=== PATIENT | female | born 1985 | race American Indian/Alaskan Native ===

== ENCOUNTER 2016-09-30 19:14 | Emergency (ER) | payer MEDICAID ==
[2016-09-30 19:38] VITALS: BP 114/70
[2016-09-30] MEDS ORDERED: Ibuprofen 600 MG Tab PO ONE (20:41)
[2016-09-30] MEDS ORDERED: Acetaminophen 500 MG Tab PO ONE (20:41)
[2016-09-30] MEDS ORDERED: Mupirocin Oint 22 GM Tube TOP STA (20:41)
--- NOTE | 2016-09-30 20:43 | EDM.PDOC ---
ED HPI Trauma - General Chief Complaint: Lower Extremity Injury/Pain Stated Complaint: INGROWN TOE NAIL,PUSS WITH BLOOD Time Seen by Provider: 09/30/16 20:36 Source: Reports: Patient History Limitations: Reports: No limitations - History of Present Illness INITIAL COMMENTS - FREE TEXT/NARRATIVE: 31 yo [place] Female c/o recent left great ingrown toenail surgery pain. Pt. c/ o post op bleeding and pain. Symptom Onset Date: 09/29/16 Symptom Onset Time: 20:00 Occurred When: yesterday Occurred Where: home Method of Injury: other (recnet ingrown toenail surgery) Severity: moderate Pain/Injury Location: Reports: lower extremity, left Consciousness: Reports: no loss of consciousness Associated Symptoms: Reports: no other symptoms Allergies/ADRs: Allergies amoxicillin Allergy (Verified 09/30/16 19:34) Other pt states amoxicillin doesn't work Penicillins Allergy (Verified 09/30/16 19:34) Other PATIENT STATES PENICILLIN DOESN'T WORK Home Medications: Ambulatory Orders Hydrocort/Neomycin/Polymyxin B [Cortisporin Otic Soln] 09/30/16 Hydrocort/Neomycin/Polymyxin B [Cortisporin Otic Soln] 1 ml TOP DAILY 09/30/16 [ Confirmed 09/30/16] Past Medical History - Past Health History Medical/Surgical History: Denies Medical/Surgical History HEENT History: Reports: Impaired vision Other HEENT History: wears glasses Cardiovascular History: Reports: None Respiratory History: Reports: None Gastrointestinal History: Reports: Bowel obstruction, Diverticulosis Genitourinary History: Reports: UTI, recurrent 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) Other OB/BYN History: ovarian cysts Musculoskeletal History: Reports: None Neurological History: Reports: None Psychiatric History: Reports: None Endocrine/Metabolic History: Reports: None Hematologic History: Reports: None Immunologic History: Reports: None Oncologic (Cancer) History: Reports: None Dermatologic History: Reports: Other (see below) Other Dermatologic History: acne - Infectious Disease History Infectious Disease History: Reports: Chicken pox - Past Surgical History Head Surgeries/Procedures: Reports: None HEENT Surgical History: Reports: Tonsillectomy, Other (see below) Other HEENT Surgeries/Procedures: wisdom teeth GI Surgical History: Reports: Colon Other GI Surgeries/Procedures: removed"a foot of stool" 3 years ago Other Female Surgeries/Procedures: ovarian cysts Social & Family History - Family History Family Medical History: Noncontributory - Tobacco Use Smoking Status *Q: Never Smoker Second Hand Smoke Exposure: No - Caffeine Use Caffeine Use: Reports: None - Alcohol Use Days Per Week of Alcohol Use: 1 Number of Drinks Per Day: 2 Total Drinks Per Week: 2 - Recreational Drug Use Recreational Drug Use: No - Living Situation & Occupation Living situation: Reports: with family Review of Systems - Review of Systems Review Of Systems: See Below Constitutional: Reports: no symptoms Eyes: Reports: no symptoms Ears: Reports: no symptoms Nose: Reports: no symptoms Mouth/Throat: Reports: no symptoms Respiratory: Reports: No Symptoms Cardiovascular: Reports: no symptoms GI/Abdominal: Reports: No symptoms Genitourinary: Reports: no symptoms Musculoskeletal: Reports: foot pain (left great toe) Skin: Reports: erythema Neurological: Reports: No Symptoms Psychiatric: Reports: no symptoms Trauma Exam - Physical Exam Exam: See Below Exam Limited By: No limitations General Appearance: Reports: alert, WD/WN, no apparent distress Head: Reports: atraumatic Eyes: bilateral eye: PERRL Ears: Reports: normal external exam Nose: Reports: normal inspection Throat/Mouth: Reports: Normal inspection Neck: Reports: non-tender Respiratory Exam: Reports: no respiratory distress Cardiovascular: Reports: normal peripheral pulses, regular rate, rhythm GI/Abdominal: Reports: normal bowel sounds Back: Reports: full range of motion Extremities: Reports: tenderness (left great toe with min erythema) 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, no motor/sensory deficits, normal mood/affect, oriented x 3 Skin: Reports: Normal color Course - Vital Signs Last Recorded V/S: Last Vital Signs Temp 36.9 C 09/30/16 19:35 Pulse 84 09/30/16 19:35 Resp 18 09/30/16 19:35 BP 114/70 09/30/16 19:35 Pulse Ox 99 09/30/16 19:35 - Orders/Labs/Meds Meds: Medications Discontinued Medications Generic Name Dose Route Start Last Admin Trade Name Freq PRN Reason Stop Dose Admin Acetaminophen 500 mg 09/30/16 20:41 Tylenol Extra Strength PO 09/30/16 20:42 ONETIME ONE Ibuprofen 600 mg 09/30/16 20:41 Motrin PO 09/30/16 20:42 ONETIME ONE Mupirocin 2 gm 09/30/16 20:41 Bactroban Oint TOP 09/30/16 20:42 NOW STA Departure - Departure Time of Disposition: 20:49 Disposition: Home, Self-Care 01 Condition: good Clinical Impression: History of toe surgery, Toe pain, left Forms: ED Department Discharge Additional Instructions: Elevate Take OTC Pain Med ( Ibuprofen 600mg TID w/ Food and Extra Strength Tylenol 500mg QID) Change dressing Once Daily w/ Bactroban Ointment F/U w/ Doctor on Sunday
== END 2016-09-30 20:59 | disposition home or self-care (01) ==
LOC: DL.ED 19:14
DX: G89.18 Other acute postprocedural pain (principal); M79.675 Pain in left toe(s); Z88.0 Allergy status to penicillin; Z88.1 Allergy status to other antibiotic agents; Z98.890 Other specified postprocedural states
CPT/HCPCS: 99282; A9270

== ENCOUNTER 2016-11-21 09:45 | Emergency (ER) | payer MEDICAID ==
[2016-11-21] MEDS ORDERED: Sodium Chloride 0.9% 10 ML Syringe FLUSH PRN (09:58)
[2016-11-21 10:35] LABS: CHLORIDE,CL 101 mmol/L (101-111); SODIUM,NA 136 mmol/L (135-145)
[2016-11-21 11:07] VITALS: BP 146/73
[2016-11-21] MEDS ORDERED: Iopamidol 612 MG/ML 50 ML SDV IVPUSH ONE ×2 (11:20→11:54)
[2016-11-21] MEDS ORDERED: Iopamidol 612 MG/ML 75 ML Bottle IVPUSH ONE (11:55)
--- NOTE | 2016-11-21 12:05 | EDM.PDOC ---
ED HPI GENERAL MEDICAL PROBLEM - General Chief Complaint: Abdominal Pain Stated Complaint: DIVERTICULITIS [phone] Time Seen by Provider: 11/21/16 10:30 Source of Information: Reports: Patient, RN Notes Reviewed History Limitations: Reports: No Limitations - History of Present Illness INITIAL COMMENTS - FREE TEXT/NARRATIVE: patient is a 31-year-old morbidly obese female with a history of diverticulitis. Comes in today with a five-day history of abdominal pain. She states she saw her primary care provider on Sunday and was started on Cipro and Flagyl but had no labs or nice fever chills nausea or vomit she states the pain has not improved she states the pain is a dull aching pain in her lower abdomen and radiates into her right low back. She states nothing makes it better nothing makes it worse. She rates her pain a 7/10 Severity: Moderate Improves with: Reports: None Worsens with: Reports: None Lower Abdomen Pain Score (Numeric/FACES): 8 - Related Data Allergies Allergy/AdvReac Type Severity Reaction Status Date / Time amoxicillin Allergy Other Verified 09/30/16 19:34 Penicillins Allergy Other Verified 09/30/16 19:34 Home Meds: Home Meds Ciprofloxacin HCl [Ciprofloxacin HCl] 500 mg PO BID 11/21/16 [History] Metronidazole [IJD: metroNIDAZOLE] 500 mg PO .EVERY 8 HOURS 11/21/16 [History] Past Medical History - Past Health History Medical/Surgical History: Denies Medical/Surgical History HEENT History: Reports: Impaired Vision Other HEENT History: wears glasses Cardiovascular History: Reports: None Respiratory History: Reports: None Gastrointestinal History: Reports: Bowel Obstruction, Diverticulosis Genitourinary History: Reports: UTI, Recurrent 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) Other OB/BYN History: ovarian cysts Musculoskeletal History: Reports: None Neurological History: Reports: None Psychiatric History: Reports: None Endocrine/Metabolic History: Reports: None Hematologic History: Reports: None Immunologic History: Reports: None Oncologic (Cancer) History: Reports: None Dermatologic History: Reports: Other (See Below) Other Dermatologic History: acne - Infectious Disease History Infectious Disease History: Reports: Chicken Pox - Past Surgical History Head Surgeries/Procedures: Reports: None HEENT Surgical History: Reports: Tonsillectomy, Other (See Below) Social & Family History - Family History Family Medical History: Noncontributory - Tobacco Use Smoking Status *Q: Never Smoker Second Hand Smoke Exposure: No - Caffeine Use Caffeine Use: Reports: None - Alcohol Use Days Per Week of Alcohol Use: 1 Number of Drinks Per Day: 2 Total Drinks Per Week: 2 - Recreational Drug Use Recreational Drug Use: No - Living Situation & Occupation Living situation: Reports: with Family ED ROS GENERAL - Review of Systems Review Of Systems: ROS reveals no pertinent complaints other than HPI. ED EXAM, GI/ABD - Physical Exam Exam: See Below Exam Limited By: No Limitations General Appearance: Alert, WD/WN, No Apparent Distress Throat/Mouth: Normal Inspection, Normal Lips, Normal Teeth, Normal Gums, Normal Oropharynx, Normal Voice, No Airway Compromise Head: Atraumatic, Normocephalic Respiratory/Chest: No Respiratory Distress, Lungs Clear, Normal Breath Sounds, No Accessory Muscle Use, Chest Non-Tender Cardiovascular: Normal Peripheral Pulses, Regular Rate, Rhythm, No Edema, No Gallop, No JVD, No Murmur, No Rub GI/Abdominal: Normal Bowel Sounds, Soft, No Organomegaly, No Distention, No Abnormal Bruit, No Mass, Tenderness, Other (mildly tender suprapubically). No: Distention, Guarding, Rebound (Female) Exam: Other (denies vaginal discharge vaginal odor or STD exposure) Extremities: Normal Inspection, Normal Range of Motion, Non-Tender, Normal Capillary Refill, No Pedal Edema Neurological: Alert, Oriented, CN II-XII Intact, Normal Cognition, Normal Gait, Normal Reflexes, No Motor/Sensory Deficits Psychiatric: Normal Affect, Normal Mood Skin Exam: Warm, Dry, Intact, Normal Color, No Rash Course - Vital Signs Last Recorded V/S: Last Vital Signs Temp 97.3 F 11/21/16 09:54 Pulse 86 11/21/16 11:07 Resp 16 11/21/16 11:07 BP 146/73 H 11/21/16 11:07 Pulse Ox 100 11/21/16 11:07 - Orders/Labs/Meds Orders: Active Orders 24 hr Category Date Time Status Peripheral IV Care [RC] . DIRECTED Care 11/21/16 09:58 Active Sodium Chloride 0.9% [Saline Flush] Med 11/21/16 09:58 Active 10 ml FLUSH ASDIRECTED PRN Peripheral IV Insertion Adult [OM.PC] Routine Oth 11/21/16 09:58 Ordered Medication Orders Sodium Chloride (Saline Flush) 10 ml FLUSH ASDIRECTED PRN PRN Reason: Keep Vein Open Last Admin: 11/21/16 10:10 Dose: 10 ml Labs: Laboratory Tests 11/21/16 11/21/16 11/21/16 Range/Units 09:57 09:57 10:09 WBC 11.6 H (5.0-10.0) 10^3/uL RBC 4.54 (4.2-5.4) 10^6/uL Hgb 13.6 (12.0-16.0) g/dL Hct 41.0 (37.0-47.0) % MCV 90.3 (80-100) fL MCH 30.0 (27.0-34.0) pg MCHC 33.2 (33.0-35.0) g/dL Plt Count 262 (150-450) 10^3/uL Neut % (Auto) 68.1 (42.2-75.2) % Lymph % (Auto) 21.9 (20.5-50.1) % [place] % (Auto) 7.4 (2-8) % Eos % (Auto) 2.3 (1.0-3.0) % Baso % (Auto) 0.3 (0.0-1.0) % Sodium (135-145) mmol/L Potassium (3.6-5.0) mmol/L Chloride (101-111) mmol/L Carbon Dioxide (21.0-31.0) mmol/L Anion Gap BUN (7-18) mg/dL Creatinine (0.6-1.3) mg/dL Est Cr Clr Drug Dosing mL/min Estimated GFR (MDRD) BUN/Creatinine Ratio Glucose (74-105) mg/dL Calcium (8.4-10.2) mg/dl Total Bilirubin (0.2-1.0) mg/dL AST (10-42) IU/L ALT (10-60) IU/L Alkaline Phosphatase (42-121) IU/L Total Protein (6.7-8.2) g/dl Albumin (3.2-5.5) g/dl Globulin Albumin/Globulin Ratio Lipase (22-51) U/L Urine Color Yellow (YELLOW) Urine Appearance Slightly cloudy (CLEAR) Urine pH 5.5 (5.0-9.0) Ur Specific [place] 1.015 (1.005-1.030) Urine Protein Negative (NEGATIVE) Urine Glucose (UA) Negative (NEGATIVE) Urine Ketones Negative (NEGATIVE) Urine Occult Blood Negative (NEGATIVE) Urine Nitrite Negative (NEGATIVE) Urine Bilirubin Negative (NEGATIVE) Urine Urobilinogen 0.2 (0.2-1.0) mg/dL Ur Leukocyte Esterase Trace H (NEGATIVE) Urine RBC Not seen /HPF Urine WBC 0-5 (0-5/HPF) /HPF Ur Epithelial Cells Few /HPF Urine Bacteria Few (0-FEW/HPF) /HPF Urine HCG, Qual Negative 11/21/16 Range/Units 10:09 WBC (5.0-10.0) 10^3/uL RBC (4.2-5.4) 10^6/uL Hgb (12.0-16.0) g/dL Hct (37.0-47.0) % MCV (80-100) fL MCH (27.0-34.0) pg MCHC (33.0-35.0) g/dL Plt Count (150-450) 10^3/uL Neut % (Auto) (42.2-75.2) % Lymph % (Auto) (20.5-50.1) % Pender % (Auto) (2-8) % Eos % (Auto) (1.0-3.0) % Baso % (Auto) (0.0-1.0) % Sodium 136 (135-145) mmol/L Potassium 3.8 (3.6-5.0) mmol/L Chloride 101 (101-111) mmol/L Carbon Dioxide 25.0 (21.0-31.0) mmol/L Anion Gap 13.8 BUN 10 (7-18) mg/dL Creatinine 0.6 (0.6-1.3) mg/dL Est Cr Clr Drug Dosing 138.30 mL/min Estimated GFR (MDRD) > 60 BUN/Creatinine Ratio 16.66 Glucose 126 H (74-105) mg/dL Calcium 8.9 (8.4-10.2) mg/dl Total Bilirubin 0.4 (0.2-1.0) mg/dL AST 24 (10-42) IU/L ALT 26 (10-60) IU/L Alkaline Phosphatase 56 (42-121) IU/L Total Protein 7.0 (6.7-8.2) g/dl Albumin 3.9 (3.2-5.5) g/dl Globulin 3.1 Albumin/Globulin Ratio 1.26 Lipase 23 (22-51) U/L Urine Color (YELLOW) Urine Appearance (CLEAR) Urine pH (5.0-9.0) Ur Specific [place] (1.005-1.030) Urine Protein (NEGATIVE) Urine Glucose (UA) (NEGATIVE) Urine Ketones (NEGATIVE) Urine Occult Blood (NEGATIVE) Urine Nitrite (NEGATIVE) Urine Bilirubin (NEGATIVE) Urine Urobilinogen (0.2-1.0) mg/dL Ur Leukocyte Esterase (NEGATIVE) Urine RBC /HPF Urine WBC (0-5/HPF) /HPF Ur Epithelial Cells /HPF Urine Bacteria (0-FEW/HPF) /HPF Urine HCG, Qual Meds: Medications Generic Name Dose Route Start Last Admin Trade Name Freq PRN Reason Stop Dose Admin Sodium Chloride 10 ml 11/21/16 09:58 11/21/16 10:10 Saline Flush FLUSH 10 ml ASDIRECTED PRN Administration Keep Vein Open Discontinued Medications Generic Name Dose Route Start Last Admin Trade Name Freq PRN Reason Stop Dose Admin Iopamidol 125 ml 11/21/16 11:20 Isovue-300 (61%) IVPUSH 11/21/16 11:21 ONETIME ONE Iopamidol 50 ml 11/21/16 11:54 11/21/16 11:57 Isovue-300 (61%) IVPUSH 11/21/16 11:55 50 ml ONETIME ONE Administration Iopamidol 75 ml 11/21/16 11:55 11/21/16 11:57 Isovue-300 (61%) IVPUSH 11/21/16 11:56 75 ml ONETIME ONE Administration - Re-Assessments/Exams Free Text/Narrative Re-Assessment/Exam: 11/21/16 11:54 patient had IV established and blood work was obtained patient's white count was urinalysis was normal CMP was normal the results were discussed with the patient and the patient was adamant that she needed a CAT scan. She also stated that she needed a work note and something for pain I told her I would not give her something for pain and I did not know what I was treating the the CAT scan was ordered-3 cm diameter right ovarian cyst and diverticulosis without diverticulitis.patient will be discharged home to followup with her MINE LABORER she' ll be given some Tylenol No. 3 for her discomfort. 11/21/16 12:36 Departure - Departure Time of Disposition: 12:36 Disposition: Home, Self-Care 01 Condition: good Clinical Impression: Abdominal pain, Ovarian cyst Pain in the abdomen Qualifiers: Abdominal location: right lower quadrant Qualified Code(s): R10.31 - Right lower quadrant pain - Discharge Information Instructions: Abdominal Pain, Adult, [id number], Ovarian Cyst, Pain Medicine Instructions, [id number] Forms: ED Department Discharge Additional Instructions: discharge diagnose abdominal pain Ovarian cyst use Tylenol No. 3 as needed for pain do not drive or mix with alcohol Followup with your MINE LABORER in the next 3-5 days for further evaluation treatment and pain management. Return for increased pain nausea vomiting fever or worsening symptoms - My Orders Last 24 Hours: My Active Orders 11/21/16 09:58 Peripheral IV Care [RC] . DIRECTED Sodium Chloride 0.9% [Saline Flush] 10 ml FLUSH ASDIRECTED PRN Peripheral IV Insertion Adult [OM.PC] Routine - Assessment/Plan Last 24 Hours: My Active Orders 11/21/16 09:58 Peripheral IV Care [RC] . DIRECTED Sodium Chloride 0.9% [Saline Flush] 10 ml FLUSH ASDIRECTED PRN Peripheral IV Insertion Adult [OM.PC] Routine
--- NOTE | 2016-11-21 12:21 | CT ---
31-year-old obese female with history of "diverticulitis" now complaining of abdominal pain. Scan technique: Volume acquisition of data abdomen and pelvis obtained without oral contrast but dur ing intravenous infusion 125 cc nonionic Isovue contrast while patient was lying supine on the [employer] multi slice CT scanner [place], [place]. All data archived in the PAC system for storage, reformatting and study. Interpretation: 1. Numerous diverticula in the descending left and sigmoid colon without current signs of associated inflammation (surgical sutures left colon). Large [place] diverticulum hepatic flexure. 2. Solitary large 3 cm diameter cyst right ovary and smaller adjacent 7/15 mm cysts in the left ovar y. Normal uterus. Normal appendix RLQ. 3. Gallbladder inhomogeneously dense and cannot exclude noncalcified intraluminal stones. Normal rupali er without sign of intrahepatic mass or intra/\\E\\slash extrahepatic biliary duct dilatation. 4. Stomach, spleen, pancreas and adrenal glands unremarkable. Normal kidneys. 5. no pelvic or abdominal mass lesion, inflammatory "dirty" peritoneal fat, signs of mechanical nicol l obstruction, ascites or free intraperitoneal air. 6. normal cardiac silhouette. Lung bases clear. Normal caliber aortoiliac vessels. CONCLUSION: Pancolonic diverticulosis. Ovarian cysts. No sign of acute peritonitis.
== END 2016-11-21 12:48 | disposition home or self-care (01) ==
LOC: DL.ED 09:45
DX: N83.201 Unspecified ovarian cyst, right side (principal); K57.30 Diverticulosis of large intestine without perforation or abscess without bleeding; Z88.1 Allergy status to other antibiotic agents; Z88.0 Allergy status to penicillin; Z87.440 Personal history of urinary (tract) infections
CPT/HCPCS: 36415; 74177; 80053; 81001; 81025; 83690; 85025; 99284; J7050; Q9967

== ENCOUNTER 2017-03-18 10:29 | Emergency (ER) | payer MEDICAID ==
[2017-03-18 10:40] VITALS: BP 121/56
[2017-03-18] MEDS ORDERED: Sodium Chloride 0.9% 10 ML Syringe FLUSH PRN (11:22)
--- NOTE | 2017-03-18 11:22 | EDM.PDOC ---
ED HPI GENERAL MEDICAL PROBLEM - General Chief Complaint: Abdominal Pain Stated Complaint: [id number] LEFT SIDE SHARP PAIN Time Seen by Provider: 03/18/17 11:18 Source of Information: Reports: Patient History Limitations: Reports: No Limitations - History of Present Illness INITIAL COMMENTS - FREE TEXT/NARRATIVE: 31 yo female presents with 2 day history of left lower quadrant abdominal pain. States that she has a history of diverticulitis but pain is usually on the right side, denies n/v/d. Describes pain as sharp and non-radiating. States that she has also been having vaginal bleeding x 1 month. 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 [No Known Home Meds] 03/18/17 [History] Past Medical History - Past Health History Medical/Surgical History: Denies Medical/Surgical History HEENT History: Reports: Impaired Vision Other HEENT History: wears glasses Cardiovascular History: Reports: None Respiratory History: Reports: None Gastrointestinal History: Reports: Bowel Obstruction, Diverticulosis Genitourinary History: Reports: UTI, Recurrent CORPORATION PILOT History: Reports: Other (See Below) Other OB/BYN History: ovarian cysts Musculoskeletal History: Reports: None Neurological History: Reports: None Psychiatric History: Reports: None Endocrine/Metabolic History: Reports: None Hematologic History: Reports: None Immunologic History: Reports: None Oncologic (Cancer) History: Reports: None Dermatologic History: Reports: Other (See Below) Other Dermatologic History: acne - Infectious Disease History Infectious Disease History: Reports: Chicken Pox - Past Surgical History Head Surgeries/Procedures: Reports: None HEENT Surgical History: Reports: Tonsillectomy, Other (See Below) Other HEENT Surgeries/Procedures: wisdom teeth GI Surgical History: Reports: Colon, Colonoscopy Social & Family History - Family History Family Medical History: Noncontributory - Tobacco Use Smoking Status *Q: Never Smoker Second Hand Smoke Exposure: No - Caffeine Use Caffeine Use: Reports: None - Alcohol Use Days Per Week of Alcohol Use: 1 Number of Drinks Per Day: 2 Total Drinks Per Week: 2 - Recreational Drug Use Recreational Drug Use: No - Living Situation & Occupation Living situation: Reports: with Family ED ROS GENERAL - Review of Systems Review Of Systems: ROS reveals no pertinent complaints other than HPI. ED EXAM, GI/ABD - Physical Exam Exam: See Below Exam Limited By: No Limitations General Appearance: Alert, WD/WN, No Apparent Distress Eyes: Bilateral: Normal Appearance, EOMI Ears: Normal External Exam, Normal Canal, Hearing Grossly Normal, Normal TMs Nose: Normal Inspection, Normal Mucosa, No Blood Throat/Mouth: Normal Inspection, Normal Lips, Normal Teeth, Normal Gums, Normal Oropharynx, Normal Voice, No Airway Compromise Respiratory/Chest: No Respiratory Distress, Lungs Clear, Normal Breath Sounds, No Accessory Muscle Use, Chest Non-Tender Cardiovascular: Normal Peripheral Pulses, Regular Rate, Rhythm, No Edema, No Gallop, No JVD, No Murmur, No Rub GI/Abdominal Exam: Normal Bowel Sounds, Soft, No Organomegaly, No Distention, No Abnormal Bruit, No Mass, Pelvis Stable, Tender (LLQ) Back Exam: Normal Inspection, Full Range of Motion, NT Extremities: Normal Inspection, Normal Range of Motion, Non-Tender, Normal Capillary Refill, No Pedal Edema Neurological: Alert, Oriented, CN II-XII Intact, Normal Cognition, Normal Gait, No Motor/Sensory Deficits Skin Exam: Warm, Dry, Intact, Normal Color, No Rash Course - Vital Signs Last Recorded V/S: Last Vital Signs Temp Pulse 88 03/18/17 10:39 Resp 16 03/18/17 10:39 BP 121/56 L 03/18/17 10:39 Pulse Ox 99 03/18/17 10:39 - Orders/Labs/Meds Orders: Active Orders 24 hr Category Date Time Status Abdomen Pelvis w Cont [CT] Urgent Exams 03/18/17 12:15 Taken Acetaminophen/HYDROcodone [[place] 325-5 MG] Med 03/18/17 14:10 Once 1 tab PO ONETIME ONE Sodium Chloride 0.9% [Saline Flush] Med 03/18/17 11:22 Active 10 ml FLUSH ASDIRECTED PRN Saline Lock Insert [OM.PC] Stat Oth 03/18/17 11:22 Ordered Medication Orders Hydrocodone Bitart/Acetaminophen ([place] 325-5 Mg) 1 tab PO ONETIME ONE Stop: 03/18/17 14:11 Sodium Chloride (Saline Flush) 10 ml FLUSH ASDIRECTED PRN PRN Reason: Keep Vein Open Last Admin: 03/18/17 12:06 Dose: 10 ml Labs: Laboratory Tests 03/18/17 03/18/17 03/18/17 Range/Units 11:30 11:30 11:50 WBC 9.1 (5.0-10.0) 10^3/uL RBC 4.20 (4.2-5.4) 10^6/uL Hgb 12.6 (12.0-16.0) g/dL Hct 38.8 (37.0-47.0) % MCV 92.4 (80-100) fL MCH 30.0 (27.0-34.0) pg MCHC 32.5 L (33.0-35.0) g/dL Plt Count 251 (150-450) 10^3/uL Neut % (Auto) 66.6 (42.2-75.2) % Lymph % (Auto) 21.4 (20.5-50.1) % [place] % (Auto) 8.6 H (2-8) % Eos % (Auto) 3.2 H (1.0-3.0) % Baso % (Auto) 0.2 (0.0-1.0) % Sodium 141 (135-145) mmol/L Potassium 4.0 (3.6-5.0) mmol/L Chloride 104 (101-111) mmol/L Carbon Dioxide 29.0 (21.0-31.0) mmol/L Anion Gap 12.0 BUN 12 (7-18) mg/dL Creatinine 0.7 (0.6-1.3) mg/dL Est Cr Clr Drug Dosing 114.28 mL/min Estimated GFR (MDRD) > 60 BUN/Creatinine Ratio 17.14 Glucose 101 (74-105) mg/dL Calcium 8.9 (8.4-10.2) mg/dl Total Bilirubin 0.6 (0.2-1.0) mg/dL AST 12 (10-42) IU/L ALT 13 (10-60) IU/L Alkaline Phosphatase 51 (42-121) IU/L Total Protein 6.3 L (6.7-8.2) g/dl Albumin 3.1 L (3.2-5.5) g/dl Globulin 3.2 Albumin/Globulin Ratio 0.97 Amylase 30 (28-100) U/L Lipase 19 L (22-51) U/L Urine Color Yellow (YELLOW) Urine Appearance Slightly cloudy (CLEAR) Urine pH 7.5 (5.0-9.0) Ur Specific [place] 1.015 (1.005-1.030) Urine Protein Negative (NEGATIVE) Urine Glucose (UA) Negative (NEGATIVE) Urine Ketones Negative (NEGATIVE) Urine Occult Blood Moderate H (NEGATIVE) Urine Nitrite Negative (NEGATIVE) Urine Bilirubin Negative (NEGATIVE) Urine Urobilinogen 0.2 (0.2-1.0) mg/dL Ur Leukocyte Esterase Negative (NEGATIVE) Urine RBC 40-50 H /HPF Urine WBC 0-5 (0-5/HPF) /HPF Ur Epithelial Cells Few /HPF Urine Bacteria Rare (0-FEW/HPF) /HPF Urine Mucus Not seen /LPF Meds: Medications Generic Name Dose Route Start Last Admin Trade Name Freq PRN Reason Stop Dose Admin Hydrocodone Bitart/Acetaminophen 1 tab 03/18/17 14:10 [place] 325-5 Mg PO 03/18/17 14:11 ONETIME ONE Sodium Chloride 10 ml 03/18/17 11:22 03/18/17 12:06 Saline Flush FLUSH 10 ml ASDIRECTED PRN Administration Keep Vein Open Discontinued Medications Generic Name Dose Route Start Last Admin Trade Name Freq PRN Reason Stop Dose Admin Ketorolac Tromethamine 30 mg 03/18/17 14:04 Toradol IVPUSH 03/18/17 14:05 ONETIME ONE - Re-Assessments/Exams Free Text/Narrative Re-Assessment/Exam: 03/18/17 14:05 Large ovarian cyst to left ovary. Departure - Departure Time of Disposition: 14:05 Disposition: Home, Self-Care 01 Condition: Good Clinical Impression: Ovarian cyst Qualifiers: Laterality: left Qualified Code(s): N83.202 - Unspecified ovarian cyst, left side - Discharge Information Instructions: Ovarian Cyst Forms: ED Department Discharge Additional Instructions: Follow up with your [facility] as soon as possible to have the cyst re-evaluated. Take the motrin as needed. Care Plan Goals: motrin 800 #21 - My Orders Last 24 Hours: My Active Orders 03/18/17 11:22 Sodium Chloride 0.9% [Saline Flush] 10 ml FLUSH ASDIRECTED PRN Saline Lock Insert [OM.PC] Stat 03/18/17 12:15 Abdomen Pelvis w Cont [CT] Urgent 03/18/17 14:10 Acetaminophen/HYDROcodone [[place] 325-5 MG] 1 tab PO ONETIME ONE - Assessment/Plan Last 24 Hours: My Active Orders 03/18/17 11:22 Sodium Chloride 0.9% [Saline Flush] 10 ml FLUSH ASDIRECTED PRN Saline Lock Insert [OM.PC] Stat 03/18/17 12:15 Abdomen Pelvis w Cont [CT] Urgent 03/18/17 14:10 Acetaminophen/HYDROcodone [[place] 325-5 MG] 1 tab PO ONETIME ONE
[2017-03-18 11:57] LABS: CHLORIDE,CL 104 mmol/L (101-111); SODIUM,NA 141 mmol/L (135-145)
[2017-03-18] MEDS ORDERED: Ketorolac 30 MG/ML SDV IVPUSH ONE (14:04)
[2017-03-18] MEDS ORDERED: Acetaminophen/HYDROcodone 325-5 MG Tab PO ONE (14:10)
== END 2017-03-18 14:27 | disposition home or self-care (01) ==
LOC: DL.ED 10:29
DX: N83.202 Unspecified ovarian cyst, left side (principal); Z87.440 Personal history of urinary (tract) infections; Z98.890 Other specified postprocedural states; Z88.0 Allergy status to penicillin; Z88.1 Allergy status to other antibiotic agents
CPT/HCPCS: 36415; 74177; 80053; 81001; 82150; 83690; 85025; 96374; 99284; A9270; J1885; J7050; Q9967

== ENCOUNTER 2017-03-22 10:50 | Emergency (ER) | payer MEDICAID ==
[2017-03-22] MEDS ORDERED: HYDROmorphone 1 MG/ML Syringe IVPUSH ONE (11:25)
[2017-03-22] MEDS ORDERED: Sodium Chloride 0.9% 10 ML Syringe FLUSH PRN (11:26)
--- NOTE | 2017-03-22 11:28 | EDM.PDOC ---
ED HPI GENERAL MEDICAL PROBLEM - General Chief Complaint: Abdominal Pain Stated Complaint: LEFT UPPER SIDE Time Seen by Provider: 03/22/17 11:23 Source of Information: Reports: Patient History Limitations: Reports: No Limitations - History of Present Illness INITIAL COMMENTS - FREE TEXT/NARRATIVE: Susy is a 31 year old female who presents to the ER with complaints of left upper abdominal pain with radiation to left back. She reports she woke up this morning with the sharp pain. She has tried Motrin for the pain without relief. She reports this pain is not similar to the pain she was experiencing earlier this week. Pain is aggravated by movement and deep breathing. She was seen in the ER on 03/18/2017 and was found to have a left ovarian cyst on CT. She followed up with [facility] [facility] yesterday, who recommended she start oral contraceptives on Sunday. She reports she has had vaginal bleeding x 1 month. Reports moderately heavy flow. Denies . Reports normal menses prior to this past month. Denies history of kidney stones or pancreatitis. Onset: Today, Sudden Onset Date: 03/22/17 Onset Time: 08:00 Location: Reports: Abdomen (left upper) Quality: Reports: Sharp Severity: Moderate Improves with: Reports: None Worsens with: Reports: Movement Associated Symptoms: Reports: No Other Symptoms Treatments HEDIS ABSTRACTOR: Reports: NSAIDS (800 mg ibuprofen) Left Upper Abdomen Pain Score (Numeric/FACES): 10 - Related Data Allergies Allergy/AdvReac Type Severity Reaction Status Date / Time amoxicillin Allergy Other Verified 03/22/17 11:04 Penicillins Allergy Other Verified 03/22/17 11:04 Home Meds: Home Meds . 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 History: Reports: 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 (vaginal bleeding x 1 month), Other (See Below) Other OB/BYN History: ovarian cysts Musculoskeletal History: Reports: None Neurological History: Reports: None Psychiatric History: Reports: None Endocrine/Metabolic History: Reports: None Hematologic History: Reports: None Immunologic History: Reports: None Oncologic (Cancer) History: Reports: None Dermatologic History: Reports: Other (See Below) Other Dermatologic History: acne - Infectious Disease History Infectious Disease History: Reports: Chicken Pox - Past Surgical History Head Surgeries/Procedures: Reports: None HEENT Surgical History: Reports: Tonsillectomy, Other (See Below) Other HEENT Surgeries/Procedures: wisdom teeth GI Surgical History: Reports: Colon, Colonoscopy Social & Family History - Family History Family Medical History: Noncontributory - Tobacco Use Smoking Status *Q: Never Smoker Second Hand Smoke Exposure: No - Caffeine Use Caffeine Use: Reports: None - Alcohol Use Days Per Week of Alcohol Use: 1 Number of Drinks Per Day: 2 Total Drinks Per Week: 2 - Recreational Drug Use Recreational Drug Use: No - Living Situation & Occupation Living situation: Reports: with Family ED ROS GENERAL - Review of Systems Review Of Systems: See Below Constitutional: Reports: No Symptoms Respiratory: Reports: No Symptoms Cardiovascular: Reports: No Symptoms GI/Abdominal: Reports: Abdominal Pain (left upper) : Reports: Flank Pain (left flank), Irregular Menses (bleeding x 1 month) Neurological: Reports: No Symptoms ED EXAM, GI/ABD - Physical Exam Exam: See Below Exam Limited By: No Limitations General Appearance: Alert, WD/WN, Mild Distress Respiratory/Chest: No Respiratory Distress, Lungs Clear, Normal Breath Sounds, No Accessory Muscle Use, Chest Non-Tender Cardiovascular: Normal Peripheral Pulses, Regular Rate, Rhythm, No Edema, No Gallop, No JVD, No Murmur, No Rub GI/Abdominal Exam: Normal Bowel Sounds, Soft, No Organomegaly, No Distention, No Mass, Tender (Female) Exam: Vaginal Bleeding Back Exam: Full Range of Motion, CVA Tenderness (L) Extremities: Normal Inspection, Normal Range of Motion, Non-Tender, Normal Capillary Refill, No Pedal Edema Neurological: Alert, Oriented, CN II-XII Intact, Normal Cognition, Normal Gait, Normal Reflexes, No Motor/Sensory Deficits Psychiatric: Normal Affect, Normal Mood, Anxious, Tearful Skin Exam: Warm, Dry, Intact, Normal Color, No Rash Lymphatic: No Adenopathy Course - Vital Signs Last Recorded V/S: Last Vital Signs Temp 36.4 C 03/22/17 11:07 Pulse 79 03/22/17 11:07 Resp 18 03/22/17 11:07 BP 102/61 03/22/17 11:07 Pulse Ox 97 03/22/17 11:07 - Orders/Labs/Meds Orders: Active Orders 24 hr Category Date Time Status Sodium Chloride 0.9% [Normal Saline] 1,000 ml Med 03/22/17 11:30 Active IV ASDIRECTED Sodium Chloride 0.9% [Saline Flush] Med 03/22/17 11:26 Active 10 ml FLUSH ASDIRECTED PRN Saline Lock Insert [OM.PC] Routine Oth 03/22/17 11:26 Ordered Medication Orders Sodium Chloride (Normal Saline) 1,000 mls @ 999 mls/hr IV ASDIRECTED CARMELO Last Admin: 03/22/17 11:36 Dose: 999 mls/hr Sodium Chloride (Saline Flush) 10 ml FLUSH ASDIRECTED PRN PRN Reason: Keep Vein Open Last Admin: 03/22/17 11:40 Dose: 10 ml Labs: Laboratory Tests 03/22/17 03/22/17 03/22/17 Range/Units 11:26 11:26 11:30 WBC 10.3 H (5.0-10.0) 10^3/uL RBC 4.31 (4.2-5.4) 10^6/uL Hgb 12.9 (12.0-16.0) g/dL Hct 39.8 (37.0-47.0) % MCV 92.3 (80-100) fL MCH 29.9 (27.0-34.0) pg MCHC 32.4 L (33.0-35.0) g/dL Plt Count 258 (150-450) 10^3/uL Neut % (Auto) 66.1 (42.2-75.2) % Lymph % (Auto) 21.4 (20.5-50.1) % [place] % (Auto) 9.8 H (2-8) % Eos % (Auto) 2.3 (1.0-3.0) % Baso % (Auto) 0.4 (0.0-1.0) % Sodium (135-145) mmol/L Potassium (3.6-5.0) mmol/L Chloride (101-111) mmol/L Carbon Dioxide (21.0-31.0) mmol/L Anion Gap BUN (7-18) mg/dL Creatinine (0.6-1.3) mg/dL Est Cr Clr Drug Dosing mL/min Estimated GFR (MDRD) BUN/Creatinine Ratio Glucose (74-105) mg/dL Calcium (8.4-10.2) mg/dl Total Bilirubin (0.2-1.0) mg/dL AST (10-42) IU/L ALT (10-60) IU/L Alkaline Phosphatase (42-121) IU/L Total Protein (6.7-8.2) g/dl Albumin (3.2-5.5) g/dl Globulin Albumin/Globulin Ratio Amylase (28-100) U/L Lipase (22-51) U/L Urine Color Red (YELLOW) Urine Appearance Slightly cloudy (CLEAR) Urine pH 5.5 (5.0-9.0) Ur Specific [place] 1.010 (1.005-1.030) Urine Protein 30 H (NEGATIVE) Urine Glucose (UA) Negative (NEGATIVE) Urine Ketones Negative (NEGATIVE) Urine Occult Blood Large H (NEGATIVE) Urine Nitrite Negative (NEGATIVE) Urine Bilirubin Negative (NEGATIVE) Urine Urobilinogen 0.2 (0.2-1.0) mg/dL Ur Leukocyte Esterase Trace H (NEGATIVE) Urine RBC Semi-packed H /HPF Urine WBC 0-5 (0-5/HPF) /HPF Ur Epithelial Cells Occasional /HPF Urine Bacteria Rare (0-FEW/HPF) /HPF Urine Opiates Screen Negative (NEGATIVE) Ur Oxycodone Screen Negative (NEGATIVE) Urine Methadone Screen Negative (NEGATIVE) Ur Barbiturates Screen Negative (NEGATIVE) U Tricyclic Antidepress Negative (NEGATIVE) Ur Phencyclidine Scrn Negative (NEGATIVE) Ur Amphetamine Screen Negative (NEGATIVE) U Methamphetamines Scrn Negative (NEGATIVE) Urine MDMA Screen Negative (NEGATIVE) U Benzodiazepines Scrn Negative (NEGATIVE) Urine Cocaine Screen Negative (NEGATIVE) U Marijuana (THC) Screen Negative (NEGATIVE) 03/22/17 Range/Units 11:30 WBC (5.0-10.0) 10^3/uL RBC (4.2-5.4) 10^6/uL Hgb (12.0-16.0) g/dL Hct (37.0-47.0) % MCV (80-100) fL MCH (27.0-34.0) pg MCHC (33.0-35.0) g/dL Plt Count (150-450) 10^3/uL Neut % (Auto) (42.2-75.2) % Lymph % (Auto) (20.5-50.1) % [place] % (Auto) (2-8) % Eos % (Auto) (1.0-3.0) % Baso % (Auto) (0.0-1.0) % Sodium 141 (135-145) mmol/L Potassium 3.7 (3.6-5.0) mmol/L Chloride 108 (101-111) mmol/L Carbon Dioxide 27.0 (21.0-31.0) mmol/L Anion Gap 9.7 BUN 11 (7-18) mg/dL Creatinine 0.6 (0.6-1.3) mg/dL Est Cr Clr Drug Dosing 135.81 mL/min Estimated GFR (MDRD) > 60 BUN/Creatinine Ratio 18.33 Glucose 100 (74-105) mg/dL Calcium 8.7 (8.4-10.2) mg/dl Total Bilirubin 0.6 (0.2-1.0) mg/dL AST 16 (10-42) IU/L ALT 15 (10-60) IU/L Alkaline Phosphatase 47 (42-121) IU/L Total Protein 6.6 L (6.7-8.2) g/dl Albumin 3.5 (3.2-5.5) g/dl Globulin 3.1 Albumin/Globulin Ratio 1.13 Amylase 30 (28-100) U/L Lipase 20 L (22-51) U/L Urine Color (YELLOW) Urine Appearance (CLEAR) Urine pH (5.0-9.0) Ur Specific [place] (1.005-1.030) Urine Protein (NEGATIVE) Urine Glucose (UA) (NEGATIVE) Urine Ketones (NEGATIVE) Urine Occult Blood (NEGATIVE) Urine Nitrite (NEGATIVE) Urine Bilirubin (NEGATIVE) Urine Urobilinogen (0.2-1.0) mg/dL Ur Leukocyte Esterase (NEGATIVE) Urine RBC /HPF Urine WBC (0-5/HPF) /HPF Ur Epithelial Cells /HPF Urine Bacteria (0-FEW/HPF) /HPF Urine Opiates Screen (NEGATIVE) Ur Oxycodone Screen (NEGATIVE) Urine Methadone Screen (NEGATIVE) Ur Barbiturates Screen (NEGATIVE) U Tricyclic Antidepress (NEGATIVE) Ur Phencyclidine Scrn (NEGATIVE) Ur Amphetamine Screen (NEGATIVE) U Methamphetamines Scrn (NEGATIVE) Urine MDMA Screen (NEGATIVE) U Benzodiazepines Scrn (NEGATIVE) Urine Cocaine Screen (NEGATIVE) U Marijuana (THC) Screen (NEGATIVE) Meds: Medications Generic Name Dose Route Start Last Admin Trade Name Freq PRN Reason Stop Dose Admin Sodium Chloride 1,000 mls @ 999 mls/hr 03/22/17 11:30 03/22/17 11:36 Normal Saline IV 999 mls/hr ASDIRECTED CARMELO Administration Sodium Chloride 10 ml 03/22/17 11:26 03/22/17 11:40 Saline Flush FLUSH 10 ml ASDIRECTED PRN Administration Keep Vein Open Discontinued Medications Generic Name Dose Route Start Last Admin Trade Name Freq PRN Reason Stop Dose Admin Hydromorphone HCl 0.5 mg 03/22/17 11:25 03/22/17 11:38 Dilaudid IVPUSH 03/22/17 11:26 0.5 mg ONETIME ONE Administration Departure - Departure Time of Disposition: 13:32 Disposition: Home, Self-Care 01 Condition: Fair Clinical Impression: Left ovarian cyst - Discharge Information Instructions: Abdominal Pain, Adult, [id number], Ovarian Cyst, [id number] Forms: ED Department Discharge Care Plan Goals: Discussed lab and imaging findings with patient. Discussed this pain is likely still related to her ovarian cyst. Advised her to start her oral contraceptives as directed by OBGYN. Script given for Tramadol 50 mg PO 1-2 tab Q 8 hours as needed for pain. Note provided for work 03/22/2017. Follow up with primary care provider/OBGYN or return to ER if symptoms worsen or do not improve. - My Orders Last 24 Hours: My Active Orders 03/22/17 11:26 Sodium Chloride 0.9% [Saline Flush] 10 ml FLUSH ASDIRECTED PRN Saline Lock Insert [OM.PC] Routine 03/22/17 11:30 Sodium Chloride 0.9% [Normal Saline] 1,000 ml IV ASDIRECTED - Assessment/Plan Last 24 Hours: My Active Orders 03/22/17 11:26 Sodium Chloride 0.9% [Saline Flush] 10 ml FLUSH ASDIRECTED PRN Saline Lock Insert [OM.PC] Routine 03/22/17 11:30 Sodium Chloride 0.9% [Normal Saline] 1,000 ml IV ASDIRECTED
[2017-03-22] MEDS ORDERED: Sodium Chloride 0.9% 1,000 ML IV SCH (11:30)
[2017-03-22 12:02] LABS: CHLORIDE,CL 108 mmol/L (101-111); SODIUM,NA 141 mmol/L (135-145)
--- NOTE | 2017-03-22 13:15 | CT ---
CLINICAL HISTORY: 31-year-old 300 pound female with left flank pain and "hematuria" (vaginal bleeding ) with history of ovarian cyst. SCAN TECHNIQUE: Volume acquisition of data from an unenhanced CT scan of the abdomen and pelvis sharan martines with this patient lying supine on the Siemens multislice scanner [place], [place]. All data archived in the PAC system for storage, reformatting and study. INTERPRETATION: 1. Levo roto lumbar scoliosis; old compression fractures with kyphosis at the thoracolumbar juncture; and multilevel disc disease and arthritic spurring thoracolumbar spine. 2. Numerous transverse, descending and sigmoid colon diverticula without signs of inflammation, i.e., diverticulosis. 3. Normal reniform size, axis and configuration bilaterally. No sign of nephrolithiasis or obstructiv e uropathy, i.e., no pyelocaliectasis or ureterectasis. Normal urinary bladder. (Solitary phlebolith lower pelvis, on the right). 4. Solitary large 3.2 cm diameter cyst, left ovary. 5. No other pelvic or abdominal mass lesion and no signs of mesenteric or retroperitoneal lymphadenop athy. No mechanical bowel obstruction, inflammatory "dirty" peritoneal fat, ascites or free intraperi toneal air. Normal appendix RLQ. 6. Gallbladder, unenhanced liver, stomach, spleen, pancreas and adrenal glands unremarkable. 7. Lung bases clear. CONCLUSION: Pancolonic diverticulosis. Left ovarian cyst. No sign of nephrolithiasis or obstructive u ropathy.
[2017-03-22 13:48] VITALS: BP 151/70
== END 2017-03-22 13:46 | disposition home or self-care (01) ==
LOC: DL.ED 10:50
DX: N83.202 Unspecified ovarian cyst, left side (principal); Z88.0 Allergy status to penicillin; Z88.1 Allergy status to other antibiotic agents; Z87.440 Personal history of urinary (tract) infections
CPT/HCPCS: 36415; 74176; 80053; 80305; 81001; 82150; 83690; 85025; 96361; 96374; 99284; J1170; J7030; J7050

== ENCOUNTER 2017-06-17 19:14 | Emergency (ER) | payer MEDICAID ==
[2017-06-17] MEDS ORDERED: Amoxicillin/Clavulanate K 500-125 MG Tab PO ONE ×2 (19:15→19:55)
[2017-06-17] MEDS ORDERED: Albuterol 6.7 GM Inhaler INH ONE ×2 (19:15→20:11)
[2017-06-17 19:39] VITALS: BP 129/76
[2017-06-17] MEDS ORDERED: Albuterol/Ipratropium 3.0-0.5 MG/3 ML Neb Soln NEB ONE (19:55)
--- NOTE | 2017-06-17 19:58 | EDM.PDOC ---
ED HPI GENERAL MEDICAL PROBLEM - General Chief Complaint: Respiratory Problem Stated Complaint: HARD TIME BREATHING AND EAR PAIN [id number] Time Seen by Provider: 06/17/17 19:52 Source of Information: Reports: Patient History Limitations: Reports: No Limitations - History of Present Illness INITIAL COMMENTS - FREE TEXT/NARRATIVE: states SHE IS NOT ALLERGIC TO PENICILLINS THE PROBLEM IS IT DOESN'T WORK AND ONLY [employer] WORKS AND SHE WANTS [employer] FOR HER BRONCHITIS. states exposed to bronchitis and been coughing non stop and now ears hurt too. Bilateral Chest Pain Score (Numeric/FACES): 9 - Related Data Allergies Allergy/AdvReac Type Severity Reaction Status Date / Time amoxicillin Allergy Other Verified 06/17/17 19:34 Penicillins Allergy Other Verified 06/17/17 19:34 Home Meds: Home Meds . 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, Other (See Below) Other OB/BYN History: ovarian cysts Musculoskeletal History: Reports: None Neurological History: Reports: None Psychiatric History: Reports: None Endocrine/Metabolic History: Reports: None Hematologic History: Reports: None Immunologic History: Reports: None Oncologic (Cancer) History: Reports: None Dermatologic History: Reports: Other (See Below) Other Dermatologic History: acne - Infectious Disease History Infectious Disease History: Reports: Chicken Pox - Past Surgical History Head Surgeries/Procedures: Reports: None HEENT Surgical History: Reports: Tonsillectomy, Other (See Below) Other HEENT Surgeries/Procedures: wisdom teeth GI Surgical History: Reports: Colon, Colonoscopy Social & Family History - Family History Family Medical History: Noncontributory - Tobacco Use Smoking Status *Q: Never Smoker Second Hand Smoke Exposure: No - Caffeine Use Caffeine Use: Reports: None - Alcohol Use Days Per Week of Alcohol Use: 1 Number of Drinks Per Day: 2 Total Drinks Per Week: 2 - Recreational Drug Use Recreational Drug Use: No - Living Situation & Occupation Living situation: Reports: with Family ED ROS GENERAL - Review of Systems Review Of Systems: ROS reveals no pertinent complaints other than HPI. ED EXAM, GENERAL - Physical Exam Exam: See Below Exam Limited By: No Limitations General Appearance: Alert, WD/WN, Mild Distress, Other (cough spasms) Ear Exam: Bilateral Ear: TM Dull Nose: Normal Inspection Throat/Mouth: Normal Voice, No Airway Compromise Head: Atraumatic Neck: Non-Tender, Full Range of Motion Respiratory/Chest: No Respiratory Distress, No Accessory Muscle Use, Rhonchi, Wheezing Cardiovascular: Regular Rate, Rhythm GI/Abdominal: Soft, Non-Tender Neurological: Alert, Oriented, Normal Cognition, Normal Gait, No Motor/Sensory Deficits Psychiatric: Flat Affect Skin Exam: Warm, Dry, Normal Color Lymphatic: No Adenopathy Course - Vital Signs Last Recorded V/S: Last Vital Signs Temp 36.6 C 06/17/17 19:38 Pulse 111 H 06/17/17 19:38 Resp 16 06/17/17 19:38 BP 129/76 06/17/17 19:38 Pulse Ox 99 06/17/17 19:38 - Orders/Labs/Meds Orders: Active Orders 24 hr Category Date Time Status RT Aerosol Therapy [RC] ASDIRECTED Care 06/17/17 19:58 Active Meds: Medications Discontinued Medications Generic Name Dose Route Start Last Admin Trade Name Ruslanq PRN Reason Stop Dose Admin Albuterol Confirm 06/17/17 20:11 06/17/17 20:28 Proventil Hfa Administered 06/17/17 20:12 Not Given Dose 6.7 gm INH .STK-MED ONE Albuterol/Ipratropium 3 ml 06/17/17 19:55 06/17/17 20:02 Duoneb 3.0-0.5 Mg/3 Ml NEB 06/17/17 19:56 3 ml ONETIME ONE Administration Amoxicillin/Clavulanate Potassium 1 tab 06/17/17 19:55 06/17/17 20:02 Augmentin 500 Mg\125 Mg PO 06/17/17 19:56 1 tab ONETIME ONE Administration Amoxicillin/Clavulanate Potassium Confirm 06/17/17 20:11 06/17/17 20:28 Augmentin 500 Mg\125 Mg Administered 06/17/17 20:12 Not Given Dose 1 tab .ROUTE .STK-MED ONE Departure - Departure Time of Disposition: 20:25 Disposition: Home, Self-Care 01 Condition: Good Clinical Impression: Acute bronchitis with bronchospasm Otitis media Qualifiers: Otitis media type: serous Chronicity: acute Laterality: bilateral Recurrence: not specified as recurrent Qualified Code(s): H65.03 - Acute serous otitis media , bilateral - Discharge Information Instructions: Acute Bronchitis, [id number] Referrals: PCP,None [Primary Care Provider] - Forms: ED Department Discharge Additional Instructions: 1) rest 2) don't sleep flat at night 3) drink lots of liquids 4) follow up at clinic rx togo; augmentin 500mg bid x 1 week albuterol inhaler tid prn x 1 - My Orders Last 24 Hours: My Active Orders 06/17/17 19:58 RT Aerosol Therapy [RC] ASDIRECTED - Assessment/Plan Last 24 Hours: My Active Orders 06/17/17 19:58 RT Aerosol Therapy [RC] ASDIRECTED
[2017-06-17] MEDS ORDERED: Amoxicillin/Clavulanate K 500-125 MG Tab ONE (20:11)
== END 2017-06-17 20:25 | disposition home or self-care (01) ==
LOC: DL.ED 19:14
DX: J20.9 Acute bronchitis, unspecified (principal); H65.03 Acute serous otitis media, bilateral; Z88.1 Allergy status to other antibiotic agents; Z88.0 Allergy status to penicillin
CPT/HCPCS: 99284; A9270

== ENCOUNTER 2017-09-12 09:49 | Emergency (ER) | payer MEDICAID ==
--- NOTE | 2017-09-12 10:17 | EDM.PDOC ---
ED HPI GENERAL MEDICAL PROBLEM - General Chief Complaint: Abdominal Pain Stated Complaint: HEAD WARM, PAIN IN ABD, RT SIDE Time Seen by Provider: 09/12/17 10:00 Source of Information: Reports: Patient History Limitations: Reports: No Limitations - History of Present Illness INITIAL COMMENTS - FREE TEXT/NARRATIVE: This 32 yo female patient reports to the ED with right lower abdominal pain that wraps to her right lower back. The patient reports her symptoms started on Sunday (09/10/17), but got much worse this morning at 0900. The patient has an appointment at the Clinic on Sunday, but did not think she could wait that long. The patient did not think she could go to work due to her current pain. The patient reports that she did have a UTI about 1 month ago, does not know if she could be . The patient reports a past history of ovarian cysts, diverticulosis and PCOS. 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, Other (See Below) Other OB/BYN History: ovarian cysts Musculoskeletal History: Reports: None Neurological History: Reports: None Psychiatric History: Reports: None Endocrine/Metabolic History: Reports: None Hematologic History: Reports: None Immunologic History: Reports: None Oncologic (Cancer) History: Reports: None Dermatologic History: Reports: Other (See Below) Other Dermatologic History: acne - Infectious Disease History Infectious Disease History: Reports: Chicken Pox - Past Surgical History Head Surgeries/Procedures: Reports: None HEENT Surgical History: Reports: Tonsillectomy, Other (See Below) Other HEENT Surgeries/Procedures: wisdom teeth GI Surgical History: Reports: Colon, Colonoscopy Social & Family History - Family History Family Medical History: Noncontributory - Tobacco Use Smoking Status *Q: Never Smoker Second Hand Smoke Exposure: No - Caffeine Use Caffeine Use: Reports: None - Alcohol Use Days Per Week of Alcohol Use: 1 Number of Drinks Per Day: 2 Total Drinks Per Week: 2 - Recreational Drug Use Recreational Drug Use: No - Living Situation & Occupation Living situation: Reports: with Family ED ROS GENERAL - Review of Systems Review Of Systems: ROS reveals no pertinent complaints other than HPI. ED EXAM, GI/ABD - Physical Exam Exam: See Below Exam Limited By: No Limitations General Appearance: Alert, WD/WN, Mild Distress, Obese Eyes: Bilateral: Normal Appearance, EOMI Ears: Normal External Exam, Normal Canal, Hearing Grossly Normal, Normal TMs Nose: Normal Inspection, Normal Mucosa, No Blood Throat/Mouth: Normal Inspection, Normal Lips, Normal Teeth, Normal Gums, Normal Oropharynx, Normal Voice, No Airway Compromise Head: Atraumatic, Normocephalic Neck: Normal Inspection, Supple, Non-Tender, Full Range of Motion Respiratory/Chest: No Respiratory Distress, Lungs Clear, Normal Breath Sounds, No Accessory Muscle Use, Chest Non-Tender Cardiovascular: Normal Peripheral Pulses, Regular Rate, Rhythm, No Edema, No Gallop, No JVD, No Murmur, No Rub GI/Abdominal Exam: Normal Bowel Sounds, Soft, Tender (RLQ), Other (+ Psoas) (Female) Exam: Deferred Rectal (Female) Exam: Deferred Back Exam: CVA Tenderness (R) Extremities: Normal Inspection, Normal Range of Motion, Non-Tender, Normal Capillary Refill, No Pedal Edema Neurological: Alert, Oriented, CN II-XII Intact, Normal Cognition, Normal Gait, Normal Reflexes, No Motor/Sensory Deficits Psychiatric: Normal Affect, Normal Mood Skin Exam: Warm, Dry, Intact, Normal Color, No Rash Lymphatic: No Adenopathy Course - Vital Signs Last Recorded V/S: Last Vital Signs Temp 36.8 C 09/12/17 09:51 Pulse 90 09/12/17 09:51 Resp 18 09/12/17 09:51 BP 149/86 H 09/12/17 09:51 Pulse Ox 96 09/12/17 09:51 - Orders/Labs/Meds Labs: Laboratory Tests 09/12/17 09/12/17 09/12/17 Range/Units 09:56 10:06 10:06 WBC (5.0-10.0) 10^3/uL RBC (4.2-5.4) 10^6/uL Hgb (12.0-16.0) g/dL Hct (37.0-47.0) % MCV (80-100) fL MCH (27.0-34.0) pg MCHC (33.0-35.0) g/dL Plt Count (150-450) 10^3/uL Neut % (Auto) (42.2-75.2) % Lymph % (Auto) (20.5-50.1) % [place] % (Auto) (2-8) % Eos % (Auto) (1.0-3.0) % Baso % (Auto) (0.0-1.0) % Sodium (135-145) mmol/L Potassium (3.6-5.0) mmol/L Chloride (101-111) mmol/L Carbon Dioxide (21.0-31.0) mmol/L Anion Gap BUN (7-18) mg/dL Creatinine (0.6-1.3) mg/dL Est Cr Clr Drug Dosing mL/min Estimated GFR (MDRD) BUN/Creatinine Ratio Glucose (74-105) mg/dL Calcium (8.4-10.2) mg/dl Total Bilirubin (0.2-1.0) mg/dL AST (10-42) IU/L ALT (10-60) IU/L Alkaline Phosphatase (42-121) IU/L Total Protein (6.7-8.2) g/dl Albumin (3.2-5.5) g/dl Globulin Albumin/Globulin Ratio Urine Color Yellow (YELLOW) Urine Appearance Clear (CLEAR) Urine pH 5.5 (5.0-9.0) Ur Specific [place] 1.010 (1.005-1.030) Urine Protein Negative (NEGATIVE) Urine Glucose (UA) 500 H (NEGATIVE) Urine Ketones Negative (NEGATIVE) Urine Occult Blood Negative (NEGATIVE) Urine Nitrite Negative (NEGATIVE) Urine Bilirubin Negative (NEGATIVE) Urine Urobilinogen 0.2 (0.2-1.0) mg/dL Ur Leukocyte Esterase Trace H (NEGATIVE) Urine RBC 0-5 /HPF Urine WBC 5-10 H (0-5/HPF) /HPF Ur Epithelial Cells Many H /HPF Urine Bacteria Few (0-FEW/HPF) /HPF Urine Other Urine Yeast Few H (0/HPF) /HPF Urine HCG, Qual Negative Urine Opiates Screen Negative (NEGATIVE) Ur Oxycodone Screen Negative (NEGATIVE) Urine Methadone Screen Negative (NEGATIVE) Ur Barbiturates Screen Negative (NEGATIVE) U Tricyclic Antidepress Negative (NEGATIVE) Ur Phencyclidine Scrn Negative (NEGATIVE) Ur Amphetamine Screen Negative (NEGATIVE) U Methamphetamines Scrn Negative (NEGATIVE) Urine MDMA Screen Negative (NEGATIVE) U Benzodiazepines Scrn Negative (NEGATIVE) Urine Cocaine Screen Negative (NEGATIVE) U Marijuana (THC) Screen Negative (NEGATIVE) 09/12/17 09/12/17 Range/Units 10:16 10:16 WBC 7.1 (5.0-10.0) 10^3/uL RBC 4.35 (4.2-5.4) 10^6/uL Hgb 13.1 (12.0-16.0) g/dL Hct 39.3 (37.0-47.0) % MCV 90.3 (80-100) fL MCH 30.1 (27.0-34.0) pg MCHC 33.3 (33.0-35.0) g/dL Plt Count 303 (150-450) 10^3/uL Neut % (Auto) 63.1 (42.2-75.2) % Lymph % (Auto) 25.6 (20.5-50.1) % [place] % (Auto) 8.2 H (2-8) % Eos % (Auto) 2.7 (1.0-3.0) % Baso % (Auto) 0.4 (0.0-1.0) % Sodium 137 (135-145) mmol/L Potassium 3.5 L (3.6-5.0) mmol/L Chloride 103 (101-111) mmol/L Carbon Dioxide 24.0 (21.0-31.0) mmol/L Anion Gap 13.5 BUN 12 (7-18) mg/dL Creatinine 0.7 (0.6-1.3) mg/dL Est Cr Clr Drug Dosing 92.10 mL/min Estimated GFR (MDRD) > 60 BUN/Creatinine Ratio 17.14 Glucose 190 H (74-105) mg/dL Calcium 8.9 (8.4-10.2) mg/dl Total Bilirubin 0.5 (0.2-1.0) mg/dL AST 27 (10-42) IU/L ALT 17 (10-60) IU/L Alkaline Phosphatase 53 (42-121) IU/L Total Protein 6.8 (6.7-8.2) g/dl Albumin 3.6 (3.2-5.5) g/dl Globulin 3.2 Albumin/Globulin Ratio 1.13 Urine Color (YELLOW) Urine Appearance (CLEAR) Urine pH (5.0-9.0) Ur Specific [place] (1.005-1.030) Urine Protein (NEGATIVE) Urine Glucose (UA) (NEGATIVE) Urine Ketones (NEGATIVE) Urine Occult Blood (NEGATIVE) Urine Nitrite (NEGATIVE) Urine Bilirubin (NEGATIVE) Urine Urobilinogen (0.2-1.0) mg/dL Ur Leukocyte Esterase (NEGATIVE) Urine RBC /HPF Urine WBC (0-5/HPF) /HPF Ur Epithelial Cells /HPF Urine Bacteria (0-FEW/HPF) /HPF Urine Other Urine Yeast (0/HPF) /HPF Urine HCG, Qual Urine Opiates Screen (NEGATIVE) Ur Oxycodone Screen (NEGATIVE) Urine Methadone Screen (NEGATIVE) Ur Barbiturates Screen (NEGATIVE) U Tricyclic Antidepress (NEGATIVE) Ur Phencyclidine Scrn (NEGATIVE) Ur Amphetamine Screen (NEGATIVE) U Methamphetamines Scrn (NEGATIVE) Urine MDMA Screen (NEGATIVE) U Benzodiazepines Scrn (NEGATIVE) Urine Cocaine Screen (NEGATIVE) U Marijuana (THC) Screen (NEGATIVE) Meds: Medications Discontinued Medications Generic Name Dose Route Start Last Admin Trade Name Freq PRN Reason Stop Dose Admin Sodium Chloride 1,000 mls @ 500 mls/hr 09/12/17 10:07 09/12/17 10:19 Normal Saline IV 09/12/17 12:06 500 mls/hr .BOLUS ONE Administration Iopamidol 100 ml 09/12/17 10:52 09/12/17 11:20 Isovue-300 (61%) IVPUSH 09/12/17 10:53 100 ml ONETIME ONE Administration Departure - Departure Time of Disposition: 12:22 Disposition: Home, Self-Care 01 Condition: Fair Clinical Impression: Bacterial vaginosis Diverticulosis Qualifiers: Diverticulosis site: diverticulosis of large intestine Diverticulosis bleeding : diverticulosis without bleeding Qualified Code(s): K57.30 - Diverticulosis of large intestine without perforation or abscess without bleeding - Discharge Information Instructions: Diverticulosis, Bacterial Vaginosis, [id number] Forms: ED Department Discharge Care Plan Goals: The patient was advised of the examination, lab and CT results during the visit. The patient was discharged with a script for Metronidazole (500 mg) #14 to take 1 by mouth 2 times per day for 7 days and Cipro (500 mg) #14 to take 1 by mouth 2 times per day for 7 days. If the patient has any additional symptoms or concerns, the patient should follow-up with her primary care facility or return to the emergency department.
[2017-09-12] MEDS: Sodium Chloride 0.9% 1,000 ML IV ONE (10:19)
[2017-09-12 10:49] LABS: CHLORIDE,CL 103 mmol/L (101-111); SODIUM,NA 137 mmol/L (135-145)
[2017-09-12] MEDS: Iopamidol 612 MG/ML 100 ML Bottle IVPUSH ONE (11:20)
--- NOTE | 2017-09-12 12:09 | CT ---
CLINICAL HISTORY: 32-year-old 300 pound female with RLQ pain, history of polycystic ovary syndrome an d diverticulosis. Normal WBC. SCAN TECHNIQUE: Volume acquisition of data from the abdomen and pelvis obtained without oral contrast but during the intravenous infusion 100 cc nonionic Isovue contrast (3 cc/sec via injector) while th e patient was lying supine on the Siemens multislice scanner [facility]. All data archived in the PACS system for storage, reformatting and study. INTERPRETATION: 1. Multiple diverticula scattered across the entire course of the colon but without current signs of inflammation. 2. Normal appendix identified in the right lower quadrant. No calcified appendicoliths or periappendi ceal inflammatory changes. 3. Normal uterus left of midline this patient with multiple small physiologic like cysts identified i n both ovaries. 4. No pelvic or abdominal mass lesion, mesenteric or significant retroperitoneal lymphadenopathy, inf lammatory "dirty" peritoneal fat, signs of mechanical bowel obstruction, ascites or free intraperiton eal air. Evidence previous left colon surgery. 5. Gallbladder, liver, stomach, spleen, pancreas and adrenal glands unremarkable. Symmetrically diste nded normal urinary bladder. 6. Normal reniform size, axis and configuration bilaterally. No sign of cortical mass lesion, nephrol ithiasis or obstructive uropathy. 7. Normal caliber abdominal aorta. 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 Lung bases clear. CONCLUSION: Pancolonic diverticulosis. No acute intraperitoneal abnormalities. Abnormalities lower th oracic spine.
[2017-09-12 12:52] VITALS: BP 144/87
== END 2017-09-12 12:40 | disposition home or self-care (01) ==
LOC: DL.ED 09:49
DX: N76.0 Acute vaginitis (principal); K57.30 Diverticulosis of large intestine without perforation or abscess without bleeding; Z88.1 Allergy status to other antibiotic agents; Z88.0 Allergy status to penicillin
CPT/HCPCS: 36415; 74177; 80053; 80305; 81001; 81025; 85025; 96360; 96361; 99284; J7030; Q9967

== ENCOUNTER 2017-09-19 19:06 | Emergency (ER) | payer MEDICAID ==
[2017-09-19 19:16] VITALS: BP 143/82
[2017-09-19] MEDS ORDERED: Ketorolac 30 MG/ML SDV IM ONE (19:30)
--- NOTE | 2017-09-19 19:33 | EDM.PDOC ---
ED HPI GENERAL MEDICAL PROBLEM - General Chief Complaint: Lower Extremity Injury/Pain Stated Complaint: FOOT IS VERY PAINFUL [id number] Time Seen by Provider: 09/19/17 19:30 Source of Information: Reports: Patient History Limitations: Reports: No Limitations - History of Present Illness INITIAL COMMENTS - FREE TEXT/NARRATIVE: c/o foot pain has appt Sunday for it. Dx with heel spur was doing ok till toady now unable to stand on it due to pain. 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 Left Feet Pain Score (Numeric/FACES): 10 - Related Data Allergies Allergy/AdvReac Type Severity Reaction Status Date / Time amoxicillin Allergy Other Verified 09/19/17 19:13 Penicillins Allergy Other Verified 09/19/17 19:13 Home Meds: Home Meds . 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, Other (See Below) Other OB/BYN History: ovarian cysts Musculoskeletal History: Reports: None Neurological History: Reports: None Psychiatric History: Reports: None Endocrine/Metabolic History: Reports: None Hematologic History: Reports: None Immunologic History: Reports: None Oncologic (Cancer) History: Reports: None Dermatologic History: Reports: Other (See Below) Other Dermatologic History: acne - Infectious Disease History Infectious Disease History: Reports: Chicken Pox - Past Surgical History Head Surgeries/Procedures: Reports: None HEENT Surgical History: Reports: Tonsillectomy, Other (See Below) Other HEENT Surgeries/Procedures: wisdom teeth GI Surgical History: Reports: Colon, Colonoscopy Social & Family History - Family History Family Medical History: Noncontributory - Tobacco Use Smoking Status *Q: Never Smoker Second Hand Smoke Exposure: No - Caffeine Use Caffeine Use: Reports: None - Alcohol Use Days Per Week of Alcohol Use: 1 Number of Drinks Per Day: 2 Total Drinks Per Week: 2 - Recreational Drug Use Recreational Drug Use: No - Living Situation & Occupation Living situation: Reports: with Family Review of Systems - Review of Systems Review Of Systems: ROS reveals no pertinent complaints other than HPI. 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 gait limited to pain, NV wnl) Neurological: Alert, Oriented, Normal Cognition, No Motor/Sensory Deficits Psychiatric: Tearful Skin Exam: Warm, Dry, Normal Color Lymphatic: No Adenopathy Course - Vital Signs Last Recorded V/S: Last Vital Signs Temp 36.7 C 09/19/17 19:13 Pulse 102 H 09/19/17 19:13 Resp 18 09/19/17 19:13 BP 143/82 H 09/19/17 19:13 Pulse Ox 100 09/19/17 19:13 - Orders/Labs/Meds Meds: Medications Discontinued Medications Generic Name Dose Route Start Last Admin Trade Name Gigi PRN Reason Stop Dose Admin Hydrocodone Bitart/Acetaminophen 1 tab 09/19/17 20:20 09/19/17 20:28 [place] 325-10 Mg PO 09/19/17 20:21 1 tab ONETIME ONE Administration Ketorolac Tromethamine 30 mg 09/19/17 19:30 09/19/17 19:38 Toradol IM 09/19/17 19:31 30 mg ONETIME ONE Administration - Re-Assessments/Exams Free Text/Narrative Re-Assessment/Exam: 09/19/17 20:27 re-exam; s/p IM toradol = somewhat better but not totally. Departure - Departure Time of Disposition: 20:35 Disposition: Home, Self-Care 01 Condition: Good Clinical Impression: Plantar fasciitis of left foot - Discharge Information Instructions: Plantar Fasciitis Rehab-[facility] Referrals: PCP,None [Ordering Only Provider] - Forms: ED Department Discharge Additional Instructions: 1) elevate leg as much as possible 2) try ice or heat to sore area 3) see clinic tomorrow for pain meds
[2017-09-19] MEDS ORDERED: Acetaminophen/HYDROcodone 325-10 MG Tab PO ONE (20:20)
== END 2017-09-19 20:35 | disposition home or self-care (01) ==
LOC: DL.ED 19:06
DX: M72.2 Plantar fascial fibromatosis (principal); Z88.1 Allergy status to other antibiotic agents; Z88.0 Allergy status to penicillin
CPT/HCPCS: 99282; A9270; J1885

== ENCOUNTER 2017-09-20 04:22 | Emergency (ER) | payer MEDICAID ==
[2017-09-20 04:31] VITALS: BP 152/106
[2017-09-20] MEDS ORDERED: Atropine/Diphenoxylate 0.025-2.5 MG Tab PO ONE (04:35)
--- NOTE | 2017-09-20 04:38 | EDM.PDOC ---
ED HPI GENERAL MEDICAL PROBLEM - General Chief Complaint: Abdominal Pain Stated Complaint: ABD PAIN, MIRNAREWILLARD, SHAKING [phone] Time Seen by Provider: 09/20/17 04:34 Source of Information: Reports: Patient History Limitations: Reports: No Limitations - History of Present Illness INITIAL COMMENTS - FREE TEXT/NARRATIVE: was here earlier for plantar fasciitis got IM toradol + norco, was getting into bed tonight and started abd pain with diarrhoea multiple times. 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: 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, Other (See Below) Other OB/BYN History: ovarian cysts Musculoskeletal History: Reports: None Neurological History: Reports: None Psychiatric History: Reports: None Endocrine/Metabolic History: Reports: None Hematologic History: Reports: None Immunologic History: Reports: None Oncologic (Cancer) History: Reports: None Dermatologic History: Reports: Other (See Below) Other Dermatologic History: acne - Infectious Disease History Infectious Disease History: Reports: Chicken Pox - Past Surgical History Head Surgeries/Procedures: Reports: None HEENT Surgical History: Reports: Tonsillectomy, Other (See Below) Other HEENT Surgeries/Procedures: wisdom teeth GI Surgical History: Reports: Colon, Colonoscopy Social & Family History - Family History Family Medical History: Noncontributory - Tobacco Use Smoking Status *Q: Never Smoker Second Hand Smoke Exposure: No - Caffeine Use Caffeine Use: Reports: None - Alcohol Use Days Per Week of Alcohol Use: 1 Number of Drinks Per Day: 2 Total Drinks Per Week: 2 - Recreational Drug Use Recreational Drug Use: No - Living Situation & Occupation Living situation: Reports: with Family ED ROS GENERAL - Review of Systems Review Of Systems: ROS reveals no pertinent complaints other than HPI. ED EXAM, GI/ABD - Physical Exam Exam: See Below Exam Limited By: No Limitations General Appearance: Alert, WD/WN, Mild Distress, Other (distraught) Ears: Hearing Grossly Normal Throat/Mouth: Normal Voice, No Airway Compromise Head: Atraumatic Neck: Non-Tender, Full Range of Motion Respiratory/Chest: No Respiratory Distress Cardiovascular: Regular Rate, Rhythm GI/Abdominal Exam: Soft, Non-Tender, Abnormal Bowel Sounds, Other (BS increase) Neurological: Alert, Oriented, Normal Cognition, Normal Gait, No Motor/Sensory Deficits Psychiatric: Flat Affect Skin Exam: Warm, Dry, Normal Color Lymphatic: No Adenopathy Course - Vital Signs Last Recorded V/S: Last Vital Signs Temp 36.8 C 09/20/17 04:29 Pulse 88 09/20/17 04:29 Resp 18 09/20/17 04:29 BP 152/106 H 09/20/17 04:29 Pulse Ox 100 09/20/17 04:29 - Orders/Labs/Meds Orders: Active Orders 24 hr Category Date Time Status UA W/MICROSCOPIC [URIN] Stat Lab 09/20/17 04:56 Ordered Labs: Laboratory Tests 09/20/17 09/20/17 09/20/17 Range/Units 04:38 04:38 04:56 WBC 15.0 H (5.0-10.0) 10^3/uL RBC 4.40 (4.2-5.4) 10^6/uL Hgb 13.3 (12.0-16.0) g/dL Hct 40.6 (37.0-47.0) % MCV 92.3 (80-100) fL MCH 30.2 (27.0-34.0) pg MCHC 32.8 L (33.0-35.0) g/dL Plt Count 267 (150-450) 10^3/uL Neut % (Auto) 87.9 H (42.2-75.2) % Lymph % (Auto) 9.2 L (20.5-50.1) % [place] % (Auto) 1.6 L (2-8) % Eos % (Auto) 1.1 (1.0-3.0) % Baso % (Auto) 0.2 (0.0-1.0) % Sodium 136 (135-145) mmol/L Potassium 4.0 (3.6-5.0) mmol/L Chloride 102 (101-111) mmol/L Carbon Dioxide 27.0 (21.0-31.0) mmol/L Anion Gap 11.0 BUN 20 H (7-18) mg/dL Creatinine 0.7 (0.6-1.3) mg/dL Est Cr Clr Drug Dosing 115.35 mL/min Estimated GFR (MDRD) > 60 BUN/Creatinine Ratio 28.57 Glucose 149 H (74-105) mg/dL Calcium 9.4 (8.4-10.2) mg/dl Total Bilirubin 0.8 (0.2-1.0) mg/dL AST 20 (10-42) IU/L ALT 22 (10-60) IU/L Alkaline Phosphatase 51 (42-121) IU/L Total Protein 6.9 (6.7-8.2) g/dl Albumin 3.7 (3.2-5.5) g/dl Globulin 3.2 Albumin/Globulin Ratio 1.16 Urine Color Yellow (YELLOW) Urine Appearance Slightly cloudy (CLEAR) Urine pH 5.5 (5.0-9.0) Ur Specific [place] >= 1.030 (1.005-1.030) Urine Protein Negative (NEGATIVE) Urine Glucose (UA) Negative (NEGATIVE) Urine Ketones Negative (NEGATIVE) Urine Occult Blood Negative (NEGATIVE) Urine Nitrite Negative (NEGATIVE) Urine Bilirubin Negative (NEGATIVE) Urine Urobilinogen 0.2 (0.2-1.0) mg/dL Ur Leukocyte Esterase Negative (NEGATIVE) Urine RBC 0-5 /HPF Urine WBC 0-5 (0-5/HPF) /HPF Ur Epithelial Cells Moderate H /HPF Urine Bacteria Moderate H (0-FEW/HPF) /HPF Urine Mucus Moderate H /LPF Urinalysis Comment Urine HCG, Qual Urine Opiates Screen (NEGATIVE) Ur Oxycodone Screen (NEGATIVE) Urine Methadone Screen (NEGATIVE) Ur Barbiturates Screen (NEGATIVE) U Tricyclic Antidepress (NEGATIVE) Ur Phencyclidine Scrn (NEGATIVE) Ur Amphetamine Screen (NEGATIVE) U Methamphetamines Scrn (NEGATIVE) Urine MDMA Screen (NEGATIVE) U Benzodiazepines Scrn (NEGATIVE) Urine Cocaine Screen (NEGATIVE) U Marijuana (THC) Screen (NEGATIVE) 09/20/17 09/20/17 Range/Units 04:56 04:56 WBC (5.0-10.0) 10^3/uL RBC (4.2-5.4) 10^6/uL Hgb (12.0-16.0) g/dL Hct (37.0-47.0) % MCV (80-100) fL MCH (27.0-34.0) pg MCHC (33.0-35.0) g/dL Plt Count (150-450) 10^3/uL Neut % (Auto) (42.2-75.2) % Lymph % (Auto) (20.5-50.1) % [place] % (Auto) (2-8) % Eos % (Auto) (1.0-3.0) % Baso % (Auto) (0.0-1.0) % Sodium (135-145) mmol/L Potassium (3.6-5.0) mmol/L Chloride (101-111) mmol/L Carbon Dioxide (21.0-31.0) mmol/L Anion Gap BUN (7-18) mg/dL Creatinine (0.6-1.3) mg/dL Est Cr Clr Drug Dosing mL/min Estimated GFR (MDRD) BUN/Creatinine Ratio Glucose (74-105) mg/dL Calcium (8.4-10.2) mg/dl Total Bilirubin (0.2-1.0) mg/dL AST (10-42) IU/L ALT (10-60) IU/L Alkaline Phosphatase (42-121) IU/L Total Protein (6.7-8.2) g/dl Albumin (3.2-5.5) g/dl Globulin Albumin/Globulin Ratio Urine Color (YELLOW) Urine Appearance (CLEAR) Urine pH (5.0-9.0) Ur Specific [place] (1.005-1.030) Urine Protein (NEGATIVE) Urine Glucose (UA) (NEGATIVE) Urine Ketones (NEGATIVE) Urine Occult Blood (NEGATIVE) Urine Nitrite (NEGATIVE) Urine Bilirubin (NEGATIVE) Urine Urobilinogen (0.2-1.0) mg/dL Ur Leukocyte Esterase (NEGATIVE) Urine RBC /HPF Urine WBC (0-5/HPF) /HPF Ur Epithelial Cells /HPF Urine Bacteria (0-FEW/HPF) /HPF Urine Mucus /LPF Urinalysis Comment Urine HCG, Qual Negative Urine Opiates Screen Positive H (NEGATIVE) Ur Oxycodone Screen Positive H (NEGATIVE) Urine Methadone Screen Negative (NEGATIVE) Ur Barbiturates Screen Negative (NEGATIVE) U Tricyclic Antidepress Negative (NEGATIVE) Ur Phencyclidine Scrn Negative (NEGATIVE) Ur Amphetamine Screen Positive H (NEGATIVE) U Methamphetamines Scrn Negative (NEGATIVE) Urine MDMA Screen Negative (NEGATIVE) U Benzodiazepines Scrn Negative (NEGATIVE) Urine Cocaine Screen Negative (NEGATIVE) U Marijuana (THC) Screen Negative (NEGATIVE) Meds: Medications Discontinued Medications Generic Name Dose Route Start Last Admin Trade Name Freq PRN Reason Stop Dose Admin Diphenoxylate HCl/Atropine 1 tab 09/20/17 04:35 09/20/17 04:38 Lomotil 0.025-2.5 Mg PO 09/20/17 04:36 1 tab ONETIME ONE Administration - Re-Assessments/Exams Free Text/Narrative Re-Assessment/Exam: 09/20/17 06:14 results discussed with pt Departure - Departure Time of Disposition: 06:14 Disposition: Home, Self-Care 01 Condition: Good Clinical Impression: Gastroenteritis Diarrhea Qualifiers: Diarrhea type: unspecified type Qualified Code(s): R19.7 - Diarrhea, unspecified - Discharge Information Instructions: Diarrhea, Adult, [id number] Forms: ED Department Discharge Additional Instructions: 1) avoid solid foods next 48 hours 2) liquids diet 3) follow up at clinic rx given; bentyl 10mg bid prn cramps x 6 imodium qid prn diarroea - My Orders Last 24 Hours: My Active Orders 09/20/17 04:56 UA W/MICROSCOPIC [URIN] Stat - Assessment/Plan Last 24 Hours: My Active Orders 09/20/17 04:56 UA W/MICROSCOPIC [URIN] Stat
[2017-09-20 05:24] LABS: CHLORIDE,CL 102 mmol/L (101-111); SODIUM,NA 136 mmol/L (135-145)
== END 2017-09-20 06:26 | disposition home or self-care (01) ==
LOC: DL.ED 04:22
DX: K52.9 Noninfective gastroenteritis and colitis, unspecified (principal); Z88.1 Allergy status to other antibiotic agents; Z88.0 Allergy status to penicillin
CPT/HCPCS: 36415; 80053; 80305; 81001; 81025; 85025; 99284; A9270

== ENCOUNTER → 2017-10-04 | Day surgery (SDC) | payer MEDICAID ==
[~2017-10-04] MED LIST: Acetaminophen/oxyCODONE 325-5 MG Tab PO PRN; Bupivacaine 0.5% 30 ML SDV INJECT ONE; Bupivacaine 0.5% 30 ML SDV ONE; Clindamycin Phosphate 600 MG in Sodium Chloride 0.9% 100 ML IV ONE; Clindamycin Phosphate 600 MG/4 ML SDV ONE; Dexamethasone 4 MG/ML SDV IV ONE; Ketorolac 30 MG/ML SDV IVPUSH ONE; Lactated Ringers 1,000 ML IV SCH; Lidocaine 1% 30 ML SDV INJECT ONE; Lidocaine 1% 30 ML SDV ONE; Midazolam 1 MG/ML 2 ML SDV IV ONE; Ondansetron 4 MG/2 ML SDV IV ONE; Propofol 1,000 MG/100 ML SDV IV ONE; Sodium Chloride 0.9% 10 ML Syringe FLUSH PRN; Sodium Chloride 0.9% 100 ML ONE; fentaNYL 100 MCG/2 ML SDV IV ONE
--- NOTE | 2017-10-04 10:21 | PCM.OPNOTE ---
- General Post-Op/Procedure Note Date of Surgery/Procedure: 10/04/17 Operative Procedure(s): left foot open plantar fasciectomy, 3rd metatarsal cuneiform bone spur excision, right foot 2nd digit medial border permanent matrixectomy Pre Op Diagnosis: left foot plantar fasciitis, 3rd metatarsal cuneiform joint painful bone spur, right 2nd digit ingrown toenail. Post-Op Diagnosis: cesar Anesthesia Technique: General LMA, Local Primary Surgeon: Evelyn Alvarez Anesthesia Provider: Cm Peters EBL in mLs: 10 Complications: none Condition: Good Free Text/Narrative:: Pt tolerated procedure well and was transported to recovery with vascular status intact to b/l feet. TT 54 mins. Well padded L&U splint with foot in 90 degrees applied to left foot, compression dressing on right 2nd toe.
[2017-10-04 13:29] VITALS: BP 130/65
--- NOTE | 2017-10-05 09:52 | OR ---
DATE: 10/04/2017 PREOPERATIVE DIAGNOSES: 1. Left foot chronic plantar fasciitis. 2. Left foot midfoot pain with bone spur. 3. Right foot second digit chronic ingrown toenail, medial nail border. POSTOPERATIVE DIAGNOSES: 1. Left foot chronic plantar fasciitis. 2. Left foot midfoot pain with bone spur. 3. Right foot second digit chronic ingrown toenail, medial nail border. PROCEDURES PERFORMED: 1. Left foot open plantar fasciectomy with soft tissue mass excision. 2. Left foot third metatarsal cuneiform joint bone spur excision. 3. Right foot second digit medial nail border permanent matrixectomy. ANESTHESIA: Local MAC with preoperative local block of 10 mL of 1:1 mixture of 1% lidocaine plain and 0.5% Marcaine plain. TOURNIQUET TIME: 54 minutes, pneumatic ankle tourniquet. ESTIMATED BLOOD LOSS: Minimal. SPECIMEN REMOVED: None. COMPLICATIONS: None. INDICATIONS: Roxanna is a 32-year-old female who presents for left foot pain. I have been treating her for a couple of years now for chronic plantar fasciitis. We have failed exhaustive therapies including shoe inserts, stretching, injections, and therapy exercises. She also had an injury to that foot over 10 years ago, where she dropped something on the foot and has had problems in the outside of the midfoot area ever since. It never did heal right, and it is always felt like something was wrong in that area of the foot. These issues bother her whenever she is standing or walking. She does work on her feet all day and now is in the process of changing jobs. She also reports some pain at the right second toe and has had a chronic ingrown toenail there for a few months now. She is sometimes able to clip them out, but has not been able to get this one. She would like that removed also. X-rays reveal plantar calcaneal spur present, no signs of fracture. MRI reveals some increased signal at the plantar fascial band insertion, there appears to be a bone spur at the dorsal third metatarsal cuneiform joint area with increased signal intensity on MRI. The patient voiced good understanding of the proposed procedure and possible complications and elects to have surgery at this time. DESCRIPTION OF PROCEDURE: The patient was taken to the operating room lying in the supine position. After adequate anesthesia induction as described above, the left foot was prepped and draped in the usual sterile fashion. A pneumatic ankle tourniquet was inflated to 225 mmHg. Attention was then directed to the left foot instep just distal to the calcaneus, where an approximately 4 cm transverse incision was made to gain access to the plantar fascial band. Sharp and blunt dissection were performed down to the level of the plantar fascial band. An approximately 1 cm2 section of the medial and central band of the plantar fascia was resected from the foot. At this time, there was also noted to be a soft tissue mass overlying the plantar fascia, and this was removed and sent to the lab. It appeared to possibly be an inflamed bursa. Inspection of the site revealed no further tightness to the plantar fascia in this area. I was able to palpate the bone spurring, and I did file that down a little bit. The area was then irrigated with copious amounts of sterile saline. Deep closure was completed with 3-0 Vicryl, and skin closure was completed with 4-0 nylon. Attention was then directed over to the lateral midfoot, where an approximately 3 cm linear incision was made overlying the palpable bone spur at the third metatarsal cuneiform joint. This was where the patient had the pain, and I marked that preoperatively. Sharp and blunt dissection were performed down to the level of the joint, and the joint capsule was incised. There was a large spur, and it possibly looks like it was a bone fragment that had avulsed off and healed down wrong. This was removed, and there was no other spurring or defects noted. The area was then irrigated with copious amounts of sterile saline. Capsular closure was completed with 3-0 Vicryl, and skin closure was completed with 4-0 nylon. Attention was then directed over to the right foot, which was prepped after the left foot had been dressed with Xeroform, fluffs, and a well-padded L and U splint with the foot in 90 degrees. The second digit was prepped, and a tourniquet was applied. A [place] was used to free the medial border of the second digit toenail. The nail was clipped out down to the nail root, and a curette was used to ensure all root was removed in matrix. Phenol was applied 30 seconds x3. A curette was used between phenol applications. The area was irrigated, and the tourniquet removed. A bandage was applied to that second toe. The patient tolerated the procedure and anesthesia well and left the operating room for recovery with vital signs stable in good condition and vascular status intact to the bilateral feet as noted by immediate hyperemia upon deflation of the ankle tourniquet. Total tourniquet time was 54 minutes. The patient was discharged home when she met hospital discharge requirements. [facility] /[id number]
== END ==
LOC: DL.SDS 06:58
PROVIDERS: ATTEND Podiatrist
DX: L60.0 Ingrowing nail (principal); M72.2 Plantar fascial fibromatosis; M77.52 Other enthesopathy of left foot and ankle; E66.01 Morbid (severe) obesity due to excess calories; Z79.899 Other long term (current) drug therapy; Z88.0 Allergy status to penicillin; Z88.1 Allergy status to other antibiotic agents
CPT/HCPCS: 81025; A9270-GY; J1100; J1885; J2250; J2405; J2704; J3010; J7050; J7120; S0077

== ENCOUNTER 2017-10-14 15:24 | Emergency (ER) | payer MEDICAID ==
[2017-10-14 16:20] VITALS: BP 122/67
--- NOTE | 2017-10-14 17:13 | EDM.PDOC ---
ED HPI GENERAL MEDICAL PROBLEM - General Chief Complaint: Lower Extremity Injury/Pain Stated Complaint: NO FEELING IN TOES, POST SURG. 10/04 Time Seen by Provider: 10/14/17 16:15 Source of Information: Reports: Patient History Limitations: Reports: No Limitations - History of Present Illness INITIAL COMMENTS - FREE TEXT/NARRATIVE: Patient presents to ED with complaint of foot pain and swelling as well as decreased sensation in toes and inability to move the foot. She had surgery approximately ten days ago with plantar fascia release and a bone removed. She reports she was seen in the clinic by her oncology research rn and given a boot and coretta wrap. She took the boot off and noted swelling and bruising. This has worsened over the past day. She has been getting around on a knee scooter. No fever, chills or sweats. No drainage from her wounds. No erythema noted. She has not been elevating the foot to this point. Left Feet Pain Score (Numeric/FACES): 8 - Related Data Allergies Allergy/AdvReac Type Severity Reaction Status Date / Time amoxicillin AdvReac Other Verified 10/14/17 16:09 Penicillins AdvReac Other Verified 10/14/17 16:09 Home Meds: Home Meds Ascorbic Acid [C-1000] 1,000 mg PO DAILY 10/03/17 [History] Cranberry 1,000 mg PO DAILY 10/03/17 [History] Acetaminophen/oxyCODONE [Percocet 325-5 MG] 1 tab PO ASDIRECTED PRN 10/14/17 [ History] Amoxicillin/Clavulanate K [Augmentin 875-125 MG] 1 tab PO BID 10/14/17 [History] Ibuprofen 400 mg PO ASDIRECTED PRN 10/14/17 [History] Past Medical History - Past Health History Medical/Surgical History: Denies Medical/Surgical History HEENT History: Reports: Impaired Vision, Other (See Below) Other HEENT History: wears glasses Cardiovascular History: Reports: None Respiratory History: Reports: None Gastrointestinal History: Reports: Bowel Obstruction, Diverticulosis Genitourinary History: Reports: UTI, Recurrent 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: 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, Other (See Below) Other OB/BYN History: ovarian cysts Musculoskeletal History: Reports: None Neurological History: Reports: None Psychiatric History: Reports: None Endocrine/Metabolic History: Reports: None Hematologic History: Reports: None Immunologic History: Reports: None Oncologic (Cancer) History: Reports: None Dermatologic History: Reports: Other (See Below) Other Dermatologic History: acne - Infectious Disease History Infectious Disease History: Reports: Chicken Pox - Past Surgical History Head Surgeries/Procedures: Reports: None HEENT Surgical History: Reports: Tonsillectomy, Other (See Below) Other HEENT Surgeries/Procedures: wisdom teeth Respiratory Surgical History: Reports: None GI Surgical History: Reports: Colon, Colonoscopy Other GI Surgeries/Procedures: removed"a foot of stool" 3 years ago Female Surgical History: Reports: None Other Female Surgeries/Procedures: ovarian cysts Neurological Surgical History: Reports: None Musculoskeletal Surgical History: Reports: None Social & Family History - Family History Family Medical History: Noncontributory - Tobacco Use Smoking Status *Q: Never Smoker Second Hand Smoke Exposure: No - Caffeine Use Caffeine Use: Reports: None - Alcohol Use Days Per Week of Alcohol Use: 1 Number of Drinks Per Day: 2 Total Drinks Per Week: 2 - Recreational Drug Use Recreational Drug Use: No Drug Use in Last 12 Months: No - Living Situation & Occupation Living situation: Reports: with Family Review of Systems - Review of Systems Review Of Systems: ROS reveals no pertinent complaints other than HPI. ED EXAM, GENERAL - Physical Exam Exam: See Below Exam Limited By: No Limitations General Appearance: Alert, WD/WN, No Apparent Distress Eye Exam: Bilateral Eye: EOMI, Normal Inspection Ears: Normal External Exam, Hearing Grossly Normal Nose: Normal Inspection, No Blood Throat/Mouth: Normal Lips, Normal Voice, No Airway Compromise Head: Atraumatic, Normocephalic Neck: Normal Inspection Respiratory/Chest: No Respiratory Distress, No Accessory Muscle Use Extremities: Other (Moderate swelling of the foot with some ecchymosis. The patient has intact sensation to the feet. DP pulse intact as well as PT pulse. Patient not able to plantar or dosifelx the foot, nor is she able to invert, chani or wiggle the toes. Passive movement intact. ) Neurological: Alert, Oriented Course - Vital Signs Last Recorded V/S: Last Vital Signs Temp 36.8 C 10/14/17 15:59 Pulse Resp 16 10/14/17 15:59 BP 122/67 10/14/17 16:19 Pulse Ox 97 10/14/17 15:59 - Re-Assessments/Exams Free Text/Narrative Re-Assessment/Exam: Discussed with patient's oncology research rn Dr. Alvarez. Will place in [place] wrap and have her follow in clinic tomorrow. Elevate the foot when at rest. 10/14/17 19:04 10/14/17 19:06 Departure - Departure Time of Disposition: 17:12 Disposition: Home, Self-Care 01 Clinical Impression: Post-operative complication Qualifiers: Surgical complication system/body Area: musculoskeletal system Surgical complication type: unspecified Procedure type: musculoskeletal Qualified Code(s) : M96.89 - Other intraoperative and postprocedural complications and disorders of the musculoskeletal system - Discharge Information Referrals: Concepcion Quintana MD [Primary Care Provider] - Forms: ED Department Discharge Additional Instructions: Wear coretta wrap and follow up with the oncology research rn at your scheduled appointment tomorrow
== END 2017-10-14 17:31 | disposition home or self-care (01) ==
LOC: DL.ED 15:24
DX: M96.89 Other intraoperative and postprocedural complications and disorders of the musculoskeletal system (principal); Z88.1 Allergy status to other antibiotic agents; Z88.0 Allergy status to penicillin; Z79.899 Other long term (current) drug therapy
CPT/HCPCS: 99283

== ENCOUNTER 2018-02-23 22:17 | Emergency (ER) | payer MEDICAID ==
[2018-02-23] MEDS ORDERED: Ketorolac 10 MG Tab PO ONE (22:18)
[2018-02-23 22:28] VITALS: BP 124/82
--- NOTE | 2018-02-23 23:40 | EDM.PDOC ---
ED HPI GENERAL MEDICAL PROBLEM - General Chief Complaint: Back Pain or Injury Stated Complaint: BACK PAIN [id number] Time Seen by Provider: 02/23/18 23:31 Source of Information: Reports: Patient History Limitations: Reports: No Limitations - History of Present Illness INITIAL COMMENTS - FREE TEXT/NARRATIVE: This 32 yo female patient reports to the ED with increased right lower back and hip pain that started 2 days ago. The patient reports her pain got worse today while she was at work. The patient reports she was seen this past week for vaginal discharge and started on Metronidazole. The patient reports she has been seen by the first responders and was told to have her blood pressure checked out. Onset Date: 02/21/18 Duration: Constant, Getting Worse Location: Reports: Back (right lower back/flank pain) Quality: Reports: Ache Severity: Moderate Improves with: Reports: None Worsens with: Reports: None Associated Symptoms: Reports: No Other Symptoms - Related Data Allergies Allergy/AdvReac Type Severity Reaction Status Date / Time Penicillins AdvReac Unknown Other Verified 02/23/18 22:32 amoxicillin AdvReac Other Verified 02/23/18 22:32 Home Meds: Home Meds Ibuprofen 400 mg PO ASDIRECTED PRN 10/14/17 [History] Fluconazole [Diflucan] 150 mg PO ONETIME 02/23/18 [History] metroNIDAZOLE [Metronidazole] 500 mg PO BID 02/23/18 [History] Past Medical History - Past Health History Medical/Surgical History: Denies Medical/Surgical History HEENT History: Reports: Impaired Vision, Other (See Below) Other HEENT History: wears glasses Cardiovascular History: Reports: None Respiratory History: Reports: None Gastrointestinal History: Reports: Bowel Obstruction, Diverticulosis Genitourinary History: Reports: UTI, Recurrent COMPENSATION SPECIALIST History: Reports: 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, Other (See Below) Other COMPENSATION SPECIALIST History: ovarian cysts Musculoskeletal History: Reports: None Neurological History: Reports: None Psychiatric History: Reports: None Endocrine/Metabolic History: Reports: None Hematologic History: Reports: None Immunologic History: Reports: None Oncologic (Cancer) History: Reports: None Dermatologic History: Reports: Other (See Below) Other Dermatologic History: acne - Infectious Disease History Infectious Disease History: Reports: Chicken Pox - Past Surgical History Head Surgeries/Procedures: Reports: None HEENT Surgical History: Reports: Oral Surgery, Tonsillectomy, Other (See Below) Other HEENT Surgeries/Procedures: wisdom teeth Respiratory Surgical History: Reports: None GI Surgical History: Reports: Colon, Colonoscopy Other GI Surgeries/Procedures: removed"a foot of stool" 3 years ago Female Surgical History: Reports: None Other Female Surgeries/Procedures: ovarian cysts Neurological Surgical History: Reports: None Musculoskeletal Surgical History: Reports: None Dermatological Surgical History: Reports: Other (See Below) Social & Family History - Family History Family Medical History: Noncontributory - Tobacco Use Smoking Status *Q: Never Smoker Second Hand Smoke Exposure: No - Caffeine Use Caffeine Use: Reports: None - Recreational Drug Use Recreational Drug Use: No - Living Situation & Occupation Living situation: Reports: with Family ED ROS GENERAL - Review of Systems Review Of Systems: ROS reveals no pertinent complaints other than HPI. ED EXAM, GENERAL - Physical Exam Exam: See Below Exam Limited By: No Limitations General Appearance: Alert, WD/WN Eye Exam: Bilateral Eye: EOMI, Normal Inspection, PERRL Ears: Normal External Exam, Normal Canal, Hearing Grossly Normal, Normal TMs Nose: Normal Inspection, Normal Mucosa, No Blood Throat/Mouth: Normal Inspection, Normal Lips, Normal Teeth, Normal Gums, Normal Oropharynx, Normal Voice, No Airway Compromise Head: Atraumatic, Normocephalic Neck: Normal Inspection, Supple, Non-Tender, Full Range of Motion Respiratory/Chest: No Respiratory Distress, Lungs Clear, Normal Breath Sounds, No Accessory Muscle Use, Chest Non-Tender Cardiovascular: Normal Peripheral Pulses, Regular Rate, Rhythm, No Edema, No Gallop, No JVD, No Murmur, No Rub GI/Abdominal: Tender (RLQ) (Female) Exam: Deferred Rectal (Female) Exam: Deferred Back Exam: CVA Tenderness (R) Extremities: Normal Inspection, Normal Range of Motion, Non-Tender, Normal Capillary Refill, No Pedal Edema Neurological: Alert, Oriented, CN II-XII Intact, Normal Cognition, Normal Gait, Normal Reflexes, No Motor/Sensory Deficits Psychiatric: Normal Affect, Normal Mood Skin Exam: Warm, Dry, Intact, Normal Color, No Rash Lymphatic: No Adenopathy Course - Vital Signs Last Recorded V/S: Last Vital Signs Temp 36.4 C 02/23/18 22:27 Pulse 86 02/23/18 22:27 Resp 20 02/23/18 22:27 BP 124/82 02/23/18 22:27 Pulse Ox 100 02/23/18 22:27 - Orders/Labs/Meds Orders: Active Orders 24 hr Category Date Time Status DRUG SCREEN URINE BIORAD [URCHEM] Stat Lab 02/24/18 00:04 Ordered HCG QUALITATIVE,URINE [URCHEM] Stat Lab 02/24/18 00:04 Ordered UA W/MICROSCOPIC [URIN] Stat Lab 02/24/18 00:04 Ordered Labs: Laboratory Tests 02/24/18 02/24/18 02/24/18 Range/Units 00:04 00:04 00:04 WBC (5.0-10.0) 10^3/uL RBC (4.2-5.4) 10^6/uL Hgb (12.0-16.0) g/dL Hct (37.0-47.0) % MCV (80-100) fL MCH (27.0-34.0) pg MCHC (33.0-35.0) g/dL Plt Count (150-450) 10^3/uL Neut % (Auto) (42.2-75.2) % Lymph % (Auto) (20.5-50.1) % [place] % (Auto) (2-8) % Eos % (Auto) (1.0-3.0) % Baso % (Auto) (0.0-1.0) % Sodium (135-145) mmol/L Potassium (3.6-5.0) mmol/L Chloride (101-111) mmol/L Carbon Dioxide (21.0-31.0) mmol/L Anion Gap BUN (7-18) mg/dL Creatinine (0.6-1.3) mg/dL Est Cr Clr Drug Dosing mL/min Estimated GFR (MDRD) BUN/Creatinine Ratio Glucose (74-105) mg/dL Calcium (8.4-10.2) mg/dl Total Bilirubin (0.2-1.0) mg/dL AST (10-42) IU/L ALT (10-60) IU/L Alkaline Phosphatase (42-121) IU/L Total Protein (6.7-8.2) g/dl Albumin (3.2-5.5) g/dl Globulin Albumin/Globulin Ratio Urine Color Yellow (YELLOW) Urine Appearance Slightly cloudy (CLEAR) Urine pH 5.0 (5.0-9.0) Ur Specific [place] >= 1.030 (1.005-1.030) Urine Protein Negative (NEGATIVE) Urine Glucose (UA) Negative (NEGATIVE) Urine Ketones Negative (NEGATIVE) Urine Occult Blood Negative (NEGATIVE) Urine Nitrite Negative (NEGATIVE) Urine Bilirubin Negative (NEGATIVE) Urine Urobilinogen 0.2 (0.2-1.0) mg/dL Ur Leukocyte Esterase Negative (NEGATIVE) Urine RBC 0-5 /HPF Urine WBC 0-5 (0-5/HPF) /HPF Ur Epithelial Cells Moderate H /HPF Urine Bacteria Rare (0-FEW/HPF) /HPF Urine Mucus Few H /LPF Urine HCG, Qual Negative Urine Opiates Screen Negative (NEGATIVE) Ur Oxycodone Screen Negative (NEGATIVE) Urine Methadone Screen Negative (NEGATIVE) Ur Barbiturates Screen Negative (NEGATIVE) U Tricyclic Antidepress Negative (NEGATIVE) Ur Phencyclidine Scrn Negative (NEGATIVE) Ur Amphetamine Screen Negative (NEGATIVE) U Methamphetamines Scrn Negative (NEGATIVE) Urine MDMA Screen Negative (NEGATIVE) U Benzodiazepines Scrn Negative (NEGATIVE) Urine Cocaine Screen Negative (NEGATIVE) U Marijuana (THC) Screen Negative (NEGATIVE) 02/24/18 02/24/18 Range/Units 00:17 00:17 WBC 11.8 H (5.0-10.0) 10^3/uL RBC 4.30 (4.2-5.4) 10^6/uL Hgb 12.7 (12.0-16.0) g/dL Hct 38.9 (37.0-47.0) % MCV 90.5 (80-100) fL MCH 29.5 (27.0-34.0) pg MCHC 32.6 L (33.0-35.0) g/dL Plt Count 298 (150-450) 10^3/uL Neut % (Auto) 61.1 (42.2-75.2) % Lymph % (Auto) 27.4 (20.5-50.1) % [place] % (Auto) 8.6 H (2-8) % Eos % (Auto) 2.6 (1.0-3.0) % Baso % (Auto) 0.3 (0.0-1.0) % Sodium 139 (135-145) mmol/L Potassium 3.4 L (3.6-5.0) mmol/L Chloride 105 (101-111) mmol/L Carbon Dioxide 27.0 (21.0-31.0) mmol/L Anion Gap 10.4 BUN 16 (7-18) mg/dL Creatinine 0.7 (0.6-1.3) mg/dL Est Cr Clr Drug Dosing 115.35 mL/min Estimated GFR (MDRD) > 60 BUN/Creatinine Ratio 22.85 Glucose 147 H (74-105) mg/dL Calcium 8.8 (8.4-10.2) mg/dl Total Bilirubin 0.5 (0.2-1.0) mg/dL AST 24 (10-42) IU/L ALT 26 (10-60) IU/L Alkaline Phosphatase 47 (42-121) IU/L Total Protein 6.8 (6.7-8.2) g/dl Albumin 3.9 (3.2-5.5) g/dl Globulin 2.9 Albumin/Globulin Ratio 1.34 Urine Color (YELLOW) Urine Appearance (CLEAR) Urine pH (5.0-9.0) Ur Specific [place] (1.005-1.030) Urine Protein (NEGATIVE) Urine Glucose (UA) (NEGATIVE) Urine Ketones (NEGATIVE) Urine Occult Blood (NEGATIVE) Urine Nitrite (NEGATIVE) Urine Bilirubin (NEGATIVE) Urine Urobilinogen (0.2-1.0) mg/dL Ur Leukocyte Esterase (NEGATIVE) Urine RBC /HPF Urine WBC (0-5/HPF) /HPF Ur Epithelial Cells /HPF Urine Bacteria (0-FEW/HPF) /HPF Urine Mucus /LPF Urine HCG, Qual Urine Opiates Screen (NEGATIVE) Ur Oxycodone Screen (NEGATIVE) Urine Methadone Screen (NEGATIVE) Ur Barbiturates Screen (NEGATIVE) U Tricyclic Antidepress (NEGATIVE) Ur Phencyclidine Scrn (NEGATIVE) Ur Amphetamine Screen (NEGATIVE) U Methamphetamines Scrn (NEGATIVE) Urine MDMA Screen (NEGATIVE) U Benzodiazepines Scrn (NEGATIVE) Urine Cocaine Screen (NEGATIVE) U Marijuana (THC) Screen (NEGATIVE) Meds: Medications Discontinued Medications Generic Name Dose Route Start Last Admin Trade Name Freq PRN Reason Stop Dose Admin Cyclobenzaprine HCl 10 mg 02/24/18 01:27 Flexeril PO 02/24/18 01:28 ONETIME ONE Ketorolac Tromethamine 60 mg 02/24/18 01:27 Toradol IM 02/24/18 01:28 ONETIME ONE Departure - Departure Time of Disposition: 01:29 Disposition: Home, Self-Care 01 Condition: Fair Clinical Impression: Low back strain Qualifiers: Encounter type: initial encounter Qualified Code(s): S39.012A - Strain of muscle, fascia and tendon of lower back, initial encounter - Discharge Information *PRESCRIPTION DRUG MONITORING PROGRAM REVIEWED*: Not Applicable *COPY OF PRESCRIPTION DRUG MONITORING REPORT IN PATIENT NAIDA: Not Applicable Instructions: Back Injury Prevention, [id number], Muscle Strain, [id number] Forms: ED Department Discharge Care Plan Goals: The patient was advised of the lab and examination results during the visit. The patient was given an injection of Toradol and an oral dose of Flexeril while in the ED. The patient was discharged with Toradol (10 mg) #2 to take 1 by mouth every 6 hours and a script for Toradol (10 mg) #18 to take 1 by mouth every 6 hours as well as for Flexeril (10 mg) #10 to take 1 by mouth at bedtime as needed. If the patient has any additional symptoms or concerns, the patient should follow-up with her primary care facility or return to the emergency department. - My Orders Last 24 Hours: My Active Orders 02/24/18 00:04 DRUG SCREEN URINE BIORAD [URCHEM] Stat HCG QUALITATIVE,URINE [URCHEM] Stat UA W/MICROSCOPIC [URIN] Stat - Assessment/Plan Last 24 Hours: My Active Orders 02/24/18 00:04 DRUG SCREEN URINE BIORAD [URCHEM] Stat HCG QUALITATIVE,URINE [URCHEM] Stat UA W/MICROSCOPIC [URIN] Stat
[2018-02-24 00:52] LABS: ANION GAP 10.4; CHLORIDE,CL 105 mmol/L (101-111); SODIUM,NA 139 mmol/L (135-145)
[2018-02-24] MEDS ORDERED: Cyclobenzaprine 10 MG Tab PO ONE (01:27)
[2018-02-24] MEDS ORDERED: Ketorolac 30 MG/ML SDV IM ONE (01:27)
[2018-02-24] MEDS ORDERED: Ketorolac 10 MG Tab ONE (01:39)
== END 2018-02-24 01:43 | disposition home or self-care (01) ==
LOC: DL.ED 22:17
DX: S39.012A Strain of muscle, fascia and tendon of lower back, initial encounter (principal); Z79.899 Other long term (current) drug therapy; Z88.0 Allergy status to penicillin; Z88.1 Allergy status to other antibiotic agents; X50.1XXA Overexertion from prolonged static or awkward postures, initial encounter; Y99.0 Civilian activity done for income or pay
CPT/HCPCS: 36415; 80053; 80305; 81001; 81025; 85025; 96372; 99283; A9270; J1885

== ENCOUNTER 2018-03-10 17:57 | Emergency (ER) | payer MEDICAID ==
--- NOTE | 2018-03-10 18:39 | EDM.PDOC ---
<Yesi Flowers - Last Filed: 03/10/18 18:45> ED HPI GENERAL MEDICAL PROBLEM - General Chief Complaint: Abdominal Pain Stated Complaint: right said pain [id number] Time Seen by Provider: 03/10/18 18:25 Source of Information: Reports: Patient, RN, RN Notes Reviewed History Limitations: Reports: No Limitations - History of Present Illness INITIAL COMMENTS - FREE TEXT/NARRATIVE: Pt to ER with c/o right lower quadrant pain wrapping around into the back. She states she has had this pain in the past, but not this bad. Patient rates the pain a 8/10. She states she has a hx of diverticulitis. Patient admits to fever and chills since yesterday. Denies N/V/D, chest pains, or SOB. Onset: Today, Sudden Right Lower Abdominal Pain Score (Numeric/FACES): 8 - Related Data Allergies Allergy/AdvReac Type Severity Reaction Status Date / Time Penicillins AdvReac Unknown Other Verified 03/10/18 18:06 amoxicillin AdvReac Other Verified 03/10/18 18:06 Home Meds: Home Meds Ibuprofen 400 mg PO ASDIRECTED PRN 10/14/17 [History] Acetaminophen [Tylenol] 650 mg PO Q4H PRN 03/10/18 [History] Past Medical History - Past Health History Medical/Surgical History: Denies Medical/Surgical History HEENT History: Reports: Impaired Vision, Other (See Below) Other HEENT History: wears glasses Cardiovascular History: Reports: None Respiratory History: Reports: None Gastrointestinal History: Reports: Bowel Obstruction, Diverticulosis Genitourinary History: Reports: UTI, Recurrent 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: 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, Other (See Below) Other INSTRUCTIONAL SERVICES LIBRARIAN History: ovarian cysts Musculoskeletal History: Reports: None Neurological History: Reports: None Psychiatric History: Reports: None Endocrine/Metabolic History: Reports: None Hematologic History: Reports: None Immunologic History: Reports: None Oncologic (Cancer) History: Reports: None Dermatologic History: Reports: Other (See Below) Other Dermatologic History: acne - Infectious Disease History Infectious Disease History: Reports: Chicken Pox - Past Surgical History Head Surgeries/Procedures: Reports: None HEENT Surgical History: Reports: Oral Surgery, Tonsillectomy, Other (See Below) Other HEENT Surgeries/Procedures: wisdom teeth Respiratory Surgical History: Reports: None GI Surgical History: Reports: Colon, Colonoscopy Other GI Surgeries/Procedures: removed"a foot of stool" 3 years ago Female Surgical History: Reports: None Other Female Surgeries/Procedures: ovarian cysts Neurological Surgical History: Reports: None Musculoskeletal Surgical History: Reports: None Dermatological Surgical History: Reports: Other (See Below) Social & Family History - Family History Family Medical History: Noncontributory - Tobacco Use Smoking Status *Q: Never Smoker Second Hand Smoke Exposure: No - Caffeine Use Caffeine Use: Reports: None - Recreational Drug Use Recreational Drug Use: No - Living Situation & Occupation Living situation: Reports: with Family ED ROS GENERAL - Review of Systems Review Of Systems: ROS reveals no pertinent complaints other than HPI. ED EXAM, GI/ABD - Physical Exam Exam: See Below Exam Limited By: No Limitations General Appearance: Alert, WD/WN, Mild Distress Eyes: Bilateral: Normal Appearance, EOMI Ears: Normal External Exam, Hearing Grossly Normal Nose: Normal Inspection Throat/Mouth: Normal Inspection, Normal Voice, No Airway Compromise Head: Atraumatic, Normocephalic Neck: Normal Inspection, Supple, Non-Tender, Full Range of Motion Respiratory/Chest: No Respiratory Distress, Lungs Clear, Normal Breath Sounds, No Accessory Muscle Use, Chest Non-Tender Cardiovascular: Normal Peripheral Pulses, Irregularly Irregular GI/Abdominal Exam: Normal Bowel Sounds, Soft, Tender (RUQ, RLQ) (Female) Exam: Deferred Rectal (Female) Exam: Deferred Back Exam: Normal Inspection, Full Range of Motion Extremities: Normal Inspection, Normal Range of Motion, Non-Tender, No Pedal Edema, Normal Capillary Refill Neurological: Alert, Oriented, Normal Cognition, Normal Gait Psychiatric: Flat Affect Skin Exam: Warm, Dry, Intact, Normal Color, No Rash Lymphatic: No Adenopathy Course - Vital Signs Last Recorded V/S: Last Vital Signs Temp 36.6 C 03/10/18 22:33 Pulse 69 03/10/18 22:33 Resp 18 03/10/18 22:33 BP 150/72 H 03/10/18 22:33 Pulse Ox 99 03/10/18 22:33 - Orders/Labs/Meds Labs: Laboratory Tests 03/10/18 03/10/18 03/10/18 Range/Units 18:39 18:39 18:39 WBC 8.6 (5.0-10.0) 10^3/uL RBC 4.24 (4.2-5.4) 10^6/uL Hgb 12.4 (12.0-16.0) g/dL Hct 38.0 (37.0-47.0) % MCV 89.6 (80-100) fL MCH 29.2 (27.0-34.0) pg MCHC 32.6 L (33.0-35.0) g/dL Plt Count 288 (150-450) 10^3/uL Neut % (Auto) 57.0 (42.2-75.2) % Lymph % (Auto) 30.2 (20.5-50.1) % [place] % (Auto) 9.0 H (2-8) % Eos % (Auto) 3.3 H (1.0-3.0) % Baso % (Auto) 0.5 (0.0-1.0) % Sodium 137 (135-145) mmol/L Potassium 3.8 (3.6-5.0) mmol/L Chloride 102 (101-111) mmol/L Carbon Dioxide 25.0 (21.0-31.0) mmol/L Anion Gap 13.8 BUN 17 (7-18) mg/dL Creatinine 0.6 (0.6-1.3) mg/dL Est Cr Clr Drug Dosing 134.58 mL/min Estimated GFR (MDRD) > 60 BUN/Creatinine Ratio 28.33 Glucose 148 H (74-105) mg/dL Calcium 8.6 (8.4-10.2) mg/dl Total Bilirubin 0.4 (0.2-1.0) mg/dL AST 19 (10-42) IU/L ALT 19 (10-60) IU/L Alkaline Phosphatase 54 (42-121) IU/L Total Protein 6.4 L (6.7-8.2) g/dl Albumin 3.4 (3.2-5.5) g/dl Globulin 3.0 Albumin/Globulin Ratio 1.13 Amylase 28 (28-100) U/L Lipase 18 L (22-51) U/L Urine Color (YELLOW) Urine Appearance (CLEAR) Urine pH (5.0-9.0) Ur Specific [place] (1.005-1.030) Urine Protein (NEGATIVE) Urine Glucose (UA) (NEGATIVE) Urine Ketones (NEGATIVE) Urine Occult Blood (NEGATIVE) Urine Nitrite (NEGATIVE) Urine Bilirubin (NEGATIVE) Urine Urobilinogen (0.2-1.0) mg/dL Ur Leukocyte Esterase (NEGATIVE) Urine RBC /HPF Urine WBC (0-5/HPF) /HPF Ur Epithelial Cells /HPF Urine Bacteria (0-FEW/HPF) /HPF Urine HCG, Qual 03/10/18 03/10/18 Range/Units 18:41 18:41 WBC (5.0-10.0) 10^3/uL RBC (4.2-5.4) 10^6/uL Hgb (12.0-16.0) g/dL Hct (37.0-47.0) % MCV (80-100) fL MCH (27.0-34.0) pg MCHC (33.0-35.0) g/dL Plt Count (150-450) 10^3/uL Neut % (Auto) (42.2-75.2) % Lymph % (Auto) (20.5-50.1) % [place] % (Auto) (2-8) % Eos % (Auto) (1.0-3.0) % Baso % (Auto) (0.0-1.0) % Sodium (135-145) mmol/L Potassium (3.6-5.0) mmol/L Chloride (101-111) mmol/L Carbon Dioxide (21.0-31.0) mmol/L Anion Gap BUN (7-18) mg/dL Creatinine (0.6-1.3) mg/dL Est Cr Clr Drug Dosing mL/min Estimated GFR (MDRD) BUN/Creatinine Ratio Glucose (74-105) mg/dL Calcium (8.4-10.2) mg/dl Total Bilirubin (0.2-1.0) mg/dL AST (10-42) IU/L ALT (10-60) IU/L Alkaline Phosphatase (42-121) IU/L Total Protein (6.7-8.2) g/dl Albumin (3.2-5.5) g/dl Globulin Albumin/Globulin Ratio Amylase (28-100) U/L Lipase (22-51) U/L Urine Color Yellow (YELLOW) Urine Appearance Clear (CLEAR) Urine pH 5.5 (5.0-9.0) Ur Specific [place] 1.025 (1.005-1.030) Urine Protein Negative (NEGATIVE) Urine Glucose (UA) Negative (NEGATIVE) Urine Ketones Negative (NEGATIVE) Urine Occult Blood Negative (NEGATIVE) Urine Nitrite Negative (NEGATIVE) Urine Bilirubin Negative (NEGATIVE) Urine Urobilinogen 0.2 (0.2-1.0) mg/dL Ur Leukocyte Esterase Negative (NEGATIVE) Urine RBC 0-5 /HPF Urine WBC 0-5 (0-5/HPF) /HPF Ur Epithelial Cells Many H /HPF Urine Bacteria Few (0-FEW/HPF) /HPF Urine HCG, Qual Negative Meds: Medications Discontinued Medications Generic Name Dose Route Start Last Admin Trade Name Freq PRN Reason Stop Dose Admin Metronidazole 500 mg/ Premix 100 mls @ 100 mls/hr 03/10/18 20:39 03/10/18 21: 24 IV 03/10/18 21:38 100 mls/hr ONETIME ONE Administration Iopamidol 100 ml 03/10/18 19:14 03/10/18 20:00 Isovue-300 (61%) IVPUSH 03/10/18 19:15 100 ml ONETIME ONE Administration Departure - Departure Disposition: Home, Self-Care 01 Clinical Impression: Diverticulitis, Cyst of ovary, right - Discharge Information Instructions: Ovarian Cyst, [id number] Forms: ED Department Discharge Additional Instructions: 1) see clinic tomorrow for [employer] AND [employer]LE REPAIRER CONSULT ON OVARIAN CYSTE 2) rest and avoid bending lifting straining <Naseem Field - Last Filed: 03/10/18 23:47> Course - Re-Assessments/Exams Free Text/Narrative Re-Assessment/Exam: 03/10/18 20:40 results discussed with pt. Departure - Departure Time of Disposition: 22:35
[2018-03-10 19:05] LABS: ANION GAP 13.8; CHLORIDE,CL 102 mmol/L (101-111); SODIUM,NA 137 mmol/L (135-145)
[2018-03-10] MEDS ORDERED: Iopamidol 612 MG/ML 100 ML Bottle IVPUSH ONE (19:14)
[2018-03-10] MEDS ORDERED: metroNIDAZOLE/Normal Saline 500 MG in Premix Bag 100 BAG IV ONE (20:39)
[2018-03-10 22:34] VITALS: BP 150/72
== END 2018-03-10 22:39 | disposition home or self-care (01) ==
LOC: DL.ED 17:57
DX: K57.32 Diverticulitis of large intestine without perforation or abscess without bleeding (principal); N83.201 Unspecified ovarian cyst, right side; Z88.0 Allergy status to penicillin; Z88.1 Allergy status to other antibiotic agents; Z79.899 Other long term (current) drug therapy
CPT/HCPCS: 36415; 74177; 80053; 81001; 81025; 82150; 83690; 85025; 96365; 99284; J3490; Q9967

== ENCOUNTER 2018-07-10 20:14 | Emergency (ER) | payer MEDICAID ==
[2018-07-10 20:53] LABS: ANION GAP 15.8; CHLORIDE,CL 101 mmol/L (101-111); SODIUM,NA 136 mmol/L (135-145)
--- NOTE | 2018-07-10 21:38 | EDM.PDOC ---
ED HPI GENERAL MEDICAL PROBLEM - General Chief Complaint: Abdominal Pain Stated Complaint: ABDOMINAL PAIN [id number] Time Seen by Provider: 07/10/18 20:25 Source of Information: Reports: Patient History Limitations: Reports: No Limitations - History of Present Illness INITIAL COMMENTS - FREE TEXT/NARRATIVE: ED with c/o chronic RLQ pain. Reports pain seems to be worse past 3 weeks, No change, poor response with ibuprofen. Patient seen multiple times for problems, known PCOS, 2.5cm ovarian cyst on right and hx of diverticulosis. Denies fever, chills, has had no vomiting,No difficulty with urination. Pain worse when on feet more, has been unable to go to work for past 2 days. Taking Ibuprofen 400mg twice daily. Stated started on new medication 3 weeks ago for [employer] "Contraception" States medication is to help her get a period. Last was either December or January when given provera by Dr Patel. Is scheduled again for later this month. Recently seen in clinic and started on Metformin. Has not started yet. - Related Data Allergies Allergy/AdvReac Type Severity Reaction Status Date / Time Penicillins AdvReac Unknown Other Verified 03/10/18 18:06 amoxicillin AdvReac Other Verified 03/10/18 18:06 Home Meds: Home Meds Ibuprofen 400 mg PO ASDIRECTED PRN 10/14/17 [History] Acetaminophen [Tylenol] 650 mg PO Q4H PRN 03/10/18 [History] Past Medical History - Past Health History Medical/Surgical History: Denies Medical/Surgical History HEENT History: Reports: Impaired Vision, Other (See Below) Other HEENT History: wears glasses Cardiovascular History: Reports: None Respiratory History: Reports: None Gastrointestinal History: Reports: Bowel Obstruction, Diverticulosis Genitourinary History: Reports: UTI, Recurrent BUYING AGENT History: Reports: 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, Other (See Below) Other BUYING AGENT History: ovarian cysts Musculoskeletal History: Reports: None Neurological History: Reports: None Psychiatric History: Reports: None Endocrine/Metabolic History: Reports: None Hematologic History: Reports: None Immunologic History: Reports: None Oncologic (Cancer) History: Reports: None Dermatologic History: Reports: Other (See Below) Other Dermatologic History: acne - Infectious Disease History Infectious Disease History: Reports: Chicken Pox - Past Surgical History Head Surgeries/Procedures: Reports: None HEENT Surgical History: Reports: Oral Surgery, Tonsillectomy, Other (See Below) Other HEENT Surgeries/Procedures: wisdom teeth Respiratory Surgical History: Reports: None GI Surgical History: Reports: Colon, Colonoscopy Other GI Surgeries/Procedures: removed"a foot of stool" 3 years ago Female Surgical History: Reports: None Other Female Surgeries/Procedures: ovarian cysts Neurological Surgical History: Reports: None Musculoskeletal Surgical History: Reports: None Dermatological Surgical History: Reports: Other (See Below) Social & Family History - Family History Family Medical History: Noncontributory - Caffeine Use Caffeine Use: Reports: None - Living Situation & Occupation Living situation: Reports: with Family ED ROS GENERAL - Review of Systems Review Of Systems: See Below Constitutional: Denies: Fever, Chills, Weakness, Fatigue HEENT: Reports: No Symptoms Respiratory: Reports: No Symptoms Cardiovascular: Reports: No Symptoms Endocrine: Reports: High Glucose GI/Abdominal: Reports: Abdominal Pain (RLQ). Denies: Anorexia, Constipation, Diarrhea, Distension, Nausea, Vomiting : Reports: Irregular Menses (chronic). Denies: Discharge, Dysuria, Flank Pain , Frequency Musculoskeletal: Reports: No Symptoms Skin: Reports: No Symptoms Neurological: Reports: No Symptoms ED EXAM, GI/ABD - Physical Exam Exam: See Below Exam Limited By: No Limitations General Appearance: Alert, No Apparent Distress, Obese Ears: Normal External Exam Nose: Normal Inspection Throat/Mouth: Normal Inspection Head: Atraumatic, Normocephalic, Sinus Tenderness Neck: Full Range of Motion Respiratory/Chest: No Respiratory Distress, Lungs Clear, Normal Breath Sounds Cardiovascular: Normal Peripheral Pulses, Regular Rate, Rhythm GI/Abdominal Exam: Normal Bowel Sounds, Soft, No Distention, Tender. No: Distended, Guarding, Rebound, Abnormal Bowel Sounds, Hernia, Mass Course - Vital Signs Last Recorded V/S: Last Vital Signs Temp 97.8 F 07/10/18 20:15 Pulse 98 07/10/18 20:15 Resp 18 07/10/18 20:15 BP 125/68 07/10/18 20:15 Pulse Ox 99 07/10/18 20:15 - Orders/Labs/Meds Labs: Laboratory Tests 07/10/18 07/10/18 07/10/18 Range/Units 20:20 20:20 20:25 WBC 10.8 H (5.0-10.0) 10^3/uL RBC 4.34 (4.2-5.4) 10^6/uL Hgb 12.9 (12.0-16.0) g/dL Hct 38.8 (37.0-47.0) % MCV 89.4 (80-100) fL MCH 29.7 (27.0-34.0) pg MCHC 33.2 (33.0-35.0) g/dL Plt Count 337 (150-450) 10^3/uL Neut % (Auto) 65.0 (42.2-75.2) % Lymph % (Auto) 24.7 (20.5-50.1) % [place] % (Auto) 6.8 (2-8) % Eos % (Auto) 2.9 (1.0-3.0) % Baso % (Auto) 0.6 (0.0-1.0) % Sodium (135-145) mmol/L Potassium (3.6-5.0) mmol/L Chloride (101-111) mmol/L Carbon Dioxide (21.0-31.0) mmol/L Anion Gap BUN (7-18) mg/dL Creatinine (0.6-1.3) mg/dL Est Cr Clr Drug Dosing Estimated GFR (MDRD) BUN/Creatinine Ratio Glucose (74-105) mg/dL Calcium (8.4-10.2) mg/dl Total Bilirubin (0.2-1.0) mg/dL AST (10-42) IU/L ALT (10-60) IU/L Alkaline Phosphatase (42-121) IU/L Total Protein (6.7-8.2) g/dl Albumin (3.2-5.5) g/dl Globulin Albumin/Globulin Ratio Amylase (28-100) U/L Lipase (22-51) U/L Urine Color Yellow (YELLOW) Urine Appearance Slightly cloudy (CLEAR) Urine pH 5.5 (5.0-9.0) Ur Specific [place] >= 1.030 (1.005-1.030) Urine Protein Negative (NEGATIVE) Urine Glucose (UA) Negative (NEGATIVE) Urine Ketones Negative (NEGATIVE) Urine Occult Blood Trace-intact H (NEGATIVE) Urine Nitrite Negative (NEGATIVE) Urine Bilirubin Negative (NEGATIVE) Urine Urobilinogen 0.2 (0.2-1.0) mg/dL Ur Leukocyte Esterase Negative (NEGATIVE) Urine RBC 0-5 /HPF Urine WBC 0-5 (0-5/HPF) /HPF Ur Epithelial Cells Moderate H /HPF Urine Bacteria Moderate H (0-FEW/HPF) /HPF Urinalysis Comment Urine HCG, Qual Negative 07/10/18 Range/Units 20:25 WBC (5.0-10.0) 10^3/uL RBC (4.2-5.4) 10^6/uL Hgb (12.0-16.0) g/dL Hct (37.0-47.0) % MCV (80-100) fL MCH (27.0-34.0) pg MCHC (33.0-35.0) g/dL Plt Count (150-450) 10^3/uL Neut % (Auto) (42.2-75.2) % Lymph % (Auto) (20.5-50.1) % [place] % (Auto) (2-8) % Eos % (Auto) (1.0-3.0) % Baso % (Auto) (0.0-1.0) % Sodium 136 (135-145) mmol/L Potassium 3.8 (3.6-5.0) mmol/L Chloride 101 (101-111) mmol/L Carbon Dioxide 23.0 (21.0-31.0) mmol/L Anion Gap 15.8 BUN 14 (7-18) mg/dL Creatinine 0.8 (0.6-1.3) mg/dL Est Cr Clr Drug Dosing TNP Estimated GFR (MDRD) > 60 BUN/Creatinine Ratio 17.50 Glucose 192 H (74-105) mg/dL Calcium 9.3 (8.4-10.2) mg/dl Total Bilirubin 0.5 (0.2-1.0) mg/dL AST 29 (10-42) IU/L ALT 24 (10-60) IU/L Alkaline Phosphatase 68 (42-121) IU/L Total Protein 7.7 (6.7-8.2) g/dl Albumin 4.2 (3.2-5.5) g/dl Globulin 3.5 Albumin/Globulin Ratio 1.20 Amylase 32 (28-100) U/L Lipase 24 (22-51) U/L Urine Color (YELLOW) Urine Appearance (CLEAR) Urine pH (5.0-9.0) Ur Specific [place] (1.005-1.030) Urine Protein (NEGATIVE) Urine Glucose (UA) (NEGATIVE) Urine Ketones (NEGATIVE) Urine Occult Blood (NEGATIVE) Urine Nitrite (NEGATIVE) Urine Bilirubin (NEGATIVE) Urine Urobilinogen (0.2-1.0) mg/dL Ur Leukocyte Esterase (NEGATIVE) Urine RBC /HPF Urine WBC (0-5/HPF) /HPF Ur Epithelial Cells /HPF Urine Bacteria (0-FEW/HPF) /HPF Urinalysis Comment Urine HCG, Qual Departure - Departure Time of Disposition: 21:27 Disposition: Home, Self-Care 01 Condition: Good Clinical Impression: Cyst of ovary, right Abdominal pain Qualifiers: Abdominal location: right lower quadrant Qualified Code(s): R10.31 - Right lower quadrant pain - Discharge Information *PRESCRIPTION DRUG MONITORING PROGRAM REVIEWED*: Not Applicable Instructions: Abdominal Pain, Adult, [id number], Ovarian Cyst, [id number], Diet for Polycystic Ovarian Syndrome Referrals: PCP,None [Ordering Only Provider] - Forms: ED Department Discharge Additional Instructions: ibuprofen 8oomg one every 8 hours as needed for discomfort may alternate with tylenol 650mg every 4 hours as needed no heavy lifting stop conception medication from [employer] follow up with [employer] as scheduled this month clinic follow up this week
[2018-07-10 21:42] VITALS: BP 125/68
== END 2018-07-10 21:41 | disposition home or self-care (01) ==
LOC: DL.ED 20:14
DX: N83.201 Unspecified ovarian cyst, right side (principal); Z88.0 Allergy status to penicillin; Z88.1 Allergy status to other antibiotic agents
CPT/HCPCS: 36415; 80053; 81001; 81025; 82150; 83690; 85025; 99283

== ENCOUNTER 2018-10-15 10:53 | Emergency (ER) | payer MEDICAID ==
[2018-10-15 11:02] VITALS: BP 155/89
--- NOTE | 2018-10-15 11:27 | EDM.PDOC ---
ED HPI GENERAL MEDICAL PROBLEM - General Chief Complaint: Genitourinary Problem Stated Complaint: RT SIDE PAIN [id number] Time Seen by Provider: 10/15/18 11:20 Source of Information: Reports: Patient History Limitations: Reports: No Limitations - History of Present Illness INITIAL COMMENTS - FREE TEXT/NARRATIVE: This 33 yo female patient reports to the ED with right lower quadrant pain and burning with urination. The patient reports her pain is near the right hip. The patient has not taken anything for her current symptoms. The patient reports she noticed the burning last week, but could not make a clinic appointment due to work. The patient does have an appointment for tomorrow, but did not think she could wait to be seen. Onset: Today Duration: Constant Location: Reports: Abdomen Quality: Reports: Ache, Dull Severity: Mild Improves with: Reports: None Worsens with: Reports: None Context: Reports: Other Associated Symptoms: Reports: No Other Symptoms Right Lower Abdomen Pain Score (Numeric/FACES): 5 - Related Data Allergies Allergy/AdvReac Type Severity Reaction Status Date / Time Penicillins AdvReac Unknown Other Verified 10/15/18 10:58 amoxicillin AdvReac Other Verified 10/15/18 10:58 Home Meds: Home Meds Ibuprofen 400 mg PO ASDIRECTED PRN 10/14/17 [History] Acetaminophen [Tylenol] 650 mg PO Q4H PRN 03/10/18 [History] metFORMIN [Glucophage XR] 500 mg PO BIDMEALS 10/15/18 [History] Past Medical History - Past Health History Medical/Surgical History: Denies Medical/Surgical History HEENT History: Reports: Impaired Vision, Other (See Below) Other HEENT History: wears glasses Cardiovascular History: Reports: None Respiratory History: Reports: None Gastrointestinal History: Reports: Bowel Obstruction, Diverticulosis Genitourinary History: Reports: UTI, Recurrent 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 OFFICER History: Reports: 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, Other (See Below) Other NUCLEAR OFFICER History: ovarian cysts Musculoskeletal History: Reports: None Neurological History: Reports: None Psychiatric History: Reports: None Endocrine/Metabolic History: Reports: Diabetes, Type II Hematologic History: Reports: None Immunologic History: Reports: None Oncologic (Cancer) History: Reports: None Dermatologic History: Reports: Other (See Below) Other Dermatologic History: acne - Infectious Disease History Infectious Disease History: Reports: Chicken Pox - Past Surgical History Head Surgeries/Procedures: Reports: None HEENT Surgical History: Reports: Oral Surgery, Tonsillectomy, Other (See Below) Other HEENT Surgeries/Procedures: wisdom teeth Respiratory Surgical History: Reports: None GI Surgical History: Reports: Colon, Colonoscopy Other GI Surgeries/Procedures: removed"a foot of stool" 3 years ago Female Surgical History: Reports: None Other Female Surgeries/Procedures: ovarian cysts Neurological Surgical History: Reports: None Musculoskeletal Surgical History: Reports: None Dermatological Surgical History: Reports: Other (See Below) Social & Family History - Family History Family Medical History: Noncontributory - Tobacco Use Smoking Status *Q: Never Smoker Second Hand Smoke Exposure: No - Caffeine Use Caffeine Use: Reports: None - Recreational Drug Use Recreational Drug Use: No - Living Situation & Occupation Living situation: Reports: with Family ED ROS GENERAL - Review of Systems Review Of Systems: ROS reveals no pertinent complaints other than HPI. ED EXAM, RENAL/ - Physical Exam Exam: See Below Exam Limited By: No Limitations General Appearance: Alert, WD/WN, Mild Distress, Obese Eye Exam: Bilateral Eye: EOMI, Normal Inspection, PERRL Ears: Normal External Exam, Normal Canal, Hearing Grossly Normal, Normal TMs Nose: Normal Inspection, Normal Mucosa, No Blood Throat/Mouth: Normal Inspection, Normal Lips, Normal Teeth, Normal Gums, Normal Oropharynx, Normal Voice, No Airway Compromise Head: Atraumatic, Normocephalic Neck: Normal Inspection, Supple, Non-Tender, Full Range of Motion Respiratory/Chest: No Respiratory Distress, Lungs Clear, Normal Breath Sounds, No Accessory Muscle Use, Chest Non-Tender Cardiovascular: Normal Peripheral Pulses, Regular Rate, Rhythm, No Edema, No Gallop, No JVD, No Murmur, No Rub GI/Abdominal: Tender (right lower quadrant and right lateral abdominal pain), Other (morbid obesity) (Female) Exam: Deferred Rectal (Female) Exam: Deferred Back Exam: No: CVA Tenderness (L), CVA Tenderness (R) Extremities: Normal Inspection, Normal Range of Motion, Non-Tender, Normal Capillary Refill, No Pedal Edema Neurological: Alert, Oriented, CN II-XII Intact, Normal Cognition, Normal Gait, Normal Reflexes, No Motor/Sensory Deficits Psychiatric: Normal Affect, Normal Mood Skin Exam: Warm, Dry, Intact, Normal Color, No Rash Lymphatic: No Adenopathy Course - Vital Signs Last Recorded V/S: Last Vital Signs Temp 36.3 C 10/15/18 10:58 Pulse 86 10/15/18 10:58 Resp 16 10/15/18 10:58 BP 155/89 H 10/15/18 10:58 Pulse Ox 99 10/15/18 10:58 - Orders/Labs/Meds Orders: Active Orders 24 hr Category Date Time Status CULTURE URINE [RM] Stat Lab 10/15/18 11:07 Received Labs: Laboratory Tests 10/15/18 10/15/18 10/15/18 Range/Units 11:07 11:07 11:07 Urine Color Yellow (YELLOW) Urine Appearance Clear (CLEAR) Urine pH 6.5 (5.0-9.0) Ur Specific [place] 1.015 (1.005-1.030) Urine Protein Negative (NEGATIVE) Urine Glucose (UA) Negative (NEGATIVE) Urine Ketones Negative (NEGATIVE) Urine Occult Blood Negative (NEGATIVE) Urine Nitrite Negative (NEGATIVE) Urine Bilirubin Negative (NEGATIVE) Urine Urobilinogen 0.2 (0.2-1.0) mg/dL Ur Leukocyte Esterase Trace H (NEGATIVE) Urine RBC 0-5 /HPF Urine WBC 0-5 (0-5/HPF) /HPF Ur Epithelial Cells Few /HPF Urine Bacteria Moderate H (0-FEW/HPF) /HPF Urine HCG, Qual Negative Urine Opiates Screen Negative (NEGATIVE) Ur Oxycodone Screen Negative (NEGATIVE) Urine Methadone Screen Negative (NEGATIVE) Ur Barbiturates Screen Negative (NEGATIVE) U Tricyclic Antidepress Negative (NEGATIVE) Ur Phencyclidine Scrn Negative (NEGATIVE) Ur Amphetamine Screen Negative (NEGATIVE) U Methamphetamines Scrn Negative (NEGATIVE) Urine MDMA Screen Negative (NEGATIVE) U Benzodiazepines Scrn Negative (NEGATIVE) Urine Cocaine Screen Negative (NEGATIVE) U Marijuana (THC) Screen Negative (NEGATIVE) Departure - Departure Time of Disposition: 11:47 Disposition: Home, Self-Care 01 Condition: Fair Clinical Impression: Bacterial vaginosis - Discharge Information *PRESCRIPTION DRUG MONITORING PROGRAM REVIEWED*: Not Applicable *COPY OF PRESCRIPTION DRUG MONITORING REPORT IN PATIENT NAIDA: Not Applicable Instructions: Vaginitis Forms: ED Department Discharge Care Plan Goals: The patient was advised of the examination and lab results during the visit. The patient was discharged with a script for Metronidazole (500 mg) to take 1 by mouth 2 times per day for 7 days. If the patient has any additional symptoms or concerns, the patient should either visit her primary care facility or return to the emergency department. - My Orders Last 24 Hours: My Active Orders 10/15/18 11:07 CULTURE URINE [RM] Stat - Assessment/Plan Last 24 Hours: My Active Orders 10/15/18 11:07 CULTURE URINE [RM] Stat
== END 2018-10-15 11:52 | disposition home or self-care (01) ==
LOC: DL.ED 10:53
DX: N76.0 Acute vaginitis (principal); E11.9 Type 2 diabetes mellitus without complications; Z88.1 Allergy status to other antibiotic agents; Z88.0 Allergy status to penicillin; Z79.84 Long term (current) use of oral hypoglycemic drugs
CPT/HCPCS: 80305-QW; 81001; 81025; 87086; 99284

== ENCOUNTER 2018-10-21 17:14 | Emergency (ER) | payer MEDICAID ==
--- NOTE | 2018-10-21 18:59 | EDM.PDOC ---
Scribed by Kae Lindsey 10/21/18 1062 for Yesi Flowers NP <Yesi Flowers - Last Filed: 10/21/18 18:59> ED HPI GENERAL MEDICAL PROBLEM - General Chief Complaint: Abdominal Pain Stated Complaint: RT SIDE PAIN, FEVER Time Seen by Provider: 10/21/18 18:41 Source of Information: Reports: Patient, RN, RN Notes Reviewed History Limitations: Reports: No Limitations - History of Present Illness INITIAL COMMENTS - FREE TEXT/NARRATIVE: Patient presents to ER with complaint of feeling miserable. This began on Sunday a.m. wens he woke up. She has complaint of urinating every 10 minutes, right lower quadrant pain and burning with urination. She has had fever, chills , nausea, vomiting and decreased appetite. No diarrhea. 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 Right Lower Abdomen Pain Score (Numeric/FACES): 6 - Related Data Allergies Allergy/AdvReac Type Severity Reaction Status Date / Time Penicillins AdvReac Unknown Other Verified 10/21/18 18:10 amoxicillin AdvReac Other Verified 10/21/18 18:10 Home Meds: Home Meds Ibuprofen 200 mg PO ASDIRECTED PRN 10/14/17 [History] metFORMIN [Glucophage XR] 500 mg PO BIDMEALS 10/15/18 [History] Clindamycin HCl [Cleocin] 150 mg PO QID 10/21/18 [History] Phenazopyridine [Pyridium] 100 mg PO BID PRN 10/21/18 [History] metroNIDAZOLE [Flagyl] 250 mg PO BID 10/21/18 [History] Past Medical History - Past Health History Medical/Surgical History: Denies Medical/Surgical History HEENT History: Reports: Impaired Vision, Other (See Below) Other HEENT History: wears glasses Cardiovascular History: Reports: None Respiratory History: Reports: None Gastrointestinal History: Reports: Bowel Obstruction, Diverticulosis Genitourinary History: Reports: UTI, Recurrent 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, Other (See Below) Other FARM MANAGEMENT TEACHER History: ovarian cysts Musculoskeletal History: Reports: None Neurological History: Reports: None Psychiatric History: Reports: None Endocrine/Metabolic History: Reports: Diabetes, Type II Hematologic History: Reports: None Immunologic History: Reports: None Oncologic (Cancer) History: Reports: None Dermatologic History: Reports: Other (See Below) Other Dermatologic History: acne - Infectious Disease History Infectious Disease History: Reports: Chicken Pox, MRSA - Past Surgical History Head Surgeries/Procedures: Reports: None HEENT Surgical History: Reports: Oral Surgery, Tonsillectomy, Other (See Below) Other HEENT Surgeries/Procedures: wisdom teeth Respiratory Surgical History: Reports: None GI Surgical History: Reports: Colon, Colonoscopy Other GI Surgeries/Procedures: removed"a foot of stool" 3 years ago Other Female Surgeries/Procedures: ovarian cysts Neurological Surgical History: Reports: None Musculoskeletal Surgical History: Reports: None Dermatological Surgical History: Reports: Other (See Below) Social & Family History - Family History Family Medical History: Noncontributory - Tobacco Use Smoking Status *Q: Never Smoker Second Hand Smoke Exposure: No - Caffeine Use Caffeine Use: Reports: None - Recreational Drug Use Recreational Drug Use: No - Living Situation & Occupation Living situation: Reports: with Family ED ROS GENERAL - Review of Systems Review Of Systems: ROS reveals no pertinent complaints other than HPI. ED EXAM, GI/ABD - Physical Exam Exam: See Below Exam Limited By: No Limitations General Appearance: Alert, WD/WN, No Apparent Distress Eyes: Bilateral: Normal Appearance Ears: Normal External Exam, Normal Canal, Hearing Grossly Normal, Normal TMs Nose: Normal Inspection, Normal Mucosa, No Blood Throat/Mouth: Normal Inspection, Normal Lips, Normal Teeth, Normal Gums, Normal Oropharynx, Normal Voice, No Airway Compromise Head: Atraumatic, Normocephalic Neck: Normal Inspection, Supple, Non-Tender, Full Range of Motion Respiratory/Chest: No Respiratory Distress, Lungs Clear, Normal Breath Sounds, No Accessory Muscle Use, Chest Non-Tender Cardiovascular: Normal Peripheral Pulses, Regular Rate, Rhythm, No Edema, No Gallop, No JVD, No Murmur, No Rub GI/Abdominal Exam: Tender (right lower quadrant) (Female) Exam: Deferred Rectal (Female) Exam: Deferred Back Exam: Normal Inspection, Full Range of Motion, NT Extremities: Normal Inspection, Normal Range of Motion, Non-Tender, Normal Capillary Refill, No Pedal Edema Neurological: Alert, Oriented, CN II-XII Intact, Normal Cognition, Normal Gait, Normal Reflexes, No Motor/Sensory Deficits Psychiatric: Flat Affect Skin Exam: Warm, Dry, Intact, Normal Color, No Rash Lymphatic: No Adenopathy Course - Vital Signs Last Recorded V/S: Last Vital Signs Temp 97 F 10/21/18 17:55 Pulse 76 10/21/18 21:11 Resp 16 10/21/18 21:11 BP 110/75 10/21/18 21:11 Pulse Ox 98 10/21/18 21:11 - Orders/Labs/Meds Orders: Active Orders 24 hr Category Date Time Status CULTURE URINE [RM] Urgent Lab 10/21/18 17:57 Received Labs: Laboratory Tests 10/21/18 10/21/18 10/21/18 Range/Units 17:57 19:05 19:05 WBC 8.8 (5.0-10.0) 10^3/uL RBC 4.28 (4.2-5.4) 10^6/uL Hgb 12.5 (12.0-16.0) g/dL Hct 38.3 (37.0-47.0) % MCV 89.5 (80-100) fL MCH 29.2 (27.0-34.0) pg MCHC 32.6 L (33.0-35.0) g/dL Plt Count 362 (150-450) 10^3/uL Neut % (Auto) 59.3 (42.2-75.2) % Lymph % (Auto) 30.5 (20.5-50.1) % [place] % (Auto) 6.9 (2-8) % Eos % (Auto) 2.7 (1.0-3.0) % Baso % (Auto) 0.6 (0.0-1.0) % Sodium 140 (135-145) mmol/L Potassium 3.8 (3.6-5.0) mmol/L Chloride 105 (101-111) mmol/L Carbon Dioxide 25.0 (21.0-31.0) mmol/L Anion Gap 13.8 BUN 18 (7-18) mg/dL Creatinine 0.7 (0.6-1.3) mg/dL Est Cr Clr Drug Dosing 114.29 mL/min Estimated GFR (MDRD) > 60 BUN/Creatinine Ratio 25.71 Glucose 117 H (74-105) mg/dL Calcium 8.9 (8.4-10.2) mg/dl Total Bilirubin 0.5 (0.2-1.0) mg/dL AST 18 (10-42) IU/L ALT 20 (10-60) IU/L Alkaline Phosphatase 52 (42-121) IU/L Total Protein 7.0 (6.7-8.2) g/dl Albumin 3.7 (3.2-5.5) g/dl Globulin 3.3 Albumin/Globulin Ratio 1.12 Urine Color Yellow (YELLOW) Urine Appearance Slightly cloudy (CLEAR) Urine pH 5.5 (5.0-9.0) Ur Specific [place] >= 1.030 (1.005-1.030) Urine Protein Trace H (NEGATIVE) Urine Glucose (UA) Negative (NEGATIVE) Urine Ketones 15 H (NEGATIVE) Urine Occult Blood Negative (NEGATIVE) Urine Nitrite Negative (NEGATIVE) Urine Bilirubin Large H (NEGATIVE) Urine Urobilinogen 0.2 (0.2-1.0) mg/dL Ur Leukocyte Esterase Trace H (NEGATIVE) Urine RBC 0-5 /HPF Urine WBC 5-10 H (0-5/HPF) /HPF Ur Epithelial Cells Moderate H /HPF Amorphous Sediment Rare (0/HPF) /HPF Urine Bacteria Few (0-FEW/HPF) /HPF Urine Mucus Moderate H /LPF Meds: Medications Discontinued Medications Generic Name Dose Route Start Last Admin Trade Name Gigi PRN Reason Stop Dose Admin Iopamidol 100 ml 10/21/18 20:02 10/21/18 20:19 Isovue-300 (61%) IVPUSH 10/21/18 20:03 100 ml ONETIME ONE Administration Departure - Departure Disposition: Home, Self-Care 01 Clinical Impression: Diverticulitis - Discharge Information Instructions: Diverticulitis Forms: ED Department Discharge Additional Instructions: diflucan 100mg one daily x 5 days flagyl 500mg one three times daily for 7 days cilpro 500mg one daily x 3 days push fluids follow up in clinic end of week stop clindamycin light diet tylenol 650mg every 4 hours as nneeded for discomfort <Baljit Dunbar - Last Filed: 10/22/18 00:39> ED HPI GENERAL MEDICAL PROBLEM - History of Present Illness INITIAL COMMENTS - FREE TEXT/NARRATIVE: Also c/o white patches on tongue and in mouth. Completed flagyl today. Course - Radiology Interpretation Free Text/Narrative:: Name: NATY SY Age: 33Years F Date: 10/21/2018 SSN: -- : [id number] Study: CT ABDOMEN/PELVIS W Requesting Physician: BALJIT DUNBAR Images: [id number] Addl Studies: Provided Clinical History: Contrast: With Contrast Medium: iso 300 Contrast Amount: 100 mL Contrast Method: LAC Page 1 of 2 EXAM: CT Abdomen and Pelvis With Contrast EXAM DATE/TIME: 10/21/2018 8:13 PM CLINICAL HISTORY: 33 years old, female; Abdominal pain; Generalized TECHNIQUE: Imaging protocol: Axial computed tomography images of the abdomen and pelvis with intravenous contrast. Coronal and sagittal reformatted images were created and reviewed. Radiation optimization: All CT scans at this facility use at least one of these dose optimization techniques: automated exposure control; mA and/or kV adjustment per patient size (includes targeted exams where dose is matched to clinical indication); or iterative reconstruction. Contrast material: ISO 300; Contrast volume: 100 ml; Contrast route: LAC; COMPARISON: CT Abdomen Pelvis w Cont 03/10/2018 7:47 PM FINDINGS: ABDOMEN: Liver: No suspicious lesions. Gallbladder and bile ducts: No acute or concerning findings. Pancreas: Unremarkable. No ductal dilation. Spleen: No suspicious lesions. Adrenals: Unremarkalbe. No suspicious mass. Kidneys and ureters: Unremarkable. No hydro. No suspicious lesions. NATY SY | Final Radiology Report CONFIDENTIALITY STATEMENT This report is intended only for use by the referring physician, and only in accordance with law. If you received this in error, call [phone]. Page 2 of 2 Stomach and bowel: Mild inflammatory change around a sigmoid colon diverticulum. Many colonic diverticuli. Appendix: Normal appendix. PELVIS: Bladder: Unremarkable as visualized. Reproductive: 3.3 cm right ovarian cyst. ABDOMEN and PELVIS: Intraperitoneal space: No free air. No significant fluid collection. Bones/joints: No acute fracture. No dislocation. Soft tissues: Unremarkable. Vasculature: Unremarkable. No acute findings Lymph nodes: Unremarkable. IMPRESSION: Uncomplicated sigmoid colon diverticulitis. Thank you for allowing us to participate in the care of your patient. Dictated and Authenticated by: Jeffry Jeff MD 10/21/2018 9:03 PM Central Time ([place] & [place]) Departure - Departure Time of Disposition: 21:10 Condition: Good - Discharge Information *PRESCRIPTION DRUG MONITORING PROGRAM REVIEWED*: Not Applicable *COPY OF PRESCRIPTION DRUG MONITORING REPORT IN PATIENT NAIDA: Not Applicable I have read and agree with the documentation that has been completed regarding this visit. By signing this record, I attest that the documentation was completed in my physical presence and is an accurate record of the encounter.
[2018-10-21 19:31] LABS: ANION GAP 13.8; CHLORIDE,CL 105 mmol/L (101-111); SODIUM,NA 140 mmol/L (135-145)
[2018-10-21] MEDS ORDERED: Iopamidol 612 MG/ML 100 ML Bottle IVPUSH ONE (20:02)
[2018-10-21 21:12] VITALS: BP 110/75
== END 2018-10-21 21:17 | disposition home or self-care (01) ==
LOC: DL.ED 17:14
DX: K57.32 Diverticulitis of large intestine without perforation or abscess without bleeding (principal); E11.9 Type 2 diabetes mellitus without complications; Z88.0 Allergy status to penicillin; Z79.899 Other long term (current) drug therapy; Z79.84 Long term (current) use of oral hypoglycemic drugs
CPT/HCPCS: 36415; 74177; 80053; 81001; 85025; 87086; 99284; Q9967; 87088; 87186

== ENCOUNTER 2018-12-09 04:43 | Emergency (ER) | payer MEDICAID ==
[2018-12-09 04:56] VITALS: BP 139/82
[2018-12-09] MEDS ORDERED: Nitrofurantoin Monohydrate/Macrocrystalline 100 MG Cap PO ONE (05:11)
[2018-12-09] MEDS ORDERED: Phenazopyridine 95 MG Tab PO ONE (05:11)
--- NOTE | 2018-12-09 05:16 | EDM.PDOC ---
ED HPI GENERAL MEDICAL PROBLEM - General Chief Complaint: Genitourinary Problem Stated Complaint: UTI [id number] Time Seen by Provider: 12/09/18 05:13 Source of Information: Reports: Patient History Limitations: Reports: No Limitations - History of Present Illness INITIAL COMMENTS - FREE TEXT/NARRATIVE: few days h/o UTI Sx Lower Perineal Area Pain Score (Numeric/FACES): 10 - Related Data Allergies Allergy/AdvReac Type Severity Reaction Status Date / Time Penicillins AdvReac Unknown Other Verified 12/09/18 05:09 amoxicillin AdvReac Other Verified 12/09/18 05:09 Home Meds: Home Meds Ibuprofen 200 mg PO ASDIRECTED PRN 10/14/17 [History] metFORMIN [Glucophage XR] 500 mg PO BIDMEALS 10/15/18 [History] Clindamycin HCl [Cleocin] 150 mg PO QID 10/21/18 [History] Phenazopyridine [Pyridium] 100 mg PO BID PRN 10/21/18 [History] metroNIDAZOLE [Flagyl] 250 mg PO BID 10/21/18 [History] Past Medical History - Past Health History Medical/Surgical History: Denies Medical/Surgical History HEENT History: Reports: Impaired Vision, Other (See Below) Other HEENT History: wears glasses Cardiovascular History: Reports: None Respiratory History: Reports: None Gastrointestinal History: Reports: Bowel Obstruction, Diverticulosis Genitourinary History: Reports: UTI, Recurrent 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, Other (See Below) Other 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 DEVELOPER History: ovarian cysts Musculoskeletal History: Reports: None Neurological History: Reports: None Psychiatric History: Reports: None Endocrine/Metabolic History: Reports: Diabetes, Type II Hematologic History: Reports: None Immunologic History: Reports: None Oncologic (Cancer) History: Reports: None Dermatologic History: Reports: Other (See Below) Other Dermatologic History: acne - Infectious Disease History Infectious Disease History: Reports: Chicken Pox, MRSA - Past Surgical History Head Surgeries/Procedures: Reports: None HEENT Surgical History: Reports: Oral Surgery, Tonsillectomy, Other (See Below) Other HEENT Surgeries/Procedures: wisdom teeth Respiratory Surgical History: Reports: None GI Surgical History: Reports: Colon, Colonoscopy Other GI Surgeries/Procedures: removed"a foot of stool" 3 years ago Other Female Surgeries/Procedures: ovarian cysts Neurological Surgical History: Reports: None Musculoskeletal Surgical History: Reports: None Dermatological Surgical History: Reports: Other (See Below) Social & Family History - Family History Family Medical History: Noncontributory - Tobacco Use Smoking Status *Q: Never Smoker Second Hand Smoke Exposure: No - Caffeine Use Caffeine Use: Reports: Soda - Alcohol Use Days Per Week of Alcohol Use: 1 Number of Drinks Per Day: 1 Total Drinks Per Week: 1 Date of Last Drink: 11/25/18 - Recreational Drug Use Recreational Drug Use: No - Living Situation & Occupation Living situation: Reports: with Family ED ROS GENERAL - Review of Systems Review Of Systems: ROS reveals no pertinent complaints other than HPI. ED EXAM, RENAL/ - Physical Exam Exam: See Below Exam Limited By: No Limitations General Appearance: Alert, WD/WN, Mild Distress, Other (discomfort) Ears: Hearing Grossly Normal Throat/Mouth: Normal Voice, No Airway Compromise Head: Atraumatic Neck: Non-Tender, Full Range of Motion Respiratory/Chest: No Respiratory Distress Cardiovascular: Regular Rate, Rhythm GI/Abdominal: Soft, Other (suprapubic discomfort) Neurological: Alert, Oriented, Normal Cognition, Normal Gait, No Motor/Sensory Deficits Psychiatric: Normal Affect, Normal Mood Skin Exam: Warm, Dry, Normal Color Lymphatic: No Adenopathy Course - Vital Signs Last Recorded V/S: Last Vital Signs Temp 36.7 C 12/09/18 04:49 Pulse 94 12/09/18 04:49 Resp 18 12/09/18 04:49 BP 139/82 12/09/18 04:49 Pulse Ox 96 12/09/18 04:49 - Orders/Labs/Meds Orders: Active Orders 24 hr Category Date Time Status CULTURE URINE [RM] Stat Lab 12/09/18 04:50 Received Labs: Laboratory Tests 12/09/18 Range/Units 04:50 Urine Color [place] (YELLOW) Urine Appearance Slightly cloudy (CLEAR) Urine pH 5.0 (5.0-9.0) Ur Specific [place] 1.025 (1.005-1.030) Urine Protein Negative (NEGATIVE) Urine Glucose (UA) Negative (NEGATIVE) Urine Ketones Negative (NEGATIVE) Urine Occult Blood Negative (NEGATIVE) Urine Nitrite Positive H (NEGATIVE) Urine Bilirubin Small H (NEGATIVE) Urine Urobilinogen 0.2 (0.2-1.0) mg/dL Ur Leukocyte Esterase Negative (NEGATIVE) Urine RBC Not seen /HPF Urine WBC 0-5 (0-5/HPF) /HPF Ur Epithelial Cells Many H (NOT SEEN) /HPF Urine Bacteria Moderate H (0-FEW/HPF) /HPF Meds: Medications Discontinued Medications Generic Name Dose Route Start Last Admin Trade Name Freq PRN Reason Stop Dose Admin Nitrofurantoin Macrocrystals 100 mg 12/09/18 05:11 Macrobid PO 12/09/18 05:12 ONETIME ONE Phenazopyridine HCl 95 mg 12/09/18 05:11 Urinary Pain Relief PO 12/09/18 05:12 ONETIME ONE Departure - Departure Time of Disposition: 05:15 Disposition: Home, Self-Care 01 Condition: Good Clinical Impression: UTI, Urinary tract infectious disease - Discharge Information Instructions: Urinary Tract Infection, Adult, [id number] Additional Instructions: 1) rest 2) drink lots of liquids 3) follow up at clinic rx given; macrobid 100mg bid x 20 pyridium 100mg tid prn x 12 - My Orders Last 24 Hours: My Active Orders 12/09/18 04:50 CULTURE URINE [RM] Stat - Assessment/Plan Last 24 Hours: My Active Orders 12/09/18 04:50 CULTURE URINE [RM] Stat
== END 2018-12-09 05:25 | disposition home or self-care (01) ==
LOC: DL.ED 04:43
DX: N39.0 Urinary tract infection, site not specified (principal); E11.9 Type 2 diabetes mellitus without complications; Z88.0 Allergy status to penicillin; Z88.1 Allergy status to other antibiotic agents; Z79.899 Other long term (current) drug therapy; Z79.84 Long term (current) use of oral hypoglycemic drugs
CPT/HCPCS: 81001; 87086; 87088; 87186; 99283; A9270

== ENCOUNTER 2019-02-13 07:26 | Emergency (ER) | payer MEDICAID ==
[2019-02-13 07:58] VITALS: BP 106/85
[2019-02-13 08:48] LABS: ANION GAP 12.9; CHLORIDE,CL 102 mmol/L (101-111); SODIUM,NA 136 mmol/L (135-145)
--- NOTE | 2019-02-13 09:00 | EDM.PDOC ---
ED HPI GENERAL MEDICAL PROBLEM - General Chief Complaint: Genitourinary Problem Stated Complaint: ABDOMINAL PAIN Time Seen by Provider: 02/13/19 08:45 Source of Information: Reports: Patient History Limitations: Reports: No Limitations - History of Present Illness INITIAL COMMENTS - FREE TEXT/NARRATIVE: This 33 yo female patient reports to the ED with lower back pain (started yesterday), frequent urination (started last night) and burning with urination ( started last night). The patient reports she was seen in the [facility] last week and started on Metronidazole (finished the script yesterday). The patient reports she also took AZO last night. The patient has a history of right ovarian cysts and diverticula. 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) Right Flank Pain Score (Numeric/FACES): 8 - Related Data Allergies Allergy/AdvReac Type Severity Reaction Status Date / Time Penicillins AdvReac Unknown Other Verified 02/13/19 07:50 amoxicillin AdvReac Other Verified 02/13/19 07:50 Home Meds: Home Meds Ibuprofen 200 mg PO ASDIRECTED PRN 10/14/17 [History] metFORMIN [Glucophage XR] 500 mg PO BIDMEALS 10/15/18 [History] Acetaminophen [Tylenol] 650 mg PO ASDIRECTED PRN 02/13/19 [History] Past Medical History - Past Health History Medical/Surgical History: Denies Medical/Surgical History HEENT History: Reports: Impaired Vision, Other (See Below) Other HEENT History: wears glasses Cardiovascular History: Reports: None Respiratory History: Reports: None Gastrointestinal History: Reports: Bowel Obstruction, Diverticulosis Genitourinary History: Reports: UTI, Recurrent 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: 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, Other (See Below) Other EGG GATHERER History: ovarian cysts Musculoskeletal History: Reports: None Neurological History: Reports: None Psychiatric History: Reports: None Endocrine/Metabolic History: Reports: Diabetes, Type II Hematologic History: Reports: None Immunologic History: Reports: None Oncologic (Cancer) History: Reports: None Dermatologic History: Reports: Other (See Below) Other Dermatologic History: acne - Infectious Disease History Infectious Disease History: Reports: Chicken Pox, MRSA - Past Surgical History Head Surgeries/Procedures: Reports: None HEENT Surgical History: Reports: Oral Surgery, Tonsillectomy, Other (See Below) Other HEENT Surgeries/Procedures: wisdom teeth Respiratory Surgical History: Reports: None GI Surgical History: Reports: Colon, Colonoscopy Other GI Surgeries/Procedures: removed"a foot of stool" 3 years ago Other Female Surgeries/Procedures: ovarian cysts Neurological Surgical History: Reports: None Musculoskeletal Surgical History: Reports: None Dermatological Surgical History: Reports: Other (See Below) Social & Family History - Family History Family Medical History: Noncontributory - Tobacco Use Smoking Status *Q: Never Smoker Second Hand Smoke Exposure: No - Caffeine Use Caffeine Use: Reports: None - Recreational Drug Use Recreational Drug Use: No - Living Situation & Occupation Living situation: Reports: with Family ED ROS GENERAL - Review of Systems Review Of Systems: ROS reveals no pertinent complaints other than HPI. ED EXAM, RENAL/ - Physical Exam Exam: See Below Exam Limited By: No Limitations General Appearance: Alert, WD/WN, Moderate Distress Eye Exam: Bilateral Eye: EOMI, Normal Inspection, PERRL Ears: Normal External Exam, Normal Canal, Hearing Grossly Normal, Normal TMs Nose: Normal Inspection, Normal Mucosa, No Blood Throat/Mouth: Normal Inspection, Normal Lips, Normal Teeth, Normal Gums, Normal Oropharynx, Normal Voice, No Airway Compromise Head: Atraumatic, Normocephalic Neck: Normal Inspection, Supple, Non-Tender, Full Range of Motion Respiratory/Chest: No Respiratory Distress, Lungs Clear, Normal Breath Sounds, No Accessory Muscle Use, Chest Non-Tender Cardiovascular: Normal Peripheral Pulses, Regular Rate, Rhythm, No Edema, No Gallop, No JVD, No Murmur, No Rub GI/Abdominal: Normal Bowel Sounds, No Organomegaly, No Distention, No Abnormal Bruit, No Mass, Pelvis Stable, Tender (diffuse abdominal tenderness to palpation ), Other (obese) (Female) Exam: Deferred Rectal (Female) Exam: Deferred Back Exam: Normal Inspection, Full Range of Motion, NT Extremities: Normal Inspection, Normal Range of Motion, Non-Tender, Normal Capillary Refill, No Pedal Edema Neurological: Alert, Oriented, CN II-XII Intact, Normal Cognition, Normal Gait, Normal Reflexes, No Motor/Sensory Deficits Psychiatric: Normal Affect, Normal Mood Skin Exam: Warm, Dry, Intact, Normal Color, No Rash Lymphatic: No Adenopathy Course - Vital Signs Last Recorded V/S: Last Vital Signs Temp 36.5 C 02/13/19 07:38 Pulse 99 02/13/19 07:38 Resp 16 02/13/19 07:38 BP 106/85 02/13/19 07:58 Pulse Ox 99 02/13/19 07:38 - Orders/Labs/Meds Orders: Active Orders 24 hr Category Date Time Status CULTURE BLOOD [BC] Stat Lab 02/13/19 08:01 Ordered CULTURE URINE [RM] Stat Lab 02/13/19 08:00 Received Labs: Laboratory Tests 02/13/19 02/13/19 02/13/19 Range/Units 08:00 08:00 08:00 WBC (5.0-10.0) 10^3/uL RBC (4.2-5.4) 10^6/uL Hgb (12.0-16.0) g/dL Hct (37.0-47.0) % MCV (80-100) fL MCH (27.0-34.0) pg MCHC (33.0-35.0) g/dL Plt Count (150-450) 10^3/uL Neut % (Auto) (42.2-75.2) % Lymph % (Auto) (20.5-50.1) % Kings % (Auto) (2-8) % Eos % (Auto) (1.0-3.0) % Baso % (Auto) (0.0-1.0) % Sodium (135-145) mmol/L Potassium (3.6-5.0) mmol/L Chloride (101-111) mmol/L Carbon Dioxide (21.0-31.0) mmol/L Anion Gap BUN (7-18) mg/dL Creatinine (0.6-1.3) mg/dL Est Cr Clr Drug Dosing mL/min Estimated GFR (MDRD) BUN/Creatinine Ratio Glucose (74-105) mg/dL Lactic Acid (0.5-2.2) mmol/L Calcium (8.4-10.2) mg/dl Total Bilirubin (0.2-1.0) mg/dL AST (10-42) IU/L ALT (10-60) IU/L Alkaline Phosphatase (42-121) IU/L Total Protein (6.7-8.2) g/dl Albumin (3.2-5.5) g/dl Globulin Albumin/Globulin Ratio Urine Color [place] (YELLOW) Urine Appearance Slightly cloudy (CLEAR) Urine pH 5.5 (5.0-9.0) Ur Specific Page 1.015 (1.005-1.030) Urine Protein Negative (NEGATIVE) Urine Glucose (UA) Negative (NEGATIVE) Urine Ketones Negative (NEGATIVE) Urine Occult Blood Negative (NEGATIVE) Urine Nitrite Positive H (NEGATIVE) Urine Bilirubin Negative (NEGATIVE) Urine Urobilinogen 0.2 (0.2-1.0) mg/dL Ur Leukocyte Esterase Trace H (NEGATIVE) Urine RBC Not seen /HPF Urine WBC 0-5 (0-5/HPF) /HPF Ur Epithelial Cells Few (NOT SEEN) /HPF Urine Bacteria Few (0-FEW/HPF) /HPF Urine HCG, Qual Negative Urine Opiates Screen Negative (NEGATIVE) Ur Oxycodone Screen Negative (NEGATIVE) Urine Methadone Screen Negative (NEGATIVE) Ur Barbiturates Screen Negative (NEGATIVE) U Tricyclic Antidepress Negative (NEGATIVE) Ur Phencyclidine Scrn Negative (NEGATIVE) Ur Amphetamine Screen Negative (NEGATIVE) U Methamphetamines Scrn Negative (NEGATIVE) Urine MDMA Screen Negative (NEGATIVE) U Benzodiazepines Scrn Negative (NEGATIVE) Urine Cocaine Screen Negative (NEGATIVE) U Marijuana (THC) Screen Negative (NEGATIVE) 02/13/19 02/13/19 02/13/19 Range/Units 08:15 08:15 08:15 WBC 13.3 H (5.0-10.0) 10^3/uL RBC 4.56 (4.2-5.4) 10^6/uL Hgb 13.1 (12.0-16.0) g/dL Hct 40.0 (37.0-47.0) % MCV 87.7 (80-100) fL MCH 28.7 (27.0-34.0) pg MCHC 32.8 L (33.0-35.0) g/dL Plt Count 329 (150-450) 10^3/uL Neut % (Auto) 75.6 H (42.2-75.2) % Lymph % (Auto) 16.6 L (20.5-50.1) % Kings % (Auto) 6.0 (2-8) % Eos % (Auto) 1.5 (1.0-3.0) % Baso % (Auto) 0.3 (0.0-1.0) % Sodium 136 (135-145) mmol/L Potassium 3.9 (3.6-5.0) mmol/L Chloride 102 (101-111) mmol/L Carbon Dioxide 25.0 (21.0-31.0) mmol/L Anion Gap 12.9 BUN 11 (7-18) mg/dL Creatinine 0.7 (0.6-1.3) mg/dL Est Cr Clr Drug Dosing 114.29 mL/min Estimated GFR (MDRD) > 60 BUN/Creatinine Ratio 15.71 Glucose 130 H (74-105) mg/dL Lactic Acid 1.2 (0.5-2.2) mmol/L Calcium 8.8 (8.4-10.2) mg/dl Total Bilirubin 0.6 (0.2-1.0) mg/dL AST 16 (10-42) IU/L ALT 22 (10-60) IU/L Alkaline Phosphatase 45 (42-121) IU/L Total Protein 7.0 (6.7-8.2) g/dl Albumin 3.8 (3.2-5.5) g/dl Globulin 3.2 Albumin/Globulin Ratio 1.19 Urine Color (YELLOW) Urine Appearance (CLEAR) Urine pH (5.0-9.0) Ur Specific Page (1.005-1.030) Urine Protein (NEGATIVE) Urine Glucose (UA) (NEGATIVE) Urine Ketones (NEGATIVE) Urine Occult Blood (NEGATIVE) Urine Nitrite (NEGATIVE) Urine Bilirubin (NEGATIVE) Urine Urobilinogen (0.2-1.0) mg/dL Ur Leukocyte Esterase (NEGATIVE) Urine RBC /HPF Urine WBC (0-5/HPF) /HPF Ur Epithelial Cells (NOT SEEN) /HPF Urine Bacteria (0-FEW/HPF) /HPF Urine HCG, Qual Urine Opiates Screen (NEGATIVE) Ur Oxycodone Screen (NEGATIVE) Urine Methadone Screen (NEGATIVE) Ur Barbiturates Screen (NEGATIVE) U Tricyclic Antidepress (NEGATIVE) Ur Phencyclidine Scrn (NEGATIVE) Ur Amphetamine Screen (NEGATIVE) U Methamphetamines Scrn (NEGATIVE) Urine MDMA Screen (NEGATIVE) U Benzodiazepines Scrn (NEGATIVE) Urine Cocaine Screen (NEGATIVE) U Marijuana (THC) Screen (NEGATIVE) Departure - Departure Time of Disposition: 09:17 Disposition: Home, Self-Care 01 Condition: Fair Clinical Impression: UTI, Urinary tract infectious disease - Discharge Information *PRESCRIPTION DRUG MONITORING PROGRAM REVIEWED*: Not Applicable *COPY OF PRESCRIPTION DRUG MONITORING REPORT IN PATIENT NAIDA: Not Applicable Instructions: Urinary Tract Infection, Adult, [id number] Forms: ED Department Discharge Care Plan Goals: The patient was advised of the examination and lab results during the visit. The patient was discharged with a script for Cipro (500 mg) #6 to take 1 by mouth 2 times per day for 3 days. The patient should increase her oral fluid intake over the next 48 hours. If the patient has any additional symptoms or concerns, the patient should either return to the emergency department or visit her primary care facility. - My Orders Last 24 Hours: My Active Orders 02/13/19 08:00 CULTURE URINE [RM] Stat 02/13/19 08:01 CULTURE BLOOD [BC] Stat - Assessment/Plan Last 24 Hours: My Active Orders 02/13/19 08:00 CULTURE URINE [RM] Stat 02/13/19 08:01 CULTURE BLOOD [BC] Stat
== END 2019-02-13 09:29 | disposition home or self-care (01) ==
LOC: DL.ED 07:26
DX: N39.0 Urinary tract infection, site not specified (principal); E11.9 Type 2 diabetes mellitus without complications; Z88.1 Allergy status to other antibiotic agents; Z88.0 Allergy status to penicillin; Z79.84 Long term (current) use of oral hypoglycemic drugs; Z98.890 Other specified postprocedural states
CPT/HCPCS: 36415; 80053; 80305-QW; 81001; 81025; 83605; 85025; 87040; 87086; 87088; 87186; 99283

== ENCOUNTER 2019-03-01 12:26 | Emergency (ER) | payer MEDICAID ==
[2019-03-01 12:37] VITALS: BP 138/60
[2019-03-01] MEDS ORDERED: Sodium Chloride 0.9% 10 ML Syringe FLUSH PRN (12:41)
--- NOTE | 2019-03-01 12:47 | EDM.PDOC ---
ED HPI GENERAL MEDICAL PROBLEM - General Chief Complaint: Abdominal Pain Stated Complaint: PAIN IN RIGHT SIDE Time Seen by Provider: 03/01/19 12:47 Source of Information: Reports: Patient, Old Records, RN, RN Notes Reviewed History Limitations: Reports: No Limitations - History of Present Illness INITIAL COMMENTS - FREE TEXT/NARRATIVE: Pt presents to ER from work with c/o of onset of RLQ abdominal pain that began suddenly at noon today while she was at work. Pt describes the pain as sharp, and states that is has been persistent. Pt denies N/V/D/C, fever, chills, dysuria, radiating pain, or abdominal distention. She is also currently on day 4 of azithromycin for an ear infection. Onset: Today, Sudden Onset Date: 03/01/19 Onset Time: 12:00 Duration: Constant Location: Reports: Abdomen Quality: Reports: Ache, Sharp Severity: Moderate Improves with: Reports: None Worsens with: Reports: None Associated Symptoms: Reports: No Other Symptoms Right Lower Abdomen Pain Score (Numeric/FACES): 10 - Related Data Allergies Allergy/AdvReac Type Severity Reaction Status Date / Time Penicillins AdvReac Unknown Other Verified 03/01/19 12:35 amoxicillin AdvReac Other Verified 03/01/19 12:35 Home Meds: Home Meds Ibuprofen 400 mg PO ASDIRECTED PRN 10/14/17 [History] metFORMIN [Glucophage XR] 500 mg PO BIDMEALS 10/15/18 [History] Acetaminophen [Tylenol] 650 mg PO ASDIRECTED PRN 02/13/19 [History] Azithromycin [Zithromax] 250 mg PO DAILY 03/01/19 [History] Past Medical History - Past Health History Medical/Surgical History: Denies Medical/Surgical History HEENT History: Reports: Impaired Vision, Other (See Below) Other HEENT History: wears glasses Cardiovascular History: Reports: None Respiratory History: Reports: None Gastrointestinal History: Reports: Bowel Obstruction, Diverticulosis Genitourinary History: Reports: UTI, Recurrent 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, Other (See Below) Other STRINGER MACHINE TENDER History: ovarian cysts Musculoskeletal History: Reports: None Neurological History: Reports: None Psychiatric History: Reports: None Endocrine/Metabolic History: Reports: Diabetes, Type II Hematologic History: Reports: None Immunologic History: Reports: None Oncologic (Cancer) History: Reports: None Dermatologic History: Reports: Other (See Below) Other Dermatologic History: acne - Infectious Disease History Infectious Disease History: Reports: Chicken Pox, MRSA - Past Surgical History Head Surgeries/Procedures: Reports: None HEENT Surgical History: Reports: Oral Surgery, Tonsillectomy, Other (See Below) Other HEENT Surgeries/Procedures: wisdom teeth Respiratory Surgical History: Reports: None GI Surgical History: Reports: Colon, Colonoscopy Other GI Surgeries/Procedures: removed"a foot of stool" 3 years ago Other Female Surgeries/Procedures: ovarian cysts Neurological Surgical History: Reports: None Musculoskeletal Surgical History: Reports: None Social & Family History - Family History Family Medical History: Noncontributory - Tobacco Use Smoking Status *Q: Never Smoker Second Hand Smoke Exposure: No - Caffeine Use Caffeine Use: Reports: None - Recreational Drug Use Recreational Drug Use: No - Living Situation & Occupation Living situation: Reports: with Family ED ROS GENERAL - Review of Systems Review Of Systems: ROS reveals no pertinent complaints other than HPI. ED EXAM, GI/ABD - Physical Exam Exam: See Below Exam Limited By: No Limitations General Appearance: Alert, WD/WN, Mild Distress Eyes: Bilateral: Normal Appearance, EOMI Ears: Normal External Exam, Normal Canal, Hearing Grossly Normal, Normal TMs Nose: Normal Inspection, Normal Mucosa, No Blood Throat/Mouth: Normal Inspection, Normal Lips, Normal Teeth, Normal Gums, Normal Oropharynx, Normal Voice, No Airway Compromise Head: Atraumatic, Normocephalic Neck: Normal Inspection, Supple, Non-Tender, Full Range of Motion Respiratory/Chest: No Respiratory Distress, Lungs Clear, Normal Breath Sounds, No Accessory Muscle Use, Chest Non-Tender Cardiovascular: Normal Peripheral Pulses, Regular Rate, Rhythm, No Murmur, Extra Beats (ventricular trigeminy on monitor) GI/Abdominal Exam: Normal Bowel Sounds, Soft, No Distention, Tender (Mild right sided tenderness, no peritoneal signs). No: Guarding, Rigid (Female) Exam: Deferred Rectal (Female) Exam: Deferred Extremities: Normal Inspection, Normal Range of Motion, Non-Tender, Normal Capillary Refill, No Pedal Edema Neurological: Alert, Oriented, CN II-XII Intact, Normal Cognition, Normal Gait, Normal Reflexes, No Motor/Sensory Deficits EKG INTERPRETATION EKG Date: 03/01/19 Rhythm: NSR Rate (Beats/Min): 102 EKG Interpretation Comments: Sinus tachycardia. Course - Vital Signs Last Recorded V/S: Last Vital Signs Temp 96.7 F 03/01/19 12:30 Pulse 114 H 03/01/19 12:30 Resp 18 03/01/19 12:30 BP 138/60 03/01/19 12:36 Pulse Ox 100 03/01/19 12:30 - Orders/Labs/Meds Orders: Active Orders 24 hr Category Date Time Status EKG 12 Lead [EKG Documentation Completion] [RC] STAT Care 03/01/19 13:00 Active Peripheral IV Care [RC] . DIRECTED Care 03/01/19 12:41 Active Abdomen 2V AP Flat Upright [CR] Urgent Exams 03/01/19 12:55 Taken HCG QUALITATIVE,URINE [URCHEM] Stat Lab 03/01/19 12:46 Ordered UA RFX [facility] AND CULT IF INDIC [URIN] Stat Lab 03/01/19 12:46 Ordered Sodium Chloride 0.9% [Saline Flush] Med 03/01/19 12:41 Active 10 ml FLUSH ASDIRECTED PRN Peripheral IV Insertion Adult [OM.PC] Routine Oth 03/01/19 12:41 Ordered Medication Orders Sodium Chloride (Saline Flush) 10 ml FLUSH ASDIRECTED PRN PRN Reason: Keep Vein Open Last Admin: 03/01/19 12:43 Dose: 10 ml Labs: Laboratory Tests 03/01/19 03/01/19 03/01/19 Range/Units 12:43 12:43 12:43 WBC 10.3 H (5.0-10.0) 10^3/uL RBC 4.85 (4.2-5.4) 10^6/uL Hgb 13.9 (12.0-16.0) g/dL Hct 42.5 (37.0-47.0) % MCV 87.6 (80-100) fL MCH 28.7 (27.0-34.0) pg MCHC 32.7 L (33.0-35.0) g/dL Plt Count 385 (150-450) 10^3/uL Neut % (Auto) 60.9 (42.2-75.2) % Lymph % (Auto) 28.3 (20.5-50.1) % Kings % (Auto) 5.7 (2-8) % Eos % (Auto) 4.5 H (1.0-3.0) % Baso % (Auto) 0.6 (0.0-1.0) % Sodium 139 (135-145) mmol/L Potassium 3.8 (3.6-5.0) mmol/L Chloride 102 (101-111) mmol/L Carbon Dioxide 25.0 (21.0-31.0) mmol/L Anion Gap 15.8 BUN 12 (7-18) mg/dL Creatinine 0.7 (0.6-1.3) mg/dL Est Cr Clr Drug Dosing 112.20 mL/min Estimated GFR (MDRD) > 60 BUN/Creatinine Ratio 17.14 Glucose 109 H (74-105) mg/dL Calcium 9.5 (8.4-10.2) mg/dl Total Bilirubin 0.5 (0.2-1.0) mg/dL AST 18 (10-42) IU/L ALT 19 (10-60) IU/L Alkaline Phosphatase 49 (42-121) IU/L Total Protein 7.7 (6.7-8.2) g/dl Albumin 4.1 (3.2-5.5) g/dl Globulin 3.6 Albumin/Globulin Ratio 1.14 Lipase 26 (22-51) U/L Meds: Medications Generic Name Dose Route Start Last Admin Trade Name Freq PRN Reason Stop Dose Admin Sodium Chloride 10 ml 03/01/19 12:41 03/01/19 12:43 Saline Flush FLUSH 10 ml ASDIRECTED PRN Administration Keep Vein Open Departure - Departure Time of Disposition: 14:01 Disposition: Home, Self-Care 01 Condition: Fair Clinical Impression: Abdominal pain Qualifiers: Abdominal location: right lower quadrant Qualified Code(s): R10.31 - Right lower quadrant pain - Discharge Information *PRESCRIPTION DRUG MONITORING PROGRAM REVIEWED*: Not Applicable *COPY OF PRESCRIPTION DRUG MONITORING REPORT IN PATIENT NAIDA: Not Applicable Instructions: Abdominal Pain, Adult, [id number] Forms: ED Department Discharge Additional Instructions: Push oral fluids. Use tylenol or ibuprofen as needed for pain. Bentyl 20mg four times per day as needed for abdominal pain/cramping. Follow up in clinic on Sunday if abdominal pain continues. - My Orders Last 24 Hours: My Active Orders 03/01/19 12:41 Peripheral IV Care [RC] . DIRECTED Sodium Chloride 0.9% [Saline Flush] 10 ml FLUSH ASDIRECTED PRN Peripheral IV Insertion Adult [OM.PC] Routine 03/01/19 12:46 HCG QUALITATIVE,URINE [URCHEM] Stat UA RFX [facility] AND CULT IF INDIC [URIN] Stat 03/01/19 12:55 Abdomen 2V AP Flat Upright [CR] Urgent 03/01/19 13:00 EKG 12 Lead [EKG Documentation Completion] [RC] STAT - Assessment/Plan Last 24 Hours: My Active Orders 03/01/19 12:41 Peripheral IV Care [RC] . DIRECTED Sodium Chloride 0.9% [Saline Flush] 10 ml FLUSH ASDIRECTED PRN Peripheral IV Insertion Adult [OM.PC] Routine 03/01/19 12:46 HCG QUALITATIVE,URINE [URCHEM] Stat UA RFX [facility] AND CULT IF INDIC [URIN] Stat 03/01/19 12:55 Abdomen 2V AP Flat Upright [CR] Urgent 03/01/19 13:00 EKG 12 Lead [EKG Documentation Completion] [RC] STAT
[2019-03-01 13:09] LABS: ANION GAP 15.8; CHLORIDE,CL 102 mmol/L (101-111); SODIUM,NA 139 mmol/L (135-145)
== END 2019-03-01 14:18 | disposition home or self-care (01) ==
LOC: DL.ED 12:26
DX: R10.31 Right lower quadrant pain (principal); E11.9 Type 2 diabetes mellitus without complications; Z79.84 Long term (current) use of oral hypoglycemic drugs; Z79.899 Other long term (current) drug therapy; Z88.0 Allergy status to penicillin; Z88.1 Allergy status to other antibiotic agents
CPT/HCPCS: 36415; 74019; 80053; 81003; 81025; 83690; 85025; 93005; 99284-25

== ENCOUNTER 2019-03-28 15:34 | Emergency (ER) | payer MEDICAID ==
[2019-03-28] MEDS ORDERED: Sodium Chloride 0.9% 10 ML Syringe FLUSH PRN (16:43)
[2019-03-28] MEDS ORDERED: Sodium Chloride 0.9% 1,000 ML IV ONE (16:45)
[2019-03-28] MEDS ORDERED: Ondansetron 4 MG/2 ML SDV IV ONE (16:45)
[2019-03-28] MEDS ORDERED: Ketorolac 30 MG/ML SDV IVPUSH ONE (16:45)
[2019-03-28] MEDS ORDERED: Ciprofloxacin in D5W 400 MG in Premix Bag 1 BAG IV ONE ×2 (16:57)
[2019-03-28] MEDS ORDERED: metroNIDAZOLE/Normal Saline 500 MG in Premix Bag 100 BAG IV ONE (16:57)
[2019-03-28 17:15] LABS: CHLORIDE,CL 103 mmol/L (101-111); SODIUM,NA 138 mmol/L (135-145)
--- NOTE | 2019-03-28 17:56 | EDM.PDOC ---
Scribed by Kae Lindsey 03/28/19 1710 for Reynaldo Browne MD ED HPI GENERAL MEDICAL PROBLEM - General Chief Complaint: Flank Pain Stated Complaint: LEFT SIDE PAIN/NAUSEA Time Seen by Provider: 03/28/19 16:27 Source of Information: Reports: Patient, RN, RN Notes Reviewed History Limitations: Reports: No Limitations - History of Present Illness INITIAL COMMENTS - FREE TEXT/NARRATIVE: Patient presents to ER for evaluation of two day history of increasing left sided abdominal pain, chills, and nausea. Pt denies any flank pain, vomiting, or dysuria. Pt states the pain is exactly the same as when she had diverticulitis in the past. She admits the her stool has been loose with a small amt. of mucus the last 2 days. Onset: Gradual Onset Date: 03/27/19 Duration: Constant, Getting Worse Location: Reports: Abdomen Quality: Reports: Ache, Same as Previous Episode Severity: Moderate Improves with: Reports: None Worsens with: Reports: None Associated Symptoms: Reports: No Other Symptoms Left Abdomen Pain Score (Numeric/FACES): 8 - Related Data Allergies Allergy/AdvReac Type Severity Reaction Status Date / Time Penicillins AdvReac Unknown Other Verified 03/28/19 16:27 amoxicillin AdvReac Other Verified 03/28/19 16:27 Home Meds: Home Meds Ibuprofen 400 mg PO ASDIRECTED PRN 10/14/17 [History] metFORMIN [Glucophage XR] 500 mg PO BIDMEALS 10/15/18 [History] Acetaminophen [Tylenol] 650 mg PO ASDIRECTED PRN 02/13/19 [History] Past Medical History - Past Health History Medical/Surgical History: Denies Medical/Surgical History HEENT History: Reports: Impaired Vision, Other (See Below) Other HEENT History: wears glasses Cardiovascular History: Reports: None Respiratory History: Reports: None Gastrointestinal History: Reports: Bowel Obstruction, Diverticulosis Genitourinary History: Reports: UTI, Recurrent FRIT BURNER History: Reports: 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, Other (See Below) Other FRIT BURNER History: ovarian cysts Musculoskeletal History: Reports: None Neurological History: Reports: None Psychiatric History: Reports: None Endocrine/Metabolic History: Reports: Diabetes, Type II Hematologic History: Reports: None Immunologic History: Reports: None Oncologic (Cancer) History: Reports: None Dermatologic History: Reports: Other (See Below) Other Dermatologic History: acne - Infectious Disease History Infectious Disease History: Reports: Chicken Pox, MRSA - Past Surgical History Head Surgeries/Procedures: Reports: None HEENT Surgical History: Reports: Oral Surgery, Tonsillectomy, Other (See Below) Other HEENT Surgeries/Procedures: wisdom teeth Respiratory Surgical History: Reports: None GI Surgical History: Reports: Colon, Colonoscopy Other GI Surgeries/Procedures: removed"a foot of stool" 3 years ago Other Female Surgeries/Procedures: ovarian cysts Neurological Surgical History: Reports: None Musculoskeletal Surgical History: Reports: None Social & Family History - Family History Family Medical History: Noncontributory - Caffeine Use Caffeine Use: Reports: None - Living Situation & Occupation Living situation: Reports: with Family Occupation: Employed ED ROS GENERAL - Review of Systems Review Of Systems: ROS reveals no pertinent complaints other than HPI. ED EXAM, GI/ABD - Physical Exam Exam: See Below Exam Limited By: No Limitations General Appearance: Alert, WD/WN, No Apparent Distress, Obese Eyes: Bilateral: Normal Appearance Head: Atraumatic, Normocephalic Neck: Normal Inspection Respiratory/Chest: No Respiratory Distress, Lungs Clear, Normal Breath Sounds, No Accessory Muscle Use, Chest Non-Tender Cardiovascular: Regular Rate, Rhythm GI/Abdominal Exam: Normal Bowel Sounds, Soft, No Distention, Tender (LLQ abdomen ). No: Guarding, Rigid, Rebound (Female) Exam: Deferred Rectal (Female) Exam: Deferred Back Exam: Normal Inspection, Full Range of Motion. No: CVA Tenderness (L), CVA Tenderness (R) Extremities: Normal Inspection Neurological: Alert, Oriented, Normal Cognition, Normal Gait, No Motor/Sensory Deficits Psychiatric: Normal Affect, Normal Mood Skin Exam: Warm, Dry, Intact, Normal Color, No Rash Course - Vital Signs Last Recorded V/S: Last Vital Signs Temp 99.0 F 03/28/19 16:31 Pulse 90 03/28/19 16:31 Resp 18 03/28/19 16:31 BP 120/68 03/28/19 16:31 Pulse Ox 98 03/28/19 16:31 - Orders/Labs/Meds Orders: Active Orders 24 hr Category Date Time Status Peripheral IV Care [RC] . DIRECTED Care 03/28/19 16:44 Active CHLAMYDIA AND GONORRHEA BY TMA Routine Lab 03/28/19 17:49 Ordered CULTURE URINE [RM] Stat Lab 03/28/19 16:30 Received Ciprofloxacin in D5W [Cipro in D5W 400 MG/200 ML] 400 Med 03/28/19 16:57 Active mg Premix Bag 1 bag IV ONETIME Sodium Chloride 0.9% [Saline Flush] Med 03/28/19 16:43 Active 10 ml FLUSH ASDIRECTED PRN metroNIDAZOLE/Normal Saline [Flagyl 500 MG in NS 100 ML Med 03/28/19 16:57 Active ] 500 mg Premix Bag 100 bag IV ONETIME Peripheral IV Insertion Adult [OM.PC] Stat Oth 03/28/19 16:44 Ordered Medication Orders Ciprofloxacin/Dextrose 400 mg/ (Premix) 200 mls @ 200 mls/hr IV ONETIME ONE Stop: 03/28/19 17:56 Last Admin: 03/28/19 17:36 Dose: 200 mls/hr Metronidazole 500 mg/ Premix 100 mls @ 100 mls/hr IV ONETIME ONE Stop: 03/28/19 17:56 Last Admin: 03/28/19 17:05 Dose: 100 mls/hr Sodium Chloride (Saline Flush) 10 ml FLUSH ASDIRECTED PRN PRN Reason: Keep Vein Open Last Admin: 03/28/19 16:54 Dose: 10 ml Labs: Laboratory Tests 03/28/19 03/28/19 03/28/19 Range/Units 16:30 16:30 16:48 WBC 13.7 H (5.0-10.0) 10^3/uL RBC 4.09 L (4.2-5.4) 10^6/uL Hgb 11.7 L D (12.0-16.0) g/dL Hct 36.0 L (37.0-47.0) % MCV 88.0 (80-100) fL MCH 28.6 (27.0-34.0) pg MCHC 32.5 L (33.0-35.0) g/dL Plt Count 294 D (150-450) 10^3/uL Neut % (Auto) 71.0 (42.2-75.2) % Lymph % (Auto) 19.1 L (20.5-50.1) % [place] % (Auto) 7.7 (2-8) % Eos % (Auto) 2.0 (1.0-3.0) % Baso % (Auto) 0.2 (0.0-1.0) % Sodium (135-145) mmol/L Potassium (3.6-5.0) mmol/L Chloride (101-111) mmol/L Carbon Dioxide (21.0-31.0) mmol/L Anion Gap BUN (7-18) mg/dL Creatinine (0.6-1.3) mg/dL Est Cr Clr Drug Dosing mL/min Estimated GFR (MDRD) BUN/Creatinine Ratio Glucose (74-105) mg/dL Lactic Acid (0.5-2.2) mmol/L Calcium (8.4-10.2) mg/dl Total Bilirubin (0.2-1.0) mg/dL AST (10-42) IU/L ALT (10-60) IU/L Alkaline Phosphatase (42-121) IU/L C-Reactive Protein (0.0-1.3) mg/dL Total Protein (6.7-8.2) g/dl Albumin (3.2-5.5) g/dl Globulin Albumin/Globulin Ratio Amylase (28-100) U/L Lipase (22-51) U/L Urine Color [place] (YELLOW) Urine Appearance Slightly cloudy (CLEAR) Urine pH 5.5 (5.0-9.0) Ur Specific [place] 1.020 (1.005-1.030) Urine Protein Negative (NEGATIVE) Urine Glucose (UA) Negative (NEGATIVE) Urine Ketones Negative (NEGATIVE) Urine Occult Blood Negative (NEGATIVE) Urine Nitrite Positive H (NEGATIVE) Urine Bilirubin Small H (NEGATIVE) Urine Urobilinogen 0.2 (0.2-1.0) mg/dL Ur Leukocyte Esterase Negative (NEGATIVE) Urine RBC 0-5 /HPF Urine WBC 0-5 (0-5/HPF) /HPF Ur Epithelial Cells Rare (NOT SEEN) /HPF Urine Bacteria Rare (0-FEW/HPF) /HPF Urine HCG, Qual Negative 03/28/19 03/28/19 03/28/19 Range/Units 16:48 16:48 16:48 WBC (5.0-10.0) 10^3/uL RBC (4.2-5.4) 10^6/uL Hgb (12.0-16.0) g/dL Hct (37.0-47.0) % MCV (80-100) fL MCH (27.0-34.0) pg MCHC (33.0-35.0) g/dL Plt Count (150-450) 10^3/uL Neut % (Auto) (42.2-75.2) % Lymph % (Auto) (20.5-50.1) % [place] % (Auto) (2-8) % Eos % (Auto) (1.0-3.0) % Baso % (Auto) (0.0-1.0) % Sodium 138 (135-145) mmol/L Potassium 4.0 (3.6-5.0) mmol/L Chloride 103 (101-111) mmol/L Carbon Dioxide 26.0 (21.0-31.0) mmol/L Anion Gap 13.0 BUN 9 (7-18) mg/dL Creatinine 0.7 (0.6-1.3) mg/dL Est Cr Clr Drug Dosing 116.39 mL/min Estimated GFR (MDRD) > 60 BUN/Creatinine Ratio 12.85 Glucose 101 (74-105) mg/dL Lactic Acid 1.1 (0.5-2.2) mmol/L Calcium 9.0 (8.4-10.2) mg/dl Total Bilirubin 0.6 (0.2-1.0) mg/dL AST 13 (10-42) IU/L ALT 13 (10-60) IU/L Alkaline Phosphatase 45 (42-121) IU/L C-Reactive Protein 5.9 H (0.0-1.3) mg/dL Total Protein 7.2 (6.7-8.2) g/dl Albumin 3.7 (3.2-5.5) g/dl Globulin 3.5 Albumin/Globulin Ratio 1.06 Amylase 29 (28-100) U/L Lipase 22 (22-51) U/L Urine Color (YELLOW) Urine Appearance (CLEAR) Urine pH (5.0-9.0) Ur Specific [place] (1.005-1.030) Urine Protein (NEGATIVE) Urine Glucose (UA) (NEGATIVE) Urine Ketones (NEGATIVE) Urine Occult Blood (NEGATIVE) Urine Nitrite (NEGATIVE) Urine Bilirubin (NEGATIVE) Urine Urobilinogen (0.2-1.0) mg/dL Ur Leukocyte Esterase (NEGATIVE) Urine RBC /HPF Urine WBC (0-5/HPF) /HPF Ur Epithelial Cells (NOT SEEN) /HPF Urine Bacteria (0-FEW/HPF) /HPF Urine HCG, Qual Meds: Medications Generic Name Dose Route Start Last Admin Trade Name Freq PRN Reason Stop Dose Admin Ciprofloxacin/Dextrose 400 mg/ 200 mls @ 200 mls/hr 03/28/19 16:57 03/28/19 17:36 Premix IV 03/28/19 17:56 200 mls/hr ONETIME ONE Administration Metronidazole 500 mg/ Premix 100 mls @ 100 mls/hr 03/28/19 16:57 03/28/19 17: 05 IV 03/28/19 17:56 100 mls/hr ONETIME ONE Administration Sodium Chloride 10 ml 03/28/19 16:43 03/28/19 16:54 Saline Flush FLUSH 10 ml ASDIRECTED PRN Administration Keep Vein Open Discontinued Medications Generic Name Dose Route Start Last Admin Trade Name Freq PRN Reason Stop Dose Admin Sodium Chloride 1,000 mls @ 999 mls/hr 03/28/19 16:45 03/28/19 16:59 Normal Saline IV 03/28/19 17:45 999 mls/hr .BOLUS ONE Administration Ketorolac Tromethamine 30 mg 03/28/19 16:45 03/28/19 17:03 Toradol IVPUSH 03/28/19 16:46 30 mg ONETIME ONE Administration Ondansetron HCl 4 mg 03/28/19 16:45 03/28/19 16:59 Zofran IV 03/28/19 16:46 4 mg ONETIME ONE Administration - Re-Assessments/Exams Free Text/Narrative Re-Assessment/Exam: 03/28/19 17:[address] Pt has had numerous CT scans, and given the current clinic picture of non-toxic appearance and past diverticulitis with similar Sx's I do not see any indication for obtaining a CT or other imaging at this time. Plan to tx pt empirically for diverticulitis, screen the urine for STD and have the pt f/u in clinic next week for recheck. She has been instructed to return to the ER if she is worse at any time. Departure - Departure Time of Disposition: 17:52 Disposition: Home, Self-Care 01 Condition: Good Clinical Impression: Diverticulitis - Discharge Information *PRESCRIPTION DRUG MONITORING PROGRAM REVIEWED*: No *COPY OF PRESCRIPTION DRUG MONITORING REPORT IN PATIENT NAIDA: No Instructions: Diverticulitis, Pain Medicine Instructions, [id number] Forms: ED Department Discharge Additional Instructions: Rx: Flagyl (Metronidazole) 500mg Rx: Cipro 500mg Rx: Zofran 4mg Rx: [place] 5mg/325mg *Do not drive or work while under the influence of this medication. - My Orders Last 24 Hours: My Active Orders 03/28/19 16:30 CULTURE URINE [RM] Stat 03/28/19 16:43 Sodium Chloride 0.9% [Saline Flush] 10 ml FLUSH ASDIRECTED PRN 03/28/19 16:44 Peripheral IV Care [RC] . DIRECTED Peripheral IV Insertion Adult [OM.PC] Stat 03/28/19 16:57 Ciprofloxacin in D5W [Cipro in D5W 400 MG/200 ML] 400 mg Premix Bag 1 bag IV ONETIME metroNIDAZOLE/Normal Saline [Flagyl 500 MG in NS 100 ML] 500 mg Premix Bag 100 bag IV ONETIME 03/28/19 17:49 CHLAMYDIA AND GONORRHEA BY TMA Routine - Assessment/Plan Last 24 Hours: My Active Orders 03/28/19 16:30 CULTURE URINE [RM] Stat 03/28/19 16:43 Sodium Chloride 0.9% [Saline Flush] 10 ml FLUSH ASDIRECTED PRN 03/28/19 16:44 Peripheral IV Care [RC] . DIRECTED Peripheral IV Insertion Adult [OM.PC] Stat 03/28/19 16:57 Ciprofloxacin in D5W [Cipro in D5W 400 MG/200 ML] 400 mg Premix Bag 1 bag IV ONETIME metroNIDAZOLE/Normal Saline [Flagyl 500 MG in NS 100 ML] 500 mg Premix Bag 100 bag IV ONETIME 03/28/19 17:49 CHLAMYDIA AND GONORRHEA BY TMA Routine I have read and agree with the documentation that has been completed regarding this visit. By signing this record, I attest that the documentation was completed in my physical presence and is an accurate record of the encounter.
[2019-03-28 18:46] VITALS: BP 121/55; PULSE 72
== END 2019-03-28 18:49 | disposition home or self-care (01) ==
LOC: DL.ED 15:34
DX: K57.92 Diverticulitis of intestine, part unspecified, without perforation or abscess without bleeding (principal); E11.9 Type 2 diabetes mellitus without complications; Z88.0 Allergy status to penicillin; Z88.1 Allergy status to other antibiotic agents; Z79.84 Long term (current) use of oral hypoglycemic drugs
CPT/HCPCS: 36415; 80053; 81001; 81025; 82150; 83605; 83690; 85025; 86140; 87086; 87491; 87591; 96365; 96375; 99283; J0744; J1885; J2405; J3490; J7030; 87088

== ENCOUNTER 2019-04-08 14:41 | Emergency (ER) | payer MEDICAID ==
--- NOTE | 2019-04-08 15:29 | EDM.PDOC ---
ED HPI GENERAL MEDICAL PROBLEM - General Chief Complaint: Abdominal Pain Stated Complaint: SHARP PAIN, LEFT SIDE Time Seen by Provider: 04/08/19 15:20 Source of Information: Reports: Patient History Limitations: Reports: No Limitations - History of Present Illness INITIAL COMMENTS - FREE TEXT/NARRATIVE: This 33 yo female patient reports to the ED with intermittent left sided abdominal pain. The patient reports her symptoms started last Sunday. The patient was seen in the clinic yesterday for similar symptoms, but continued to have symptoms today. The patient was advised to take ibuprofen for her symptoms. The patient reports her last dose of ibuprofen was at about 1100 this morning. The patient reports her pain has been coming and going describes her symptoms as stabbing in her left side. The patient was seen in the ED for Diverticulitis on 03/28/19 and was started on antibiotics. The patient was not given anything yesterday for her symptoms. 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 - Related Data Allergies Allergy/AdvReac Type Severity Reaction Status Date / Time Penicillins AdvReac Unknown Other Verified 04/08/19 15:13 amoxicillin AdvReac Other Verified 04/08/19 15:13 Home Meds: Home Meds Ibuprofen 800 mg PO Q8H PRN 10/14/17 [History] metFORMIN [Glucophage XR] 500 mg PO BIDMEALS 10/15/18 [History] Acetaminophen [Tylenol] 650 mg PO ASDIRECTED PRN 02/13/19 [History] Rosuvastatin Calcium 5 mg PO DAILY 04/08/19 [History] Past Medical History - Past Health History Medical/Surgical History: Denies Medical/Surgical History HEENT History: Reports: Impaired Vision, Other (See Below) Other HEENT History: wears glasses Cardiovascular History: Reports: None Respiratory History: Reports: None Gastrointestinal History: Reports: Bowel Obstruction, Diverticulosis Genitourinary History: Reports: UTI, Recurrent 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, Other (See Below) Other RETAIL ADVERTISING SALES MANAGER History: ovarian cysts Musculoskeletal History: Reports: None Neurological History: Reports: None Psychiatric History: Reports: None Endocrine/Metabolic History: Reports: Diabetes, Type II Hematologic History: Reports: None Immunologic History: Reports: None Oncologic (Cancer) History: Reports: None Dermatologic History: Reports: Other (See Below) Other Dermatologic History: acne - Infectious Disease History Infectious Disease History: Reports: Chicken Pox, MRSA - Past Surgical History Head Surgeries/Procedures: Reports: None HEENT Surgical History: Reports: Oral Surgery, Tonsillectomy, Other (See Below) Other HEENT Surgeries/Procedures: wisdom teeth Respiratory Surgical History: Reports: None GI Surgical History: Reports: Colon, Colonoscopy Other GI Surgeries/Procedures: removed"a foot of stool" 3 years ago Other Female Surgeries/Procedures: ovarian cysts Neurological Surgical History: Reports: None Musculoskeletal Surgical History: Reports: None Social & Family History - Family History Family Medical History: Noncontributory - Caffeine Use Caffeine Use: Reports: None - Living Situation & Occupation Living situation: Reports: with Family Occupation: Employed ED ROS GENERAL - Review of Systems Review Of Systems: ROS reveals no pertinent complaints other than HPI. ED EXAM, GI/ABD - Physical Exam Exam: See Below Exam Limited By: No Limitations General Appearance: Alert, WD/WN, Mild Distress, Obese Eyes: Bilateral: Normal Appearance, EOMI Ears: Normal External Exam, Normal Canal, Hearing Grossly Normal, Normal TMs Nose: Normal Inspection, Normal Mucosa, No Blood Throat/Mouth: Normal Inspection, Normal Lips, Normal Teeth, Normal Gums, Normal Oropharynx, Normal Voice, No Airway Compromise Head: Atraumatic, Normocephalic Neck: Normal Inspection, Supple, Non-Tender, Full Range of Motion Respiratory/Chest: No Respiratory Distress, Lungs Clear, Normal Breath Sounds, No Accessory Muscle Use, Chest Non-Tender Cardiovascular: Normal Peripheral Pulses, Regular Rate, Rhythm, No Edema, No Gallop, No JVD, No Murmur, No Rub GI/Abdominal Exam: Normal Bowel Sounds, No Organomegaly, No Distention, No Abnormal Bruit, No Mass, Pelvis Stable, Tender (left lateral abdominal tenderness to palpation) (Female) Exam: Deferred Rectal (Female) Exam: Deferred Back Exam: Normal Inspection, Full Range of Motion, NT Extremities: Normal Inspection, Normal Range of Motion, Non-Tender, Normal Capillary Refill, No Pedal Edema Neurological: Alert, Oriented, CN II-XII Intact, Normal Cognition, Normal Gait, Normal Reflexes, No Motor/Sensory Deficits Psychiatric: Normal Affect, Normal Mood Skin Exam: Warm, Dry, Intact, Normal Color, No Rash Lymphatic: No Adenopathy Course - Vital Signs Last Recorded V/S: Last Vital Signs Temp 37.1 C 04/08/19 15:08 Pulse 79 04/08/19 15:08 Resp 16 04/08/19 15:08 BP 144/44 H 04/08/19 15:08 Pulse Ox 99 04/08/19 15:08 - Orders/Labs/Meds Orders: Active Orders 24 hr Category Date Time Status CULTURE URINE [RM] Urgent Lab 04/08/19 15:38 Received Labs: Laboratory Tests 04/08/19 04/08/19 04/08/19 Range/Units 15:37 15:37 15:38 WBC 10.4 H (5.0-10.0) 10^3/uL RBC 4.27 (4.2-5.4) 10^6/uL Hgb 12.1 (12.0-16.0) g/dL Hct 37.8 (37.0-47.0) % MCV 88.5 (80-100) fL MCH 28.3 (27.0-34.0) pg MCHC 32.0 L (33.0-35.0) g/dL Plt Count 382 D (150-450) 10^3/uL Neut % (Auto) 62.5 (42.2-75.2) % Lymph % (Auto) 27.6 (20.5-50.1) % [place] % (Auto) 7.6 (2-8) % Eos % (Auto) 1.9 (1.0-3.0) % Baso % (Auto) 0.4 (0.0-1.0) % Sodium 139 (135-145) mmol/L Potassium 4.1 (3.6-5.0) mmol/L Chloride 104 (101-111) mmol/L Carbon Dioxide 26.0 (21.0-31.0) mmol/L Anion Gap 13.1 BUN 10 (7-18) mg/dL Creatinine 0.7 (0.6-1.3) mg/dL Est Cr Clr Drug Dosing 116.39 mL/min Estimated GFR (MDRD) > 60 BUN/Creatinine Ratio 14.28 Glucose 111 H (74-105) mg/dL Calcium 9.2 (8.4-10.2) mg/dl Total Bilirubin 0.4 (0.2-1.0) mg/dL AST 12 (10-42) IU/L ALT 13 (10-60) IU/L Alkaline Phosphatase 38 L (42-121) IU/L Total Protein 7.3 (6.7-8.2) g/dl Albumin 3.8 (3.2-5.5) g/dl Globulin 3.5 Albumin/Globulin Ratio 1.09 Urine Color Yellow (YELLOW) Urine Appearance Clear (CLEAR) Urine pH 5.5 (5.0-9.0) Ur Specific [place] 1.010 (1.005-1.030) Urine Protein Negative (NEGATIVE) Urine Glucose (UA) Negative (NEGATIVE) Urine Ketones Negative (NEGATIVE) Urine Occult Blood Moderate H (NEGATIVE) Urine Nitrite Negative (NEGATIVE) Urine Bilirubin Negative (NEGATIVE) Urine Urobilinogen 0.2 (0.2-1.0) mg/dL Ur Leukocyte Esterase Trace H (NEGATIVE) Urine RBC 5-10 H /HPF Urine WBC 5-10 H (0-5/HPF) /HPF Ur Epithelial Cells Few (NOT SEEN) /HPF Amorphous Sediment Rare (NOT SEEN) /HPF Urine Bacteria Few (0-FEW/HPF) /HPF Urine Mucus Rare (NOT SEEN) /LPF Departure - Departure Time of Disposition: 17:22 Disposition: Home, Self-Care 01 Condition: Fair Clinical Impression: Intermittent lower abdominal pain, Diverticulitis, Hematuria - Discharge Information *PRESCRIPTION DRUG MONITORING PROGRAM REVIEWED*: Not Applicable *COPY OF PRESCRIPTION DRUG MONITORING REPORT IN PATIENT NAIDA: Not Applicable Instructions: Abdominal Pain, Adult, [id number], Diverticulitis Forms: ED Department Discharge Care Plan Goals: The patient was advised of the examination, lab and CT results during the visit. The patient was encouraged to stick to a bland diet. Since the patient took her final dose of Cipro and Flagyl, no further antibiotics were given. The patient was encouraged to follow-up with her primary care facility. If the patient has any additional symptoms or concerns, the patient should either return to the emergency department or visit her primary care facility. - My Orders Last 24 Hours: My Active Orders 04/08/19 15:38 CULTURE URINE [RM] Urgent - Assessment/Plan Last 24 Hours: My Active Orders 04/08/19 15:38 CULTURE URINE [RM] Urgent
[2019-04-08 15:43] VITALS: BP 144/44; PULSE 79
[2019-04-08 16:02] LABS: ANION GAP 13.1; CHLORIDE,CL 104 mmol/L (101-111); SODIUM,NA 139 mmol/L (135-145)
--- NOTE | 2019-04-08 17:07 | CT ---
EXAMINATION: Abdomen Pelvis wo Cont SEX: Female AGE: 33 years CLINICAL HISTORY: 33-year-old 289 pound diabetic female with Hematuria and left side pain. Scan technique: Volume acquisition of data emergency unenhanced CT scan of the abdomen and pelvis (kidneys/ureters/bladder) obtained with the patient lying supine on the Siemens multi slice scanner [facility]. All data archived in the PACS system for storage, reformatting axial/sagittal/coronal planes and study. Interpretation: 1. Multiple diverticula in the sigmoid, descending left, and transverse colon. Focal "dirty" fat streaking LLQ suggesting diverticulitis. Clinical? (Suggestion previous: surgery LUQ. Sutures?) Large volume of stool rectosigmoid colon. 2. Normal reniform size, axis and configuration bilaterally (slightly lobular contour upper mid pole left kidney. Pyelonephritis?). No sign of renal calcifications (nephrolithiasis), ureterolithiasis or bladder stones. No pyelocaliectasis or ureterectasis. 3. Tiny phlebolith-like radiodensity pelvis, on the right. 4. Inhomogeneously dense gallbladder suggesting noncalcified stones. Clinical? Liver, stomach, spleen, pancreas and adrenal glands unremarkable. Normal uterus. 5. No pelvic or abdominal mass lesion, signs of mechanical bowel obstruction, ascites or free intraperitoneal air. 6. Prominent cardiac silhouette. Lung bases clear. CONCLUSION: Sigmoid DIVERTICULITIS (LLQ). Close clinical correlation please. Suspicion possible ipsilateral pyelonephritis (urinalysis?). Suggest gallbladder ultrasound (see above)
== END 2019-04-08 17:29 | disposition home or self-care (01) ==
LOC: DL.ED 14:41
DX: K57.32 Diverticulitis of large intestine without perforation or abscess without bleeding (principal); R31.9 Hematuria, unspecified; E11.9 Type 2 diabetes mellitus without complications; Z88.0 Allergy status to penicillin; Z88.1 Allergy status to other antibiotic agents
CPT/HCPCS: 36415; 74176; 80053; 81001; 85025; 87086; 99284-25

== ENCOUNTER 2019-06-26 06:49 | Day surgery (SDC) | payer MEDICAID ==
[2019-06-26] MEDS ORDERED: Ondansetron 4 MG/2 ML SDV IV ONE (06:50)
[2019-06-26] MEDS ORDERED: Bupivacaine 0.5% 30 ML SDV ONE ×2 (06:50→07:26)
[2019-06-26] MEDS ORDERED: Midazolam 1 MG/ML 2 ML SDV IV ONE (06:50)
[2019-06-26] MEDS ORDERED: Ketorolac 30 MG/ML SDV IVPUSH ONE (06:50)
[2019-06-26] MEDS ORDERED: Lidocaine 1% 30 ML SDV ONE ×2 (06:50→07:26)
[2019-06-26] MEDS ORDERED: fentaNYL 100 MCG/2 ML SDV IV ONE (06:50)
[2019-06-26] MEDS ORDERED: Sodium Chloride 0.9% 10 ML Syringe FLUSH PRN ×2 (07:00)
[2019-06-26] MEDS ORDERED: Lactated Ringers 1,000 ML IV SCH (07:00)
[2019-06-26] MEDS ORDERED: Clindamycin Phosphate 600 MG in Sodium Chloride 0.9% 100 ML IV ONE (07:00)
[2019-06-26] MEDS ORDERED: Clindamycin Phosphate 600 MG/4 ML SDV ONE (07:55)
[2019-06-26] MEDS ORDERED: Sodium Chloride 0.9% 100 ML ONE (07:56)
[2019-06-26] MEDS ORDERED: Bupivacaine 0.5% 30 ML SDV INJECT ONE ×3 (08:32→09:21)
[2019-06-26] MEDS ORDERED: Lidocaine 1% 30 ML SDV INJECT ONE ×3 (08:32→09:21)
[2019-06-26] MEDS ORDERED: Acetaminophen/oxyCODONE 325-5 MG Tab PO PRN (09:31)
--- NOTE | 2019-06-26 09:33 | PCM.OPNOTE ---
- General Post-Op/Procedure Note Date of Surgery/Procedure: 06/26/19 Operative Procedure(s): left foot 2nd digit PIPJ arthrodesis with extensor tendon lengthening Pre Op Diagnosis: left foot painful 2nd digit hammertoe Post-Op Diagnosis: cesar Anesthesia Technique: Local, MAC Primary Surgeon: Evelyn Alvarez Anesthesia Provider: Cm Peters EBLori in mLs: 5 Complications: none Condition: Good Free Text/Narrative:: Intake & Output 06/25/19 06/26/19 06/26/19 22:59 06:59 14:59 Intake Total 100 Balance 100 Pt tolerated procedure well and was transported to recovery with vascular status intact to left 2nd toe/foot. Smart toe size 19 placed at 2nd digit. well padded compression dressing applied.
[2019-06-26 14:46] VITALS: BP 116/66; PULSE 73
--- NOTE | 2019-06-27 10:48 | OR ---
DATE: 06/26/2019 PREOPERATIVE DIAGNOSIS: Left foot 2nd hammertoe. POSTOPERATIVE DIAGNOSIS: Left foot 2nd hammertoe. PROCEDURE PERFORMED: Left foot 2nd digit proximal interphalangeal joint arthrodesis with Smart Toe implant/hammertoe correction. ANESTHESIA: Local MAC with preoperative local block of 10 mL 1:1 mixture of 1% lidocaine plain and 0.5% Marcaine plain. TOURNIQUET TIME: 39 minutes. Pneumatic ankle tourniquet. ESTIMATED BLOOD LOSS: Minimal. SPECIMEN: None. COMPLICATIONS: None. INDICATIONS: Roxanna is a 33-year-old female who presents with a painful left 2nd toe. This has been going on for several months now and is continuing to worsen. She noticed that it started to bend and now it is painful when she is walking or wearing shoes. She has tried different shoes and padding with no relief. X-rays of the left foot reveal hammertoe of the 2nd digit. The patient voiced good understanding of proposed procedure and possible complications and elects to have surgery at this time. DESCRIPTION OF PROCEDURE: The patient was taken to the operating room lying in supine position. After adequate anesthesia induction as described above, the left foot was prepped and draped in the usual sterile fashion. A pneumatic ankle tourniquet was inflated to 225 mmHg. Attention was directed to the left foot dorsal aspect of the 2nd digit where a curvilinear incision was made overlying the 2nd proximal interphalangeal joint extending down to the metatarsophalangeal joint. Sharp and blunt dissection were made down to the level of the proximal interphalangeal joint and a tenotomy capsulotomy was made to expose the head of the proximal phalanx. The proximal phalanx was resected with a sagittal saw as well as the base of the intermediate phalanx. A Smart Toe implant size 19 was placed across the proximal interphalangeal joint site with the toe in a rectus alignment and good compression of the arthrodesis site. Fluoroscopy was used to verify proper positioning of the implant and of the toe. The foot was simulated weightbearing and the toe was noted to still be in some dorsiflexion, so attention was directed to the dorsal aspect of the 2nd metatarsophalangeal joint and a capsulotomy was made at the dorsal aspect. The foot was again simulated weightbearing and the toe was noted to be in a straight rectus alignment. The tendon was repaired with 3-0 Vicryl. The area was irrigated with copious amounts of sterile saline. Skin was closed with 4-0 nylon. The area was dressed with Xeroform to the incision site, fluffs, Webril, and Jono wrap. The patient tolerated the procedure and anesthesia well and left the operating room for recovery with vital signs stable and in good condition as noted by immediate hyperemia to all digits upon deflation of the ankle tourniquet. The patient was then discharged home when she met hospital discharge requirements. [facility] /[id number]
== END 2019-06-26 11:40 | disposition home or self-care (01) ==
LOC: DL.SDS 06:49
PROVIDERS: ATTEND Podiatrist
DX: M20.42 Other hammer toe(s) (acquired), left foot (principal); E11.9 Type 2 diabetes mellitus without complications; E66.01 Morbid (severe) obesity due to excess calories; Z68.41 Body mass index [BMI] 40.0-44.9, adult; Z79.84 Long term (current) use of oral hypoglycemic drugs; Z88.1 Allergy status to other antibiotic agents; Z88.0 Allergy status to penicillin
CPT/HCPCS: 28285; 81003; 81025; C1776; J1885; J2001; J2250; J2405; J3010; J3490; J7050; J7120

== ENCOUNTER 2019-07-23 09:25 | Emergency (ER) | payer MEDICAID ==
[2019-07-23 09:37] VITALS: BP 120/56; PULSE 77
[2019-07-23] MEDS ORDERED: Sodium Chloride 0.9% 10 ML Syringe FLUSH PRN (09:56)
[2019-07-23] MEDS ORDERED: Ondansetron 4 MG/2 ML SDV IV ONE (09:58)
[2019-07-23] MEDS ORDERED: HYDROmorphone 1 MG/ML Syringe IVPUSH ONE (09:59)
[2019-07-23 10:32] LABS: ANION GAP 11.7; CHLORIDE,CL 101 mmol/L (101-111); SODIUM,NA 135 mmol/L (135-145)
--- NOTE | 2019-07-23 11:22 | EDM.PDOC ---
ED HPI GENERAL MEDICAL PROBLEM - General Chief Complaint: Flank Pain Stated Complaint: LOWER RIGHT SIDE STABBING PAIN Time Seen by Provider: 07/23/19 09:30 Source of Information: Reports: Patient - History of Present Illness INITIAL COMMENTS - FREE TEXT/NARRATIVE: Roxanna is a 34 year old woman who presents with a few day history of worsening abdominal pain. She states it is diffuse, and she can't really pinpoint it to one spot. She tells me she had foot surgery about 10 days ago, and really her abdomen has not felt right since. No vomiting, no hematochezia or melena Right Flank Pain Score (Numeric/FACES): 8 - Related Data Allergies Allergy/AdvReac Type Severity Reaction Status Date / Time Penicillins AdvReac Unknown Other Verified 07/23/19 09:38 amoxicillin AdvReac Other Verified 07/23/19 09:38 Home Meds: Home Meds Ibuprofen 800 mg PO Q8H PRN 10/14/17 [History] metFORMIN [Glucophage XR] 1,000 mg PO BIDMEALS 10/15/18 [History] Acetaminophen [Tylenol] 650 mg PO ASDIRECTED PRN 02/13/19 [History] Ascorbic Acid [Vitamin C] 1 tab PO DAILY 06/24/19 [History] Cetirizine HCl 5 mg PO DAILY 06/24/19 [History] Cholecalciferol (Vitamin D3) [Vitamin D3] 1.25 mg PO .Q7DAYS 06/24/19 [History] Ciprofloxacin/Dexamethasone [Ciprodex Otic Susp] 4 drop EARLF BID 06/24/19 [ History] Cranberry 2 tab PO DAILY 06/24/19 [History] Past Medical History - Past Health History Medical/Surgical History: Denies Medical/Surgical History HEENT History: Reports: Impaired Vision, Other (See Below) Other HEENT History: wears glasses Cardiovascular History: Reports: None Respiratory History: Reports: None Gastrointestinal History: Reports: Bowel Obstruction, Diverticulosis Genitourinary History: Reports: UTI, Recurrent [employer] History: Reports: 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, Polycystic Ovaries, Other (See Below) Other [employer] History: ovarian cysts Musculoskeletal History: Reports: None Neurological History: Reports: None Psychiatric History: Reports: None Endocrine/Metabolic History: Reports: Diabetes, Type II Hematologic History: Reports: None Immunologic History: Reports: None Oncologic (Cancer) History: Reports: None Dermatologic History: Reports: Other (See Below) Other Dermatologic History: acne - Infectious Disease History Infectious Disease History: Reports: Chicken Pox, MRSA - Past Surgical History Head Surgeries/Procedures: Reports: None HEENT Surgical History: Reports: Oral Surgery, Tonsillectomy, Other (See Below) Other HEENT Surgeries/Procedures: wisdom teeth Cardiovascular Surgical History: Reports: None Respiratory Surgical History: Reports: None GI Surgical History: Reports: Colon, Colonoscopy Other GI Surgeries/Procedures: removed"a foot of stool" 3 years ago Female Surgical History: Reports: Other (See Below) Other Female Surgeries/Procedures: ovarian cysts Endocrine Surgical History: Reports: None Neurological Surgical History: Reports: None Musculoskeletal Surgical History: Reports: Other (See Below) Other Musculoskeletal Surgeries/Procedures:: Recent surgery to L foot 06/2019 Dermatological Surgical History: Reports: Other (See Below) Social & Family History - Family History Family Medical History: Noncontributory - Tobacco Use Smoking Status *Q: Never Smoker Second Hand Smoke Exposure: No - Caffeine Use Caffeine Use: Reports: None Other Caffeine Use: HASN'T HAD COFFEE IN ONE WEEK - Recreational Drug Use Recreational Drug Use: No - Living Situation & Occupation Living situation: Reports: with Family Occupation: Employed ED ROS GENERAL - Review of Systems Review Of Systems: Comprehensive ROS is negative, except as noted in HPI. ED EXAM, GI/ABD - Physical Exam Exam: See Below Text/Narrative:: General: Roxanna is a 34 year old woman in no acute distress Oropharynx is clear, mucous membranes are moist Heart: regular rate and rhythm, no murmurs Lungs: clear to ascultation Abdomen: soft, diffusely tender to palpation, hypoactive bowel sounds heard throughout Flat and upright abdominal xray shows large amount of stool in the ascending, transverse, and descending colon Course - Vital Signs Last Recorded V/S: Last Vital Signs Temp 35.8 C 07/23/19 09:32 Pulse 77 07/23/19 09:32 Resp 20 07/23/19 09:32 BP 120/56 L 07/23/19 09:32 Pulse Ox 97 07/23/19 09:32 - Orders/Labs/Meds Orders: Active Orders 24 hr Category Date Time Status Peripheral IV Care [RC] . DIRECTED Care 07/23/19 09:56 Active Peripheral IV Insertion Adult [OM.PC] Routine Oth 07/23/19 09:56 Ordered Labs: Laboratory Tests 07/23/19 07/23/19 07/23/19 Range/Units 09:45 10:05 10:05 WBC 13.0 H (5.0-10.0) 10^3/uL RBC 4.34 (4.2-5.4) 10^6/uL Hgb 12.5 (12.0-16.0) g/dL Hct 38.4 (37.0-47.0) % MCV 88.5 (80-100) fL MCH 28.8 (27.0-34.0) pg MCHC 32.6 L (33.0-35.0) g/dL Plt Count 354 (150-450) 10^3/uL Neut % (Auto) 73.0 (42.2-75.2) % Lymph % (Auto) 17.4 L (20.5-50.1) % [place] % (Auto) 7.9 (2-8) % Eos % (Auto) 1.5 (1.0-3.0) % Baso % (Auto) 0.2 (0.0-1.0) % Sodium 135 (135-145) mmol/L Potassium 3.7 (3.6-5.0) mmol/L Chloride 101 (101-111) mmol/L Carbon Dioxide 26.0 (21.0-31.0) mmol/L Anion Gap 11.7 BUN 12 (7-18) mg/dL Creatinine 0.7 (0.6-1.3) mg/dL Est Cr Clr Drug Dosing 113.24 mL/min Estimated GFR (MDRD) > 60 BUN/Creatinine Ratio 17.14 Glucose 112 H (74-105) mg/dL Calcium 8.6 (8.4-10.2) mg/dl Total Bilirubin 0.8 (0.2-1.0) mg/dL AST 11 (10-42) IU/L ALT 16 (10-60) IU/L Alkaline Phosphatase 43 (42-121) IU/L Total Protein 6.8 (6.7-8.2) g/dl Albumin 3.5 (3.2-5.5) g/dl Globulin 3.3 Albumin/Globulin Ratio 1.06 Lipase 20 L (22-51) U/L Urine Color Dark yellow (YELLOW) Urine Appearance Slightly cloudy (CLEAR) Urine pH 5.5 (5.0-9.0) Ur Specific [place] 1.020 (1.005-1.030) Urine Protein Negative (NEGATIVE) Urine Glucose (UA) Negative (NEGATIVE) Urine Ketones Negative (NEGATIVE) Urine Occult Blood Trace-intact H (NEGATIVE) Urine Nitrite Negative (NEGATIVE) Urine Bilirubin Negative (NEGATIVE) Urine Urobilinogen 0.2 (0.2-1.0) mg/dL Ur Leukocyte Esterase Trace H (NEGATIVE) Urine RBC 0-5 /HPF Urine WBC 0-5 (0-5/HPF) /HPF Ur Epithelial Cells Moderate H (NOT SEEN) /HPF Urine Bacteria Few (0-FEW/HPF) /HPF Urine Mucus Few H (NOT SEEN) /LPF Meds: Medications Discontinued Medications Generic Name Dose Route Start Last Admin Trade Name Freq PRN Reason Stop Dose Admin Hydromorphone HCl 0.5 mg 07/23/19 09:59 07/23/19 10:16 Dilaudid IVPUSH 07/23/19 10:00 0.5 mg ONETIME ONE Administration Ondansetron HCl 4 mg 07/23/19 09:58 07/23/19 10:16 Zofran IV 07/23/19 09:59 4 mg ONETIME ONE Administration Sodium Chloride 10 ml 07/23/19 09:56 07/23/19 10:16 Saline Flush FLUSH 10 ml ASDIRECTED PRN Administration Keep Vein Open Departure - Departure Time of Disposition: 11:40 Disposition: Home, Self-Care 01 Clinical Impression: Constipation - Discharge Information *PRESCRIPTION DRUG MONITORING PROGRAM REVIEWED*: Not Applicable *COPY OF PRESCRIPTION DRUG MONITORING REPORT IN PATIENT NAIDA: Not Applicable Instructions: Constipation, Adult Referrals: PCP,None [Ordering Only Provider] - Forms: ED Department Discharge, ED Return to Work/School Form Additional Instructions: purchase a 250 gram container of Miralax (polyethylene glycol) and pour half of the container in a 32 ounce bottle of water or gatorade. Okay to repeat this the next day if not cleaned out all the way Sepsis Event Note - Evaluation Sepsis Screening Result: No Definite Risk - Focused Exam Date Exam was Performed: 07/24/19 Time Exam was Performed: 08:20 - Problem List & Annotations (1) Constipation SNOMED Code(s): 21065590 Code(s): K59.00 - CONSTIPATION, UNSPECIFIED Status: Acute - Problem List Review Problem List Initiated/Reviewed/Updated: Yes - My Orders Last 24 Hours: My Active Orders 07/23/19 09:56 Peripheral IV Care [RC] . DIRECTED Peripheral IV Insertion Adult [OM.PC] Routine - Assessment/Plan Last 24 Hours: My Active Orders 07/23/19 09:56 Peripheral IV Care [RC] . DIRECTED Peripheral IV Insertion Adult [OM.PC] Routine Plan: Plan: 1. She will return home, and use a large dose of miralax today with 32-64 ounces of fluids to get herself cleaned out. She will follow up with her primary care provider if she is not improving
== END 2019-07-23 11:37 | disposition home or self-care (01) ==
LOC: DL.ED 09:25
DX: K59.00 Constipation, unspecified (principal); E11.9 Type 2 diabetes mellitus without complications; Z88.0 Allergy status to penicillin; Z79.84 Long term (current) use of oral hypoglycemic drugs
CPT/HCPCS: 36415; 74019; 80053; 81001; 83690; 85025; 96374; 96375; 99284; J1170; J2405

== ENCOUNTER 2020-01-03 17:43 | Emergency (ER) | payer MEDICAID ==
[2020-01-03 18:14] VITALS: BP 147/68; PULSE 85
--- NOTE | 2020-01-03 20:22 | EDM.PDOC ---
<Aroldo Brothers - Last Filed: 01/03/20 22:41> ED HPI GENERAL MEDICAL PROBLEM - General Chief Complaint: Abdominal Pain Stated Complaint: BLADDER INFECTION OR DIVERTICULITUS Time Seen by Provider: 01/03/20 23:05 Source of Information: Reports: Patient History Limitations: Reports: No Limitations - History of Present Illness INITIAL COMMENTS - FREE TEXT/NARRATIVE: Yesterday, patient began noticing worsening left lower quadrant abdominal pain. She denies nausea, vomiting, fever, chills, urinary changes. It is associated with loose stool but no blood seen. She has a history of diverticulitis. She has noticed some since March 2019 but they were not severe so she did not present for evaluation. She also reports that months ago she had worsening UTIs but have since improved. She does report some lower left back pain which she attributes to work. Left Flank Pain Score (Numeric/FACES): 8 - Related Data Allergies Allergy/AdvReac Type Severity Reaction Status Date / Time Penicillins AdvReac Unknown Other Verified 01/03/20 18:14 amoxicillin AdvReac Other Verified 01/03/20 18:14 Home Meds: Home Meds metFORMIN [Glucophage XR] 1,000 mg PO BIDMEALS 10/15/18 [History] Acetaminophen [Tylenol] 650 mg PO ASDIRECTED PRN 02/13/19 [History] Ascorbic Acid [Vitamin C] 1 tab PO DAILY 06/24/19 [History] Cetirizine HCl 5 mg PO DAILY 06/24/19 [History] Cholecalciferol (Vitamin D3) [Vitamin D3] 1.25 mg PO .Q7DAYS 06/24/19 [History] Cranberry 2 tab PO DAILY 06/24/19 [History] Past Medical History - Past Health History Medical/Surgical History: Denies Medical/Surgical History HEENT History: Reports: Impaired Vision, Other (See Below) Other HEENT History: wears glasses Cardiovascular History: Reports: None Respiratory History: Reports: None Gastrointestinal History: Reports: Bowel Obstruction, Diverticulosis Genitourinary History: Reports: UTI, Recurrent [employer] History: Reports: 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, Polycystic Ovaries, Other (See Below) Other [employer] History: ovarian cysts Musculoskeletal History: Reports: None Neurological History: Reports: None Psychiatric History: Reports: None Endocrine/Metabolic History: Reports: Diabetes, Type II Hematologic History: Reports: None Immunologic History: Reports: None Oncologic (Cancer) History: Reports: None Dermatologic History: Reports: Other (See Below) Other Dermatologic History: acne - Infectious Disease History Infectious Disease History: Reports: Chicken Pox, Shingles - Past Surgical History Head Surgeries/Procedures: Reports: None HEENT Surgical History: Reports: Oral Surgery, Tonsillectomy, Other (See Below) Other HEENT Surgeries/Procedures: wisdom teeth Cardiovascular Surgical History: Reports: None Respiratory Surgical History: Reports: None GI Surgical History: Reports: Colon, Colonoscopy Other GI Surgeries/Procedures: removed"a foot of stool" 3 years ago Female Surgical History: Reports: Other (See Below) Other Female Surgeries/Procedures: ovarian cysts Endocrine Surgical History: Reports: None Neurological Surgical History: Reports: None Musculoskeletal Surgical History: Reports: Other (See Below) Other Musculoskeletal Surgeries/Procedures:: Recent surgery to L foot 06/2019 Dermatological Surgical History: Reports: Other (See Below) Social & Family History - Family History Family Medical History: Noncontributory - Tobacco Use Smoking Status *Q: Never Smoker - Caffeine Use Caffeine Use: Reports: None Other Caffeine Use: HASN'T HAD COFFEE IN ONE WEEK - Recreational Drug Use Recreational Drug Use: No - Living Situation & Occupation Living situation: Reports: with Family Occupation: Employed ED ROS GENERAL - Review of Systems Review Of Systems: Comprehensive ROS is negative, except as noted in HPI. ED EXAM, GI/ABD - Physical Exam Exam: See Below Exam Limited By: No Limitations General Appearance: Alert, WD/WN, No Apparent Distress Ears: Normal External Exam, Hearing Grossly Normal Nose: Normal Inspection, No Blood Throat/Mouth: Normal Inspection, Normal Lips Head: Atraumatic Respiratory/Chest: No Respiratory Distress, Lungs Clear, Normal Breath Sounds, No Accessory Muscle Use Cardiovascular: Normal Peripheral Pulses, Regular Rate, Rhythm GI/Abdominal Exam: Normal Bowel Sounds, Soft, No Distention, Other (Left lower quadrant is tender to palpation.) (Female) Exam: Deferred Extremities: Normal Inspection, Normal Range of Motion, Non-Tender, Normal Capillary Refill Departure - Departure Time of Disposition: 22:52 Disposition: Home, Self-Care 01 Condition: Fair Clinical Impression: Diverticulitis, Fistula - Discharge Information *PRESCRIPTION DRUG MONITORING PROGRAM REVIEWED*: No *COPY OF PRESCRIPTION DRUG MONITORING REPORT IN PATIENT NAIDA: No Instructions: Diverticulitis, [id number] Forms: ED Department Discharge Additional Instructions: You have Diverticulitis. Continue Ciprofloxacin, 1 tablet every 12 hours and Flagyl, 1 tablet every 12 hours, until they are completed. 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 This requires follow up with Urology. You can receive this referral upon follow up with your primary care facility. Instructions about diverticulitis and a CD of your CT scan have been provided. Sepsis Event Note (ED) - Evaluation Sepsis Screening Result: No Definite Risk <Yesi Flowers - Last Filed: 01/03/20 23:32> ED HPI GENERAL MEDICAL PROBLEM - History of Present Illness Onset: Today Course - Vital Signs Last Recorded V/S: Last Vital Signs Temp 97.5 F 01/03/20 18:13 Pulse 85 01/03/20 18:13 Resp 16 01/03/20 18:13 BP 147/68 H 01/03/20 18:13 Pulse Ox 100 01/03/20 18:13 - Orders/Labs/Meds Labs: Laboratory Tests 01/03/20 01/03/20 01/03/20 Range/Units 17:55 17:55 20:35 WBC 11.1 H (5.0-10.0) 10^3/uL RBC 3.99 L (4.2-5.4) 10^6/uL Hgb 11.8 L (12.0-16.0) g/dL Hct 36.6 L (37.0-47.0) % MCV 91.7 D (80-100) fL MCH 29.6 (27.0-34.0) pg MCHC 32.2 L (33.0-35.0) g/dL Plt Count 278 D (150-450) 10^3/uL Neut % (Auto) 64.4 (42.2-75.2) % Lymph % (Auto) 25.9 (20.5-50.1) % [place] % (Auto) 6.9 (2-8) % Eos % (Auto) 2.4 (1.0-3.0) % Baso % (Auto) 0.4 (0.0-1.0) % Sodium (136-145) mmol/L Potassium (3.5-5.1) mmol/L Chloride (98-107) mmol/L Carbon Dioxide (21-32) mmol/L Anion Gap (7-13) mEq/L BUN (7-18) mg/dL Creatinine (0.55-1.02) mg/dL Est Cr Clr Drug Dosing mL/min Estimated GFR (MDRD) BUN/Creatinine Ratio (No establ ref range) Glucose (74-99) mg/dL Calcium (8.5-10.1) mg/dL Total Bilirubin (0.2-1.0) mg/dL AST (15-37) U/L ALT (14-59) U/L Alkaline Phosphatase (46-116) U/L Total Protein (6.4-8.2) g/dL Albumin (3.4-5.0) g/dL Globulin Albumin/Globulin Ratio Urine Color Yellow (YELLOW) Urine Appearance Slightly cloudy (CLEAR) Urine pH 5.0 (5.0-9.0) Ur Specific [place] >= 1.030 (1.005-1.030) Urine Protein Negative (NEGATIVE) Urine Glucose (UA) Negative (NEGATIVE) Urine Ketones Negative (NEGATIVE) Urine Occult Blood Negative (NEGATIVE) Urine Nitrite Negative (NEGATIVE) Urine Bilirubin Negative (NEGATIVE) Urine Urobilinogen 0.2 (0.2-1.0) mg/dL Ur Leukocyte Esterase Negative (NEGATIVE) Urine RBC 0-5 /HPF Urine WBC Not seen (0-5/HPF) /HPF Ur Epithelial Cells Rare (NOT SEEN) /HPF Urine Bacteria Rare (0-FEW/HPF) /HPF Urine HCG, Qual Negative 01/03/20 Range/Units 20:35 WBC (5.0-10.0) 10^3/uL RBC (4.2-5.4) 10^6/uL Hgb (12.0-16.0) g/dL Hct (37.0-47.0) % MCV (80-100) fL MCH (27.0-34.0) pg MCHC (33.0-35.0) g/dL Plt Count (150-450) 10^3/uL Neut % (Auto) (42.2-75.2) % Lymph % (Auto) (20.5-50.1) % [place] % (Auto) (2-8) % Eos % (Auto) (1.0-3.0) % Baso % (Auto) (0.0-1.0) % Sodium 142 (136-145) mmol/L Potassium 3.7 (3.5-5.1) mmol/L Chloride 105 (98-107) mmol/L Carbon Dioxide 28 (21-32) mmol/L Anion Gap 12.7 (7-13) mEq/L BUN 17 (7-18) mg/dL Creatinine 0.84 (0.55-1.02) mg/dL Est Cr Clr Drug Dosing 94.36 mL/min Estimated GFR (MDRD) > 60 BUN/Creatinine Ratio 20.2 (No establ ref range) Glucose 141 H (74-99) mg/dL Calcium 8.8 (8.5-10.1) mg/dL Total Bilirubin 0.2 (0.2-1.0) mg/dL AST 9 L (15-37) U/L ALT 24 (14-59) U/L Alkaline Phosphatase 49 (46-116) U/L Total Protein 6.8 (6.4-8.2) g/dL Albumin 3.3 L (3.4-5.0) g/dL Globulin 3.5 Albumin/Globulin Ratio 0.94 Urine Color (YELLOW) Urine Appearance (CLEAR) Urine pH (5.0-9.0) Ur Specific [place] (1.005-1.030) Urine Protein (NEGATIVE) Urine Glucose (UA) (NEGATIVE) Urine Ketones (NEGATIVE) Urine Occult Blood (NEGATIVE) Urine Nitrite (NEGATIVE) Urine Bilirubin (NEGATIVE) Urine Urobilinogen (0.2-1.0) mg/dL Ur Leukocyte Esterase (NEGATIVE) Urine RBC /HPF Urine WBC (0-5/HPF) /HPF Ur Epithelial Cells (NOT SEEN) /HPF Urine Bacteria (0-FEW/HPF) /HPF Urine HCG, Qual Meds: Medications Discontinued Medications Generic Name Dose Route Start Last Admin Trade Name Freq PRN Reason Stop Dose Admin Ciprofloxacin 500 mg 01/03/20 22:57 01/03/20 23:03 Ciprofloxacin Hcl PO 01/03/20 22:58 500 mg ONETIME ONE Administration Iopamidol 100 ml 01/03/20 21:07 01/03/20 21:14 Isovue-300 (61%) IVPUSH 01/03/20 21:08 100 ml ONETIME ONE Administration Metronidazole 500 mg 01/03/20 22:58 01/03/20 23:03 Metronidazole PO 01/03/20 22:59 500 mg ONETIME ONE Administration - Radiology Interpretation Free Text/Narrative:: CT Abdomen/Pelvis with contrast: See rad report - Re-Assessments/Exams Free Text/Narrative Re-Assessment/Exam: 01/03/20 23:32 I saw and evaluated the patient. Discussed with resident and agree with residents findings and plan as documented in the residents note. Sepsis Event Note (ED) - Focused Exam Vital Signs: Vital Signs Temp Pulse Resp BP Pulse Ox 01/03/20 18:13 97.5 F 85 16 147/68 H 100
[2020-01-03 21:05] LABS: ANION GAP 12.7 mEq/L (7-13); CHLORIDE,CL 105 mmol/L (98-107); SODIUM,NA 142 mmol/L (136-145)
[2020-01-03] MEDS ORDERED: Iopamidol 612 MG/ML 100 ML Bottle IVPUSH ONE (21:07)
--- NOTE | 2020-01-03 22:37 | CT ---
PROCEDURE INFORMATION: Exam: CT Abdomen And Pelvis With Contrast Exam date and time: 01/03/2020 9:32 PM Age: 34 years old Clinical indication: Other: Llq pain, wbc 11,100; Additional info: Llq, HX diverticulosis TECHNIQUE: Imaging protocol: Computed tomography of the abdomen and pelvis with intravenous contrast. Radiation optimization: All CT scans at this facility use at least one of these dose optimization techniques: automated exposure control; mA and/or kV adjustment per patient size (includes targeted exams where dose is matched to clinical indication); or iterative reconstruction. Contrast material: [id number]; Contrast volume: 100 ml; Contrast route: INTRAVENOUS (IV); COMPARISON: CT Abdomen Pelvis wo Cont 04/08/2019 4:40 PM FINDINGS: Liver: Normal. No mass. Gallbladder and bile ducts: Normal. No calcified stones. No ductal dilation. Pancreas: Normal. No ductal dilation. Spleen: Normal. No splenomegaly. Adrenals: Normal. No mass. Kidneys and ureters: Normal. No hydronephrosis. Stomach and bowel: Colonic diverticulosis. There is a segment of wall thickening at the junction of the sigmoid and descending colon, consistent in appearance with acute diverticulitis. This structure demonstrates no communication with the colon. Appendix: A normal appendix is identified. Intraperitoneal space: Unremarkable. No free air. No significant fluid collection. Vasculature: Unremarkable. No abdominal aortic aneurysm. Lymph nodes: Unremarkable. No enlarged lymph nodes. Bladder: There is a 2.2 cm structure containing air and fluid that is associated with the urinary bladder. The urinary bladder wall adjacent to the structure is thickened and demonstrates increased enhancement. Reproductive: Unremarkable as visualized. Bones/joints: Unremarkable. No acute fracture. Soft tissues: Unremarkable. IMPRESSION: Acute diverticulitis at the junction of the sigmoid and descending colon. Evidence of prior colovesicular fistula.
[2020-01-03] MEDS ORDERED: Ciprofloxacin 500 MG Tab PO ONE (22:57)
[2020-01-03] MEDS ORDERED: metroNIDAZOLE 250 MG Tab PO ONE (22:58)
== END 2020-01-03 23:22 | disposition home or self-care (01) ==
LOC: DL.ED 17:43
DX: K57.32 Diverticulitis of large intestine without perforation or abscess without bleeding (principal); K60.3 Anal fistula; E11.9 Type 2 diabetes mellitus without complications; Z79.84 Long term (current) use of oral hypoglycemic drugs; Z88.1 Allergy status to other antibiotic agents; Z88.0 Allergy status to penicillin
CPT/HCPCS: 36415; 74177; 80053; 81001; 81025; 85025; 99284; A9270; Q9967

== ENCOUNTER 2020-03-21 17:43 | Emergency (ER) | payer MEDICAID ==
[2020-03-21 17:54] VITALS: BP 118/69; PULSE 87
--- NOTE | 2020-03-21 18:23 | EDM.PDOC ---
ED HPI GENERAL MEDICAL PROBLEM - General Stated Complaint: [id number] REACTION TO MED (METRONIDAZOL) Time Seen by Provider: 03/21/20 18:00 Source of Information: Reports: Patient History Limitations: Reports: No Limitations - History of Present Illness INITIAL COMMENTS - FREE TEXT/NARRATIVE: Patient is here today for abdominal pain that started several days ago. She has recurrent flares of diverticulitis and was diagnosed again on , 03/18. She was started on Cipro and Flagyl without relief. She is still having the left lower quadrant pain and cramping. She was having loose stools, but that has resolved. She has been taking the medication with food, but feels more upset in her stomach after taking the medications. She feels like she had some chills on Sunday, but none since that time. Duration: Waxing/Waning Location: Reports: Abdomen Quality: Reports: Ache - Related Data Allergies Allergy/AdvReac Type Severity Reaction Status Date / Time Penicillins AdvReac Unknown Other Verified 01/03/20 18:14 amoxicillin AdvReac Other Verified 01/03/20 18:14 Home Meds: Home Meds metFORMIN [Glucophage XR] 1,000 mg PO BIDMEALS 10/15/18 [History] Acetaminophen [Tylenol] 650 mg PO ASDIRECTED PRN 02/13/19 [History] Cholecalciferol (Vitamin D3) [Vitamin D3] 1.25 mg PO .Q7DAYS 06/24/19 [History] RX: Ascorbic Acid [Vitamin C] 1 tab PO DAILY 06/24/19 [History] RX: Cetirizine HCl 5 mg PO DAILY 06/24/19 [History] RX: Cranberry 2 tab PO DAILY 06/24/19 [History] Past Medical History - Past Health History Medical/Surgical History: Denies Medical/Surgical History HEENT History: Reports: Impaired Vision, Other (See Below) Other HEENT History: wears glasses Cardiovascular History: Reports: None Respiratory History: Reports: None Gastrointestinal History: Reports: Bowel Obstruction, Diverticulosis Genitourinary History: Reports: UTI, Recurrent 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 CUTTER History: Reports: 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, Polycystic Ovaries, Other (See Below) Other BUNDLE CUTTER History: ovarian cysts Musculoskeletal History: Reports: None Neurological History: Reports: None Psychiatric History: Reports: None Endocrine/Metabolic History: Reports: Diabetes, Type II Hematologic History: Reports: None Immunologic History: Reports: None Oncologic (Cancer) History: Reports: None Dermatologic History: Reports: Other (See Below) Other Dermatologic History: acne - Infectious Disease History Infectious Disease History: Reports: Chicken Pox, Shingles - Past Surgical History Head Surgeries/Procedures: Reports: None HEENT Surgical History: Reports: Oral Surgery, Tonsillectomy, Other (See Below) Other HEENT Surgeries/Procedures: wisdom teeth Cardiovascular Surgical History: Reports: None Respiratory Surgical History: Reports: None GI Surgical History: Reports: Colon, Colonoscopy Other GI Surgeries/Procedures: removed"a foot of stool" 3 years ago Female Surgical History: Reports: Other (See Below) Other Female Surgeries/Procedures: ovarian cysts Endocrine Surgical History: Reports: None Neurological Surgical History: Reports: None Musculoskeletal Surgical History: Reports: Other (See Below) Other Musculoskeletal Surgeries/Procedures:: Recent surgery to L foot 06/2019 Dermatological Surgical History: Reports: Other (See Below) Social & Family History - Family History Family Medical History: Noncontributory - Caffeine Use Caffeine Use: Reports: None Other Caffeine Use: HASN'T HAD COFFEE IN ONE WEEK - Living Situation & Occupation Living situation: Reports: with Family Occupation: Employed ED ROS GENERAL - Review of Systems Review Of Systems: Comprehensive ROS is negative, except as noted in HPI. ED EXAM, GI/ABD - Physical Exam Exam: See Below Exam Limited By: No Limitations General Appearance: Alert, WD/WN, No Apparent Distress Ears: Normal External Exam Nose: Normal Inspection Throat/Mouth: Normal Inspection Head: Atraumatic, Normocephalic Neck: Normal Inspection Respiratory/Chest: No Respiratory Distress, Lungs Clear, Normal Breath Sounds, No Accessory Muscle Use, Chest Non-Tender Cardiovascular: Normal Peripheral Pulses, Regular Rate, Rhythm, No Edema, No Murmur GI/Abdominal Exam: Normal Bowel Sounds, Soft, No Distention, Tender (left lower quadrant). No: Guarding, Rebound (Female) Exam: Deferred Rectal (Female) Exam: Deferred Extremities: Normal Inspection Neurological: Alert, Oriented, Normal Cognition, Normal Gait Psychiatric: Normal Affect, Normal Mood Skin Exam: Warm, Dry, Intact Course - Vital Signs Last Recorded V/S: Last Vital Signs Temp 96.7 F L 03/21/20 17:52 Pulse 87 03/21/20 17:52 Resp 18 09/27/20 17:52 BP 118/69 03/21/20 17:52 Pulse Ox 99 03/21/20 17:52 - Orders/Labs/Meds Labs: Laboratory Tests 03/21/20 03/21/20 03/21/20 Range/Units 18:03 18:03 18:03 Urine Color Yellow (YELLOW) Urine Appearance Clear (CLEAR) Urine pH 6.5 (5.0-9.0) Ur Specific [place] >= 1.030 (1.005-1.030) Urine Protein Negative (NEGATIVE) Urine Glucose (UA) Negative (NEGATIVE) Urine Ketones Trace H (NEGATIVE) Urine Occult Blood Negative (NEGATIVE) Urine Nitrite Negative (NEGATIVE) Urine Bilirubin Negative (NEGATIVE) Urine Urobilinogen 0.2 (0.2-1.0) mg/dL Ur Leukocyte Esterase Negative (NEGATIVE) Urine HCG, Qual Negative Urine Opiates Screen Positive H (NEGATIVE) Ur Oxycodone Screen Negative (NEGATIVE) Urine Methadone Screen Negative (NEGATIVE) Ur Barbiturates Screen Negative (NEGATIVE) U Tricyclic Antidepress Negative (NEGATIVE) Ur Phencyclidine Scrn Negative (NEGATIVE) Ur Amphetamine Screen Negative (NEGATIVE) U Methamphetamines Scrn Negative (NEGATIVE) Urine MDMA Screen Negative (NEGATIVE) U Benzodiazepines Scrn Positive H (NEGATIVE) Urine Cocaine Screen Negative (NEGATIVE) U Marijuana (THC) Screen Negative (NEGATIVE) Departure - Departure Time of Disposition: 18:40 Disposition: Home, Self-Care 01 Condition: Good Clinical Impression: Diverticulitis - Discharge Information *PRESCRIPTION DRUG MONITORING PROGRAM REVIEWED*: Not Applicable *COPY OF PRESCRIPTION DRUG MONITORING REPORT IN PATIENT NAIDA: Not Applicable Instructions: Diverticulitis, [id number] Forms: ED Department Discharge Additional Instructions: Be careful of the pills you take and know what you are putting in your body Stop the flagyl (metronidazole) until calling your doctor tomorrow Sepsis Event Note (ED) - Evaluation Sepsis Screening Result: No Definite Risk - Focused Exam Vital Signs: Vital Signs Temp Pulse Resp BP Pulse Ox 03/21/20 17:52 96.7 F L 87 18 118/69 99 - Assessment/Plan Assessment:: 34 yo female with continued abdominal pain while taking medication for diverticulitis Plan: hold flagyl until seen by pcp stop taking medications not prescribed to you, or that are out of date advised the opiates may cause worsening abdominal pain due to slowing of the transit call PCP tomorrow
== END 2020-03-21 18:53 | disposition home or self-care (01) ==
LOC: DL.ED 17:43
DX: K57.92 Diverticulitis of intestine, part unspecified, without perforation or abscess without bleeding (principal); E11.9 Type 2 diabetes mellitus without complications; Z88.0 Allergy status to penicillin; Z79.84 Long term (current) use of oral hypoglycemic drugs
CPT/HCPCS: 80305-QW; 81003; 81025; 99283; 99284

== ENCOUNTER 2020-03-27 17:50 | Emergency (ER) | payer MEDICAID ==
--- NOTE | 2020-03-27 17:54 | EDM.PDOC ---
ED HPI GENERAL MEDICAL PROBLEM - General Chief Complaint: Eye Problems Stated Complaint: PINK EYE, ALLERGIC TO DROPS. NEED CHECKED Time Seen by Provider: 03/27/20 17:54 Source of Information: Reports: Patient, Old Records, RN, RN Notes Reviewed History Limitations: Reports: No Limitations - History of Present Illness INITIAL COMMENTS - FREE TEXT/NARRATIVE: Pt presents to ER from home by POV with c/o itchy, painful, and goopy eyes. She was seen in clinic a day or two ago and given some eye ointment for "pink eye", bacitracin based she believes. Now her eyes are worse since using the ointment. She denies visual changes. She c/o yellow-green matting. Onset: Gradual Duration: Day(s): (2), Getting Worse Location: Reports: Other (Eyes) Severity: Moderate Improves with: Reports: None Worsens with: Reports: None Associated Symptoms: Reports: No Other Symptoms - Related Data Allergies Allergy/AdvReac Type Severity Reaction Status Date / Time Penicillins AdvReac Unknown Other Verified 01/03/20 18:14 amoxicillin AdvReac Other Verified 01/03/20 18:14 Home Meds: Home Meds metFORMIN [Glucophage XR] 1,000 mg PO BIDMEALS 10/15/18 [History] Acetaminophen [Tylenol] 650 mg PO ASDIRECTED PRN 02/13/19 [History] Ascorbic Acid [Vitamin C] 1 tab PO DAILY 06/24/19 [History] Cetirizine HCl 5 mg PO DAILY 06/24/19 [History] Cholecalciferol (Vitamin D3) [Vitamin D3] 1.25 mg PO .Q7DAYS 06/24/19 [History] Cranberry 2 tab PO DAILY 06/24/19 [History] Past Medical History - Past Health History Medical/Surgical History: Denies Medical/Surgical History HEENT History: Reports: Impaired Vision, Other (See Below) Other HEENT History: wears glasses Cardiovascular History: Reports: None Respiratory History: Reports: None Gastrointestinal History: Reports: Bowel Obstruction, Diverticulosis Genitourinary History: Reports: UTI, Recurrent 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: 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, Polycystic Ovaries, Other (See Below) Other FREELANCE COPYWRITER History: ovarian cysts Musculoskeletal History: Reports: None Neurological History: Reports: None Psychiatric History: Reports: None Endocrine/Metabolic History: Reports: Diabetes, Type II Hematologic History: Reports: None Immunologic History: Reports: None Oncologic (Cancer) History: Reports: None Dermatologic History: Reports: Other (See Below) Other Dermatologic History: acne - Infectious Disease History Infectious Disease History: Reports: Chicken Pox, Shingles - Past Surgical History Head Surgeries/Procedures: Reports: None HEENT Surgical History: Reports: Oral Surgery, Tonsillectomy, Other (See Below) Other HEENT Surgeries/Procedures: wisdom teeth Cardiovascular Surgical History: Reports: None Respiratory Surgical History: Reports: None GI Surgical History: Reports: Colon, Colonoscopy Other GI Surgeries/Procedures: removed"a foot of stool" 3 years ago Female Surgical History: Reports: Other (See Below) Other Female Surgeries/Procedures: ovarian cysts Endocrine Surgical History: Reports: None Neurological Surgical History: Reports: None Musculoskeletal Surgical History: Reports: Other (See Below) Other Musculoskeletal Surgeries/Procedures:: Recent surgery to L foot 06/2019 Dermatological Surgical History: Reports: Other (See Below) Social & Family History - Family History Family Medical History: Noncontributory - Caffeine Use Caffeine Use: Reports: None Other Caffeine Use: HASN'T HAD COFFEE IN ONE WEEK - Living Situation & Occupation Living situation: Reports: with Family Occupation: Employed ED ROS GENERAL - Review of Systems Review Of Systems: Comprehensive ROS is negative, except as noted in HPI. ED EXAM GENERAL W FULL EYE - Physical Exam Exam: See Below Exam Limited By: No Limitations General Appearance: Alert, WD/WN, No Apparent Distress, Obese Eye Exam: Bilateral Eye: Conjunctival Injection, EOMI, Normal Fundi, PERRL Eyelids: Bilateral: Normal Appearance, Lid Everted for Exam Conjunctiva & Sclera: Bilateral: Discharge (yellow/green), Injected Cornea Exam: Bilateral: Normal Appearance Extraocular Movements: Bilateral: Intact Pupils: Normal Accommodation Pupillary Size: Bilateral: 3 mm Pupillary Reaction: Bilateral: Brisk Anterior Chamber: Bilateral: Normal Appearance Nose: Normal Inspection Throat/Mouth: Normal Inspection Head: Atraumatic, Normocephalic Neck: Normal Inspection, Supple, Non-Tender, Full Range of Motion Respiratory/Chest: No Respiratory Distress Neurological: Alert, Oriented, CN II-XII Intact, Normal Cognition, Normal Gait, No Motor/Sensory Deficits Psychiatric: Normal Affect, Normal Mood Skin Exam: Warm, Dry, Intact, Normal Color, No Rash Course - Vital Signs Last Recorded V/S: Last Vital Signs Temp 97.3 F 03/27/20 18:01 Pulse 85 03/27/20 18:01 Resp 18 03/27/20 18:01 BP 118/63 03/27/20 18:01 Pulse Ox 100 03/27/20 18:01 - Orders/Labs/Meds Meds: Medications Discontinued Medications Generic Name Dose Route Start Last Admin Trade Name Gigi PRN Reason Stop Dose Admin Gentamicin Sulfate 1 ml 03/27/20 18:05 03/27/20 18:13 Garamycin 0.3% Ophth Soln EYEBOTH 03/27/20 18:06 1 drop ONETIME ONE Administration Prednisolone Acetate 1 ml 03/27/20 18:05 03/27/20 18:13 Pred Forte 1% Ophth Susp EYEBOTH 03/27/20 18:06 1 drop ONETIME ONE Administration Tetracaine HCl 1 ml 03/27/20 18:03 03/27/20 18:13 Tetracaine 0.5% Steri-Unit Martha EYEBOTH 03/27/20 18:04 1 drop ONETIME ONE Administration Departure - Departure Time of Disposition: 18:10 Disposition: Home, Self-Care 01 Condition: Good Clinical Impression: Dry eye Conjunctivitis Qualifiers: Conjunctivitis type: acute Acute conjunctivitis type: bacterial Laterality: bilateral Qualified Code(s): H10.33 - Unspecified acute conjunctivitis, bilateral - Discharge Information *PRESCRIPTION DRUG MONITORING PROGRAM REVIEWED*: Not Applicable *COPY OF PRESCRIPTION DRUG MONITORING REPORT IN PATIENT NAIDA: Not Applicable Instructions: Bacterial Conjunctivitis, Adult, [id number], Dry Eye Forms: ED Department Discharge Additional Instructions: Discontinue your current eye medication(s). Do not wear contact lenses for at least one week. Do not rub your eyes. Gentamicin Ophthalmic Solution 0.3% Use one drop in each eye four times a day for five days. Prednisolone Ophthalmic Solution 1% Use one drop in each eye twice a day for five days. Use over the counter Refresh Eye drops (available at [facility] or a local pharmacy). Use one or two drops in each eye every 2 to 4 hours while awake, as needed for dry eye or eye irritation. Follow up in clinic if not improving in 3 to 4 days. Sepsis Event Note (ED) - Focused Exam Vital Signs: Vital Signs Temp Pulse Resp BP Pulse Ox 03/27/20 18:01 97.3 F 85 18 118/63 100
[2020-03-27] MEDS ORDERED: Sodium Chloride 0.9% 1,000 ML IV ONE (17:58)
[2020-03-27] MEDS ORDERED: Tetracaine HCl/PF 0.5% 4 ML Bottle EYEBOTH ONE (18:03)
[2020-03-27 18:04] VITALS: BP 118/63; PULSE 85
[2020-03-27] MEDS ORDERED: prednisoLONE Acetate 1% Ophth Susp 5 ML Bottle EYEBOTH ONE (18:05)
[2020-03-27] MEDS ORDERED: Gentamicin 0.3% Ophth Soln 5 ML Bottle EYEBOTH ONE (18:05)
== END 2020-03-27 18:27 | disposition home or self-care (01) ==
LOC: DL.ED 17:50
DX: H10.023 Other mucopurulent conjunctivitis, bilateral (principal); B96.89 Other specified bacterial agents as the cause of diseases classified elsewhere; H04.123 Dry eye syndrome of bilateral lacrimal glands; E11.9 Type 2 diabetes mellitus without complications; E66.9 Obesity, unspecified; Z68.39 Body mass index [BMI] 39.0-39.9, adult; Z88.0 Allergy status to penicillin; Z88.1 Allergy status to other antibiotic agents; Z87.440 Personal history of urinary (tract) infections; Z79.84 Long term (current) use of oral hypoglycemic drugs; Z79.899 Other long term (current) drug therapy
CPT/HCPCS: 99283; A9270

== ENCOUNTER 2020-05-06 19:20 | Emergency (ER) | payer OTHER, MEDICAID ==
[2020-05-06 19:29] VITALS: BP 126/65; PULSE 79
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
== END 2020-05-06 21:09 | disposition home or self-care (01) ==
LOC: DL.ED 19:20
DX: S90.02XA Contusion of left ankle, initial encounter (principal); M79.652 Pain in left thigh; E11.9 Type 2 diabetes mellitus without complications; Z88.1 Allergy status to other antibiotic agents; Z88.0 Allergy status to penicillin; Z79.84 Long term (current) use of oral hypoglycemic drugs; V89.2XXA Person injured in unspecified motor-vehicle accident, traffic, initial encounter
CPT/HCPCS: 73610-LT; 99283; 99284-25

== ENCOUNTER 2020-05-18 22:01 | Emergency (ER) | payer MEDICAID ==
--- NOTE | 2020-05-18 22:14 | EDM.PDOC ---
ED HPI GENERAL MEDICAL PROBLEM - General Stated Complaint: COLONOSCOPY 05/19, DRANK THE LIQUID FEEL SICK Time Seen by Provider: 05/18/20 22:13 Source of Information: Reports: Patient, RN, RN Notes Reviewed History Limitations: Reports: No Limitations - History of Present Illness INITIAL COMMENTS - FREE TEXT/NARRATIVE: Patient presents to ER with complaint of sharp abdominal pains. Patient states she began at 5 PM doing a GoLYTELY prep for colonoscopy to be done tomorrow. States she has vomited quite a bit of the GoLYTELY prep up, states she is having diarrhea, and it is not clear yet. Patient states she was not completely finished with a gallon of GoLYTELY. States she has been having sharp pains in the abdomen bilaterally as well as the flank pain. States she has had colonoscopy in the past, and denies having any vomiting or pain or other difficulties with it. Patient states history of diverticulitis. Onset: Today, Sudden Lower Abdominal Pain Score (Numeric/FACES): 9 - Related Data Allergies Allergy/AdvReac Type Severity Reaction Status Date / Time Penicillins AdvReac Unknown Other Verified 05/18/20 22:22 amoxicillin AdvReac Other Verified 05/18/20 22:22 Home Meds: Home Meds metFORMIN [Glucophage XR] 1,000 mg PO BIDMEALS 10/15/18 [History] Acetaminophen [Tylenol] 650 mg PO ASDIRECTED PRN 02/13/19 [History] Ascorbic Acid [Vitamin C] 1 tab PO DAILY 06/24/19 [History] Cetirizine HCl 5 mg PO DAILY 06/24/19 [History] Cholecalciferol (Vitamin D3) [Vitamin D3] 1.25 mg PO .Q7DAYS 06/24/19 [History] Cranberry 2 tab PO DAILY 06/24/19 [History] Past Medical History - Past Health History Medical/Surgical History: Denies Medical/Surgical History HEENT History: Reports: Impaired Vision, Other (See Below) Other HEENT History: wears glasses Cardiovascular History: Reports: None Respiratory History: Reports: None Gastrointestinal History: Reports: Bowel Obstruction, Diverticulosis Genitourinary History: Reports: UTI, 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: Reports: 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, Polycystic Ovaries, Ot her (See Below) Other BOILERMAKER ASSEMBLY AND ERECTION History: ovarian cysts Musculoskeletal History: Reports: None Neurological History: Reports: None Psychiatric History: Reports: None Endocrine/Metabolic History: Reports: Diabetes, Type II Hematologic History: Reports: None Immunologic History: Reports: None Oncologic (Cancer) History: Reports: None Dermatologic History: Reports: Other (See Below) Other Dermatologic History: acne - Infectious Disease History Infectious Disease History: Reports: Chicken Pox, Shingles - Past Surgical History Head Surgeries/Procedures: Reports: None HEENT Surgical History: Reports: Oral Surgery, Tonsillectomy, Other (See Below) Other HEENT Surgeries/Procedures: wisdom teeth Cardiovascular Surgical History: Reports: None Respiratory Surgical History: Reports: None GI Surgical History: Reports: Colon, Colonoscopy Other GI Surgeries/Procedures: removed"a foot of stool" 3 years ago Female Surgical History: Reports: Other (See Below) Other Female Surgeries/Procedures: ovarian cysts Endocrine Surgical History: Reports: None Neurological Surgical History: Reports: None Musculoskeletal Surgical History: Reports: Other (See Below) Other Musculoskeletal Surgeries/Procedures:: Recent surgery to L foot 06/2019 Dermatological Surgical History: Reports: Other (See Below) Social & Family History - Family History Family Medical History: No Pertinent Family History - Caffeine Use Caffeine Use: Reports: None Other Caffeine Use: HASN'T HAD COFFEE IN ONE WEEK - Living Situation & Occupation Living situation: Reports: with Family Occupation: Employed ED ROS GENERAL - Review of Systems Review Of Systems: Comprehensive ROS is negative, except as noted in HPI. ED EXAM, GI/ABD - Physical Exam Exam: See Below Exam Limited By: No Limitations General Appearance: Alert, WD/WN, Mild Distress Eyes: Bilateral: Normal Appearance, EOMI Ears: Normal External Exam, Hearing Grossly Normal Nose: Normal Inspection Throat/Mouth: Normal Inspection, Normal Voice, No Airway Compromise Head: Atraumatic, Normocephalic Neck: Normal Inspection, Supple, Non-Tender, Full Range of Motion Respiratory/Chest: No Respiratory Distress, Lungs Clear, Normal Breath Sounds, No Accessory Muscle Use, Chest Non-Tender Cardiovascular: Normal Peripheral Pulses, Regular Rate, Rhythm, No Edema, No Gallop, No JVD, No Murmur, No Rub GI/Abdominal Exam: Normal Bowel Sounds, Soft, No Organomegaly, No Distention (LLQ, RLQ), Tender (Female) Exam: Deferred Rectal (Female) Exam: Deferred Back Exam: Normal Inspection, Full Range of Motion, CVA Tenderness (L), CVA Tenderness (R) Extremities: Normal Inspection, Normal Range of Motion, Non-Tender, No Pedal Joshua ma, Normal Capillary Refill Neurological: Alert, Oriented, CN II-XII Intact, Normal Cognition, Normal Gait, Normal Reflexes, No Motor/Sensory Deficits Psychiatric: Normal Affect, Normal Mood Skin Exam: Warm, Dry, Intact, Normal Color, No Rash Lymphatic: No Adenopathy Course - Vital Signs Last Recorded V/S: Last Vital Signs Temp 97.5 F 05/18/20 22:17 Pulse 78 05/18/20 22:17 Resp 18 05/18/20 22:17 BP 138/83 05/18/20 22:17 Pulse Ox 100 05/18/20 22:17 - Orders/Labs/Meds Labs: Laboratory Tests 05/18/20 05/18/20 05/18/20 Range/Units 22:33 22:38 22:38 WBC 12.2 H (5.0-10.0) 10^3/uL RBC 4.28 (4.2-5.4) 10^6/uL Hgb 12.9 (12.0-16.0) g/dL Hct 38.6 (37.0-47.0) % MCV 90.2 (80-100) fL MCH 30.1 (27.0-34.0) pg MCHC 33.4 (33.0-35.0) g/dL Plt Count 316 (150-450) 10^3/uL Neut % (Auto) 65.3 (42.2-75.2) % Lymph % (Auto) 25.4 (20.5-50.1) % [place] % (Auto) 7.5 (2-8) % Eos % (Auto) 1.4 (1.0-3.0) % Baso % (Auto) 0.4 (0.0-1.0) % Sodium 138 (136-145) mmol/L Potassium 3.3 L (3.5-5.1) mmol/L Chloride 101 (98-107) mmol/L Carbon Dioxide 28 (21-32) mmol/L Anion Gap 12.3 (7-13) mEq/L BUN 15 (7-18) mg/dL Creatinine 0.80 (0.55-1.02) mg/dL Est Cr Clr Drug Dosing 100.90 mL/min Estimated GFR (MDRD) > 60 BUN/Creatinine Ratio 18.8 (No establ ref range) Glucose 95 (74-99) mg/dL Calcium 8.6 (8.5-10.1) mg/dL Total Bilirubin 0.5 (0.2-1.0) mg/dL AST 11 L (15-37) U/L ALT 24 (14-59) U/L Alkaline Phosphatase 53 (46-116) U/L Total Protein 7.1 (6.4-8.2) g/dL Albumin 3.7 (3.4-5.0) g/dL Globulin 3.4 Albumin/Globulin Ratio 1.1 Urine Color (YELLOW) Urine Appearance (CLEAR) Urine pH (5.0-9.0) Ur Specific [place] (1.005-1.030) Urine Protein (NEGATIVE) Urine Glucose (UA) (NEGATIVE) Urine Ketones (NEGATIVE) Urine Occult Blood (NEGATIVE) Urine Nitrite (NEGATIVE) Urine Bilirubin (NEGATIVE) Urine Urobilinogen (0.2-1.0) mg/dL Ur Leukocyte Esterase (NEGATIVE) Urine RBC /HPF Urine WBC (0-5/HPF) /HPF Ur Epithelial Cells (NOT SEEN) /HPF Urine Bacteria (0-FEW/HPF) /HPF Urine Mucus (NOT SEEN) /LPF Urine HCG, Qual Negative 05/18/20 Range/Units 22:40 WBC (5.0-10.0) 10^3/uL RBC (4.2-5.4) 10^6/uL Hgb (12.0-16.0) g/dL Hct (37.0-47.0) % MCV (80-100) fL MCH (27.0-34.0) pg MCHC (33.0-35.0) g/dL Plt Count (150-450) 10^3/uL Neut % (Auto) (42.2-75.2) % Lymph % (Auto) (20.5-50.1) % [place] % (Auto) (2-8) % Eos % (Auto) (1.0-3.0) % Baso % (Auto) (0.0-1.0) % Sodium (136-145) mmol/L Potassium (3.5-5.1) mmol/L Chloride (98-107) mmol/L Carbon Dioxide (21-32) mmol/L Anion Gap (7-13) mEq/L BUN (7-18) mg/dL Creatinine (0.55-1.02) mg/dL Est Cr Clr Drug Dosing mL/min Estimated GFR (MDRD) BUN/Creatinine Ratio (No establ ref range) Glucose (74-99) mg/dL Calcium (8.5-10.1) mg/dL Total Bilirubin (0.2-1.0) mg/dL AST (15-37) U/L ALT (14-59) U/L Alkaline Phosphatase (46-116) U/L Total Protein (6.4-8.2) g/dL Albumin (3.4-5.0) g/dL Globulin Albumin/Globulin Ratio Urine Color Yellow (YELLOW) Urine Appearance Clear (CLEAR) Urine pH 5.5 (5.0-9.0) Ur Specific [place] 1.015 (1.005-1.030) Urine Protein Negative (NEGATIVE) Urine Glucose (UA) Negative (NEGATIVE) Urine Ketones Negative (NEGATIVE) Urine Occult Blood Negative (NEGATIVE) Urine Nitrite Negative (NEGATIVE) Urine Bilirubin Negative (NEGATIVE) Urine Urobilinogen 0.2 (0.2-1.0) mg/dL Ur Leukocyte Esterase Negative (NEGATIVE) Urine RBC Not seen /HPF Urine WBC 0-5 (0-5/HPF) /HPF Ur Epithelial Cells Rare (NOT SEEN) /HPF Urine Bacteria Rare (0-FEW/HPF) /HPF Urine Mucus Few H (NOT SEEN) /LPF Urine HCG, Qual - Radiology Interpretation Free Text/Narrative:: Abdomen Flat and upright xray: PROCEDURE INFORMATION: Exam: XR Chest, 1 View Exam date and time: 05/16/2020 6:45 PM Age: 83 years old Clinical indication: Cough; Additional info: Covid? TECHNIQUE: Imaging protocol: XR of the chest Views: 1 view. COMPARISON: No relevant prior studies available. FINDINGS: Lungs: Lungs hyperexpanded otherwise clear. Pleural space: Unremarkable. No pleural effusion. No pneumothorax. Heart/Mediastinum: Unremarkable. No cardiomegaly. Bones/joints: Unremarkable. IMPRESSION: COPD. No acute findings. Thank you for allowing us to participate in the care of your patient. Dictated and Authenticated by: Abelardo Jacobo MD 05/16/2020 7:02 PM Central Time ([place] & [place]) Thank you for allowing us to participate in the care of your patient. Dictated and Authenticated by: Laila Tse MD 05/18/2020 11:46 PM Central Time ([place] & [place]) See rad report Departure - Departure Time of Disposition: 00:05 Disposition: Home, Self-Care 01 Condition: Good Clinical Impression: Abdominal pain, Ileus - Discharge Information *PRESCRIPTION DRUG MONITORING PROGRAM REVIEWED*: No *COPY OF PRESCRIPTION DRUG MONITORING REPORT IN PATIENT NAIDA: No Instructions: Ileus Forms: ED Department Discharge Additional Instructions: Call [facility] right away in the morning to see if you should go to [place] Return to the ER with any worsening of problems Bowel rest, nothing to eat or drink until tomorrow Start with clear liquids if not nauseated May use Tylenol as directed for pain Xray of abdomen has been sent to [facility] for Parts Product Analyst to view Sepsis Event Note (ED) - Focused Exam Vital Signs: Vital Signs Temp Pulse Resp BP Pulse Ox 05/18/20 22:17 97.5 F 78 18 138/83 100
[2020-05-18 22:21] VITALS: BP 138/83; PULSE 78
[2020-05-18 23:05] LABS: ANION GAP 12.3 mEq/L (7-13); CHLORIDE,CL 101 mmol/L (98-107); SODIUM,NA 138 mmol/L (136-145)
--- NOTE | 2020-05-18 23:46 | CR ---
PROCEDURE INFORMATION: Exam: XR Abdomen, 2 Views Exam date and time: 05/18/2020 11:01 PM Age: 34 years old Clinical indication: Other: Severe abd pain during colo prep TECHNIQUE: Imaging protocol: XR of the abdomen. Views: 2 Views. COMPARISON: No relevant prior studies available. FINDINGS: Lungs: Included lung bases are clear. Gastrointestinal tract: Air-fluid levels within the transverse colon and proximal descending colon indicating mild colonic ileus. Small amount air and bowel content in the left colon and rectosigmoid colon. Intraperitoneal space: Punctate radiodensities scattered in the pelvis and right abdomen. This may represent bowel content. Location is unknown. Bones/joints: Unremarkable for age. Other findings: No free intraperitoneal air. IMPRESSION: 1. Scattered air-fluid levels in the transverse colon and proximal descending colon possibly indicating mild colonic ileus. 2. Punctate radiodensities overlying the pelvis and right abdomen. Anatomic location is unknown. This may be artifact on patient's clothing or may represent intra-abdominal calcifications anatomic region unknown.
== END 2020-05-19 00:14 | disposition home or self-care (01) ==
LOC: DL.ED 22:01
DX: K56.7 Ileus, unspecified (principal); E11.9 Type 2 diabetes mellitus without complications; Z88.1 Allergy status to other antibiotic agents; Z88.0 Allergy status to penicillin
CPT/HCPCS: 36415; 74019; 80053; 81001; 81025; 85025; 99284

== ENCOUNTER 2020-06-25 11:14 | Emergency (ER) | payer MEDICAID ==
[2020-06-25] MEDS ORDERED: Doxycycline Monohydrate 100 MG Cap PO ONE (11:15)
[2020-06-25] MEDS ORDERED: Clindamycin HCl 150 MG Cap PO ONE (11:15)
[2020-06-25 11:33] VITALS: BP 126/72; PULSE 73
--- NOTE | 2020-06-25 11:40 | EDM.PDOC ---
Scribed by Kae Lindsey 06/25/20 1136 for Reynaldo Browne MD ED HPI GENERAL MEDICAL PROBLEM - General Chief Complaint: Skin Complaint Stated Complaint: RIGHT LEG RASH OR SPIDER BITE/BOIL Time Seen by Provider: 06/25/20 11:20 Source of Information: Reports: Patient, RN, RN Notes Reviewed History Limitations: Reports: No Limitations - History of Present Illness INITIAL COMMENTS - FREE TEXT/NARRATIVE: Patient presents to ED by POV with complaint of a bump that she noticed two days. It became tender and began to drain yesterday. It is painful. Pt reports Hx of MSRA skin infection in the past. Onset: Gradual Duration: Getting Worse Location: Reports: Other (groin) Quality: Reports: Ache Severity: Moderate Improves with: Reports: None Worsens with: Reports: None Associated Symptoms: Reports: No Other Symptoms Right Groin Pain Score (Numeric/FACES): 4 - Related Data Allergies Allergy/AdvReac Type Severity Reaction Status Date / Time Penicillins AdvReac Unknown Other Verified 06/25/20 11:33 amoxicillin AdvReac Other Verified 06/25/20 11:33 Home Meds: Home Meds metFORMIN [Glucophage XR] 1,000 mg PO BIDMEALS 10/15/18 [History] Acetaminophen [Tylenol] 650 mg PO ASDIRECTED PRN 02/13/19 [History] Ascorbic Acid [Vitamin C] 1 tab PO DAILY 06/24/19 [History] Cetirizine HCl 5 mg PO DAILY 06/24/19 [History] Cholecalciferol (Vitamin D3) [Vitamin D3] 1.25 mg PO .Q7DAYS 06/24/19 [History] Cranberry 2 tab PO DAILY 06/24/19 [History] Past Medical History - Past Health History Medical/Surgical History: Denies Medical/Surgical History HEENT History: Reports: Impaired Vision, Other (See Below) Other HEENT History: wears glasses Cardiovascular History: Reports: None Respiratory History: Reports: None Gastrointestinal History: Reports: Bowel Obstruction, Diverticulosis Genitourinary History: Reports: UTI, 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: 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, Polycystic Ovaries, Other (See Below) Other NUCLEAR CARDIOLOGY TECHNOLOGIST History: ovarian cysts Musculoskeletal History: Reports: None Neurological History: Reports: None Psychiatric History: Reports: Anxiety Endocrine/Metabolic History: Reports: Diabetes, Type II Hematologic History: Reports: None Immunologic History: Reports: None Oncologic (Cancer) History: Reports: None Dermatologic History: Reports: Other (See Below) Other Dermatologic History: acne - Infectious Disease History Infectious Disease History: Reports: Chicken Pox, Shingles - Past Surgical History Head Surgeries/Procedures: Reports: None HEENT Surgical History: Reports: Oral Surgery, Tonsillectomy, Other (See Below) Other HEENT Surgeries/Procedures: wisdom teeth Cardiovascular Surgical History: Reports: None Respiratory Surgical History: Reports: None GI Surgical History: Reports: Colon, Colonoscopy Other GI Surgeries/Procedures: removed"a foot of stool" 3 years ago Female Surgical History: Reports: Other (See Below) Other Female Surgeries/Procedures: ovarian cysts Endocrine Surgical History: Reports: None Neurological Surgical History: Reports: None Musculoskeletal Surgical History: Reports: Other (See Below) Other Musculoskeletal Surgeries/Procedures:: Recent surgery to L foot 06/2019 Dermatological Surgical History: Reports: Other (See Below) Social & Family History - Family History Family Medical History: No Pertinent Family History - Caffeine Use Caffeine Use: Reports: None Other Caffeine Use: HASN'T HAD COFFEE IN ONE WEEK - Living Situation & Occupation Living situation: Reports: with Family Occupation: Employed ED ROS GENERAL - Review of Systems Review Of Systems: Comprehensive ROS is negative, except as noted in HPI. ED EXAM, SKIN/RASH Exam: See Below Exam Limited By: No Limitations General Appearance: Alert, WD/WN, No Apparent Distress, Obese Head: Atraumatic, Normocephalic Respiratory/Chest: No Respiratory Distress Cardiovascular: Regular Rate, Rhythm GI/Abdominal: Soft, Non-Tender Extremities: Normal Range of Motion, No Pedal Edema, Normal Capillary Refill Neurological: Alert, Oriented, No Motor/Sensory Deficits Psychiatric: Normal Mood Skin: Warm, Dry Location, Skin: Groin (Rt proximal thigh/groin has a 3cm diameter draining abscess, culture obtained.) Course - Vital Signs Last Recorded V/S: Last Vital Signs Temp 97.4 F 06/25/20 11:24 Pulse 73 06/25/20 11:24 Resp 16 06/25/20 11:24 BP 126/72 06/25/20 11:24 Pulse Ox 100 06/25/20 11:24 - Orders/Labs/Meds Orders: Active Orders 24 hr Category Date Time Status CULTURE WOUND [RM] Stat Lab 06/25/20 11:36 Ordered Meds: Medications Discontinued Medications Generic Name Dose Route Start Last Admin Trade Name Gigi PRN Reason Stop Dose Admin Clindamycin HCl 300 mg 06/25/20 11:30 Cleocin PO 06/25/20 11:31 ONETIME ONE Doxycycline Monohydrate 100 mg 06/25/20 11:31 Doxycycline Monohydrate PO 06/25/20 11:32 ONETIME ONE Departure - Departure Time of Disposition: 11:38 Disposition: Home, Self-Care 01 Condition: Good Clinical Impression: Abscess of right thigh - Discharge Information *PRESCRIPTION DRUG MONITORING PROGRAM REVIEWED*: Not Applicable *COPY OF PRESCRIPTION DRUG MONITORING REPORT IN PATIENT NAIDA: Not Applicable Instructions: Skin Abscess Forms: ED Department Discharge Additional Instructions: Moist hot pack to the area of abscess. Rx: Clindamycin 300mg Rx: Doxycycline 100mg Follow up in clinic next week if not healing as expected. Sepsis Event Note (ED) - Focused Exam Vital Signs: Vital Signs Temp Pulse Resp BP Pulse Ox 06/25/20 11:24 97.4 F 73 16 126/72 100 - My Orders Last 24 Hours: My Active Orders 06/25/20 11:36 CULTURE WOUND [RM] Stat - Assessment/Plan Last 24 Hours: My Active Orders 06/25/20 11:36 CULTURE WOUND [RM] Stat I have read and agree with the documentation that has been completed regarding this visit. By signing this record, I attest that the documentation was completed in my physical presence and is an accurate record of the encounter.
[2020-06-25] MEDS: Clindamycin HCl 150 MG Cap PO ONE (11:46)
[2020-06-25] MEDS: Doxycycline Monohydrate 100 MG Cap ONE (11:47)
[2020-06-25] MEDS: Clindamycin HCl 150 MG Cap ONE (11:47)
[2020-06-25] MEDS: Doxycycline Monohydrate 100 MG Cap PO ONE (11:47)
== END 2020-06-25 11:48 | disposition home or self-care (01) ==
LOC: DL.ED 11:14
DX: L02.415 Cutaneous abscess of right lower limb (principal); E11.9 Type 2 diabetes mellitus without complications; Z88.0 Allergy status to penicillin; Z79.899 Other long term (current) drug therapy
CPT/HCPCS: 87070; 99283; A9270

== ENCOUNTER 2020-07-03 11:14 | Emergency (ER) | payer MEDICAID ==
[2020-07-03 11:34] VITALS: BP 109/49; PULSE 77
[2020-07-03] MEDS ORDERED: Benzonatate 100 MG Cap PO ONE (12:17)
[2020-07-03] MEDS ORDERED: GI Cocktail Oral Solution 30 ML PO ONE (12:17)
--- NOTE | 2020-07-03 12:48 | CR ---
EXAMINATION: Chest 2V SEX: Female AGE: 34 years CLINICAL HISTORY: 34-year-old female with clinical COUGH. No comparison films immediately available. INTERPRETATION: 1. 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 2. Generally poor inspiratory effort and subtle atelectasis but no underlying lobar collapse. 3. No peribronchial "cuffing" or generalized air trapping. No bullous/emphysematous lesions. 4. Normal cardiac silhouette. No pulmonary vascular congestion, cephalization of flow or alveolar edema. 5. No focal lobar alveolar consolidation, air bronchograms, or peripheral "groundglass" interstitial densities. 6. No lung mass or hilar/mediastinal lymphadenopathy. 7. No pneumothorax or pneumomediastinum. Midline tracheal bronchial airway unremarkable. CONCLUSION: No acute cardiopulmonary abnormality.
--- NOTE | 2020-07-03 12:55 | EDM.PDOC ---
Scribed by Kae Lindsey 07/03/20 1252 for Reynaldo Browne MD ED HPI GENERAL MEDICAL PROBLEM - General Chief Complaint: General Stated Complaint: 06/29/19 POST SURGERY & FEELING SICK Time Seen by Provider: 07/03/20 11:35 Source of Information: Reports: Patient, RN, RN Notes Reviewed History Limitations: Reports: No Limitations - History of Present Illness INITIAL COMMENTS - FREE TEXT/NARRATIVE: Patient present to ED by POV. A 34 year-old female presents with reports of non productive cough x 4 days. Patient complaining of sore throat and painful swallowing. Patient states she recently had bilateral ovarian cysts removed 4 days ago without complications. Patient states when she awoke she developed a cough and was told by her surgeon that it was normal r/t intubation removal. Patient states she called her surgeon today and told her "to be seen right away". Patient states she was supposed to work today but came here right away. Patient denies coughing anything up, shortness of breath, loss of taste or smell, neck pain, neck masses, chest pain, fever, chills, drugs or alcohol. Denies any other symptoms. Patient states COVID test prior to surgery that was negative. Onset: Gradual Duration: Getting Worse Location: Reports: Other (throat) Quality: Reports: Ache Severity: Moderate Improves with: Reports: None Worsens with: Reports: None Associated Symptoms: Reports: No Other Symptoms - Related Data Allergies Allergy/AdvReac Type Severity Reaction Status Date / Time Penicillins AdvReac Unknown Other Verified 06/25/20 11:33 amoxicillin AdvReac Other Verified 06/25/20 11:33 Home Meds: Home Meds metFORMIN [Glucophage XR] 1,000 mg PO BIDMEALS 10/15/18 [History] Acetaminophen [Tylenol] 650 mg PO Q6HR PRN 02/13/19 [History] Clindamycin HCl 300 mg PO DAILY 07/03/20 [History] Doxycycline [Doxycycline Hyclate] 100 mg PO Q12HR 07/03/20 [History] Ibuprofen [Motrin] 600 mg PO Q6HR PRN 07/03/20 [History] oxyCODONE 5 mg PO Q6HR PRN 07/03/20 [History] Past Medical History - Past Health History Medical/Surgical History: Denies Medical/Surgical History HEENT History: Reports: Impaired Vision, Other (See Below) Other HEENT History: wears glasses Cardiovascular History: Reports: None Respiratory History: Reports: None Gastrointestinal History: Reports: Bowel Obstruction, Diverticulosis Genitourinary History: Reports: UTI, Recurrent 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, Polycystic Ovaries, Other (See Below) Other PEST CONTROL SUPERVISOR History: ovarian cysts Musculoskeletal History: Reports: None Neurological History: Reports: None Psychiatric History: Reports: Anxiety Endocrine/Metabolic History: Reports: Diabetes, Type II Hematologic History: Reports: None Immunologic History: Reports: None Oncologic (Cancer) History: Reports: None Dermatologic History: Reports: Other (See Below) Other Dermatologic History: acne - Infectious Disease History Infectious Disease History: Reports: Chicken Pox, Shingles - Past Surgical History Head Surgeries/Procedures: Reports: None HEENT Surgical History: Reports: Oral Surgery, Tonsillectomy, Other (See Below) Other HEENT Surgeries/Procedures: wisdom teeth Cardiovascular Surgical History: Reports: None Respiratory Surgical History: Reports: None GI Surgical History: Reports: Colon, Colonoscopy Other GI Surgeries/Procedures: removed"a foot of stool" 3 years ago Female Surgical History: Reports: Other (See Below) Other Female Surgeries/Procedures: ovarian cysts Endocrine Surgical History: Reports: None Neurological Surgical History: Reports: None Musculoskeletal Surgical History: Reports: Other (See Below) Other Musculoskeletal Surgeries/Procedures:: Recent surgery to L foot 06/2019 Dermatological Surgical History: Reports: Other (See Below) Social & Family History - Family History Family Medical History: No Pertinent Family History - Caffeine Use Caffeine Use: Reports: None Other Caffeine Use: HASN'T HAD COFFEE IN ONE WEEK - Living Situation & Occupation Living situation: Reports: with Family Occupation: Employed ED ROS GENERAL - Review of Systems Review Of Systems: Comprehensive ROS is negative, except as noted in HPI. ED EXAM, GENERAL - Physical Exam Exam: See Below Exam Limited By: No Limitations General Appearance: Alert, WD/WN, No Apparent Distress Ears: Normal External Exam, Normal Canal, Hearing Grossly Normal, Normal TMs Nose: Normal Inspection, Normal Mucosa, No Blood Throat/Mouth: Normal Inspection, Normal Lips, Normal Teeth, Normal Gums, Normal Oropharynx, Normal Voice, No Airway Compromise Head: Atraumatic, Normocephalic Neck: Normal Inspection, Supple, Non-Tender, Full Range of Motion Respiratory/Chest: No Respiratory Distress, Lungs Clear, Normal Breath Sounds, No Accessory Muscle Use, Chest Non-Tender Cardiovascular: Regular Rate, Rhythm GI/Abdominal: Normal Bowel Sounds, Soft, Tender (as expected at surgical incision sites, no sign of wound infection). No: Guarding, Rigid Back Exam: Normal Inspection Extremities: Normal Inspection Neurological: Alert, Oriented, No Motor/Sensory Deficits Psychiatric: Normal Affect, Normal Mood Skin Exam: Warm, Dry Course - Vital Signs Last Recorded V/S: Last Vital Signs Temp 97.5 F 07/03/20 11:27 Pulse 77 07/03/20 11:27 Resp 18 07/03/20 11:27 BP 109/49 L 07/03/20 11:27 Pulse Ox 100 07/03/20 11:27 - Orders/Labs/Meds Orders: Active Orders 24 hr Category Date Time Status STREP SCRN A RAPID W CULT CONF [RM] Stat Lab 07/03/20 12:17 Ordered Meds: Medications Discontinued Medications Generic Name Dose Route Start Last Admin Trade Name Freq PRN Reason Stop Dose Admin Al Hydroxide/Mg Hydroxide 30 ml 07/03/20 12:17 07/03/20 12:22 Gi Cocktail PO 07/03/20 12:18 30 ml ONETIME ONE Administration Benzonatate 200 mg 07/03/20 12:17 07/03/20 12:22 Tessalon Perles PO 07/03/20 12:18 200 mg ONETIME ONE Administration - Radiology Interpretation Free Text/Narrative:: XR Chest: no acute process per Rad. report. Departure - Departure Time of Disposition: 12:53 Disposition: Home, Self-Care 01 Condition: Good Clinical Impression: Cough Acute pharyngitis Qualifiers: Pharyngitis/tonsillitis etiology: unspecified etiology Qualified Code(s): J02.9 - Acute pharyngitis, unspecified - Discharge Information *PRESCRIPTION DRUG MONITORING PROGRAM REVIEWED*: Not Applicable *COPY OF PRESCRIPTION DRUG MONITORING REPORT IN PATIENT NAIDA: Not Applicable Instructions: Sore Throat, [id number], Cough, Adult, [id number] Forms: ED Department Discharge Additional Instructions: Rx: Tessalon Perles 200mg Frequent saltwater gargles until sore throat improves. Follow up in clinic if not improving in 3 to 4 days. Sepsis Event Note (ED) - Evaluation Sepsis Screening Result: No Definite Risk - Focused Exam Vital Signs: Vital Signs Temp Pulse Resp BP Pulse Ox 07/03/20 11:27 97.5 F 77 18 109/49 L 100 - My Orders Last 24 Hours: My Active Orders 07/03/20 12:17 STREP SCRN A RAPID W CULT CONF [RM] Stat - Assessment/Plan Last 24 Hours: My Active Orders 07/03/20 12:17 STREP SCRN A RAPID W CULT CONF [RM] Stat I have read and agree with the documentation that has been completed regarding this visit. By signing this record, I attest that the documentation was completed in my physical presence and is an accurate record of the encounter.
== END 2020-07-03 13:03 | disposition home or self-care (01) ==
LOC: DL.ED 11:14
DX: J02.9 Acute pharyngitis, unspecified (principal); E11.9 Type 2 diabetes mellitus without complications; Z79.84 Long term (current) use of oral hypoglycemic drugs; Z88.0 Allergy status to penicillin
CPT/HCPCS: 71046; 87081; 87430; 99283; A9270

== ENCOUNTER 2020-07-11 10:29 | Emergency (ER) | payer MEDICAID ==
[2020-07-11 10:49] VITALS: BP 141/95; PULSE 91
--- NOTE | 2020-07-11 11:30 | EDM.PDOC ---
<Kel Boss Ofe - Last Filed: 07/11/20 11:25> ED HPI GENERAL MEDICAL PROBLEM - General Chief Complaint: Abdominal Pain Stated Complaint: ABDOMINAL PAIN AFTER IUD SURGERY Time Seen by Provider: 07/11/20 11:00 Source of Information: Reports: Patient, RN History Limitations: Reports: No Limitations - History of Present Illness INITIAL COMMENTS - FREE TEXT/NARRATIVE: 34 y/o F c/o abd and pubic pain since the 30 of june. Pt states she had aovarian cyst removed and an IUD placed on the . After the procedures pt developed severe burning pn in her abd and pubic region accompanied with vaginal bleeding as well as burning with urination. The vaginal bleeding has been spotting and not heavy. The abd pn is constant, nonradiating and unrelieved with her prescribed narcotics. Pt also states she has been running a fever on an off since the procedure but does not know exactly what her temperature has been. Denies trauma, davis, cp, sob, leg pain, difficulty with defecation, N/V/D. Onset: Other (11 days) Duration: Day(s): Location: Reports: Abdomen, Pelvis Quality: Reports: Burning Severity: Severe Improves with: Reports: None Worsens with: Reports: None Associated Symptoms: Reports: No Other Symptoms abdomen Pain Score (Numeric/FACES): 10 - Related Data Allergies Allergy/AdvReac Type Severity Reaction Status Date / Time Penicillins AdvReac Unknown Other Verified 07/11/20 10:52 amoxicillin AdvReac Other Verified 07/11/20 10:52 Home Meds: Home Meds metFORMIN [Glucophage XR] 1,000 mg PO BIDMEALS 10/15/18 [History] Acetaminophen [Tylenol] 650 mg PO Q6HR PRN 02/13/19 [History] Ibuprofen [Motrin] 600 mg PO Q6HR PRN 07/03/20 [History] oxyCODONE 5 mg PO Q6HR PRN 07/03/20 [History] Amoxicillin/Clavulanate K [Augmentin 875-125 MG] 1 tab PO BID 07/11/20 [History] Past Medical History - Past Health History Medical/Surgical History: Denies Medical/Surgical History HEENT History: Reports: Impaired Vision, Other (See Below) Other HEENT History: wears glasses Cardiovascular History: Reports: None Respiratory History: Reports: None Gastrointestinal History: Reports: Bowel Obstruction, Diverticulosis Genitourinary History: Reports: UTI, Recurrent 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: 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, Polycystic Ovaries, Other (See Below) Other VAT CLEANER History: ovarian cysts Musculoskeletal History: Reports: None Neurological History: Reports: None Psychiatric History: Reports: Anxiety Endocrine/Metabolic History: Reports: Diabetes, Type II Hematologic History: Reports: None Immunologic History: Reports: None Oncologic (Cancer) History: Reports: None Dermatologic History: Reports: Other (See Below) Other Dermatologic History: acne - Infectious Disease History Infectious Disease History: Reports: Chicken Pox, Shingles - Past Surgical History Head Surgeries/Procedures: Reports: None HEENT Surgical History: Reports: Oral Surgery, Tonsillectomy, Other (See Below) Other HEENT Surgeries/Procedures: wisdom teeth Cardiovascular Surgical History: Reports: None Respiratory Surgical History: Reports: None GI Surgical History: Reports: Colon, Colonoscopy Other GI Surgeries/Procedures: removed"a foot of stool" 3 years ago Female Surgical History: Reports: Other (See Below) Other Female Surgeries/Procedures: ovarian cysts Endocrine Surgical History: Reports: None Neurological Surgical History: Reports: None Musculoskeletal Surgical History: Reports: Other (See Below) Other Musculoskeletal Surgeries/Procedures:: Recent surgery to L foot 06/2019 Dermatological Surgical History: Reports: Other (See Below) Social & Family History - Family History Family Medical History: No Pertinent Family History - Tobacco Use Tobacco Use Status *Q: Never Tobacco User - Caffeine Use Caffeine Use: Reports: None Other Caffeine Use: HASN'T HAD COFFEE IN ONE WEEK - Recreational Drug Use Recreational Drug Use: No - Living Situation & Occupation Living situation: Reports: with Family Occupation: Employed ED ROS GENERAL - Review of Systems Review Of Systems: Comprehensive ROS is negative, except as noted in HPI. ED EXAM, GI/ABD - Physical Exam Exam: See Below Exam Limited By: No Limitations General Appearance: Alert, WD/WN, No Apparent Distress Eyes: Bilateral: Normal Appearance, EOMI Throat/Mouth: Normal Inspection, Normal Lips, Normal Teeth, Normal Gums, Normal Oropharynx, Normal Voice, No Airway Compromise Head: Atraumatic, Normocephalic Neck: Normal Inspection, Supple, Non-Tender, Full Range of Motion Respiratory/Chest: No Respiratory Distress, Lungs Clear, Normal Breath Sounds, No Accessory Muscle Use, Chest Non-Tender Cardiovascular: Normal Peripheral Pulses, Regular Rate, Rhythm, No Edema, No Gallop, No JVD, No Murmur, No Rub GI/Abdominal Exam: Soft, Tender Back Exam: Normal Inspection Extremities: Normal Inspection Neurological: Alert, Oriented, CN II-XII Intact, Normal Cognition, Normal Gait, Normal Reflexes, No Motor/Sensory Deficits Psychiatric: Normal Affect, Normal Mood Skin Exam: Warm, Dry, Intact, Normal Color, No Rash Departure - Departure Disposition: Home, Self-Care 01 Clinical Impression: Diverticulitis UTI (urinary tract infection) Qualifiers: Urinary tract infection type: acute cystitis Hematuria presence: with hematuria Qualified Code(s): N30.01 - Acute cystitis with hematuria Abdominal pain Qualifiers: Abdominal location: right lower quadrant Qualified Code(s): R10.31 - Right lower quadrant pain - Discharge Information Instructions: Diverticulitis, [id number], Antibiotic Medicine, Adult, [id number]-[id number], Urinary Tract Infection, Adult, [id number]-[id number], Abdominal Pain, Adult, [id number]-il-[id number], Probiotics Forms: ED Department Discharge Additional Instructions: Rx: Ciprofloxacin, metronidazole, [place] Drink plenty of water Use a probiotic with the antibiotics Follow-up with your primary care provider on Sunday Return to the ER with any worsening of symptoms Sepsis Event Note (ED) - Evaluation Sepsis Screening Result: No Definite Risk <Yesi Flowers - Last Filed: 07/11/20 15:07> Course - Vital Signs Last Recorded V/S: Last Vital Signs Temp 98.1 F 07/11/20 10:48 Pulse 91 07/11/20 10:48 Resp 20 07/11/20 10:48 BP 141/95 H 07/11/20 10:48 Pulse Ox 98 07/11/20 10:48 - Orders/Labs/Meds Labs: Laboratory Tests 07/11/20 07/11/20 07/11/20 Range/Units 11:02 11:16 11:16 WBC 12.5 H (5.0-10.0) 10^3/uL RBC 4.29 (4.2-5.4) 10^6/uL Hgb 12.8 (12.0-16.0) g/dL Hct 38.2 (37.0-47.0) % MCV 89.0 (80-100) fL MCH 29.8 (27.0-34.0) pg MCHC 33.5 (33.0-35.0) g/dL Plt Count 296 (150-450) 10^3/uL Neut % (Auto) 77.1 H (42.2-75.2) % Lymph % (Auto) 15.4 L (20.5-50.1) % [place] % (Auto) 5.7 (2-8) % Eos % (Auto) 1.5 (1.0-3.0) % Baso % (Auto) 0.3 (0.0-1.0) % Sodium 139 (136-145) mmol/L Potassium 3.7 (3.5-5.1) mmol/L Chloride 102 (98-107) mmol/L Carbon Dioxide 27 (21-32) mmol/L Anion Gap 13.7 H (7-13) mEq/L BUN 12 (7-18) mg/dL Creatinine 0.79 (0.55-1.02) mg/dL Est Cr Clr Drug Dosing 98.50 mL/min Estimated GFR (MDRD) > 60 BUN/Creatinine Ratio 15.2 (No establ ref range) Glucose 140 H (74-99) mg/dL Calcium 8.7 (8.5-10.1) mg/dL Total Bilirubin 0.3 (0.2-1.0) mg/dL AST 8 L (15-37) U/L ALT 19 (14-59) U/L Alkaline Phosphatase 47 (46-116) U/L Total Protein 6.8 (6.4-8.2) g/dL Albumin 3.5 (3.4-5.0) g/dL Globulin 3.3 Albumin/Globulin Ratio 1.1 Urine Color [place] (YELLOW) Urine Appearance Cloudy (CLEAR) Urine pH 5.0 (5.0-9.0) Ur Specific [place] 1.015 (1.005-1.030) Urine Protein 30 H (NEGATIVE) Urine Glucose (UA) 100 H (NEGATIVE) Urine Ketones Negative (NEGATIVE) Urine Occult Blood Moderate H (NEGATIVE) Urine Nitrite Positive H (NEGATIVE) Urine Bilirubin Small H (NEGATIVE) Urine Urobilinogen 2.0 H (0.2-1.0) mg/dL Ur Leukocyte Esterase Large H (NEGATIVE) Urine RBC 50-75 H /HPF Urine WBC 0-5 (0-5/HPF) /HPF Ur Epithelial Cells Few (NOT SEEN) /HPF Urine Bacteria Few (0-FEW/HPF) /HPF Meds: Medications Discontinued Medications Generic Name Dose Route Start Last Admin Trade Name Gigi PRN Reason Stop Dose Admin Fentanyl 50 mcg 07/11/20 14:01 07/11/20 14:21 Sublimaze IVPUSH 07/11/20 14:02 50 mcg ONETIME ONE Administration Ciprofloxacin/Dextrose 400 mg/ 200 mls @ 200 mls/hr 07/11/20 13:07 07/11/20 13:22 Premix IV 07/11/20 14:06 200 mls/hr ONETIME ONE Administration Metronidazole 500 mg/ Premix 100 mls @ 100 mls/hr 07/11/20 13:08 07/11/20 13:16 IV 07/11/20 14:07 100 mls/hr ONETIME ONE Administration Sodium Chloride 1,000 mls @ 999 mls/hr 07/11/20 13:20 07/11/20 13:24 Normal Saline IV 07/11/20 14:20 999 mls/hr .BOLUS ONE Administration Iopamidol 100 ml 07/11/20 11:59 07/11/20 12:44 Isovue-300 (61%) IVPUSH 07/11/20 12:00 100 ml ONETIME ONE Administration - Radiology Interpretation Free Text/Narrative:: CT of abdomen/pelvis with contrast: PROCEDURE INFORMATION: Exam: CT Abdomen And Pelvis With Contrast Exam date and time: 07/11/2020 12:29 PM Age: 34 years old Clinical indication: Pain; Other: Pelvic; Prior surgery; Surgery date: <1 month; Additional info: Pelvic and abdominal pain after ovarian cyst removal TECHNIQUE: Imaging protocol: Computed tomography of the abdomen and pelvis with intravenous contrast. Radiation optimization: All CT scans at this facility use at least one of these dose optimization techniques: automated exposure control; mA and/or kV adjustment per patient size (includes targeted exams where dose is matched to clinical indication); or iterative reconstruction. Contrast material: ISOVUE 300; Contrast volume: 98 ml; Contrast route: INTRAVENOUS (IV); COMPARISON: CT Abdomen Pelvis w Cont 01/03/2020 9:32 PM FINDINGS: Liver: Normal. No mass. Gallbladder and bile ducts: Normal. No calcified stones. No ductal dilation. Pancreas: Normal. No ductal dilation. Spleen: Normal. No splenomegaly. Adrenal glands: Normal. No mass. Kidneys and ureters: Normal. No hydronephrosis. Stomach and bowel: There is a left upper quadrant bowel anastomosis. There is no evidence for mechanical obstruction or postoperative complication. There is acute diverticulitis of the proximal sigmoid with adjacent mesentery inflammatory stranding and minimal ill-defined wispy fluid. Appendix: No evidence of appendicitis. Intraperitoneal space: There is no free air or ascites. Vasculature: Unremarkable. No abdominal aortic aneurysm. Lymph nodes: There are few prominent pericecal lymph nodes which are nonspecific. No malignant adenopathy is seen. Urinary bladder: There is mild thickening of the left bladder dome wall which is likely reactive in association with diverticulitis. Reproductive: An IUD is present within the uterus. Bones/joints: Unremarkable. No acute fracture. Soft tissues: Unremarkable. IMPRESSION: There is moderate acute proximal sigmoid diverticulitis. There is extensive adjacent inflammation of the mesentery but no CT evidence for perforation or abscess, although early micro perforation cannot be entirely excluded. Thank you for allowing us to participate in the care of your patient. Dictated and Authenticated by: Thomas Anne MD 07/11/2020 12:54 PM Central Time ([place] & [place]) See rad report - Re-Assessments/Exams Free Text/Narrative Re-Assessment/Exam: 07/11/20 12:41 I personally performed or re-performed the physical examination and medical dec ision making. I have verified all student documentation or findings, including history, physical exam and/or medical decision making. Departure - Departure Time of Disposition: 14:30 Condition: Fair - Discharge Information *PRESCRIPTION DRUG MONITORING PROGRAM REVIEWED*: No *COPY OF PRESCRIPTION DRUG MONITORING REPORT IN PATIENT NAIDA: No Sepsis Event Note (ED) - Focused Exam Vital Signs: Vital Signs Temp Pulse Resp BP Pulse Ox 07/11/20 10:48 98.1 F 91 20 141/95 H 98
[2020-07-11 11:41] LABS: ANION GAP 13.7 mEq/L (7-13); CHLORIDE,CL 102 mmol/L (98-107); SODIUM,NA 139 mmol/L (136-145)
[2020-07-11] MEDS ORDERED: Iopamidol 612 MG/ML 100 ML Bottle IVPUSH ONE (11:59)
--- NOTE | 2020-07-11 12:54 | CT ---
PROCEDURE INFORMATION: Exam: CT Abdomen And Pelvis With Contrast Exam date and time: 07/11/2020 12:29 PM Age: 34 years old Clinical indication: Pain; Other: Pelvic; Prior surgery; Surgery date: <1 month; Additional info: Pelvic and abdominal pain after ovarian cyst removal TECHNIQUE: Imaging protocol: Computed tomography of the abdomen and pelvis with intravenous contrast. Radiation optimization: All CT scans at this facility use at least one of these dose optimization techniques: automated exposure control; mA and/or kV adjustment per patient size (includes targeted exams where dose is matched to clinical indication); or iterative reconstruction. Contrast material: ISOVUE 300; Contrast volume: 98 ml; Contrast route: INTRAVENOUS (IV); COMPARISON: CT Abdomen Pelvis w Cont 01/03/2020 9:32 PM FINDINGS: Liver: Normal. No mass. Gallbladder and bile ducts: Normal. No calcified stones. No ductal dilation. Pancreas: Normal. No ductal dilation. Spleen: Normal. No splenomegaly. Adrenal glands: Normal. No mass. Kidneys and ureters: Normal. No hydronephrosis. Stomach and bowel: There is a left upper quadrant bowel anastomosis. There is no evidence for mechanical obstruction or postoperative complication. There is acute diverticulitis of the proximal sigmoid with adjacent mesentery inflammatory stranding and minimal ill-defined wispy fluid. Appendix: No evidence of appendicitis. Intraperitoneal space: There is no free air or ascites. Vasculature: Unremarkable. No abdominal aortic aneurysm. Lymph nodes: There are few prominent pericecal lymph nodes which are nonspecific. No malignant adenopathy is seen. Urinary bladder: There is mild thickening of the left bladder dome wall which is likely reactive in association with diverticulitis. Reproductive: An IUD is present within the uterus. Bones/joints: Unremarkable. No acute fracture. Soft tissues: Unremarkable. IMPRESSION: There is moderate acute proximal sigmoid diverticulitis. There is extensive adjacent inflammation of the mesentery but no CT evidence for perforation or abscess, although early micro perforation cannot be entirely excluded.
[2020-07-11] MEDS ORDERED: Ciprofloxacin in D5W 400 MG in Premix Bag 1 BAG IV ONE ×2 (13:07)
[2020-07-11] MEDS ORDERED: metroNIDAZOLE/Normal Saline 500 MG in Premix Bag 100 BAG IV ONE (13:08)
[2020-07-11] MEDS ORDERED: Sodium Chloride 0.9% 1,000 ML IV ONE (13:20)
[2020-07-11] MEDS ORDERED: fentaNYL 100 MCG/2 ML SDV IVPUSH ONE (14:01)
== END 2020-07-11 14:30 | disposition home or self-care (01) ==
LOC: DL.ED 10:29
DX: K57.32 Diverticulitis of large intestine without perforation or abscess without bleeding (principal); N30.01 Acute cystitis with hematuria; E11.9 Type 2 diabetes mellitus without complications; Z88.0 Allergy status to penicillin; Z79.84 Long term (current) use of oral hypoglycemic drugs; Z79.899 Other long term (current) drug therapy
CPT/HCPCS: 36415; 74177; 80053; 81001; 85025; 96365; 96368; 96375; 99284; J0744; J3010; J3490; J7030; Q9967

== ENCOUNTER 2020-12-05 17:22 | Emergency (ER) | payer MEDICAID, OTHER ==
[2020-12-05] MEDS ORDERED: Ondansetron 4 MG Tab.DIS PO ONE ×2 (17:23→20:08)
[2020-12-05 18:57] VITALS: BP 141/77; PULSE 71
--- NOTE | 2020-12-05 19:21 | EDM.PDOC ---
ED HPI GENERAL MEDICAL PROBLEM - General Chief Complaint: Abdominal Pain Stated Complaint: STOMACH PAIN Time Seen by Provider: 12/05/20 19:16 Source of Information: Reports: Patient History Limitations: Reports: No Limitations - History of Present Illness INITIAL COMMENTS - FREE TEXT/NARRATIVE: This 35 yo female patient reports to the ED with lower abdominal pain, diarrhea (5 times today) and "different colored urine". The patient reports she does have a history of diverticula. The patient reports her symptoms started this morning and have continued to get worse throughout the day. The patient reports she has been feeling "a little nauseated" this afternoon, but does not feel like she sill vomit. Onset: Today Duration: Constant, Getting Worse Location: Reports: Abdomen (lower abdomen bilaterally) Quality: Reports: Ache, Dull Severity: Moderate Improves with: Reports: None Worsens with: Reports: None Context: Reports: Other Associated Symptoms: Reports: Nausea/Vomiting, Other (diarrhea) Lower Abdominal Pain Score (Numeric/FACES): 8 - Related Data Allergies Allergy/AdvReac Type Severity Reaction Status Date / Time Penicillins AdvReac Unknown Other Verified 12/05/20 18:57 amoxicillin AdvReac Other Verified 12/05/20 18:57 Home Meds: Home Meds metFORMIN [Glucophage XR] 1,000 mg PO BIDMEALS 10/15/18 [History] Ibuprofen [Motrin] 200 mg PO Q6HR PRN 07/03/20 [History] Past Medical History - Past Health History Medical/Surgical History: Denies Medical/Surgical History HEENT History: Reports: Impaired Vision, Other (See Below) Other HEENT History: wears glasses Cardiovascular History: Reports: None Respiratory History: Reports: None Gastrointestinal History: Reports: Bowel Obstruction, Diverticulosis Genitourinary History: Reports: UTI, Recurrent 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 BLOCKER History: Reports: 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, Polycystic Ovaries, Other (See Below) Other AUTOMATIC BLOCKER History: ovarian cysts Musculoskeletal History: Reports: None Neurological History: Reports: None Psychiatric History: Reports: Anxiety Endocrine/Metabolic History: Reports: Diabetes, Type II Hematologic History: Reports: None Immunologic History: Reports: None Oncologic (Cancer) History: Reports: None, Cervix Other Oncologic History: Grade 2 cervial ca Dermatologic History: Reports: Other (See Below) Other Dermatologic History: acne - Infectious Disease History Infectious Disease History: Reports: Chicken Pox, Shingles - Past Surgical History Head Surgeries/Procedures: Reports: None HEENT Surgical History: Reports: Oral Surgery, Tonsillectomy, Other (See Below) Other HEENT Surgeries/Procedures: wisdom teeth Cardiovascular Surgical History: Reports: None Respiratory Surgical History: Reports: None GI Surgical History: Reports: Colon, Colonoscopy Other GI Surgeries/Procedures: removed"a foot of stool" 3 years ago Female Surgical History: Reports: Other (See Below) Other Female Surgeries/Procedures: ovarian cysts, Cervical grade 2 Cancer Endocrine Surgical History: Reports: None Neurological Surgical History: Reports: None Musculoskeletal Surgical History: Reports: Other (See Below) Other Musculoskeletal Surgeries/Procedures:: Recent surgery to L foot 06/2019 Dermatological Surgical History: Reports: Other (See Below) Social & Family History - Family History Family Medical History: No Pertinent Family History - Tobacco Use Tobacco Use Status *Q: Never Tobacco User - Caffeine Use Caffeine Use: Reports: None Other Caffeine Use: HASN'T HAD COFFEE IN ONE WEEK - Recreational Drug Use Recreational Drug Use: No - Living Situation & Occupation Living situation: Reports: with Family Occupation: Employed ED ROS GENERAL - Review of Systems Review Of Systems: Comprehensive ROS is negative, except as noted in HPI. ED EXAM, GI/ABD - Physical Exam Exam: See Below Exam Limited By: No Limitations General Appearance: Alert, WD/WN, Moderate Distress Eyes: Bilateral: Normal Appearance, EOMI Ears: Normal External Exam, Normal Canal, Hearing Grossly Normal, Normal TMs Nose: Normal Inspection, Normal Mucosa, No Blood Throat/Mouth: Normal Inspection, Normal Lips, Normal Teeth, Normal Gums, Normal Oropharynx, Normal Voice, No Airway Compromise Head: Atraumatic, Normocephalic Neck: Normal Inspection, Supple, Non-Tender, Full Range of Motion Respiratory/Chest: No Respiratory Distress, Lungs Clear, Normal Breath Sounds, No Accessory Muscle Use, Chest Non-Tender Cardiovascular: Normal Peripheral Pulses, Regular Rate, Rhythm, No Edema, No Gallop, No JVD, No Murmur, No Rub GI/Abdominal Exam: Normal Bowel Sounds, No Organomegaly, No Distention, No Abnormal Bruit, No Mass, Pelvis Stable, Tender (lower abdomen) (Female) Exam: Deferred Rectal (Female) Exam: Deferred Back Exam: Normal Inspection, Full Range of Motion, NT Extremities: Normal Inspection, Normal Range of Motion, Non-Tender, Normal Capillary Refill, No Pedal Edema Neurological: Alert, Oriented, CN II-XII Intact, Normal Cognition, Normal Gait, Normal Reflexes, No Motor/Sensory Deficits Psychiatric: Normal Affect, Normal Mood Skin Exam: Warm, Dry, Intact, Normal Color, No Rash Lymphatic: No Adenopathy Course - Vital Signs Last Recorded V/S: Last Vital Signs Temp 96.7 F L 12/05/20 18:50 Pulse 71 12/05/20 18:50 Resp 16 12/05/20 18:50 BP 141/77 H 12/05/20 18:50 Pulse Ox 100 12/05/20 18:50 - Orders/Labs/Meds Orders: Active Orders 24 hr Category Date Time Status CULTURE BLOOD [BC] Stat Lab 12/05/20 19:05 Ordered Labs: Laboratory Tests 12/05/20 12/05/20 12/05/20 Range/Units 18:50 19:15 19:15 WBC 7.2 (5.0-10.0) 10^3/uL RBC 4.34 (4.2-5.4) 10^6/uL Hgb 12.5 (12.0-16.0) g/dL Hct 38.4 (37.0-47.0) % MCV 88.5 (80-100) fL MCH 28.8 (27.0-34.0) pg MCHC 32.6 L (33.0-35.0) g/dL Plt Count 317 (150-450) 10^3/uL Neut % (Auto) 49.5 (42.2-75.2) % Lymph % (Auto) 36.4 (20.5-50.1) % [place] % (Auto) 10.0 H (2-8) % Eos % (Auto) 3.3 H (1.0-3.0) % Baso % (Auto) 0.8 (0.0-1.0) % Sodium 140 (136-145) mmol/L Potassium 3.7 (3.5-5.1) mmol/L Chloride 103 (98-107) mmol/L Carbon Dioxide 29 (21-32) mmol/L Anion Gap 11.7 (7-13) mEq/L BUN 14 (7-18) mg/dL Creatinine 0.76 (0.55-1.02) mg/dL Est Cr Clr Drug Dosing 103.69 mL/min Estimated GFR (MDRD) > 60 BUN/Creatinine Ratio 18.4 (No establ ref range) Glucose 89 (70-99) mg/dL Lactic Acid (0.4-2.0) mmol/L Calcium 9.1 (8.5-10.1) mg/dL Total Bilirubin 0.3 (0.2-1.0) mg/dL AST 14 L (15-37) U/L ALT 31 (14-59) U/L Alkaline Phosphatase 55 (46-116) U/L Total Protein 6.9 (6.4-8.2) g/dL Albumin 3.5 (3.4-5.0) g/dL Globulin 3.4 Albumin/Globulin Ratio 1.0 Urine Color Yellow (YELLOW) Urine Appearance Clear (CLEAR) Urine pH 6.5 (5.0-9.0) Ur Specific [place] >= 1.030 (1.005-1.030) Urine Protein Negative (NEGATIVE) Urine Glucose (UA) Negative (NEGATIVE) Urine Ketones Negative (NEGATIVE) Urine Occult Blood Negative (NEGATIVE) Urine Nitrite Negative (NEGATIVE) Urine Bilirubin Negative (NEGATIVE) Urine Urobilinogen 0.2 (0.2-1.0) mg/dL Ur Leukocyte Esterase Negative (NEGATIVE) 12/05/20 Range/Units 19:15 WBC (5.0-10.0) 10^3/uL RBC (4.2-5.4) 10^6/uL Hgb (12.0-16.0) g/dL Hct (37.0-47.0) % MCV (80-100) fL MCH (27.0-34.0) pg MCHC (33.0-35.0) g/dL Plt Count (150-450) 10^3/uL Neut % (Auto) (42.2-75.2) % Lymph % (Auto) (20.5-50.1) % [place] % (Auto) (2-8) % Eos % (Auto) (1.0-3.0) % Baso % (Auto) (0.0-1.0) % Sodium (136-145) mmol/L Potassium (3.5-5.1) mmol/L Chloride (98-107) mmol/L Carbon Dioxide (21-32) mmol/L Anion Gap (7-13) mEq/L BUN (7-18) mg/dL Creatinine (0.55-1.02) mg/dL Est Cr Clr Drug Dosing mL/min Estimated GFR (MDRD) BUN/Creatinine Ratio (No establ ref range) Glucose (70-99) mg/dL Lactic Acid 1.0 (0.4-2.0) mmol/L Calcium (8.5-10.1) mg/dL Total Bilirubin (0.2-1.0) mg/dL AST (15-37) U/L ALT (14-59) U/L Alkaline Phosphatase (46-116) U/L Total Protein (6.4-8.2) g/dL Albumin (3.4-5.0) g/dL Globulin Albumin/Globulin Ratio Urine Color (YELLOW) Urine Appearance (CLEAR) Urine pH (5.0-9.0) Ur Specific [place] (1.005-1.030) Urine Protein (NEGATIVE) Urine Glucose (UA) (NEGATIVE) Urine Ketones (NEGATIVE) Urine Occult Blood (NEGATIVE) Urine Nitrite (NEGATIVE) Urine Bilirubin (NEGATIVE) Urine Urobilinogen (0.2-1.0) mg/dL Ur Leukocyte Esterase (NEGATIVE) Meds: Medications Discontinued Medications Generic Name Dose Route Start Last Admin Trade Name Freq PRN Reason Stop Dose Admin Ondansetron HCl 4 mg 12/05/20 20:08 Ondansetron 4 Mg Tab.Dis PO 12/05/20 20:09 ONETIME ONE Departure - Departure Time of Disposition: 20:10 Disposition: Home, Self-Care 01 Condition: Fair Clinical Impression: Gastroenteritis - Discharge Information *PRESCRIPTION DRUG MONITORING PROGRAM REVIEWED*: Not Applicable *COPY OF PRESCRIPTION DRUG MONITORING REPORT IN PATIENT NAIDA: Not Applicable Instructions: Viral Gastroenteritis, Adult, [id number], Food Choices to Help Relieve Diarrhea, Adult Forms: ED Department Discharge Care Plan Goals: The patient was advised of the examination and lab results during the visit. The patient was given an oral dose of Zofran while in the ED. The patient was discharged with Zofran ODT (4 mg) #1 to take 1 by mouth every 6 hours and a script for Zofran (4 mg) #8 to take 1 by mouth every 6 hours as needed for nausea. The patient was encouraged to stick to a BRAT diet (bananas, rice, applesauce and toast) with small frequent sips of fluid. If the patient has any additional symptoms or concerns, the patient should either return to the emergency department or follow-up with her primary care facility. Sepsis Event Note (ED) - Evaluation Sepsis Screening Result: No Definite Risk - Focused Exam Vital Signs: Vital Signs Temp Pulse Resp BP Pulse Ox 12/05/20 18:50 96.7 F L 71 16 141/77 H 100 - My Orders Last 24 Hours: My Active Orders 12/05/20 19:05 CULTURE BLOOD [BC] Stat - Assessment/Plan Last 24 Hours: My Active Orders 12/05/20 19:05 CULTURE BLOOD [BC] Stat
[2020-12-05 19:39] LABS: ANION GAP 11.7 mEq/L (7-13); CHLORIDE,CL 103 mmol/L (98-107); SODIUM,NA 140 mmol/L (136-145)
[2020-12-05] MEDS ORDERED: Ondansetron 4 MG Tab.DIS ONE (20:12)
== END 2020-12-05 20:21 | disposition home or self-care (01) ==
LOC: DL.ED 17:22
DX: K52.9 Noninfective gastroenteritis and colitis, unspecified (principal); E11.9 Type 2 diabetes mellitus without complications; Z79.84 Long term (current) use of oral hypoglycemic drugs; Z88.0 Allergy status to penicillin
CPT/HCPCS: 36415; 80053; 81003; 83605; 85025; 87040; 99283; 99284; A9270-GY

== ENCOUNTER 2021-02-03 17:26 | Emergency (ER) | payer MEDICAID ==
[2021-02-03 17:41] VITALS: BP 124/70; PULSE 82
[2021-02-03] MEDS ORDERED: Sodium Chloride 0.9% 10 ML Syringe FLUSH PRN (17:43)
[2021-02-03] MEDS ORDERED: Iopamidol 612 MG/ML 100 ML Bottle IVPUSH ONE (17:44)
[2021-02-03] MEDS ORDERED: Ondansetron 4 MG/2 ML SDV IV ONE (17:52)
[2021-02-03] MEDS ORDERED: HYDROmorphone 0.5 MG/0.5 ML Syringe IVPUSH ONE (17:53)
[2021-02-03 18:11] LABS: ANION GAP 15.1 mEq/L (7-13); CHLORIDE,CL 105 mmol/L (98-107); SODIUM,NA 144 mmol/L (136-145)
--- NOTE | 2021-02-03 18:37 | EDM.PDOC ---
Scribed by Kae Lindsey 02/03/21 1837 for Kaiden Browne MD <Kaiden Browne - Last Filed: 02/03/21 18:36> ED HPI GENERAL MEDICAL PROBLEM - General Chief Complaint: Abdominal Pain Stated Complaint: PAIN IN RIGHT SIDE Time Seen by Provider: 02/03/21 17:44 Source of Information: Reports: Patient History Limitations: Reports: No Limitations - History of Present Illness INITIAL COMMENTS - FREE TEXT/NARRATIVE: 35 y/o F c/o R sided abd pn that began several months ago and has become so severe that she decided to come to the ER for evaluation today. Pt states there is a lump on the R side of her belly about the size of a silver dollar. The lump has become very painful and is worse while standing and relieved lying flat on her back. Pain is currently 8/10. Hx of diabetes, diverticulitis and others. Denies fever, cough, chills, drugs, etoh, cp, db, pelvic pn, extremity pn. Onset: Unknown/Unsure Duration: Week(s): Location: Reports: Abdomen Quality: Reports: Sharp Severity: Severe Improves with: Reports: Other (lying supine) Worsens with: Reports: Movement Right Lower Abdomen Pain Score (Numeric/FACES): 6 - Related Data Allergies Allergy/AdvReac Type Severity Reaction Status Date / Time Penicillins AdvReac Unknown Other Verified 12/05/20 18:57 amoxicillin AdvReac Other Verified 12/05/20 18:57 Home Meds: Home Meds metFORMIN [Glucophage XR] 1,000 mg PO BIDMEALS 10/15/18 [History] Ibuprofen [Motrin] 200 mg PO Q6HR PRN 07/03/20 [History] Past Medical History - Past Health History Medical/Surgical History: Denies Medical/Surgical History HEENT History: Reports: Impaired Vision, Other (See Below) Other HEENT History: wears glasses Cardiovascular History: Reports: None Respiratory History: Reports: None Gastrointestinal History: Reports: Bowel Obstruction, Diverticulosis Genitourinary History: Reports: UTI, 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: 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, Polycystic Ovaries, Other (See Below) Other LEATHER GOODS ASSEMBLER History: ovarian cysts Musculoskeletal History: Reports: None Neurological History: Reports: None Psychiatric History: Reports: Anxiety Endocrine/Metabolic History: Reports: Diabetes, Type II Hematologic History: Reports: None Immunologic History: Reports: None Oncologic (Cancer) History: Reports: None, Cervix Other Oncologic History: Grade 2 cervial ca Dermatologic History: Reports: Other (See Below) Other Dermatologic History: acne - Infectious Disease History Infectious Disease History: Reports: Chicken Pox, Shingles - Past Surgical History Head Surgeries/Procedures: Reports: None HEENT Surgical History: Reports: Oral Surgery, Tonsillectomy, Other (See Below) Other HEENT Surgeries/Procedures: wisdom teeth Cardiovascular Surgical History: Reports: None Respiratory Surgical History: Reports: None GI Surgical History: Reports: Colon, Colonoscopy Other GI Surgeries/Procedures: removed"a foot of stool" 3 years ago Female Surgical History: Reports: Other (See Below) Other Female Surgeries/Procedures: ovarian cysts, Cervical grade 2 Cancer Endocrine Surgical History: Reports: None Neurological Surgical History: Reports: None Musculoskeletal Surgical History: Reports: Other (See Below) Other Musculoskeletal Surgeries/Procedures:: Recent surgery to L foot 06/2019 Dermatological Surgical History: Reports: Other (See Below) Social & Family History - Family History Family Medical History: No Pertinent Family History - Tobacco Use Tobacco Use Status *Q: Never Tobacco User - Caffeine Use Caffeine Use: Reports: None Other Caffeine Use: HASN'T HAD COFFEE IN ONE WEEK - Recreational Drug Use Recreational Drug Use: No - Living Situation & Occupation Living situation: Reports: with Family Occupation: Employed ED ROS GENERAL - Review of Systems Review Of Systems: Comprehensive ROS is negative, except as noted in HPI. ED EXAM, GI/ABD - Physical Exam Exam: See Below Exam Limited By: No Limitations General Appearance: Alert, No Apparent Distress Throat/Mouth: Normal Inspection, Normal Lips, Normal Teeth, Normal Gums, Normal Oropharynx, Normal Voice, No Airway Compromise Head: Atraumatic, Normocephalic Neck: Normal Inspection, Supple, Non-Tender, Full Range of Motion Respiratory/Chest: No Respiratory Distress, Lungs Clear, Normal Breath Sounds, No Accessory Muscle Use, Chest Non-Tender Cardiovascular: Normal Peripheral Pulses, Regular Rate, Rhythm GI/Abdominal Exam: Soft, Tender (tender to palpation over the R middle abd with a palpable 3cm mass at the site of the tenderness) (Female) Exam: Deferred Rectal (Female) Exam: Deferred Back Exam: Normal Inspection Extremities: Normal Inspection, Normal Range of Motion, Non-Tender, Normal Capillary Refill, No Pedal Edema Neurological: Alert Psychiatric: Normal Affect, Normal Mood Skin Exam: Warm, Dry, Intact Course - Re-Assessments/Exams Free Text/Narrative Re-Assessment/Exam: 02/03/21 Care of pt transferred to Gagandeep CODY at shift change. Departure - Departure Disposition: Home, Self-Care 01 Clinical Impression: Diverticulosis - Discharge Information Instructions: Diverticulosis Forms: ED Department Discharge Care Plan Goals: The patient was advised of the examination, lab and CT results during the visit. The patient was given a dose of Cipro (500 mg) and Metronidazole (500 mg) while in the ED. The patient was discharged with a script for Cipro (500 mg) #20 to take 1 by mouth 2 times per day for 10 days and Metronidazole (500 mg) #30 to take 1 by mouth 3 times per day for 10 days. The patient was encouraged to follow-up with her primary care facility. If the patient has any additional symptoms or concerns, the patient should either follow-up with her primary care facility or return to the emergency department. <Gagandeep Haider - Last Filed: 02/03/21 19:37> Course - Vital Signs Last Recorded V/S: Last Vital Signs Temp 97.2 F 02/03/21 17:30 Pulse 82 02/03/21 17:30 Resp 16 02/03/21 17:30 BP 124/70 02/03/21 17:30 Pulse Ox 100 02/03/21 17:30 - Orders/Labs/Meds Orders: Active Orders 24 hr Category Date Time Status Peripheral IV Care [RC] . DIRECTED Care 02/03/21 17:44 Active Sodium Chloride 0.9% [Saline Flush] Med 02/03/21 17:43 Active 10 ml FLUSH ASDIRECTED PRN Peripheral IV Insertion Adult [OM.PC] Stat Oth 02/03/21 17:44 Ordered Medication Orders Sodium Chloride (Sodium Chloride 0.9% 10 Ml Syringe) 10 ml FLUSH ASDIRECTED PRN PRN Reason: Keep Vein Open Last Admin: 02/03/21 17:47 Dose: 10 ml Documented by: GEOVANNY Labs: Laboratory Tests 02/03/21 02/03/21 02/03/21 Range/Units 17:28 17:28 17:44 WBC 8.5 (5.0-10.0) 10^3/uL RBC 4.40 (4.2-5.4) 10^6/uL Hgb 12.6 (12.0-16.0) g/dL Hct 38.8 (37.0-47.0) % MCV 88.2 (80-100) fL MCH 28.6 (27.0-34.0) pg MCHC 32.5 L (33.0-35.0) g/dL Plt Count 329 (150-450) 10^3/uL Neut % (Auto) 47.8 (42.2-75.2) % Lymph % (Auto) 38.5 (20.5-50.1) % [place] % (Auto) 9.7 H (2-8) % Eos % (Auto) 3.3 H (1.0-3.0) % Baso % (Auto) 0.7 (0.0-1.0) % Sodium (136-145) mmol/L Potassium (3.5-5.1) mmol/L Chloride (98-107) mmol/L Carbon Dioxide (21-32) mmol/L Anion Gap (7-13) mEq/L BUN (7-18) mg/dL Creatinine (0.55-1.02) mg/dL Est Cr Clr Drug Dosing mL/min Estimated GFR (MDRD) BUN/Creatinine Ratio (No establ ref range) Glucose (70-99) mg/dL Lactic Acid (0.4-2.0) mmol/L Calcium (8.5-10.1) mg/dL Total Bilirubin (0.2-1.0) mg/dL AST (15-37) U/L ALT (14-59) U/L Alkaline Phosphatase (46-116) U/L C-Reactive Protein (0.0-0.9) mg/dL Total Protein (6.4-8.2) g/dL Albumin (3.4-5.0) g/dL Globulin Albumin/Globulin Ratio Amylase (25-115) U/L Urine Color Yellow (YELLOW) Urine Appearance Clear (CLEAR) Urine pH 6.5 (5.0-9.0) Ur Specific [place] >= 1.030 (1.005-1.030) Urine Protein Negative (NEGATIVE) Urine Glucose (UA) Negative (NEGATIVE) Urine Ketones Negative (NEGATIVE) Urine Occult Blood Negative (NEGATIVE) Urine Nitrite Negative (NEGATIVE) Urine Bilirubin Negative (NEGATIVE) Urine Urobilinogen 0.2 (0.2-1.0) mg/dL Ur Leukocyte Esterase Negative (NEGATIVE) Urine HCG, Qual Negative 02/03/21 02/03/21 Range/Units 17:44 17:44 WBC (5.0-10.0) 10^3/uL RBC (4.2-5.4) 10^6/uL Hgb (12.0-16.0) g/dL Hct (37.0-47.0) % MCV (80-100) fL MCH (27.0-34.0) pg MCHC (33.0-35.0) g/dL Plt Count (150-450) 10^3/uL Neut % (Auto) (42.2-75.2) % Lymph % (Auto) (20.5-50.1) % [place] % (Auto) (2-8) % Eos % (Auto) (1.0-3.0) % Baso % (Auto) (0.0-1.0) % Sodium 144 (136-145) mmol/L Potassium 4.1 (3.5-5.1) mmol/L Chloride 105 (98-107) mmol/L Carbon Dioxide 28 (21-32) mmol/L Anion Gap 15.1 H (7-13) mEq/L BUN 14 (7-18) mg/dL Creatinine 0.68 (0.55-1.02) mg/dL Est Cr Clr Drug Dosing 113.36 mL/min Estimated GFR (MDRD) > 60 BUN/Creatinine Ratio 20.6 (No establ ref range) Glucose 96 (70-99) mg/dL Lactic Acid 0.9 (0.4-2.0) mmol/L Calcium 8.8 (8.5-10.1) mg/dL Total Bilirubin 0.3 (0.2-1.0) mg/dL AST 12 L (15-37) U/L ALT 27 (14-59) U/L Alkaline Phosphatase 57 (46-116) U/L C-Reactive Protein 0.8 (0.0-0.9) mg/dL Total Protein 7.1 (6.4-8.2) g/dL Albumin 3.7 (3.4-5.0) g/dL Globulin 3.4 Albumin/Globulin Ratio 1.1 Amylase 31 (25-115) U/L Urine Color (YELLOW) Urine Appearance (CLEAR) Urine pH (5.0-9.0) Ur Specific [place] (1.005-1.030) Urine Protein (NEGATIVE) Urine Glucose (UA) (NEGATIVE) Urine Ketones (NEGATIVE) Urine Occult Blood (NEGATIVE) Urine Nitrite (NEGATIVE) Urine Bilirubin (NEGATIVE) Urine Urobilinogen (0.2-1.0) mg/dL Ur Leukocyte Esterase (NEGATIVE) Urine HCG, Qual Meds: Medications Generic Name Dose Route Start Last Admin Trade Name Freq PRN Reason Stop Dose Admin Sodium Chloride 10 ml 02/03/21 17:43 02/03/21 17:47 Sodium Chloride 0.9% 10 Ml Syringe FLUSH 10 ml ASDIRECTED PRN Administration Keep Vein Open Discontinued Medications Generic Name Dose Route Start Last Admin Trade Name Freq PRN Reason Stop Dose Admin Hydromorphone HCl 0.5 mg 02/03/21 17:53 02/03/21 18:14 Hydromorphone 0.5 Mg/0.5 Ml Syringe IVPUSH 02/03/21 17:54 0.5 mg ONETIME ONE Administration Iopamidol 100 ml 02/03/21 17:44 02/03/21 18:25 Iopamidol 612 Mg/Ml 100 Ml Bottle IVPUSH 02/03/21 17:45 100 ml ONETIME ONE Administration Ondansetron HCl 4 mg 02/03/21 17:52 02/03/21 18:13 Ondansetron 4 Mg/2 Ml Sdv IV 02/03/21 17:53 4 mg ONETIME ONE Administration - Radiology Interpretation Free Text/Narrative:: [facility] Final Radiology Report Call: [phone] assistance Online chat: [email or web address] Name: NATY SY Age: 35Years F Date: 02/03/2021 SSN: -- : [id number] Study: CT ABDOMEN PELVIS W CONT Requesting Physician: KAIDEN BROWNE Images: [id number] Addl Studies: Provided Clinical History: Rt abdominal pain, suspected abd. wall hernia Contrast: With Contrast Medium: Contrast Amount: 100 mL Contrast Method: Intravenous (IV) Page 1 of 2 PROCEDURE INFORMATION: Exam: CT Abdomen And Pelvis With Contrast Exam date and time: 02/03/2021 6:41 PM Age: 35 years old Clinical indication: Other: Pain right sided; Additional info: RT abdominal pain, suspected abd. Wall hernia TECHNIQUE: Imaging protocol: Computed tomography of the abdomen and pelvis with contrast. Radiation optimization: All CT scans at this facility use at least one of these dose optimization techniques: automated exposure control; mA and/or kV adjustment per patient size (includes targeted exams where dose is matched to clinical indication); or iterative reconstruction. Contrast material: [id number]; Contrast volume: 100 ml; Contrast route: INTRAVENOUS (IV); COMPARISON: CT Abdomen Pelvis w Cont 07/11/2020 12:29 PM FINDINGS: Liver: Normal. No mass. Gallbladder and bile ducts: Normal. No calcified stones. No ductal dilation. Pancreas: Normal. No ductal dilation. Spleen: Normal. No splenomegaly. Adrenal glands: Normal. No mass. Kidneys and ureters: Normal. No hydronephrosis. Stomach and bowel: diverticuli throughout sigmoid colon. Questionable subtle stranding of adjacent pericolonic fat. Additional scattered diverticuli in proximal colon. Bowel gas pattern non obstructive. Appendix: No evidence of appendicitis. Intraperitoneal space: Unremarkable. No free air. No significant fluid collection. Vasculature: Unremarkable. No abdominal aortic aneurysm. NATY SY | Final Radiology Report CONFIDENTIALITY STATEMENT This report is intended only for use by the referring physician, and only in accordance with law. If you received this in error, call [phone]. Page 2 of 2 Lymph nodes: Unremarkable. No enlarged lymph nodes. Urinary bladder: Unremarkable as visualized. Reproductive: IUD in place Bones/joints: Unremarkable. No acute fracture. Soft tissues: Unremarkable. IMPRESSION: Prominent distal colonic diverticulosis. There may be an element of associated diverticulitis. Thank you for allowing us to participate in the care of your patient. Dictated and Authenticated by: David Frederick MD 02/03/2021 7:16 PM Central Time ([place] & [place]) Departure - Departure Time of Disposition: 19:29 Condition: Fair - Discharge Information *PRESCRIPTION DRUG MONITORING PROGRAM REVIEWED*: Not Applicable *COPY OF PRESCRIPTION DRUG MONITORING REPORT IN PATIENT NAIDA: Not Applicable Sepsis Event Note (ED) - Focused Exam Vital Signs: Vital Signs Temp Pulse Resp BP Pulse Ox 02/03/21 17:30 97.2 F 82 16 124/70 100 I have read and agree with the documentation that has been completed regarding this visit. By signing this record, I attest that the documentation was completed in my physical presence and is an accurate record of the encounter.
--- NOTE | 2021-02-03 19:17 | CT ---
PROCEDURE INFORMATION: Exam: CT Abdomen And Pelvis With Contrast Exam date and time: 02/03/2021 6:41 PM Age: 35 years old Clinical indication: Other: Pain right sided; Additional info: RT abdominal pain, suspected abd. Wall hernia TECHNIQUE: Imaging protocol: Computed tomography of the abdomen and pelvis with contrast. Radiation optimization: All CT scans at this facility use at least one of these dose optimization techniques: automated exposure control; mA and/or kV adjustment per patient size (includes targeted exams where dose is matched to clinical indication); or iterative reconstruction. Contrast material: [id number]; Contrast volume: 100 ml; Contrast route: INTRAVENOUS (IV); COMPARISON: CT Abdomen Pelvis w Cont 07/11/2020 12:29 PM FINDINGS: Liver: Normal. No mass. Gallbladder and bile ducts: Normal. No calcified stones. No ductal dilation. Pancreas: Normal. No ductal dilation. Spleen: Normal. No splenomegaly. Adrenal glands: Normal. No mass. Kidneys and ureters: Normal. No hydronephrosis. Stomach and bowel: diverticuli throughout sigmoid colon. Questionable subtle stranding of adjacent pericolonic fat. Additional scattered diverticuli in proximal colon. Bowel gas pattern non obstructive. Appendix: No evidence of appendicitis. Intraperitoneal space: Unremarkable. No free air. No significant fluid collection. Vasculature: Unremarkable. No abdominal aortic aneurysm. Lymph nodes: Unremarkable. No enlarged lymph nodes. Urinary bladder: Unremarkable as visualized. Reproductive: IUD in place Bones/joints: Unremarkable. No acute fracture. Soft tissues: Unremarkable. IMPRESSION: Prominent distal colonic diverticulosis. There may be an element of associated diverticulitis.
[2021-02-03] MEDS ORDERED: Ciprofloxacin 500 MG Tab PO ONE (19:34)
[2021-02-03] MEDS ORDERED: metroNIDAZOLE 250 MG Tab PO ONE (19:34)
== END 2021-02-03 19:47 | disposition home or self-care (01) ==
LOC: DL.ED 17:26
DX: K57.30 Diverticulosis of large intestine without perforation or abscess without bleeding (principal); E11.9 Type 2 diabetes mellitus without complications; Z79.899 Other long term (current) drug therapy; Z88.0 Allergy status to penicillin
CPT/HCPCS: 36415; 74177; 80053; 81003; 81025; 82150; 83605; 85025; 86140; 96374; 96375; 99284; 99284-25; A9270-GY; J1170; J2405; Q9967

== ENCOUNTER → 2021-02-22 | Day surgery (SDC) | payer MEDICAID ==
[~2021-02-22] MED LIST changes: -Acetaminophen/oxyCODONE 325-5 MG Tab PO PRN; -Bupivacaine 0.5% 30 ML SDV INJECT ONE; -Bupivacaine 0.5% 30 ML SDV ONE; -Clindamycin Phosphate 600 MG in Sodium Chloride 0.9% 100 ML IV ONE; -Clindamycin Phosphate 600 MG/4 ML SDV ONE; -Dexamethasone 4 MG/ML SDV IV ONE; +Dextrose 5%-0.45% NaCl 1,000 ML IV SCH; -Ketorolac 30 MG/ML SDV IVPUSH ONE; -Lactated Ringers 1,000 ML IV SCH; -Lidocaine 1% 30 ML SDV INJECT ONE; -Lidocaine 1% 30 ML SDV ONE; +Midazolam 1 MG/ML 2 ML SDV ONE; -Ondansetron 4 MG/2 ML SDV IV ONE; -Propofol 1,000 MG/100 ML SDV IV ONE; -Sodium Chloride 0.9% 10 ML Syringe FLUSH PRN; -Sodium Chloride 0.9% 100 ML ONE; +fentaNYL 100 MCG/2 ML SDV ONE
--- NOTE | 2021-02-22 08:59 | OR ---
DATE: 02/22/2021 PROCEDURE: Esophagogastroduodenoscopy and multiple pinch biopsies. INSTRUMENT USED: [id number] Olympus video panendoscope. PREMEDICATIONS: Fentanyl 100 mcg intravenous, Versed 4 mg intravenous. Nasal O2 cannula. The procedure was done under pulse oximetry, BP recording, and site monitor. INDICATION: The patient with persistent multiple abdominal symptoms, unexplained and not responsive to medical measures, on acid suppressant. Esophagogastroduodenoscopy is performed for detection of any active erosive lesions, Da Silva esophagus and/or malignancy also under consideration, H pylori status to be determined, endoscopic hemostasis therapy if needed. The scope was passed with ease. Adequate visualization of the esophagus was made from proximal to distal areas. No upper esophageal lesions identified. No distal esophageal stricture. No uphill or downhill esophageal varices. No Jennifer- Carranza tear. No evidence of erosive esophagitis by Kay criteria. No esophageal polyp or tumor mass identified. Z-line was seen at around 39 cm distal to the oral verge. No uphill or downhill esophageal varices noted. Gastric fundus examination by retroflexion showed no polypoid lesions. No gastric ulcer, malignant mass, or vascular ectasia identified. Duodenal bulb showed no ulcer. Visualized second part of the duodenum was unremarkable. Multiple pinch biopsies were obtained from the gastric antrum and proximal body and sent for PyloriTek test for H pylori, and if negative in an hour the tissues will be sent for histopathology. No bleeding was noted from any of the visualized areas at the completion of examination. Photographs were taken of the duodenal bulb, gastric antrum, fundus, and distal esophagus. IMPRESSION: Normal study. The patient tolerated the procedure well. [facility] /[id number]
[2021-02-22 12:40] VITALS: BP 128/73; PULSE 76
== END | disposition home or self-care (01) ==
LOC: DL.ENDO 06:52
PROVIDERS: ATTEND Internal Medicine Gastroenterology
DX: R10.11 Right upper quadrant pain (principal); R10.13 Epigastric pain; K57.30 Diverticulosis of large intestine without perforation or abscess without bleeding; F41.1 Generalized anxiety disorder; E66.01 Morbid (severe) obesity due to excess calories; Z68.41 Body mass index [BMI] 40.0-44.9, adult
CPT/HCPCS: 87077; J2250; J3010; J7042

== ENCOUNTER 2021-03-10 21:25 | Emergency (ER) | payer MEDICAID ==
[2021-03-10] MEDS ORDERED: Ondansetron 4 MG/2 ML SDV IV ONE (22:00)
[2021-03-10] MEDS ORDERED: Sodium Chloride 0.9% 10 ML Syringe FLUSH PRN (22:00)
[2021-03-10] MEDS ORDERED: HYDROmorphone 0.5 MG/0.5 ML Syringe IVPUSH ONE (22:00)
[2021-03-10] MEDS ORDERED: diphenhydrAMINE 50 MG/ML SDV IVPUSH ONE (22:00)
[2021-03-10 22:01] VITALS: BP 157/127; PULSE 82
--- NOTE | 2021-03-10 22:01 | EDM.PDOC ---
ED HPI GENERAL MEDICAL PROBLEM - General Chief Complaint: Abdominal Pain Stated Complaint: STOMACH SIDE PAIN RIDE SIDE Time Seen by Provider: 03/10/21 21:55 - History of Present Illness INITIAL COMMENTS - FREE TEXT/NARRATIVE: Patient comes emergency department today with complaints of severe right upper quadrant abdominal pain. This patient about 3 hours ago after eating had severe right upper quadrant cramping abdominal pain. She has had nausea without vomiting. No fever no chills. No chest pain no shortness of breath or difficulty breathing. No hematuria dysuria urinary frequency. No black or tarry stools. She was recently diagnosed with GERD after a visit in the emergency department. Although she still has this recurrent right upper quadrant pain after she eats despite the treatment for her GERD. She has no pelvic pain. No hematuria dysuria urinary frequency. No black or tarry stools. No hematochezia. - Related Data Allergies Allergy/AdvReac Type Severity Reaction Status Date / Time bacitracin [From Polysporin] Allergy Rash Verified 03/10/21 21:56 polymyxin B [From Polysporin] Allergy Rash Verified 03/10/21 21:56 Penicillins AdvReac Unknown Other Verified 03/10/21 21:56 amoxicillin AdvReac Other Verified 03/10/21 21:56 Home Meds: Home Meds metFORMIN [Glucophage XR] 1,000 mg PO BIDMEALS 10/15/18 [History] Ibuprofen [Motrin] 200 mg PO Q6HR PRN 07/03/20 [History] Past Medical History - Past Health History Medical/Surgical History: Denies Medical/Surgical History HEENT History: Reports: Impaired Vision, Other (See Below) Other HEENT History: wears glasses. 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: ovarian cysts Musculoskeletal History: Reports: None Neurological History: Reports: None Psychiatric History: Reports: Anxiety Endocrine/Metabolic History: Reports: Diabetes, Type II, Obesity/BMI 30+ Hematologic History: Reports: None Immunologic History: Reports: None Oncologic (Cancer) History: Reports: Cervix Other Oncologic History: Grade 2 cervial ca Dermatologic History: Reports: Other (See Below) Other Dermatologic History: acne - Infectious Disease History Infectious Disease History: Reports: Chicken Pox, Shingles - Past Surgical History Head Surgeries/Procedures: Reports: None HEENT Surgical History: Reports: Oral Surgery, Tonsillectomy, Other (See Below) Other HEENT Surgeries/Procedures: wisdom teeth Cardiovascular Surgical History: Reports: None Respiratory Surgical History: Reports: None GI Surgical History: Reports: Colon, Colonoscopy, EGD, Small Bowel Other GI Surgeries/Procedures: removed"a foot of stool" 3 years ago Female Surgical History: Reports: LEEP, Other (See Below) Other Female Surgeries/Procedures: ovarian cysts, Cervical grade 2 Cancer Endocrine Surgical History: Reports: None Neurological Surgical History: Reports: None Musculoskeletal Surgical History: Reports: Other (See Below) Other Musculoskeletal Surgeries/Procedures:: surgery to L foot 06/2019 Oncologic Surgical History: Reports: None Dermatological Surgical History: Reports: Other (See Below) Social & Family History - Family History Family Medical History: No Pertinent Family History - Caffeine Use Caffeine Use: Reports: None - Living Situation & Occupation Living situation: Reports: with Family Occupation: Employed ED ROS GENERAL - Review of Systems Review Of Systems: Comprehensive ROS is negative, except as noted in HPI. ED EXAM, GI/ABD - Physical Exam Exam: See Below Text/Narrative:: When she walks and she is holding her right upper quadrant with her hand. Exam Limited By: No Limitations General Appearance: Alert, WD/WN, No Apparent Distress, Obese (Morbidly obese) Respiratory/Chest: No Respiratory Distress, Lungs Clear, Normal Breath Sounds, No Accessory Muscle Use, Chest Non-Tender Cardiovascular: Normal Peripheral Pulses, Regular Rate, Rhythm GI/Abdominal Exam: Normal Bowel Sounds, Soft, Guarding (Guarding to the right upper quadrant), Tender (Right upper quadrant with a positive Fink's sign. Negative McBurney sign). No: Rigid, Rebound (Female) Exam: Deferred Rectal (Female) Exam: Deferred Back Exam: Normal Inspection Extremities: Normal Inspection, Normal Range of Motion, No Pedal Edema, Normal Capillary Refill Neurological: Alert, No Motor/Sensory Deficits Psychiatric: Normal Affect, Normal Mood Skin Exam: Warm, Dry, Intact, Normal Color Course - Vital Signs Last Recorded V/S: Last Vital Signs Temp 98 F 09/16/21 21:56 Pulse 82 03/10/21 21:56 Resp 22 H 03/10/21 21:56 BP 157/127 H 03/10/21 21:56 Pulse Ox 98 03/10/21 21:56 - Orders/Labs/Meds Orders: Active Orders 24 hr Category Date Time Status CULTURE URINE [RM] Stat Lab 03/10/21 21:50 Received Peripheral IV Insertion Adult [OM.PC] Stat Oth 03/10/21 21:57 Ordered Labs: Laboratory Tests 03/10/21 03/10/21 03/10/21 Range/Units 21:55 21:55 21:56 WBC 11.7 H (5.0-10.0) 10^3/uL RBC 4.42 (4.2-5.4) 10^6/uL Hgb 12.8 (12.0-16.0) g/dL Hct 39.4 (37.0-47.0) % MCV 89.1 (80-100) fL MCH 29.0 (27.0-34.0) pg MCHC 32.5 L (33.0-35.0) g/dL Plt Count 388 (150-450) 10^3/uL Neut % (Auto) 61.8 (42.2-75.2) % Lymph % (Auto) 25.6 (20.5-50.1) % Ciales % (Auto) 9.2 H (2-8) % Eos % (Auto) 3.0 (1.0-3.0) % Baso % (Auto) 0.4 (0.0-1.0) % Sodium 143 (136-145) mmol/L Potassium 3.8 (3.5-5.1) mmol/L Chloride 106 (98-107) mmol/L Carbon Dioxide 30 (21-32) mmol/L Anion Gap 10.8 (7-13) mEq/L BUN 18 (7-18) mg/dL Creatinine 0.66 (0.55-1.02) mg/dL Est Cr Clr Drug Dosing 118.98 mL/min Estimated GFR (MDRD) > 60 BUN/Creatinine Ratio 27.3 (No establ ref range) Glucose 109 H (70-99) mg/dL Calcium 8.5 (8.5-10.1) mg/dL Total Bilirubin 0.2 (0.2-1.0) mg/dL AST 11 L (15-37) U/L ALT 23 (14-59) U/L Alkaline Phosphatase 60 (46-116) U/L C-Reactive Protein 0.7 (0.0-0.9) mg/dL Total Protein 7.6 (6.4-8.2) g/dL Albumin 3.8 (3.4-5.0) g/dL Globulin 3.8 Albumin/Globulin Ratio 1.0 Lipase 79 (73-393) U/L Urine Color Yellow (YELLOW) Urine Appearance Slightly cloudy (CLEAR) Urine pH 5.5 (5.0-9.0) Ur Specific Lyndon >= 1.030 (1.005-1.030) Urine Protein 30 H (NEGATIVE) Urine Glucose (UA) Negative (NEGATIVE) Urine Ketones Negative (NEGATIVE) Urine Occult Blood Trace-intact H (NEGATIVE) Urine Nitrite Negative (NEGATIVE) Urine Bilirubin Negative (NEGATIVE) Urine Urobilinogen 0.2 (0.2-1.0) mg/dL Ur Leukocyte Esterase Negative (NEGATIVE) Urine RBC 0-5 (0-5) /HPF Urine WBC 0-5 (0-5/HPF) /HPF Ur Epithelial Cells Occasional (NOT SEEN) /HPF Urine Bacteria Moderate H (0-FEW/HPF) /HPF Urine Mucus Moderate H (NOT SEEN) /LPF Urine HCG, Qual Urine Opiates Screen (NEGATIVE) Ur Oxycodone Screen (NEGATIVE) Urine Methadone Screen (NEGATIVE) Ur Barbiturates Screen (NEGATIVE) U Tricyclic Antidepress (NEGATIVE) Ur Phencyclidine Scrn (NEGATIVE) Ur Amphetamine Screen (NEGATIVE) U Methamphetamines Scrn (NEGATIVE) Urine MDMA Screen (NEGATIVE) U Benzodiazepines Scrn (NEGATIVE) Urine Cocaine Screen (NEGATIVE) U Marijuana (THC) Screen (NEGATIVE) 03/10/21 03/10/21 Range/Units 21:56 21:56 WBC (5.0-10.0) 10^3/uL RBC (4.2-5.4) 10^6/uL Hgb (12.0-16.0) g/dL Hct (37.0-47.0) % MCV (80-100) fL MCH (27.0-34.0) pg MCHC (33.0-35.0) g/dL Plt Count (150-450) 10^3/uL Neut % (Auto) (42.2-75.2) % Lymph % (Auto) (20.5-50.1) % Ciales % (Auto) (2-8) % Eos % (Auto) (1.0-3.0) % Baso % (Auto) (0.0-1.0) % Sodium (136-145) mmol/L Potassium (3.5-5.1) mmol/L Chloride (98-107) mmol/L Carbon Dioxide (21-32) mmol/L Anion Gap (7-13) mEq/L BUN (7-18) mg/dL Creatinine (0.55-1.02) mg/dL Est Cr Clr Drug Dosing mL/min Estimated GFR (MDRD) BUN/Creatinine Ratio (No establ ref range) Glucose (70-99) mg/dL Calcium (8.5-10.1) mg/dL Total Bilirubin (0.2-1.0) mg/dL AST (15-37) U/L ALT (14-59) U/L Alkaline Phosphatase (46-116) U/L C-Reactive Protein (0.0-0.9) mg/dL Total Protein (6.4-8.2) g/dL Albumin (3.4-5.0) g/dL Globulin Albumin/Globulin Ratio Lipase (73-393) U/L Urine Color (YELLOW) Urine Appearance (CLEAR) Urine pH (5.0-9.0) Ur Specific Lyndon (1.005-1.030) Urine Protein (NEGATIVE) Urine Glucose (UA) (NEGATIVE) Urine Ketones (NEGATIVE) Urine Occult Blood (NEGATIVE) Urine Nitrite (NEGATIVE) Urine Bilirubin (NEGATIVE) Urine Urobilinogen (0.2-1.0) mg/dL Ur Leukocyte Esterase (NEGATIVE) Urine RBC (0-5) /HPF Urine WBC (0-5/HPF) /HPF Ur Epithelial Cells (NOT SEEN) /HPF Urine Bacteria (0-FEW/HPF) /HPF Urine Mucus (NOT SEEN) /LPF Urine HCG, Qual Negative Urine Opiates Screen Negative (NEGATIVE) Ur Oxycodone Screen Negative (NEGATIVE) Urine Methadone Screen Negative (NEGATIVE) Ur Barbiturates Screen Negative (NEGATIVE) U Tricyclic Antidepress Negative (NEGATIVE) Ur Phencyclidine Scrn Negative (NEGATIVE) Ur Amphetamine Screen Negative (NEGATIVE) U Methamphetamines Scrn Negative (NEGATIVE) Urine MDMA Screen Negative (NEGATIVE) U Benzodiazepines Scrn Negative (NEGATIVE) Urine Cocaine Screen Negative (NEGATIVE) U Marijuana (THC) Screen Positive H (NEGATIVE) Meds: Medications Discontinued Medications Generic Name Dose Route Start Last Admin Trade Name Freq PRN Reason Stop Dose Admin Diphenhydramine HCl 25 mg 03/10/21 22:00 03/10/21 22:06 Diphenhydramine 50 Mg/Ml Sdv IVPUSH 03/10/21 22:01 25 mg ONETIME ONE Administration Hydromorphone HCl 0.5 mg 03/10/21 22:00 03/10/21 22:06 Hydromorphone 0.5 Mg/0.5 Ml Syringe IVPUSH 03/10/21 22:01 0.5 mg ONETIME ONE Administration Iopamidol 100 ml 03/10/21 22:47 03/10/21 23:01 Iopamidol 612 Mg/Ml 100 Ml Bottle IVPUSH 03/10/21 22:48 100 ml ONETIME ONE Administration Lactulose 20 gm 03/11/21 01:02 Lactulose Soln 10 Gm/15 Ml 30 Ml Ud Cup PO 03/11/21 01:03 ONETIME ONE Ondansetron HCl 4 mg 03/10/21 22:00 03/10/21 22:06 Ondansetron 4 Mg/2 Ml Sdv IV 03/10/21 22:01 4 mg ONETIME ONE Administration Sodium Chloride 10 ml 03/10/21 22:00 03/10/21 22:06 Sodium Chloride 0.9% 10 Ml Syringe FLUSH 10 ml ASDIRECTED PRN Administration Keep Vein Open - Radiology Interpretation Free Text/Narrative:: [facility] Final Radiology Report Call: [phone] assistance Online chat: [email or web address] Name: NATY SY Age: 35Years F Date: 03/10/2021 SSN: -- : [id number] Study: CT ABDOMEN PELVIS W CONT Requesting Physician: MAXIMO TELLEZ Images: [id number] Addl Studies: Provided Clinical History: RUQ pain LLQ pain.. ? Diverticulitis Contrast: With Contrast Medium: [id number] Contrast Amount: 100 mL Contrast Method: Intravenous (IV) Page 1 of 2 PROCEDURE INFORMATION: Exam: CT Abdomen And Pelvis With Contrast Exam date and time: 03/10/2021 11:29 PM Age: 35 years old Clinical indication: Other: Right sided pain; Additional info: Ruq pain llq pain. ? Diverticulitis TECHNIQUE: Imaging protocol: Computed tomography of the abdomen and pelvis with contrast. Radiation optimization: All CT scans at this facility use at least one of these dose optimization techniques: automated exposure control; mA and/or kV adjustment per patient size (includes targeted exams where dose is matched to clinical indication); or iterative reconstruction. Contrast material: [id number]; Contrast volume: 100 ml; Contrast route: INTRAVENOUS (IV); COMPARISON: CT Abdomen Pelvis w Cont 02/03/2021 6:41 PM FINDINGS: Liver: The liver is mildly enlarged measuring 19.8 cm in craniocaudal dimension, unchanged. Gallbladder and bile ducts: Normal. No calcified stones. No ductal dilation. Pancreas: Normal. No ductal dilation. Spleen: Normal. No splenomegaly. Adrenal glands: Normal. No mass. Kidneys and ureters: Normal. No hydronephrosis. Normal bilateral renal parenchymal enhancement. Stomach and bowel: Small bowel and colonic diverticulosis without evidence of acute diverticulitis. Prior partial small bowel resection with enteroenteric anastomosis in the left abdomen. The anastomosis is patulous, similar compared to the prior exam. Diffuse moderate amount of colonic and rectal stool. No bowel obstruction. No mucosal thickening or pneumatosis. NATY SY | Final Radiology Report CONFIDENTIALITY STATEMENT This report is intended only for use by the referring physician, and only in accordance with law. If you received this in error, call [phone]. Page 2 of 2 Appendix: There are small appendicolith in the appendix. The mid appendix is slightly thickened measuring 8 mm on images 2:120 and 3:53, however, the remaining appendix is normal in thickness and there is no periappendiceal inflammatory fat stranding to suggest acute a ppendicitis. Intraperitoneal space: Unremarkable. No free air. No significant fluid collection. Vasculature: Unremarkable. No abdominal aortic aneurysm. Lymph nodes: Unremarkable. No enlarged lymph nodes. Urinary bladder: Unremarkable as visualized. Reproductive: New right adnexal cystic lesion measuring 4.7 x 3.8 cm. Interval resolved left adnexal cystic lesion. Intrauterine device in place. There are uterine fibroids. For example, there is a left uterine fundal fibroid measuring 2.4 x 2.0 cm. Bones/joints: Multilevel mild chronic degenerative changes of the lower thoracic and lumbar spine. Soft tissues: Unremarkable. IMPRESSION: 1. New right adnexal cystic lesion measuring 4.7 x 3.8 cm. No further imaging is recommended. (Reference: Costa) 2. Small bowel and colonic diverticulosis without evidence of acute diverticulitis. 3. Diffuse moderate amount of colonic and rectal stool suggesting possible constipation. No bowel obstruction. REFERENCES: Costa et al. Management of Incidental Adnexal Findings on CT and MRI: A White Paper of the ACR Incidental Findings Committee, J Am Carlos Radiol. 2019;17(2):248-254. Thank you for allowing us to participate in the care of your patient. Dictated and Authenticated by: Jonny Boykin MD 03/11/2021 12:57 AM Central Time ([place] & [place]) - Re-Assessments/Exams Free Text/Narrative Re-Assessment/Exam: IV was established labs were drawn. LR 1 L wide open.Dilaudid and Benadryl for nausea and pain. Patient's pain was completely resolved after the above therapy. CMP with a mild elevation of the glucose at 109 normal T bili at 0.2 AST 11 ALT and alkaline phosphatase is normal. C-reactive protein is normal at 0.7. Lipase is normal at 79. Urine with a trace of blood although no U RBCs no WBCs moderate bacteria urine culture pending. Urine drug screen positive for THC. Patient remained pain-free while she was in the emergency department. CT of the abdomen pelvis shows the new adnexal lesion that does not recommend further imaging. She has diverticulosis without diverticulitis. There is no gallstones. There is quite a bit of stool in the colon as well. I discussed the findings the CT with the patient as well as the adnexal lesion which could be just physiologic and is not recommended by radiology to have further evaluation. No signs of diverticulitis. There is no gallstones although this could still be biliary colic which is really her presentation. We'll have her follow-up with primary care to get a ultrasound of her gallbladder she is pain-free at this time. We'll also treat her for constipation she then relates to me that she hasn't had a bowel movement for 4 to 5 days. She was given a dose of lactulose prior to discharge and will treat with miralax at home. She is comfortable with this plan and her questions answered. Departure - Departure Time of Disposition: 01:00 Disposition: Home, Self-Care 01 Clinical Impression: Adnexal cyst, Biliary colic Constipation Qualifiers: Constipation type: unspecified constipation type Qualified Code(s): K59.00 - Constipation, unspecified - Discharge Information Instructions: Constipation, Adult, [id number], Abdominal Pain, Adult, [id number], Pain Medicine Instructions, [id number] Forms: ED Department Discharge Additional Instructions: Adnexal cystic lesion in the pelvis per radiology says no further imaging is recommended. Increase fluids over the next couple of days if you are not urinating every couple of hours or not drinking enough fluids. MiraLAX 1 capful in a large glass of water every morning. Increase every 2 days x 1 capful until easy smooth bowel movements. On day 2 2 capfuls a day for 3 capfuls. Etc. Contact your primary care provider tomorrow for follow-up ultrasound of your right upper quadrant to assess for biliary pathology. Tylenol ibuprofen as needed for pain. Return to the emergency department new or worsening symptoms. Sepsis Event Note (ED) - Focused Exam Vital Signs: Vital Signs Temp Pulse Resp BP Pulse Ox 03/10/21 21:56 98 F 82 22 H 157/127 H 98 - My Orders Last 24 Hours: My Active Orders 03/10/21 21:50 CULTURE URINE [RM] Stat 03/10/21 21:57 Peripheral IV Insertion Adult [OM.PC] Stat - Assessment/Plan Last 24 Hours: My Active Orders 03/10/21 21:50 CULTURE URINE [RM] Stat 03/10/21 21:57 Peripheral IV Insertion Adult [OM.PC] Stat
[2021-03-10 22:12] LABS: AMPHETAMINES,URINE NEGATIVE (NEGATIVE); BARBITURATES,URINE NEGATIVE (NEGATIVE); BENZODIAZEPINE,URINE NEGATIVE (NEGATIVE); MDMA (ECSTASY), URINE NEGATIVE (NEGATIVE); METHADONE,URINE NEGATIVE (NEGATIVE); METHAMPHETAMINES,URINE NEGATIVE (NEGATIVE); OPIATES,URINE NEGATIVE (NEGATIVE); OXYCODONE,URINE NEGATIVE (NEGATIVE); PHENCYCLIDINE,URINE NEGATIVE (NEGATIVE); TCA,URINE NEGATIVE (NEGATIVE)
[2021-03-10 22:22] LABS: ANION GAP 10.8 mEq/L (7-13); CHLORIDE,CL 106 mmol/L (98-107); SODIUM,NA 143 mmol/L (136-145)
[2021-03-10] MEDS ORDERED: Iopamidol 612 MG/ML 100 ML Bottle IVPUSH ONE (22:47)
--- NOTE | 2021-03-11 00:57 | CT ---
PROCEDURE INFORMATION: Exam: CT Abdomen And Pelvis With Contrast Exam date and time: 03/10/2021 11:29 PM Age: 35 years old Clinical indication: Other: Right sided pain; Additional info: Ruq pain llq pain. ? Diverticulitis TECHNIQUE: Imaging protocol: Computed tomography of the abdomen and pelvis with contrast. Radiation optimization: All CT scans at this facility use at least one of these dose optimization techniques: automated exposure control; mA and/or kV adjustment per patient size (includes targeted exams where dose is matched to clinical indication); or iterative reconstruction. Contrast material: [id number]; Contrast volume: 100 ml; Contrast route: INTRAVENOUS (IV); COMPARISON: CT Abdomen Pelvis w Cont 02/03/2021 6:41 PM FINDINGS: Liver: The liver is mildly enlarged measuring 19.8 cm in craniocaudal dimension, unchanged. Gallbladder and bile ducts: Normal. No calcified stones. No ductal dilation. Pancreas: Normal. No ductal dilation. Spleen: Normal. No splenomegaly. Adrenal glands: Normal. No mass. Kidneys and ureters: Normal. No hydronephrosis. Normal bilateral renal parenchymal enhancement. Stomach and bowel: Small bowel and colonic diverticulosis without evidence of acute diverticulitis. Prior partial small bowel resection with enteroenteric anastomosis in the left abdomen. The anastomosis is patulous, similar compared to the prior exam. Diffuse moderate amount of colonic and rectal stool. No bowel obstruction. No mucosal thickening or pneumatosis. Appendix: There are small appendicolith in the appendix. The mid appendix is slightly thickened measuring 8 mm on images 2:120 and 3:53, however, the remaining appendix is normal in thickness and there is no periappendiceal inflammatory fat stranding to suggest acute appendicitis. Intraperitoneal space: Unremarkable. No free air. No significant fluid collection. Vasculature: Unremarkable. No abdominal aortic aneurysm. Lymph nodes: Unremarkable. No enlarged lymph nodes. Urinary bladder: Unremarkable as visualized. Reproductive: New right adnexal cystic lesion measuring 4.7 x 3.8 cm. Interval resolved left adnexal cystic lesion. Intrauterine device in place. There are uterine fibroids. For example, there is a left uterine fundal fibroid measuring 2.4 x 2.0 cm. Bones/joints: Multilevel mild chronic degenerative changes of the lower thoracic and lumbar spine. Soft tissues: Unremarkable. IMPRESSION: 1. New right adnexal cystic lesion measuring 4.7 x 3.8 cm. No further imaging is recommended. (Reference: Costa) 2. Small bowel and colonic diverticulosis without evidence of acute diverticulitis. 3. Diffuse moderate amount of colonic and rectal stool suggesting possible constipation. No bowel obstruction. REFERENCES: Costa et al. Management of Incidental Adnexal Findings on CT and MRI: A White Paper of the ACR Incidental Findings Committee, J Am Carlos Radiol. 2019;17(2):248-254.
[2021-03-11] MEDS ORDERED: Lactulose Soln 10 GM/15 ML 30 ML UD Cup PO ONE (01:02)
== END 2021-03-11 01:15 | disposition home or self-care (01) ==
LOC: DL.ED 21:25
DX: K80.50 Calculus of bile duct without cholangitis or cholecystitis without obstruction (principal); K59.00 Constipation, unspecified; E27.8 Other specified disorders of adrenal gland; E11.9 Type 2 diabetes mellitus without complications; E66.9 Obesity, unspecified; Z68.41 Body mass index [BMI] 40.0-44.9, adult; Z79.84 Long term (current) use of oral hypoglycemic drugs; Z88.0 Allergy status to penicillin; Z88.8 Allergy status to other drugs, medicaments and biological substances
CPT/HCPCS: 36415; 74177; 80053; 80305-QW; 81001; 81025; 83690; 85025; 86140; 87086; 96374; 96375; 99284-25; J1170; J1200; J2405; Q9967

== ENCOUNTER 2021-09-29 20:00 | Emergency (ER) | payer BC, MEDICAID ==
[2021-09-29] MEDS ORDERED: Sodium Chloride 0.9% 10 ML Syringe FLUSH PRN (21:29)
[2021-09-29] MEDS ORDERED: Phenazopyridine 95 MG Tab PO ONE (22:11)
[2021-09-29] MEDS ORDERED: Ketorolac 30 MG/ML SDV IM ONE (22:11)
[2021-09-29 22:12] LABS: ANION GAP 15.8 mEq/L (7-13); CHLORIDE,CL 103 mmol/L (98-107); SODIUM,NA 142 mmol/L (136-145)
[2021-09-29] MEDS ORDERED: cefTRIAXone 1 GM, Lidocaine 1% 2.1 ML IM ONE ×2 (22:35)
[2021-09-29] MEDS ORDERED: Doxycycline Monohydrate 100 MG Cap PO ONE (22:40)
[2021-09-29] MEDS ORDERED: Ciprofloxacin 500 MG Tab PO ONE (22:41)
[2021-09-29 23:35] VITALS: BP 128/110; PULSE 76
[2021-10-05 12:47] LABS: C.TRACHOMATIS BY TMA Negative (Negative); N.GONORRHOEAE BY TMA Negative (Negative)
== END 2021-09-29 23:25 | disposition home or self-care (01) ==
LOC: DL.ED 20:00
DX: N30.01 Acute cystitis with hematuria (principal); E11.9 Type 2 diabetes mellitus without complications; E66.9 Obesity, unspecified; Z68.41 Body mass index [BMI] 40.0-44.9, adult; Z88.0 Allergy status to penicillin; Z88.1 Allergy status to other antibiotic agents; Z88.8 Allergy status to other drugs, medicaments and biological substances; Z79.84 Long term (current) use of oral hypoglycemic drugs; Z20.2 Contact with and (suspected) exposure to infections with a predominantly sexual mode of transmission
CPT/HCPCS: 36415; 80053; 81001; 83605; 85025; 86140; 87491; 87563; 87591; 96372; 99284; A9270; J0696; J1885; J3490

== ENCOUNTER 2022-04-25 21:30 | Emergency (ER) | payer MEDICAID ==
[2022-04-25 22:16] VITALS: BP 124/88; PULSE 84
[2022-04-25] MEDS ORDERED: Sodium Chloride 0.9% 10 ML Syringe FLUSH PRN (22:25)
[2022-04-25 23:00] LABS: ANION GAP 13.9 mEq/L (7-13); CHLORIDE,CL 105 mmol/L (98-107); SODIUM,NA 140 mmol/L (136-145)
[2022-04-25 23:03] LABS: ESTIMATED GFR 116 mL/min (>=60)
[2022-04-25] MEDS ORDERED: Iopamidol 612 MG/ML 100 ML Bottle IVPUSH ONE (23:16)
[2022-04-25] MEDS: Sodium Chloride 0.9% 1,000 ML IV ONE (23:42)
[2022-04-26] MEDS: Ondansetron 4 MG/2 ML SDV IVPUSH ONE
[2022-04-26] MEDS: fentaNYL 100 MCG/2 ML SDV IVPUSH ONE
[2022-04-26] MEDS: Sodium Chloride 0.9% 1,000 ML IV ONE (00:01)
== END 2022-04-26 00:56 | disposition home or self-care (01) ==
LOC: DL.ED 21:30
DX: K57.90 Diverticulosis of intestine, part unspecified, without perforation or abscess without bleeding (principal); N83.202 Unspecified ovarian cyst, left side; R19.00 Intra-abdominal and pelvic swelling, mass and lump, unspecified site; D25.9 Leiomyoma of uterus, unspecified; E11.9 Type 2 diabetes mellitus without complications; E66.9 Obesity, unspecified; Z68.38 Body mass index [BMI] 38.0-38.9, adult; Z88.1 Allergy status to other antibiotic agents; Z88.0 Allergy status to penicillin; Z79.899 Other long term (current) drug therapy; Z79.84 Long term (current) use of oral hypoglycemic drugs
CPT/HCPCS: 36415; 74177; 80053; 81003; 81025; 82150; 83605; 83690; 84145; 85025; 96361; 96374; 96375; 99284-25; J2405; J3010; J7030

== ENCOUNTER 2022-06-19 16:08 | Emergency (ER) | payer MEDICAID ==
[2022-06-19 16:24] VITALS: BP 125/81; PULSE 95
[2022-06-19] MEDS ORDERED: Fluconazole 100 MG Tab PO ONE (17:11)
[2022-06-19] MEDS ORDERED: Lidocaine 2% Viscous Solution 15 ML UD PO ONE (17:12)
== END 2022-06-19 17:33 | disposition home or self-care (01) ==
LOC: DL.ED 16:08
DX: B37.0 Candidal stomatitis (principal); E11.9 Type 2 diabetes mellitus without complications; K21.9 Gastro-esophageal reflux disease without esophagitis; E66.9 Obesity, unspecified; Z88.0 Allergy status to penicillin; Z88.1 Allergy status to other antibiotic agents; Z79.84 Long term (current) use of oral hypoglycemic drugs; Z79.899 Other long term (current) drug therapy; Z68.36 Body mass index [BMI] 36.0-36.9, adult
CPT/HCPCS: 99282; 99283; A9270

== ENCOUNTER 2022-09-04 20:44 | Emergency (ER) | payer MEDICAID ==
[2022-09-04 20:57] VITALS: BP 126/89; PULSE 89
[2022-09-04] MEDS ORDERED: Sodium Chloride 0.9% 10 ML Syringe FLUSH PRN (21:04)
[2022-09-04 21:35] LABS: ANION GAP 14.7 mEq/L (7-13); CHLORIDE,CL 103 mmol/L (98-107); SODIUM,NA 139 mmol/L (136-145)
[2022-09-04 21:41] LABS: ESTIMATED GFR 85 mL/min (>=60)
[2022-09-04] MEDS ORDERED: Iopamidol 612 MG/ML 100 ML Bottle IVPUSH ONE (21:56)
[2022-09-04] MEDS ORDERED: HYDROmorphone 1 MG/ML Syringe IVPUSH ONE (21:58)
== END 2022-09-04 23:38 | disposition home or self-care (01) ==
LOC: DL.ED 20:44
DX: N83.202 Unspecified ovarian cyst, left side (principal); K57.30 Diverticulosis of large intestine without perforation or abscess without bleeding; K21.9 Gastro-esophageal reflux disease without esophagitis; E11.9 Type 2 diabetes mellitus without complications; E66.9 Obesity, unspecified; Z68.35 Body mass index [BMI] 35.0-35.9, adult; Z88.1 Allergy status to other antibiotic agents; Z88.0 Allergy status to penicillin; Z79.899 Other long term (current) drug therapy; Z79.84 Long term (current) use of oral hypoglycemic drugs
CPT/HCPCS: 36415; 74177; 80053; 81003; 81025; 82150; 83605; 83690; 84145; 85025; 86140; 96374; 99284; 99284-25; J1170; J3490; Q9967

== ENCOUNTER 2023-04-17 15:45 | Emergency (ER) | payer MEDICAID ==
[2023-04-17 16:16] VITALS: BP 129/83; PULSE 91
[2023-04-17 16:28] LABS: APPEARANCE,URINE CLEAR (CLEAR); BILIRUBIN,URINE SMALL (NEGATIVE); COLOR,URINE YELLOW (YELLOW); GLUCOSE,URINE NEGATIVE (NEGATIVE); KETONES,URINE NEGATIVE (NEGATIVE); LEUKOCYTE ESTERASE,URINE NEGATIVE (NEGATIVE); NITRITE,URINE NEGATIVE (NEGATIVE); OCCULT BLOOD,URINE NEGATIVE (NEGATIVE); PROTEIN,URINE NEGATIVE (NEGATIVE); UROBILINOGEN,URINE 0.2 mg/dL (0.2-1.0)
[2023-04-17 16:37] LABS: BASOPHILS PERCENT AUTO 0.3 % (0.0-1.0); EOSINOPHILS PERCENT AUTO 0.7 % (1.0-3.0); HEMATOCRIT 39.1 % (37.0-47.0); LYMPHOCYTES PERCENT AUTO 15.6 % (20.5-50.1); MEAN CORPUSCULAR HEMOGLOBIN 29.7 pg (27.0-34.0); MEAN CORPUSCULAR HGB CONC 33.2 g/dL (33.0-35.0); MEAN CORPUSCULAR VOLUME 89.5 fL (80-100); MONOCYTES PERCENT AUTO 6.2 % (2-8); NEUTROPHILS PERCENT AUTO 77.2 % (42.2-75.2); PLATELET COUNT,PLT 326 10^3/uL (150-450); RED BLOOD CELL COUNT 4.37 10^6/uL (4.2-5.4)
[2023-04-17 16:58] LABS: PTT,PARTIAL THROMBOPLSTIN TIME 23.6 SEC (22.0-34.0)
[2023-04-17 17:00] LABS: A/G RATIO 1.1; ALANINE AMINOTRANSFERASE,ALT 17 U/L (14-59); ALBUMIN 3.8 g/dL (3.4-5.0); ALKALINE PHOSPHATASE 52 U/L (46-116); AMYLASE 41 U/L (25-115); ANION GAP 11.9 mEq/L (7-13); ASPARTATE AMNIOTRANSFERASE,AST 7 U/L (15-37); BILIRUBIN TOTAL 0.2 mg/dL (0.2-1.0); BLOOD UREA NITROGEN,BUN 17 mg/dL (7-18); BUN/CREATININE RATIO 22.1 (No establ ref range); C-REACTIVE PROTEIN 0.05 ng/dL (<=0.30); CARBON DIOXIDE,CO2 28 mmol/L (21-32); CHLORIDE,CL 106 mmol/L (98-107); CREATININE 0.77 mg/dL (0.55-1.02); EST CRCL DRUG DOSING (CG) 98.22 mL/min; ESTIMATED GFR 102 mL/min (>=60); GLUCOSE RANDOM 81 mg/dL (70-99); LIPASE 28 U/L (16-77); POTASSIUM,K 3.9 mmol/L (3.5-5.1); PROTEIN TOTAL,TP 7.2 g/dL (6.4-8.2); SODIUM,NA 142 mmol/L (136-145)
[2023-04-17 17:03] LABS: LACTIC ACID 1.1 mmol/L (0.4-2.0)
== END 2023-04-17 18:08 | disposition home or self-care (01) ==
LOC: DL.ED 15:45
DX: M25.551 Pain in right hip (principal); R10.9 Unspecified abdominal pain; K21.9 Gastro-esophageal reflux disease without esophagitis; E11.9 Type 2 diabetes mellitus without complications; E66.9 Obesity, unspecified; Z68.34 Body mass index [BMI] 34.0-34.9, adult; Z88.0 Allergy status to penicillin; Z88.1 Allergy status to other antibiotic agents; Z79.84 Long term (current) use of oral hypoglycemic drugs; Z79.899 Other long term (current) drug therapy
CPT/HCPCS: 36415; 80053; 81003; 81025; 82150; 83605; 83690; 84145; 85025; 85610; 85730; 86140; 99283

== ENCOUNTER 2023-05-16 07:34 | Emergency (ER) | payer MEDICAID ==
[2023-05-16 07:55] VITALS: BP 136/108; PULSE 83
[2023-05-16] MEDS ORDERED: Sodium Chloride 0.9% 10 ML Syringe FLUSH PRN (08:14)
[2023-05-16] MEDS ORDERED: HYDROmorphone 1 MG/ML Syringe IVPUSH ONE (08:14)
[2023-05-16] MEDS ORDERED: Ondansetron 4 MG/2 ML SDV IVPUSH ONE (08:14)
[2023-05-16] MEDS ORDERED: Sodium Chloride 0.9% 1,000 ML IV ONE (08:14)
[2023-05-16 08:26] LABS: APPEARANCE,URINE CLEAR (CLEAR); BILIRUBIN,URINE NEGATIVE (NEGATIVE); COLOR,URINE DARK YELLOW (YELLOW); GLUCOSE,URINE NEGATIVE (NEGATIVE); KETONES,URINE NEGATIVE (NEGATIVE); LEUKOCYTE ESTERASE,URINE NEGATIVE (NEGATIVE); NITRITE,URINE POSITIVE (NEGATIVE); OCCULT BLOOD,URINE NEGATIVE (NEGATIVE); PH,URINE 7.5 (5.0-9.0); PROTEIN,URINE NEGATIVE (NEGATIVE); UROBILINOGEN,URINE 0.2 mg/dL (0.2-1.0)
[2023-05-16 08:28] LABS: BASOPHILS PERCENT AUTO 0.3 % (0.0-1.0); EOSINOPHILS PERCENT AUTO 2.2 % (1.0-3.0); HEMATOCRIT 37.2 % (37.0-47.0); HEMOGLOBIN 12.2 g/dL (12.0-16.0); LYMPHOCYTES PERCENT AUTO 17.6 % (20.5-50.1); MEAN CORPUSCULAR HEMOGLOBIN 29.8 pg (27.0-34.0); MEAN CORPUSCULAR HGB CONC 32.8 g/dL (33.0-35.0); MONOCYTES PERCENT AUTO 8.5 % (2-8); NEUTROPHILS PERCENT AUTO 71.4 % (42.2-75.2); PLATELET COUNT,PLT 310 10^3/uL (150-450); RED BLOOD CELL COUNT 4.09 10^6/uL (4.2-5.4); WHITE BLOOD CELL COUNT,WBC 10.9 10^3/uL (5.0-10.0)
[2023-05-16 08:43] LABS: BACTERIA,URINE RARE /HPF (0-FEW/HPF); EPITHELIAL CELLS,URINE RARE /HPF (NOT SEEN); MUCUS,URINE NOT SEEN /LPF (NOT SEEN); RBC,URINE NOT SEEN /HPF (0-5); WBC,URINE NOT SEEN /HPF (0-5/HPF)
[2023-05-16 08:55] LABS: ALANINE AMINOTRANSFERASE,ALT 19 U/L (14-59); ALBUMIN 3.3 g/dL (3.4-5.0); ALKALINE PHOSPHATASE 48 U/L (46-116); AMYLASE 35 U/L (25-115); ANION GAP 9.9 mEq/L (7-13); ASPARTATE AMNIOTRANSFERASE,AST 9 U/L (15-37); BILIRUBIN TOTAL 0.4 mg/dL (0.2-1.0); BLOOD UREA NITROGEN,BUN 17 mg/dL (7-18); BUN/CREATININE RATIO 25.8 (No establ ref range); C-REACTIVE PROTEIN 0.65 ng/dL (<=0.50); CALCIUM 8.5 mg/dL (8.5-10.1); CARBON DIOXIDE,CO2 27 mmol/L (21-32); CHLORIDE,CL 106 mmol/L (98-107); CREATININE 0.66 mg/dL (0.55-1.02); EST CRCL DRUG DOSING (CG) 114.59 mL/min; GLUCOSE RANDOM 96 mg/dL (70-99); LIPASE 17 U/L (16-77); POTASSIUM,K 3.9 mmol/L (3.5-5.1); PROTEIN TOTAL,TP 6.4 g/dL (6.4-8.2); SODIUM,NA 139 mmol/L (136-145)
[2023-05-16 08:57] LABS: INR 0.9 (0.9-1.2); PTT,PARTIAL THROMBOPLSTIN TIME 25.7 SEC (22.0-34.0)
[2023-05-16 09:02] LABS: A/G RATIO 1.06; ESTIMATED GFR 117 mL/min (>=60); LACTIC ACID 0.7 mmol/L (0.4-2.0)
[2023-05-16] MEDS ORDERED: Ertapenem 1 GM Vial IVPUSH ONE (09:15)
[2023-05-16] MEDS ORDERED: Phenazopyridine 95 MG Tab PO ONE (09:17)
[2023-05-23 11:46] LABS: C.TRACHOMATIS BY TMA Negative (Negative); M GENITALIUM Negative (Negative); M GENITALIUM SOURCE Urine; N.GONORRHOEAE BY TMA Negative (Negative); SOURCE Urine
== END 2023-05-16 09:55 | disposition home or self-care (01) ==
LOC: DL.ED 07:34
DX: N39.0 Urinary tract infection, site not specified (principal); K21.9 Gastro-esophageal reflux disease without esophagitis; E11.9 Type 2 diabetes mellitus without complications; Z79.84 Long term (current) use of oral hypoglycemic drugs; Z79.899 Other long term (current) drug therapy; Z88.0 Allergy status to penicillin; Z88.1 Allergy status to other antibiotic agents
CPT/HCPCS: 36415; 80053; 81001; 81025; 82150; 83605; 83690; 84145; 85025; 85610; 85730; 86140; 87086; 87088; 87186; 87491; 87563; 87591; 96374; 96375; 99284; A9270; J1170; J1335; J2405; J7030; J3490

== ENCOUNTER 2023-09-08 14:42 | Emergency (ER) | payer MEDICAID ==
[2023-09-08 15:42] VITALS: BP 124/68; PULSE 121
[2023-09-08 16:04] LABS: APPEARANCE,URINE CLEAR (CLEAR); BILIRUBIN,URINE SMALL (NEGATIVE); COLOR,URINE YELLOW (YELLOW); GLUCOSE,URINE NEGATIVE (NEGATIVE); KETONES,URINE 15 (NEGATIVE); LEUKOCYTE ESTERASE,URINE NEGATIVE (NEGATIVE); NITRITE,URINE NEGATIVE (NEGATIVE); OCCULT BLOOD,URINE NEGATIVE (NEGATIVE); PH,URINE 5.5 (5.0-9.0); PROTEIN,URINE 30 (NEGATIVE); UROBILINOGEN,URINE 0.2 mg/dL (0.2-1.0)
[2023-09-08 16:21] LABS: BACTERIA,URINE MODERATE /HPF (0-FEW/HPF); EPITHELIAL CELLS,URINE MODERATE /HPF (NOT SEEN); MUCUS,URINE MANY /LPF (NOT SEEN)
[2023-09-08 16:22] LABS: BASOPHILS PERCENT AUTO 0.1 % (0.0-1.0); EOSINOPHILS PERCENT AUTO 0.5 % (1.0-3.0); HEMOGLOBIN 13.5 g/dL (12.0-16.0); LYMPHOCYTES PERCENT AUTO 5.4 % (20.5-50.1); MEAN CORPUSCULAR HEMOGLOBIN 29.8 pg (27.0-34.0); MEAN CORPUSCULAR HGB CONC 32.9 g/dL (33.0-35.0); MEAN CORPUSCULAR VOLUME 90.5 fL (80-100); MONOCYTES PERCENT AUTO 6.7 % (2-8); NEUTROPHILS PERCENT AUTO 87.3 % (42.2-75.2); PLATELET COUNT,PLT 238 10^3/uL (150-450); RED BLOOD CELL COUNT 4.53 10^6/uL (4.2-5.4); WHITE BLOOD CELL COUNT,WBC 8.9 10^3/uL (5.0-10.0)
[2023-09-08 16:22] LABS: RBC,URINE 0-5 /HPF (0-5); WBC,URINE 0-5 /HPF (0-5/HPF)
[2023-09-08] MEDS: Iopamidol 612 MG/ML 100 ML Bottle IARTIC ONE (16:27)
[2023-09-08 16:39] LABS: ALBUMIN 3.2 g/dL (3.4-5.0); ANION GAP 15.8 mEq/L (7-13); BILIRUBIN TOTAL 0.4 mg/dL (0.2-1.0); CALCIUM 7.7 mg/dL (8.5-10.1); CREATININE 0.77 mg/dL (0.55-1.02); EST CRCL DRUG DOSING (CG) 97.28 mL/min; POTASSIUM,K 3.8 mmol/L (3.5-5.1); PROTEIN TOTAL,TP 6.1 g/dL (6.4-8.2)
[2023-09-08 16:40] LABS: A/G RATIO 1.1
[2023-09-08] MEDS: Sodium Chloride 0.9% 1,000 ML IV ONE (17:03)
[2023-09-08] MEDS: HYDROmorphone 0.5 MG/0.5 ML Syringe IVPUSH ONE (17:04)
[2023-09-08] MEDS: Sodium Chloride 0.9% 10 ML Syringe FLUSH PRN (17:05)
[2023-09-08] MEDS: Ondansetron 4 MG Tab.DIS PO ONE (17:54)
== END 2023-09-08 18:02 | disposition home or self-care (01) ==
LOC: DL.ED 14:42
DX: N83.201 Unspecified ovarian cyst, right side (principal); K21.9 Gastro-esophageal reflux disease without esophagitis; E11.9 Type 2 diabetes mellitus without complications; Z79.84 Long term (current) use of oral hypoglycemic drugs; Z79.899 Other long term (current) drug therapy; Z88.0 Allergy status to penicillin; Z88.1 Allergy status to other antibiotic agents
CPT/HCPCS: 36415; 74177; 80053; 81001; 81025; 85025; 96361; 96374; 99284; A9270; J1170; J7030; Q9967; J3490

== ENCOUNTER 2024-01-26 19:20 | Emergency (ER) | payer BC, OTHER ==
[2024-01-26 20:15] LABS: BASOPHILS PERCENT AUTO 0.5 % (0.0-1.0); EOSINOPHILS PERCENT AUTO 3.3 % (1.0-3.0); HEMATOCRIT 38.2 % (37.0-47.0); HEMOGLOBIN 12.5 g/dL (12.0-16.0); LYMPHOCYTES PERCENT AUTO 26.6 % (20.5-50.1); MEAN CORPUSCULAR HEMOGLOBIN 29.9 pg (27.0-34.0); MEAN CORPUSCULAR HGB CONC 32.7 g/dL (33.0-35.0); MEAN CORPUSCULAR VOLUME 91.4 fL (80-100); MONOCYTES PERCENT AUTO 10.3 % (2-8); NEUTROPHILS PERCENT AUTO 59.3 % (42.2-75.2); PLATELET COUNT,PLT 288 10^3/uL (150-450); RED BLOOD CELL COUNT 4.18 10^6/uL (4.2-5.4); WHITE BLOOD CELL COUNT,WBC 7.9 10^3/uL (5.0-10.0)
[2024-01-26 20:35] LABS: APPEARANCE,URINE CLEAR (CLEAR); BILIRUBIN,URINE NEGATIVE (NEGATIVE); COLOR,URINE YELLOW (YELLOW); GLUCOSE,URINE NEGATIVE (NEGATIVE); KETONES,URINE NEGATIVE (NEGATIVE); LEUKOCYTE ESTERASE,URINE NEGATIVE (NEGATIVE); NITRITE,URINE NEGATIVE (NEGATIVE); OCCULT BLOOD,URINE NEGATIVE (NEGATIVE); PROTEIN,URINE NEGATIVE (NEGATIVE); UROBILINOGEN,URINE 0.2 mg/dL (0.2-1.0)
[2024-01-26 20:38] LABS: A/G RATIO 1.1; ALANINE AMINOTRANSFERASE,ALT 17 U/L (14-59); ALBUMIN 3.5 g/dL (3.4-5.0); ALKALINE PHOSPHATASE 50 U/L (46-116); ANION GAP 12.3 mEq/L (7-13); ASPARTATE AMNIOTRANSFERASE,AST 8 U/L (15-37); BILIRUBIN TOTAL 0.3 mg/dL (0.2-1.0); BLOOD UREA NITROGEN,BUN 16 mg/dL (7-18); BUN/CREATININE RATIO 20.3 (No establ ref range); CALCIUM 8.8 mg/dL (8.5-10.1); CARBON DIOXIDE,CO2 27 mmol/L (21-32); CHLORIDE,CL 103 mmol/L (98-107); CREATININE 0.79 mg/dL (0.55-1.02); EST CRCL DRUG DOSING (CG) 98.36 mL/min; GLUCOSE RANDOM 97 mg/dL (70-99); POTASSIUM,K 4.3 mmol/L (3.5-5.1); PROTEIN TOTAL,TP 6.7 g/dL (6.4-8.2); SODIUM,NA 138 mmol/L (136-145)
[2024-01-26 20:41] LABS: C-REACTIVE PROTEIN < 0.50 ng/dL (<=0.50); ESTIMATED GFR 99 mL/min (>=60); ETHANOL BLOOD MEDICAL < 3 mg/dL (0); LACTIC ACID 1.3 mmol/L (0.4-2.0)
[2024-01-26] MEDS: Sodium Chloride 0.9% 10 ML Syringe FLUSH PRN (20:52)
[2024-01-26] MEDS: Sodium Chloride 0.9% 1,000 ML IV ONE (20:54)
[2024-01-26] MEDS: Ketorolac 30 MG/ML SDV IVPUSH ONE (20:54)
[2024-01-26] MEDS: Ondansetron 4 MG/2 ML SDV IVPUSH ONE (20:54)
[2024-01-26] MEDS: GI Cocktail Oral Solution 30 ML PO ONE (21:32)
[2024-01-26 21:35] VITALS: BP 127/74; PULSE 68
[2024-01-26] MEDS: HYDROmorphone 1 MG/ML Syringe IVPUSH ONE (22:30)
== END 2024-01-26 23:04 | disposition home or self-care (01) ==
LOC: DL.ED 19:20
DX: K21.9 Gastro-esophageal reflux disease without esophagitis (principal); R07.89 Other chest pain; R19.7 Diarrhea, unspecified; R51.9 Headache, unspecified; E11.9 Type 2 diabetes mellitus without complications; Z86.16 Personal history of COVID-19; Z79.84 Long term (current) use of oral hypoglycemic drugs; Z79.899 Other long term (current) drug therapy; Z88.0 Allergy status to penicillin; Z88.1 Allergy status to other antibiotic agents
CPT/HCPCS: 36415; 80053; 80307; 81003; 81025; 83605; 84484; 85025; 86140; 87635; 87804; 93005; 93010; 96361; 96374; 96375; 99284; A9270; J1170; J1885; J2405; J7030; J3490; U0002

== ENCOUNTER 2024-05-18 14:59 | Emergency (ER) | payer BC, OTHER ==
[2024-05-18 16:05] LABS: APPEARANCE,URINE SLIGHTLY CLOUDY (CLEAR); BILIRUBIN,URINE NEGATIVE (NEGATIVE); COLOR,URINE YELLOW (YELLOW); GLUCOSE,URINE NEGATIVE (NEGATIVE); KETONES,URINE NEGATIVE (NEGATIVE); LEUKOCYTE ESTERASE,URINE NEGATIVE (NEGATIVE); NITRITE,URINE NEGATIVE (NEGATIVE); OCCULT BLOOD,URINE NEGATIVE (NEGATIVE); PROTEIN,URINE NEGATIVE (NEGATIVE); UROBILINOGEN,URINE 0.2 mg/dL (0.2-1.0)
[2024-05-18 17:30] LABS: BASOPHILS PERCENT AUTO 0.4 % (0.0-1.0); EOSINOPHILS PERCENT AUTO 3.5 % (1.0-3.0); HEMOGLOBIN 12.4 g/dL (12.0-16.0); LYMPHOCYTES PERCENT AUTO 28.3 % (20.5-50.1); MEAN CORPUSCULAR HGB CONC 32.6 g/dL (33.0-35.0); MEAN CORPUSCULAR VOLUME 91.8 fL (80-100); MONOCYTES PERCENT AUTO 7.1 % (2-8); NEUTROPHILS PERCENT AUTO 60.7 % (42.2-75.2); PLATELET COUNT,PLT 299 10^3/uL (150-450); RED BLOOD CELL COUNT 4.14 10^6/uL (4.2-5.4); WHITE BLOOD CELL COUNT,WBC 8.9 10^3/uL (5.0-10.0)
[2024-05-18 17:55] LABS: A/G RATIO 1.2; ALANINE AMINOTRANSFERASE,ALT 20 U/L (14-59); ALBUMIN 3.6 g/dL (3.4-5.0); ALKALINE PHOSPHATASE 43 U/L (46-116); ASPARTATE AMNIOTRANSFERASE,AST 8 U/L (15-37); BILIRUBIN TOTAL 0.2 mg/dL (0.2-1.0); BLOOD UREA NITROGEN,BUN 16 mg/dL (7-18); BUN/CREATININE RATIO 24.2 (No establ ref range); CARBON DIOXIDE,CO2 26 mmol/L (21-32); CHLORIDE,CL 104 mmol/L (98-107); CREATININE 0.66 mg/dL (0.55-1.02); EST CRCL DRUG DOSING (CG) 115.61 mL/min; GLUCOSE RANDOM 92 mg/dL (70-99); MAGNESIUM 1.6 mg/dL (1.8-2.4); PROTEIN TOTAL,TP 6.6 g/dL (6.4-8.2); SODIUM,NA 139 mmol/L (136-145)
[2024-05-18 17:57] LABS: C-REACTIVE PROTEIN < 0.50 ng/dL (<=0.50); ESTIMATED GFR 116 mL/min (>=60)
[2024-05-18 17:58] LABS: LACTIC ACID 0.8 mmol/L (0.4-2.0)
[2024-05-18 18:28] VITALS: BP 138/90; PULSE 75
[2024-05-18] MEDS ORDERED: Lactulose Soln 10 GM/15 ML 30 ML UD Cup PO ONE (18:29)
== END 2024-05-18 18:41 | disposition home or self-care (01) ==
LOC: DL.ED 14:59
DX: K59.00 Constipation, unspecified (principal); E11.9 Type 2 diabetes mellitus without complications; K21.9 Gastro-esophageal reflux disease without esophagitis; Z86.16 Personal history of COVID-19; Z79.899 Other long term (current) drug therapy; Z79.84 Long term (current) use of oral hypoglycemic drugs; Z88.0 Allergy status to penicillin; Z88.1 Allergy status to other antibiotic agents
CPT/HCPCS: 36415; 74018; 80053; 81003; 81025; 83605; 83735; 85025; 86140; 99284

== ENCOUNTER 2024-06-17 15:47 | Emergency (ER) | payer BC, OTHER ==
[2024-06-17 16:03] VITALS: BP 120/94; PULSE 87
[2024-06-17] MEDS: Pseudoephedrine 30 MG Tab PO ONE (16:17)
== END 2024-06-17 16:16 | disposition home or self-care (01) ==
LOC: DL.ED 15:47
DX: H61.21 Impacted cerumen, right ear (principal); J06.9 Acute upper respiratory infection, unspecified; B97.89 Other viral agents as the cause of diseases classified elsewhere; K21.9 Gastro-esophageal reflux disease without esophagitis; E11.9 Type 2 diabetes mellitus without complications; Z86.16 Personal history of COVID-19; Z90.89 Acquired absence of other organs; Z88.0 Allergy status to penicillin; Z79.84 Long term (current) use of oral hypoglycemic drugs; Z79.899 Other long term (current) drug therapy
CPT/HCPCS: 69210; 99284; A9270

== ENCOUNTER 2024-07-22 10:43 | Emergency (ER) | payer BC, OTHER ==
[2024-07-22] MEDS: Metoclopramide 10 MG/2 ML SDV IVPUSH ONE (12:21)
[2024-07-22] MEDS: diphenhydrAMINE 50 MG/ML SDV IVPUSH ONE (12:22)
[2024-07-22] MEDS: Ketorolac 30 MG/ML SDV IVPUSH ONE (12:23)
[2024-07-22] MEDS: Ondansetron 4 MG Tab.DIS PO ONE (13:04)
[2024-07-22 13:34] VITALS: BP 104/61; PULSE 96
== END 2024-07-22 13:30 | disposition home or self-care (01) ==
LOC: DL.ED 10:43
DX: F07.81 Postconcussional syndrome (principal); K21.9 Gastro-esophageal reflux disease without esophagitis; E11.9 Type 2 diabetes mellitus without complications; Z86.16 Personal history of COVID-19; Z90.89 Acquired absence of other organs; Z88.0 Allergy status to penicillin; Z79.84 Long term (current) use of oral hypoglycemic drugs; Z79.899 Other long term (current) drug therapy
CPT/HCPCS: 70450; 96374; 96375; 99283; A9270; J1200; J1885; J2765

== ENCOUNTER 2025-01-09 10:20 | Emergency (ER) | payer BC, OTHER ==
[2025-01-09] MEDS: Iopamidol 755 Mg/ML 100 ML Bottle IVPUSH ONE (10:29)
[2025-01-09 10:46] LABS: BASOPHILS PERCENT AUTO 0.9 % (0.0-1.0); EOSINOPHILS PERCENT AUTO 3.5 % (1.0-3.0); LYMPHOCYTES PERCENT AUTO 30.3 % (20.5-50.1); MONOCYTES PERCENT AUTO 8.6 % (2-8); NEUTROPHILS PERCENT AUTO 56.7 % (42.2-75.2); PLATELET COUNT,PLT 296 10^3/uL (150-450); RED BLOOD CELL COUNT 4.35 10^6/uL (4.2-5.4); WHITE BLOOD CELL COUNT,WBC 6.5 10^3/uL (5.0-10.0)
[2025-01-09 10:58] LABS: INR 0.9 (0.9-1.2)
[2025-01-09 11:06] LABS: A/G RATIO 1.2; ALANINE AMINOTRANSFERASE,ALT 18.0 U/L (14-59); ASPARTATE AMNIOTRANSFERASE,AST 7.0 U/L (15-37); BILIRUBIN TOTAL 0.5 mg/dL (0.2-1.0); BLOOD UREA NITROGEN,BUN 11.0 mg/dL (7-18); CARBON DIOXIDE,CO2 28.0 mmol/L (21-32); CHLORIDE,CL 103.0 mmol/L (98-107); CREATININE 0.67 mg/dL (0.55-1.02); EST CRCL DRUG DOSING (CG) 118.98 mL/min; GLUCOSE RANDOM 103.0 mg/dL (70-99); POTASSIUM,K 4.0 mmol/L (3.5-5.1); PROTEIN TOTAL,TP 6.9 g/dL (6.4-8.2); SODIUM,NA 138.0 mmol/L (136-145)
[2025-01-09 11:07] LABS: ESTIMATED GFR 115.0 mL/min (>=60)
[2025-01-09 11:23] LABS: AMPHETAMINES,URINE NEGATIVE (NEGATIVE); BARBITURATES,URINE NEGATIVE (NEGATIVE); MDMA (ECSTASY), URINE NEGATIVE (NEGATIVE); METHAMPHETAMINES,URINE POSITIVE (NEGATIVE); OPIATES,URINE NEGATIVE (NEGATIVE); OXYCODONE,URINE NEGATIVE (NEGATIVE); PHENCYCLIDINE,URINE NEGATIVE (NEGATIVE); TCA,URINE NEGATIVE (NEGATIVE)
[2025-01-09] MEDS: fentaNYL 100 MCG/2 ML SDV IVPUSH ONE (11:36)
[2025-01-09] MEDS: Magnesium Sulfate 2 GM/50 mL 2 GM in Premix Bag 1 BAG IV ONE (11:42)
[2025-01-09] MEDS: Ketorolac 30 MG/ML SDV IVPUSH ONE (11:50)
[2025-01-09] MEDS: fentaNYL 100 MCG/2 ML SDV ONE (11:53)
[2025-01-09 13:04] VITALS: BP 116/79; PULSE 75
== END 2025-01-09 13:06 | disposition home or self-care (01) ==
LOC: DL.ED 10:20
DX: G56.31 Lesion of radial nerve, right upper limb (principal); K21.9 Gastro-esophageal reflux disease without esophagitis; E11.9 Type 2 diabetes mellitus without complications; Z88.0 Allergy status to penicillin; Z79.84 Long term (current) use of oral hypoglycemic drugs; Z86.16 Personal history of COVID-19
CPT/HCPCS: 36415; 70450; 70496; 70498; 80053; 80305; 82947; 83735; 84484; 85025; 85610; 93005; 96365; 96375; 99284; J1885; J3010; J3475; Q9967

== ENCOUNTER 2025-02-19 13:56 | Emergency (ER) | payer BC, OTHER ==
[2025-02-19 14:10] VITALS: BP 138/79; PULSE 109
== END 2025-02-19 14:58 | disposition home or self-care (01) ==
LOC: DL.ED 13:56
DX: S90.32XA Contusion of left foot, initial encounter (principal); K21.9 Gastro-esophageal reflux disease without esophagitis; E11.9 Type 2 diabetes mellitus without complications; Z88.2 Allergy status to sulfonamides; Z79.51 Long term (current) use of inhaled steroids; Z79.899 Other long term (current) drug therapy; Z79.84 Long term (current) use of oral hypoglycemic drugs; X58.XXXA Exposure to other specified factors, initial encounter; Y93.89 Activity, other specified
CPT/HCPCS: 36415; 85379; 99283; 99284

== ENCOUNTER 2025-05-13 19:18 | Emergency (ER) | payer BC, OTHER ==
[2025-05-13] MEDS ORDERED: Take Home: Doxycycline 100 MG Cap, 4 Cap Pack PO ONE (21:23)
[2025-05-13 21:46] VITALS: BP 135/90; PULSE 71
== END 2025-05-13 21:35 | disposition home or self-care (01) ==
LOC: DL.ED 19:18
DX: R51.9 Headache, unspecified (principal); J32.9 Chronic sinusitis, unspecified; E11.9 Type 2 diabetes mellitus without complications; K21.9 Gastro-esophageal reflux disease without esophagitis; Z90.89 Acquired absence of other organs; Z79.84 Long term (current) use of oral hypoglycemic drugs; Z79.899 Other long term (current) drug therapy; Z88.0 Allergy status to penicillin; W22.8XXA Striking against or struck by other objects, initial encounter
CPT/HCPCS: 70450; 70486; 99283